=== PATIENT | female | born 1945 | race Hispanic/Latino ===

== ENCOUNTER 2016-06-09 15:16 | Inpatient (IN) | payer MEDICAID, MEDICARE ==
[2016-06-09] MEDS ORDERED: NACL 0.9% 1000 ML 1,000 ML IV ONE (16:01)
[2016-06-09 16:30] LABS: Basophils % (Auto) 0.7 % (0.0-1.8); Eosinophils % (Auto) 6.4 % (0.0-4.3); Hematocrit 22.7 % (30.3-42.9); Hemoglobin 7.3 gm/dl (10.1-14.3); Mean Corpuscular HGB Conc 32 % (30-34); Mean Corpuscular Hemoglobin 27 pg (28-32); Mean Corpuscular Volume 83 fl (79-97); Platelet Count 284 K/mm3 (140-440); Red Blood Count 2.73 M/mm3 (3.65-5.03); Red Cell Distribution Width 14.4 % (13.2-15.2); White Blood Count 6.3 K/mm3 (4.5-11.0)
[2016-06-09 16:42] LABS: INR 1.1 (0.87-1.13)
[2016-06-09 16:43] LABS: Partial Thromboplastin Time 34.6 Sec. (24.2-36.6)
[2016-06-09 16:47] LABS: Chloride 100.5 mmol/L (98-107)
[2016-06-09 17:35] LABS: Hematocrit 22.7 % (30.3-42.9); Hemoglobin 7.2 gm/dl (10.1-14.3); Mean Corpuscular HGB Conc 32 % (30-34); Mean Corpuscular Hemoglobin 26 pg (28-32); Mean Corpuscular Volume 83 fl (79-97); Platelet Count 279 K/mm3 (140-440); Red Blood Count 2.73 M/mm3 (3.65-5.03); Red Cell Distribution Width 14.7 % (13.2-15.2); White Blood Count 6.6 K/mm3 (4.5-11.0)
[2016-06-09 17:38] LABS: Potassium 5.3 mmol/L (3.6-5.0)
[2016-06-09] MEDS ORDERED: NACL 0.9% 500 ML 500 ML IV ONE (18:53)
[2016-06-09] MEDS ORDERED: KIONEX PO ONE (18:53)
--- NOTE | 2016-06-09 18:56 | Emergency Department Report ---
HPI - General Chief Complaint: Recheck/Abnormal Lab/Rx Time Seen by Provider: 06/09/16 16:03 - HPI HPI: The patient is a 70-year-old female with a history of anemia, who presents for evaluation of generalized weakness. The patient reports generalized weakness for the past 2-3 days, progressive, constant severe for the past one day, exacerbated with attempted physical activity. The patient denies fever, headache , neck pain, paresthesias, focal motor weakness, blurry vision, ear pain, tinnitus, chest pain, hemoptysis, dyspnea, abdominal pain, confusion or altered mental status, or recent URI or diarrhea. ED Past Medical Hx - Past Medical History Hx Hypertension: Yes Hx Heart Attack/AMI: No Hx Congestive Heart Failure: No Hx Diabetes: No Hx Deep Vein Thrombosis: Yes (hx LLExt.) Hx Pulmonary Embolism: No Hx GERD: Yes Hx Liver Disease: No Hx Renal Disease: No Hx Sickle Cell Disease: No Hx Arthritis: No Hx Seizures: No Hx Kidney Stones: No Hx Psychiatric Treatment: Yes (anxiety, depression, schizophrenia) Hx Asthma: No Hx COPD: Yes Hx Tuberculosis: No Hx Dementia: Yes Hx HIV: No Additional medical history: High cholesterol. Schizophrenia, left hip fracture, left arm fracture, displaced fracture of 1st cervical vertebra, GERD, DVT LLE, generalized muscle weakness - Surgical History Hx Coronary Stent: No Hx Pacemaker: No Hx Internal Defibrillator: No Additional Surgical History: ORIF left hip - Social History Smoking Status: Current Some Day Smoker Substance Use Type: None - Medications Home Medications: Home Medications Medication Instructions Recorded Confirmed Last Taken Type Tiotropium [Spiriva] 18 mcg IH QDAY 05/02/15 06/09/16 01/01/16 History ALBUTEROL Inhaler [ProAir HFA 2 puff IH QID PRN 08/18/15 02/03/16 01/01/16 History Inhaler] Mirtazapine [Remeron] 15 mg PO QHS 02/03/16 02/03/16 Unknown History Pantoprazole [Protonix TAB] 40 mg PO BID #60 tablet 02/09/16 Unknown Rx amLODIPine [Norvasc] 10 mg PO QDAY #30 tablet 02/09/16 Unknown Rx Sucralfate [Carafate] 1 gm PO Q6H 30 Days 02/11/16 06/09/16 Unknown Rx Acetaminophen 650 mg PO Q4H PRN 06/09/16 06/09/16 Unknown History Carvedilol [Coreg] 12.5 mg PO BID 06/09/16 06/09/16 Unknown History Cholecalciferol Vit D3 [Vitamin D3] 1,000 unit PO QDAY 06/09/16 06/09/16 Unknown History Mirtazapine 7.5 mg PO HS 06/09/16 06/09/16 Unknown History Novolin R Per Sc 06/09/16 Unknown History Ondansetron [Zofran TAB] 4 mg PO Q8HR PRN 06/09/16 06/09/16 Unknown History Pantoprazole [Protonix] 40 mg PO QDAY 06/09/16 06/09/16 Unknown History ED Review of Systems ROS: Stated complaint: CRITICAL LABS Other details as noted in HPI Constitutional: denies: fever; reports weakness ENT: denies: throat or neck pain Respiratory: denies: cough, shortness of breath Cardiovascular: denies: chest pain Endocrine: denies unexplained weight loss or gain Gastrointestinal: denies: abdominal pain, nausea Genitourinary: denies: dysuria Musculoskeletal: denies: leg swelling Skin: denies: rash Neurological: denies: headache Hematological/Lymphatic: denies: easy bleeding or easy bruising Psych: denies sadness or hopelessness Physical Exam - Physical Exam Vital Signs: Vital Signs 06/09/16 06/09/16 06/09/16 15:22 15:30 15:33 Temperature 98.2 F Pulse Rate 75 74 78 Respiratory 16 16 18 Rate Blood Pressure 102/66 115/62 O2 Sat by Pulse 96 97 Oximetry 06/09/16 06/09/16 06/09/16 15:41 15:51 16:01 Temperature Pulse Rate 76 77 75 Respiratory 16 21 22 Rate Blood Pressure 102/66 109/60 103/53 O2 Sat by Pulse 93 96 92 Oximetry 06/09/16 06/09/16 06/09/16 16:11 16:21 16:24 Temperature Pulse Rate 79 77 Respiratory 20 16 18 Rate Blood Pressure 109/60 106/57 O2 Sat by Pulse 97 95 100 Oximetry 06/09/16 06/09/16 06/09/16 16:31 16:41 16:49 Temperature Pulse Rate 75 81 74 Respiratory 18 25 H Rate Blood Pressure 104/49 104/49 O2 Sat by Pulse 94 87 Oximetry Physical Exam: General: well-nourished, well-developed, no acute distress Head: Normocephalic, atraumatic Eyes: normal sclera ENT: Mucous membranes are pale and dry Neck: No neck stiffness, no cervical adenopathy Respiratory: Breath sounds equal bilaterally, no wheezing, rales, or rhonchi Cardio: S1 and S2 present, no murmurs, rubs, gallops, capillary refill is delayed Abdomen: Normoactive bowel sounds, soft abdomen, no rigidity, no guarding or rebound tenderness Chest WALL/Back: No tenderness to palpation of the chest wall, no CVA tenderness with percussion Musc: No pitting edema Skin: No rash Neuro: no facial drooping, normal speech Psych: Normal affect ED Course Vital Signs 06/09/16 06/09/16 06/09/16 15:22 15:30 15:33 Temperature 98.2 F Pulse Rate 75 74 78 Respiratory 16 16 18 Rate Blood Pressure 102/66 115/62 O2 Sat by Pulse 96 97 Oximetry 06/09/16 06/09/16 06/09/16 15:41 15:51 16:01 Temperature Pulse Rate 76 77 75 Respiratory 16 21 22 Rate Blood Pressure 102/66 109/60 103/53 O2 Sat by Pulse 93 96 92 Oximetry 06/09/16 06/09/16 06/09/16 16:11 16:21 16:24 Temperature Pulse Rate 79 77 Respiratory 20 16 18 Rate Blood Pressure 109/60 106/57 O2 Sat by Pulse 97 95 100 Oximetry 06/09/16 06/09/16 06/09/16 16:31 16:41 16:49 Temperature Pulse Rate 75 81 74 Respiratory 18 25 H Rate Blood Pressure 104/49 104/49 O2 Sat by Pulse 94 87 Oximetry ED Medical Decision Making - Lab Data Result diagrams: 06/09/16 17:09 06/09/16 16:10 - Medical Decision Making The patient was seen and examined by myself. The patient is placed on a environmental monitoring technician and continuous pulse ox. On initial evaluation, the patient was found to be in no distress. Evaluation orders were placed. The patient is given 1 L normal saline fluid bolus for treatment of dehydration. Lab results reveal elevated creatinine of 3, elevated potassium level 5.3, and low hemoglobin of 7.2. kayexalate is ordered for treatment of hyperkalemia. One unit of PRBCs ordered. The on-call hospitalist service was contacted. They agreed to admit the patient for further treatment and close monitoring. The ED admit order was placed. The patient was admitted in guarded condition. Critical care attestation.: If time is entered above; I have spent that time in minutes in the direct care of this critically ill patient, excluding procedure time. ED Disposition Clinical Impression: Severe anemia, Acute hyperkalemia, Dehydration Acute kidney failure Qualifiers: Acute renal failure type: unspecified Qualified Code(s): N17.9 - Acute kidney failure, unspecified Disposition: OP ADMITTED IP TO THIS HOSP Is pt being admited?: Yes Does the pt Need Aspirin: Yes Condition: Serious Referrals: PRIMARY CARE, [Primary Care Provider] - 3-5 Days Time of Disposition: 17:54
--- NOTE | 2016-06-09 19:02 | Admit Criteria Form ---
Admission Criteria Documentation: HYPONATREMIA; HYPERNATREMIA; HYPOKALEMIA; HYPERKALEMIA; HYPOCALCEMIA; HYPERCALCEMIA Clinical Indications for Inpatient Care (Place 'X' for any and all applicable criteria): Ongoing inpatient care may be indicated for ANY ONE of the following [G](1)(2)(3 )(5): [ ]I. Hyponatremia with ANY ONE of the following: [ ]a) Sodium less than 130 mEq/L (mmol/L) (new) (6)(22) [ ]b) Sodium less than 135 mEq/L (mmol/L) with ANY ONE of the following: [ ]i) Severe medical etiology requiring inpatient management (eg, heart failure, hypovolemia) [ ]ii) Altered mental status [ ]iii) Seizures [ ]II. Hypernatremia with ANY ONE of the following: [ ]a) Sodium greater than 155 mEq/L (mmol/L) [ ]b) Sodium greater than 150 mEq/L (mmol/L) with ANY ONE of the following: [ ] i) Altered mental status [ ]ii) Seizures [ ]iii) Severe medical etiology (eg, hypovolemia, diabetes insipidus) [ ]iv) Severe weakness [ ]v) Severe medical etiology (eg, hemolysis, infection, drug overdose) [ ]III. Hypokalemia with ANY ONE of the following: [ ]a) Potassium less than 2.5 mEq/L (mmol/L) despite outpatient and emergency treatment [ ]b) Potassium less than 3.0 mEq/L (mmol/L) with ANY ONE of the following: [ ]i) Weakness [ ]ii) Cardiac abnormality (eg, arrhythmia, conduction disturbance) [ ]iii) Cardiac ischemia [ ]iv) Ileus [ ]v) Ongoing medical cause requiring inpatient management. ( e.g., acute renal wasting, SIADH) [ ]vi) Other severe symptoms [X ] IV. Hyperkalemia with ANY ONE of the following: [ ]a) Potassium greater than 6.5 mEq/L (mmol/L) [X ]b) Potassium greater than 5 mEq/L (mmol/L) with ANY ONE of the following: [ ]i) Severe ECG findings [H] [X ]ii) Acute worsening of renal failure (creatinine greater than 2.5 mg/dL (221 micromoles/L) or significant elevation for age and size) [ ] V. Hypocalcemia with ANY ONE of the following: [ ]a) Calcium less than 7 mg/dL (1.75 mmol/L) despite outpatient and emergency treatment(19) [ ]b) Calcium less than 8 mg/dL (2 mmol/L) with significant symptoms or findings; examples include: [ ]i) Cardiac abnormality (eg, arrhythmia or conduction disturbance) [ ]ii) Altered mental status [ ]iii) Seizures [ ]iv) Breathing difficulty [ ]v) Muscle spasms [ ]. Hypercalcemia with ANY ONE of the following: [ ]a) Calcium greater than 14 mg/dL (3.5 mmol/L) [ ]b) Calcium greater than 12 mg/dL (3 mmol/L) with ANY ONE of the following: [ ]i) Significant dehydration or hypovolemia as indicated by ANY ONE of the following(2): [ ]1. Clinically significant dehydration as indicated by ANY ONE of the following: [ ]A. Acute loss of weight from baseline (5% of body weight in adults, 9% in pediatric patients) [ ]B. Hemodynamic instability [ ]C. Acute renal failure [ ]D. Serum sodium greater than 150 mEq/L (mmol/L) [ ]2) Dehydration that is persistent indicated by ALL of the following: [ ]A. Oral rehydration therapy not tolerated or insufficient to adequately correct dehydration [ ]B. Appropriate intravenous treatment (eg, fluids ) does not readily correct dehydration ie, after 12 to 24 hours of treatment) [ ]ii) Significant symptoms or findings; examples include: [ ]1) Altered mental status [ ]2) Cardiac abnormality (eg, arrhythmia, conduction disturbance) [ ]3) Cardiac abnormality (eg, arrhythmia, conduction disturbance) The original [employer] content created by [employer] has been revised. The portions of the content which have been revised are identified through the use of italic text or in bold, and [facility] [employer] has neither reviewed nor approved the modified material. All other unmodified content is copyright [facility] [employer] Please see references footnoted in the original [facility] [employer] edition 2016 Admission Criteria Met: Yes
[2016-06-09] MEDS ORDERED: NACL 0.9% 500 ML 500 ML ONE (21:33)
[2016-06-10] MEDS ORDERED: ZOFRAN IV PRN ×2 (02:17→02:27)
[2016-06-10] MEDS ORDERED: NACL 0.45% 1000 ML 1,000 ML IV SCH (03:00)
[2016-06-10] MEDS: PROVENTIL IH SCH ×5 (05:54→21:22)
[2016-06-10] MEDS ORDERED: ZOFRAN PO PRN (08:42)
[2016-06-10] MEDS ORDERED: PROAIR IH PRN (08:42)
--- NOTE | 2016-06-10 08:45 | Event Note ---
Date: 06/09/16 See H/p in reports Hyperkalemia Anemia Acute renal failure COPD GERD HTN
[2016-06-10] MEDS ORDERED: PROVENTIL IH PRN (08:48)
[2016-06-10] MEDS ORDERED: NACL 0.9% 1000 ML 1,000 ML IV SCH (09:00)
[2016-06-10 09:37] LABS: Basophils % (Auto) 0.7 % (0.0-1.8); Eosinophils % (Auto) 3.9 % (0.0-4.3); Hematocrit 26.8 % (30.3-42.9); Hemoglobin 8.7 gm/dl (10.1-14.3); Mean Corpuscular HGB Conc 33 % (30-34); Mean Corpuscular Hemoglobin 27 pg (28-32); Mean Corpuscular Volume 83 fl (79-97); Platelet Count 273 K/mm3 (140-440); Red Blood Count 3.21 M/mm3 (3.65-5.03); White Blood Count 7.5 K/mm3 (4.5-11.0)
[2016-06-10 09:47] LABS: BUN/Creatinine Ratio 10.37; Calcium 8.3 mg/dL (8.4-10.2)
[2016-06-10 09:48] LABS: Chloride 108.2 mmol/L (98-107); Potassium 3.6 mmol/L (3.6-5.0)
--- NOTE | 2016-06-10 09:51 | Consultation ---
History of Present Illness - Reason for Consult Consult date: 06/10/16 acute renal failure, chronic renal failure, hyperkalemia - History of Present Illness The patient is a 70 year old WF with history significant for Hypertension, Dementia, COPD, [place] resident, GI bleed, Anemia and CKD stage 3 who presented for evaluation of generalized weakness. Patient is known to our service from previous admission, she was treated for DANYA and the creatinine was 3.5 at the time of discharge. Her creatinine was 3 yesterday and 2.7 today. Patient is very confused to give any history. Based on the ER notes she reported generalized weakness for the past 3 days, which is progressive, constant, severe on the day of presentation and exacerbated with attempted physical activity. Theere was no h/o fever, headache, neck pain, paresthesias, focal motor weakness, blurry vision, ear pain, tinnitus, chest pain, hemoptysis, dyspnea, abdominal pain, recent URI or diarrhea. Past History Past Medical History: anemia, COPD, hypertension, other (GI bleed, CKD stage 3, Dementia) Medications and Allergies Allergies Allergy/AdvReac Type Severity Reaction Status Date / Time No Known Allergies Allergy Verified 04/26/15 00:08 Home Medications Medication Instructions Recorded Confirmed Last Taken Type Tiotropium [Spiriva] 18 mcg IH QDAY 05/02/15 06/09/16 01/01/16 History ALBUTEROL Inhaler [ProAir HFA 2 puff IH QID PRN 08/18/15 02/03/16 01/01/16 History Inhaler] Mirtazapine [Remeron] 15 mg PO QHS 02/03/16 02/03/16 Unknown History Pantoprazole [Protonix TAB] 40 mg PO BID #60 tablet 02/09/16 Unknown Rx amLODIPine [Norvasc] 10 mg PO QDAY #30 tablet 02/09/16 Unknown Rx Sucralfate [Carafate] 1 gm PO Q6H 30 Days 02/11/16 06/09/16 Unknown Rx Acetaminophen 650 mg PO Q4H PRN 06/09/16 06/09/16 Unknown History Carvedilol [Coreg] 12.5 mg PO BID 06/09/16 06/09/16 Unknown History Cholecalciferol Vit D3 [Vitamin D3] 1,000 unit PO QDAY 06/09/16 06/09/16 Unknown History Mirtazapine 7.5 mg PO HS 06/09/16 06/09/16 Unknown History Novolin R Per Sc 06/09/16 Unknown History Ondansetron [Zofran TAB] 4 mg PO Q8HR PRN 06/09/16 06/09/16 Unknown History Pantoprazole [Protonix] 40 mg PO QDAY 06/09/16 06/09/16 Unknown History Active Meds: Active Medications Albuterol (Proventil) 2.5 mg IH QIDRT SAY Last Admin: 06/10/16 08:35 Dose: 2.5 mg Albuterol (Proventil) 2.5 mg IH QID PRN PRN Reason: Shortness Of Breath Amlodipine Besylate (Norvasc) 10 mg PO QDAY SAY Carvedilol (Coreg) 12.5 mg PO BID [facility] Sodium Chloride (Nacl 0.9% 1000 Ml) 1,000 mls @ 100 mls/hr IV DIRECT SAY Insulin Aspart (Novolog) 0 units SUB-Q ACHS SAY PRN Reason: Protocol Mirtazapine (Remeron) 7.5 mg PO QHS SAY Ondansetron HCl (Zofran) 4 mg IV Q6H PRN PRN Reason: Nausea And Vomiting Last Admin: 06/10/16 02:38 Dose: 4 mg Ondansetron HCl (Zofran) 4 mg PO Q8HR PRN PRN Reason: Nausea Pantoprazole Sodium (Protonix) 40 mg PO QDAY [facility] Pantoprazole Sodium (Protonix) 40 mg IV BID [facility] Sucralfate (Carafate) 1 gm PO Q6H SAY Tiotropium [place] (Spiriva) 1 puff IH QDAY [facility] Review of Systems ROS unobtainable: due to mental status Exam - Vital Signs Vital signs: Vital Signs Pulse Resp 75 16 06/09/16 15:22 06/09/16 15:22 - General Appearance General appearance: well-developed, appears stated age, frail, other (no distress) EENT: PERRL, mucous membranes dry, hearing intact, vision intact Neck: Present: neck supple, trachea midline Respiratory: Ronchi (faint) Heart: regular, S1S2, no murmurs Gastrointestinal: Present: normoactive bowel sounds. Absent: tenderness, distended, guarding Integumentary: no rash, warm and dry Neurologic: no focal deficit, no asterixis, confused, disoriented, CN 3-12 intact Musculoskeletal: Present: other (no edema) Psychiatric: cooperative Results - Lab Results 06/10/16 08:14 06/10/16 08:14 Most recent lab results Calcium 8.3 mg/dL (8.4-10.2) L 06/10/16 08:14 - Image Kidney/bladder ultrasound: other Assessment and Plan - Patient Problems (1) Acute kidney failure Current Visit: Yes Status: Acute Qualifiers: Acute renal failure type: unspecified Qualified Code(s): N17.9 - Acute kidney failure, unspecified Plan to address problem: Acute Kidney Injury superimposed on CKD stage 3 likely secondary to volume depletion. Continue IV fluids. Creatinine is improving. Urine studies ordered. (2) Acute hyperkalemia Current Visit: Yes Status: Acute Plan to address problem: Improved with kayexalate. (3) Volume depletion Current Visit: Yes Status: Acute Plan to address problem: Continue IV 0.45% saline. (4) Anemia Current Visit: No Status: Chronic Qualifiers: Anemia type: unspecified type Iron deficiency anemia type: I Vitamin B12 deficiency anemia type: V Folate deficiency anemia type: F Bone marrow failure anemia type: B Hemolytic anemia type: H Other causes of anemia: O Qualified Code(s): D64.9 - Anemia, unspecified Plan to address problem: Monitor H/H. (5) COPD (chronic obstructive pulmonary disease) Current Visit: Yes Status: Acute Qualifiers: COPD type: C Chronic bronchitis type: C Emphysema type: E Plan to address problem: Appears stable.
[2016-06-10] MEDS ORDERED: PROTONIX PO SCH (10:00)
[2016-06-10 10:17] LABS: Total Iron Binding Capacity 354.2 mcg/dL (250-450)
[2016-06-10] MEDS: PROTONIX IV SCH ×2 (10:21→23:00)
[2016-06-10] MEDS: COREG PO SCH ×2 (10:21→22:51)
[2016-06-10] MEDS: NORVASC PO SCH (10:22)
[2016-06-10] MEDS: CARAFATE PO SCH ×3 (10:22→23:01)
--- NOTE | 2016-06-10 10:38 | History and Physical Report ---
CHIEF COMPLAINT: Generalized weakness. HISTORY OF PRESENT ILLNESS: A 70-year-old female comes in for generalized weakness for 2 to 3 days, progressive. Exacerbated with physical activity. Shortness of breath on minimal exertion. No fever, no chills. Recent onset of symptoms. The patient has multiple medical problems. The patient denies blurry vision, tinnitus, chest pain, hemoptysis, melena etc. No confusion or altered mental status. PAST MEDICAL HISTORY: Significant for hypertension, insulin-dependent diabetes, deep vein thrombosis in the past, gastroesophageal reflux disease, anxiety, depression, schizophrenia, COPD and dementia. PAST SURGICAL HISTORY: Left hip fracture, left arm fracture, ORIF open reduction and internal fixation of the left hip. No defibrillator. Also displaced fracture for cervical vertebrae. SOCIAL HISTORY: Smokes about a half-a-pack a day. FAMILY HISTORY: Significant for hypertension. REVIEW OF SYSTEMS: Significant for feeling very weak, tired and dyspnea on exertion; otherwise, review of systems is essentially negative. No nausea or bleed. No hematemesis, no melena. A 14-point review of systems was done. PHYSICAL EXAMINATION: GENERAL: Elderly female, cooperative during examination. VITAL SIGNS: Temperature 98.2, pulse is 75, respiratory rate is 60, and blood pressure is 102/66. HEENT: Pale mucous membranes. NECK: Supple, no lymphadenopathy, no thyromegaly. LUNGS: Clear to auscultation and percussion. Good air entry. CARDIOVASCULAR: S1, S2 heard. No gallop, no murmur, no rub. Apical impulse in left fifth intercostal space and midclavicular line. ABDOMEN: Soft and benign. No hepatosplenomegaly. No guarding, no rigidity. Hernial orifices are normal. Occult blood negative. EXTREMITIES: Good pedal pulses. No pedal edema. CENTRAL NERVOUS SYSTEM: Alert and oriented x 4, nonfocal exam. LABORATORY DATA: Significant for hemoglobin of 7.2, hematocrit of 22.7. Sodium of 136, slightly low; potassium of 5.3, BUN and creatinine of 33 and 3.0. IMAGING STUDIES: Chest x-ray was not done. ASSESSMENT AND PLAN: 1. Acute renal failure, etiology , we will start IV fluids and Nephrology consult requested. 2. Acute anemia, etiology unclear. Gastroenterology consult requested. Iron studies and folic acid, B12 ordered. Transfuse 1 unit of blood. 3. Hyperkalemia, Kayexalate given. Recheck the potassium. 4. Insulin-dependent diabetes, high dose sliding scale coverage and check A1c. 5. Chronic obstructive pulmonary disease. Continue Spiriva and bronchodilators. 6. Hypertension. Continue Coreg 12.5 b.i.d. 7. Vitamin D deficiency. We will hold the vitamin D3 for the time being. 8. Deep venous thrombosis prophylaxis, Lovenox 40 mg subcutaneous daily. [facility]# [id number] VSM/NTS
[2016-06-10] MEDS: NOVOLOG SUB-Q SCH ×2 (11:30→17:00)
[2016-06-10] MEDS: SPIRIVA IH SCH (11:55)
--- NOTE | 2016-06-10 15:37 | Gastroenterology Consultation ---
History of Present Illness - Reason for Consult Consult date: 06/10/16 anemia Requesting physician: ALEXANDRIA BARR - History of Present Illness Ms Arvizu is a 70 yo wf who presents from OR with weakness and ARF. Pt known to GI service for prior evaluation of chronic anemia. Most of history obtained from chart review as pt unable to provide much details (unknown mental status baseline). Patient has had chronic anemia which is similar on this admission. She denies signs of overt GI bleeding. She has had multiple prior EGD's showing severe esophagitis. No reported bleeding episodes since admission. Pt denies abd pain, dysphagia, n/v, or change in bowel habits. Past History Past Medical History: anemia, COPD, hypertension, other (GI bleed, CKD stage 3, Dementia) Social history: other (group home) Family history: no significant family history Medications and Allergies Allergies Allergy/AdvReac Type Severity Reaction Status Date / Time No Known Allergies Allergy Verified 04/26/15 00:08 Home Medications Medication Instructions Recorded Confirmed Last Taken Type Tiotropium [Spiriva] 18 mcg IH QDAY 05/02/15 06/09/16 01/01/16 History ALBUTEROL Inhaler [ProAir HFA 2 puff IH QID PRN 08/18/15 02/03/16 01/01/16 History Inhaler] Mirtazapine [Remeron] 15 mg PO QHS 02/03/16 02/03/16 Unknown History Pantoprazole [Protonix TAB] 40 mg PO BID #60 tablet 02/09/16 Unknown Rx amLODIPine [Norvasc] 10 mg PO QDAY #30 tablet 02/09/16 Unknown Rx Sucralfate [Carafate] 1 gm PO Q6H 30 Days 02/11/16 06/09/16 Unknown Rx Acetaminophen 650 mg PO Q4H PRN 06/09/16 06/09/16 Unknown History Carvedilol [Coreg] 12.5 mg PO BID 06/09/16 06/09/16 Unknown History Cholecalciferol Vit D3 [Vitamin D3] 1,000 unit PO QDAY 06/09/16 06/09/16 Unknown History Mirtazapine 7.5 mg PO HS 06/09/16 06/09/16 Unknown History Novolin R Per Sc 06/09/16 Unknown History Ondansetron [Zofran TAB] 4 mg PO Q8HR PRN 06/09/16 06/09/16 Unknown History Pantoprazole [Protonix] 40 mg PO QDAY 06/09/16 06/09/16 Unknown History Active Meds: Active Medications Albuterol (Proventil) 2.5 mg IH QIDRT [facility] Last Admin: 06/10/16 11:50 Dose: 2.5 mg Albuterol (Proventil) 2.5 mg IH QID PRN PRN Reason: Shortness Of Breath Amlodipine Besylate (Norvasc) 10 mg PO QDAY [facility] Last Admin: 06/10/16 10:22 Dose: 10 mg Carvedilol (Coreg) 12.5 mg PO BID [facility] Last Admin: 06/10/16 10:21 Dose: 12.5 mg Sodium Chloride (Nacl 0.9% 1000 Ml) 1,000 mls @ 100 mls/hr IV DIRECT [facility] Insulin Aspart (Novolog) 0 units SUB-Q ACHS [facility] PRN Reason: Protocol Mirtazapine (Remeron) 7.5 mg PO QHS [facility] Ondansetron HCl (Zofran) 4 mg IV Q6H PRN PRN Reason: Nausea And Vomiting Last Admin: 06/10/16 02:38 Dose: 4 mg Ondansetron HCl (Zofran) 4 mg PO Q8HR PRN PRN Reason: Nausea Pantoprazole Sodium (Protonix) 40 mg IV BID [facility] Last Admin: 06/10/16 10:21 Dose: 40 mg Sucralfate (Carafate) 1 gm PO Q6H [facility] Last Admin: 06/10/16 10:22 Dose: 1 gm Tiotropium [place] (Spiriva) 1 puff IH QDAY [facility] Last Admin: 06/10/16 11:55 Dose: Not Given Review of Systems - Review of Systems All systems: negative Constitutional: fatigue, weakness Exam - Constitutional Vital Signs: Temp Pulse Resp BP Pulse Ox 98.1 F 69 18 118/74 96 06/10/16 08:00 06/10/16 11:57 06/10/16 11:57 06/10/16 08:00 06/10/16 08:35 General appearance: no acute distress - EENT Eyes: PERRL, EOM intact ENT: hearing intact, clear oral mucosa - Respiratory Respiratory effort: normal Respiratory: bilateral: CTA - Cardiovascular Rhythm: regular Heart Sounds: Present: S1 & S2 Extremities: No edema - Gastrointestinal General gastrointestinal: Present: soft, non-tender, non-distended, normal bowel sounds - Integumentary Integumentary: Present: clear, dry - Musculoskeletal Musculoskeletal: normal - Neurologic Neurological: oriented to person - Labs CBC & Chem 7: 06/10/16 08:14 06/10/16 08:14 Lab Results: Laboratory Results - last 24 hr 06/10/16 06/10/16 06/10/16 08:14 08:14 09:28 WBC 7.5 RBC 3.21 L Hgb 8.7 L Hct 26.8 L MCV 83 MCH 27 L MCHC 33 RDW 14.0 Plt Count 273 Lymph % (Auto) 18.9 [place] % (Auto) 7.3 Eos % (Auto) 3.9 Baso % (Auto) 0.7 Lymph # 1.4 [place] # 0.5 Eos # 0.3 Baso # 0.1 Seg Neutrophils % 69.2 Seg Neutrophils # 5.2 Sodium 146 H D Potassium 3.6 D Chloride 108.2 H Carbon Dioxide 22 Anion Gap 19 BUN 28 H Creatinine 2.7 H Estimated GFR 18 BUN/Creatinine Ratio 10.37 Glucose 83 POC Glucose Calcium 8.3 L Iron 160 TIBC 354.20 % Saturation 45.17 Transferrin 253 Vitamin B12 06/10/16 06/10/16 09:28 12:06 WBC RBC Hgb Hct MCV MCH MCHC RDW Plt Count Lymph % (Auto) [place] % (Auto) Eos % (Auto) Baso % (Auto) Lymph # [place] # Eos # Baso # Seg Neutrophils % Seg Neutrophils # Sodium Potassium Chloride Carbon Dioxide Anion Gap BUN Creatinine Estimated GFR BUN/Creatinine Ratio Glucose POC Glucose 82 Calcium Iron TIBC % Saturation Transferrin Vitamin B12 497.7 Assessment and Plan chronic anemia - stable hct from prior admission, denies overt GI bleeding. iron studies normal. prior EGD's reviewed showing severe esophagitis and marlo erosions. cont PPI, hold off on further endoscopic evaluation unless pt shows signs of overt GI bleeding. will sign off, please call with questions
--- NOTE | 2016-06-10 15:49 | Progress Note ---
Assessment and Plan Assessment and plan: Acute anemia, s/p transfusion CKD stage 3 Hyperkalemia, s/p kayexalate IDDM type 2 COPD without exacerbation Vit D without exacerbation Dementia, at baseline Plan: Monitor H and H no further work up per GI, could be due to CKD resume home meds ADA diet with insulin coverage Monitor BP If H and H stable then will d/c tomorrow History Interval history: Patient seen and examined. no acute event reported by the RN She denies any acute issue, but she is a poor historian Hospitalist Physical - Constitutional Vitals: Temp Pulse Resp BP Pulse Ox 98.1 F 69 18 118/74 96 06/10/16 08:00 06/10/16 11:57 06/10/16 11:57 06/10/16 08:00 06/10/16 08:35 General appearance: Present: no acute distress, other (elderly white female) - EENT Eyes: Present: PERRL ENT: clear oral mucosa - Neck Neck: Present: supple, normal ROM - Respiratory Respiratory effort: normal Respiratory: bilateral: CTA - Cardiovascular Rhythm: regular Heart Sounds: Present: S1 & S2 - Extremities Extremities: no ischemia, No edema Peripheral Pulses: within normal limits - Abdominal General gastrointestinal: soft, non-tender, non-distended - Integumentary Integumentary: Present: warm, dry - Neurologic Neurologic: moves all extremities Results - Labs CBC & Chem 7: 06/10/16 08:14 06/10/16 08:14 Labs: Laboratory Last Values WBC 7.5 K/mm3 (4.5-11.0) 06/10/16 08:14 RBC 3.21 M/mm3 (3.65-5.03) L 06/10/16 08:14 Hgb 8.7 gm/dl (10.1-14.3) L 06/10/16 08:14 Hct 26.8 % (30.3-42.9) L 06/10/16 08:14 MCV 83 fl (79-97) 06/10/16 08:14 MCH 27 pg (28-32) L 06/10/16 08:14 MCHC 33 % (30-34) 06/10/16 08:14 RDW 14.0 % (13.2-15.2) 06/10/16 08:14 Plt Count 273 K/mm3 (140-440) 06/10/16 08:14 Lymph % (Auto) 18.9 % (13.4-35.0) 06/10/16 08:14 [place] % (Auto) 7.3 % (0.0-7.3) 06/10/16 08:14 Eos % (Auto) 3.9 % (0.0-4.3) 06/10/16 08:14 Baso % (Auto) 0.7 % (0.0-1.8) 06/10/16 08:14 Lymph # 1.4 K/mm3 (1.2-5.4) 06/10/16 08:14 [place] # 0.5 K/mm3 (0.0-0.8) 06/10/16 08:14 Eos # 0.3 K/mm3 (0.0-0.4) 06/10/16 08:14 Baso # 0.1 K/mm3 (0.0-0.1) 06/10/16 08:14 Seg Neutrophils % 69.2 % (40.0-70.0) 06/10/16 08:14 Seg Neutrophils # 5.2 K/mm3 (1.8-7.7) 06/10/16 08:14 PT 14.1 Sec. (12.2-14.9) 06/09/16 16:10 INR 1.10 (0.87-1.13) 06/09/16 16:10 APTT 34.6 Sec. (24.2-36.6) 06/09/16 16:10 Sodium 146 mmol/L (137-145) H D 06/10/16 08:14 Potassium 3.6 mmol/L (3.6-5.0) D 06/10/16 08:14 Chloride 108.2 mmol/L (98-107) H 06/10/16 08:14 Carbon Dioxide 22 mmol/L (22-30) 06/10/16 08:14 Anion Gap 19 mmol/L 06/10/16 08:14 BUN 28 mg/dL (7-17) H 06/10/16 08:14 Creatinine 2.7 mg/dL (0.7-1.2) H 06/10/16 08:14 Estimated GFR 18 ml/min 06/10/16 08:14 BUN/Creatinine Ratio 10.37 % 06/10/16 08:14 Glucose 83 mg/dL (65-100) 06/10/16 08:14 POC Glucose 82 (70-105) 06/10/16 12:06 Calcium 8.3 mg/dL (8.4-10.2) L 06/10/16 08:14 Iron 160 ug/dL (37-170) 06/10/16 09:28 TIBC 354.20 mcg/dL (250-450) 06/10/16 09:28 % Saturation 45.17 % 06/10/16 09:28 Transferrin 253 mg/dl (192-382) 06/10/16 09:28 Vitamin B12 497.7 pg/mL (211-911) 06/10/16 09:28 Blood Type A POSITIVE 06/09/16 16:10 Antibody Screen Positive 06/09/16 16:10 Antibody Identification Anti-E 06/09/16 16:10 Crossmatch See Detail 06/09/16 16:10
[2016-06-10] MEDS ORDERED: REMERON PO SCH (22:00)
[2016-06-11] MEDS: CARAFATE PO SCH ×2 (05:32→12:16)
[2016-06-11] MEDS: HEPARIN SUB-Q SCH ×2 (05:32→14:07)
--- NOTE | 2016-06-11 07:21 | Progress Note ---
Assessment and Plan - Patient Problems (1) Acute kidney failure Status: Acute Qualifiers: Acute renal failure type: unspecified Qualified Code(s): N17.9 - Acute kidney failure, unspecified Plan to address problem: Acute Kidney Injury superimposed on CKD stage 3 likely secondary to volume depletion. Continue IV fluids. Creatinine continues to improve. Urine studies ordered. (2) Acute hyperkalemia Status: Acute Plan to address problem: Improved with kayexalate. (3) Volume depletion Status: Acute Plan to address problem: Continue IV 0.45% saline. (4) Anemia Status: Chronic Qualifiers: Anemia type: unspecified type Iron deficiency anemia type: I Vitamin B12 deficiency anemia type: V Folate deficiency anemia type: F Bone marrow failure anemia type: B Hemolytic anemia type: H Other causes of anemia: O Qualified Code(s): D64.9 - Anemia, unspecified Plan to address problem: Monitor H/H. (5) COPD (chronic obstructive pulmonary disease) Status: Chronic Qualifiers: COPD type: C Chronic bronchitis type: C Emphysema type: E Plan to address problem: Appears stable. Subjective Date of service: 06/11/16 Interval history: No acute events overnight. Objective - Vital Signs Vital signs: Vital Signs - 12hr 06/10/16 06/10/16 06/10/16 21:23 21:35 22:00 Temperature Pulse Rate [ 93 H 89 Anterior Bilateral Throughout] Pulse Rate [ 88 Left Radial] Respiratory Rate Respiratory 18 18 Rate [Anterior Bilateral Throughout] Blood Pressure 118/57 [Left Arm] O2 Sat by Pulse 96 Oximetry 06/11/16 00:00 Temperature 98.5 F Pulse Rate [ Anterior Bilateral Throughout] Pulse Rate [ 82 Left Radial] Respiratory 18 Rate Respiratory Rate [Anterior Bilateral Throughout] Blood Pressure 116/61 [Left Arm] O2 Sat by Pulse 94 Oximetry - General Appearance General appearance: well-developed, appears stated age, frail, other (no distress) EENT: PERRL, mucous membranes moist, hearing intact Neck: no JVD, supple Respiratory: Present: Clear to Ascultation Cardiology: regular, S1S2, no murmurs Gastrointestinal: normoactive bowel sounds, no tenderness Integumentary: no rash, warm and dry Neurologic: no focal deficit, confused, disoriented Musculoskeletal: other Psychiatric: cooperative - Lab 06/10/16 08:14 06/11/16 08:09 Most recent lab results Calcium 8.3 mg/dL (8.4-10.2) L 06/10/16 08:14
[2016-06-11] MEDS: PROVENTIL IH SCH ×2 (08:29→12:30)
[2016-06-11 08:52] LABS: Albumin 3.3 g/dL (3.9-5); Albumin/Globulin Ratio 1.1 %; BUN/Creatinine Ratio 9.56; Bilirubin,Total 0.3 mg/dL (0.1-1.2); Chloride 106.3 mmol/L (98-107); Phosphorous 3.5 mg/dL (2.5-4.5); Potassium 3.4 mmol/L (3.6-5.0); Total Protein 6.3 g/dL (6.3-8.2)
[2016-06-11] MEDS: COREG PO SCH (09:40)
[2016-06-11] MEDS: NORVASC PO SCH (09:40)
[2016-06-11] MEDS: PROTONIX IV SCH (09:40)
--- NOTE | 2016-06-11 11:15 | Discharge Summary ---
Providers - Providers Date of Admission: 06/09/16 19:13 Date of discharge: 06/11/16 Attending physician: ALEXANDRIA BARR 06/10/16 08:46 Consult to Physician [CONS] Routine Consulting Provider: AZUL VALDIVIA Reason For Exam: ARF Place consult to:: DR. VALDIVIA Notified:: DR. VALDIVIA Phone number called:: [phone] Was contact made?: Yes If yes, spoke with:: DR. VALDIVIA Time called:: 09:14 Comment:: JOSEF CORONEL 06/10/16 08:50 Consult to Physician [CONS] Routine Consulting Provider: DESTINEE ROSALES Reason For Exam: anemia-GI cause?? Place consult to:: DR. ROSALES Notified:: OFFICE Phone number called:: [phone] Was contact made?: Yes If yes, spoke with:: LEROY Time called:: 09:19 Comment:: JOSEF NOTIFCHANTE Primary care physician: [employer] Hospitalization Condition: Serious Hospital course: Discharge Diagnosis: Acute on chronic anemia, s/p transfusion, no further work up per GI Acute dehydration, likely poor oral intake, resolved CKD stage 3, Cr stable Hyperkalemia, s/p kayexalate, likely due to dehydration and CKD IDDM type 2 COPD without exacerbation Vit D on replacement Dementia, at baseline Disposition: DC/TX SNF [facility] Time spent for discharge: 32 minutes Core Measure Documentation - Palliative Care Palliative Care/ Comfort Measures: Not Applicable - Core Measures Any of the following diagnoses?: none Exam - Constitutional Vitals: Temp Pulse Resp BP Pulse Ox 98 F 86 20 116/70 98 06/11/16 07:30 06/11/16 07:30 06/11/16 07:30 06/11/16 07:30 06/11/16 07:30 Plan Activity: fall precautions Weight Bearing Status: Non-Weight Bearing Diet: diabetic, renal Follow up with: PRIMARY CARE, [Primary Care Provider] - 3-5 Days
[2016-06-11] MEDS: K-DUR PO SCH ×2 (12:15→14:07)
[2016-06-11] MEDS: SPIRIVA IH SCH (14:45)
[2016-06-11 16:00] VITALS: BP 120/58
[2016-06-11] MEDS ORDERED: PROTONIX PO SCH (22:00)
== END 2016-06-11 16:00 | DRG 684 ==
LOC: ED 15:16 → 3A 19:13
PROVIDERS: ADMIT Internal Medicine; ATTEND Internal Medicine
PROC: 30233N1 Transfusion of Nonautologous Red Blood Cells into Peripheral Vein, Percutaneous Approach (ICD-10-PCS; principal; 2016-06-09)
DX: N17.9 Acute kidney failure, unspecified (principal); I12.9 Hypertensive chronic kidney disease with stage 1 through stage 4 chronic kidney disease, or unspecified chronic kidney disease; D64.9 Anemia, unspecified; E87.5 Hyperkalemia; E11.22 Type 2 diabetes mellitus with diabetic chronic kidney disease; N18.3 Chronic kidney disease, stage 3 (moderate); K21.9 Gastro-esophageal reflux disease without esophagitis; E86.0 Dehydration; F41.9 Anxiety disorder, unspecified; F32.9 Major depressive disorder, single episode, unspecified; F20.9 Schizophrenia, unspecified; J44.9 Chronic obstructive pulmonary disease, unspecified; E78.00 Pure hypercholesterolemia, unspecified; F17.200 Nicotine dependence, unspecified, uncomplicated; E55.9 Vitamin D deficiency, unspecified; Z79.899 Other long term (current) drug therapy; Z82.49 Family history of ischemic heart disease and other diseases of the circulatory system; Z79.4 Long term (current) use of insulin; Z86.718 Personal history of other venous thrombosis and embolism
CPT/HCPCS: 36415; 36430; 80048; 80053; 82550; 82607; 82747; 82962; 83036; 83550; 84100; 85025; 85027; 85610; 85730; 86850; 86870; 86900; 86901; 86902; 86922; 94640; 94760; 96360; 96361; C9113; J1644; J2405; J7030; J7040; P9016

== ENCOUNTER 2016-07-07 18:06 | Emergency (ER) | payer MEDICARE ==
[2016-07-07 19:23] LABS: Basophils % (Auto) 1.2 % (0.0-1.8); Hematocrit 22.2 % (30.3-42.9); Hemoglobin 7.1 gm/dl (10.1-14.3); Mean Corpuscular HGB Conc 32 % (30-34); Mean Corpuscular Volume 79 fl (79-97); Platelet Count 305 K/mm3 (140-440); Red Blood Count 2.79 M/mm3 (3.65-5.03); Red Cell Distribution Width 15.1 % (13.2-15.2); White Blood Count 6.9 K/mm3 (4.5-11.0)
[2016-07-07 19:25] LABS: Mean Corpuscular Hemoglobin 25 pg (28-32)
--- NOTE | 2016-07-07 19:25 | Emergency Department Report ---
HPI - General Chief Complaint: Recheck/Abnormal Lab/Rx Time Seen by Provider: 07/07/16 18:56 - HPI HPI: This is a 71-year-old female who presents to the emergency department via EMS from [facility] with abnormal lab values and possibly altered mental status. The patient has multiple lab results attached to her chart that show a hemoglobin that has been decreasing from 7.2-6.4 today. She does have a history of chronic kidney disease but does not appear to be on dialysis. The transfer form mentions altered mental status, however one of the patient's many diagnoses includes dementia and cognitive communication deficit. Patient is pleasantly confused at AO [address] but not time. She has no physical complaints. She is a poor historian. ED Past Medical Hx - Past Medical History Previous Medical History?: Yes Hx Hypertension: Yes Hx Heart Attack/AMI: No Hx Congestive Heart Failure: No Hx Diabetes: No Hx Deep Vein Thrombosis: Yes (hx LLExt.) Hx Pulmonary Embolism: No Hx GERD: Yes Hx Liver Disease: No Hx Renal Disease: No Hx Sickle Cell Disease: No Hx Arthritis: No Hx Seizures: No Hx Kidney Stones: No Hx Psychiatric Treatment: Yes (anxiety, depression, schizophrenia) Hx Asthma: No Hx COPD: Yes Hx Tuberculosis: No Hx Dementia: No Hx HIV: No Additional medical history: High cholesterol. Schizophrenia, left hip fracture, left arm fracture, displaced fracture of 1st cervical vertebra, GERD, DVT LLE, generalized muscle weakness - Surgical History Past Surgical History?: Yes Hx Coronary Stent: No Hx Pacemaker: No Hx Internal Defibrillator: No Additional Surgical History: ORIF left hip - Social History Smoking Status: Never Smoker Substance Use Type: None - Medications Home Medications: Home Medications Medication Instructions Recorded Confirmed Last Taken Type Tiotropium [Spiriva] 18 mcg IH QDAY 05/02/15 06/09/16 01/01/16 History ALBUTEROL Inhaler [ProAir HFA 2 puff IH QID PRN 08/18/15 02/03/16 01/01/16 History Inhaler] amLODIPine [Norvasc] 10 mg PO QDAY #30 tablet 02/09/16 Unknown Rx Sucralfate [Carafate] 1 gm PO Q6H 30 Days 02/11/16 06/09/16 Unknown Rx Acetaminophen 650 mg PO Q4H PRN 06/09/16 06/09/16 Unknown History Carvedilol [Coreg] 12.5 mg PO BID 06/09/16 06/09/16 Unknown History Cholecalciferol Vit D3 [Vitamin D3] 1,000 unit PO QDAY 06/09/16 06/09/16 Unknown History Mirtazapine 7.5 mg PO HS 06/09/16 06/09/16 Unknown History Novolin R Per Sc 06/09/16 Unknown History Ondansetron [Zofran TAB] 4 mg PO Q8HR PRN 06/09/16 06/09/16 Unknown History Pantoprazole [Protonix TAB] 40 mg PO QDAY 06/09/16 06/09/16 Unknown History Nitrofurantoin [place]/M-Cryst 100 mg PO Q12HR #14 capsule 07/08/16 Unknown Rx [Macrobid CAP] ED Review of Systems ROS: Stated complaint: ABNORMAL LABS Other details as noted in HPI Comment: Unobtainable due to pts medical conditions Physical Exam - Physical Exam Vital Signs: Vital Signs 07/07/16 18:59 Temperature 98.2 F Pulse Rate 76 Respiratory 18 Rate Blood Pressure 120/70 [Left] O2 Sat by Pulse 99 Oximetry Physical Exam: GENERAL: The patient is well-developed well-nourished. Patient does not appear in any acute distress. HEENT: Normocephalic. Atraumatic. Extraocular motions are intact. Patient has moist mucous membranes. Pupils equal reactive to light bilaterally. NECK: Supple. Trachea is midline. CHEST/LUNGS: Clear to auscultation. There is no respiratory distress noted. HEART/CARDIOVASCULAR: Regular. There is no tachycardia. There is no gallop rub or murmur. ABDOMEN: Abdomen is soft, nontender. Patient has normal bowel sounds. There is no abdominal distention. SKIN: There is no rash. There is no edema. There is no diaphoresis. NEURO: The patient is awake, alert. AAO [address] but not time. The patient is cooperative. The patient has no focal neurologic deficits. The patient has normal speech. Cranial nerves II through XII grossly intact. MUSCULOSKELETAL: There is no tenderness or deformity. There is no limitation range of motion. There is no evidence of acute injury. ED Course Vital Signs 07/07/16 18:59 Temperature 98.2 F Pulse Rate 76 Respiratory 18 Rate Blood Pressure 120/70 [Left] O2 Sat by Pulse 99 Oximetry ED Medical Decision Making - Lab Data Result diagrams: 07/07/16 19:09 07/07/16 20:03 - EKG Data -: EKG Interpreted by Me EKG shows normal: sinus rhythm, axis, intervals, QRS complexes, ST-T waves Rate: normal - EKG Data When compared to previous EKG there are: no significant change Interpretation: normal EKG, unchanged when compared t (11/10/12) - Medical Decision Making This is a 71-year-old female presents to the emergency department from [facility] in order to evaluate her recent anemia with a lab value from yesterday that showed a hemoglobin of 6.4. Patient has a history of dementia but we called [facility] and spoke with the nursing staff who said that there is no altered mental status and that the patient is at her baseline and that she was sent solely for the abnormal lab value. Patient's labs today show a hemoglobin of 7.1. There is some renal insufficiency but it is chronic and consistent with previous visits. Patient may also have a very mild urinary tract infection with 17 white blood cells in the urine. There is no obvious bleeding and with the chronic kidney disease the patient's anemia may be anemia of chronic kidney disease. However since the patient did have the transient level of 6.4 proven on her lab work from yesterday, I decided to give the patient a 1 unit transfusion of packed red blood cells. The patient was monitored throughout the transfusion and there has been no complications. Her vital signs are stable throughout her ED course. Since the patient should have a more stable hemoglobin, is at her baseline mentation, and has been stable throughout her ED course, I feel she is safe for discharge back to [facility]. She is to follow-up with her primary care doctor and will return to the ER with any worsening of her symptoms or any acute distress. - Differential Diagnosis iron deficiency, anemia of chronic kidney disease, folate deficiency Critical Care Time: No Critical care attestation.: If time is entered above; I have spent that time in minutes in the direct care of this critically ill patient, excluding procedure time. ED Disposition Clinical Impression: Anemia due to chronic kidney disease CKD (chronic kidney disease) Qualifiers: Chronic kidney disease stage: unspecified stage Qualified Code(s): N18.9 - Chronic kidney disease, unspecified UTI (urinary tract infection) Qualifiers: Urinary tract infection type: acute cystitis Hematuria presence: without hematuria Qualified Code(s): N30.00 - Acute cystitis without hematuria Disposition: DISCHARGED TO HOME OR SELFCARE Is pt being admited?: No Condition: Stable Instructions: Anemia (ED), Chronic Kidney Disease (ED), Urinary Tract Infection in Women (ED) Additional Instructions: Please follow-up with your primary care doctor. Return to the emergency department with any worsening of your symptoms or any acute distress. Prescriptions: Nitrofurantoin [place]/M-Cryst [Macrobid CAP] 100 mg PO Q12HR #14 capsule Referrals: PRIMARY CARE, [Primary Care Provider] - 3-5 Days Time of Disposition: 00:26
[2016-07-07 20:01] LABS: Urine Drugs of Abuse Note Disclamer
[2016-07-07 20:18] LABS: Bacteria,Urine 1+ /HPF (Negative); Bilirubin,Urine NEG (Negative); Blood,Urine NEG (Negative); Ketones,Urine NEG (Negative); Leukocyte Esterase,Urine LG (Negative); Nitrite,Urine POS (Negative); Protein,Urine <15 mg/dL mg/dL (Negative); Urobilinogen,Urine < 2.0 mg/dL (<2.0)
[2016-07-07 20:55] LABS: Alanine Aminotransferase 9 units/L (7-56); Albumin 3.8 g/dL (3.9-5); Albumin/Globulin Ratio 1.2 %; Alkaline Phosphatase 153 units/L (35-129); Anion Gap 20 mmol/L; BUN/Creatinine Ratio 13.44; Bilirubin,Total < 0.2 mg/dL (0.1-1.2); Blood Urea Nitrogen 39 mg/dL (7-17); Calcium 9.2 mg/dL (8.4-10.2); Carbon Dioxide 19 mmol/L (22-30); Chloride 104.4 mmol/L (98-107); Creatine Kinase 57 units/L (30-135); Glucose 95 mg/dL (65-100); Sodium 139 mmol/L (137-145)
[2016-07-07] MEDS ORDERED: ROCEPHIN/NS 1 GM/50 ML 1 GM/50 ML BAG IV ONE (21:07)
[2016-07-07] MEDS ORDERED: NACL 0.9% 500 ML 500 ML IV ONE (21:07)
[2016-07-08 01:54] VITALS: BP 150/51
== END 2016-07-08 02:24 | disposition home or self-care (01) ==
LOC: ED 18:06
DX: D63.1 Anemia in chronic kidney disease (principal); I12.9 Hypertensive chronic kidney disease with stage 1 through stage 4 chronic kidney disease, or unspecified chronic kidney disease; N18.9 Chronic kidney disease, unspecified; N30.00 Acute cystitis without hematuria
CPT/HCPCS: 36415; 36430; 80053; 80307; 81001; 82550; 84443; 84484; 85025; 86850; 86900; 86901; 86922; 93005; 93010; 96365; 99284; J0696; J7040; P9016

== ENCOUNTER 2017-04-25 10:51 | Inpatient (IN) | payer MEDICARE ==
[2017-04-25 13:06] LABS: Basophils % (Auto) 0.6 % (0.0-1.8); Eosinophils # (Auto) 0.1 K/mm3 (0.0-0.4); Eosinophils % (Auto) 1.2 % (0.0-4.3); Hematocrit 31.9 % (30.3-42.9); Hemoglobin 10.6 gm/dl (10.1-14.3); Lymphocytes # (Auto) 1.1 K/mm3 (1.2-5.4); Lymphocytes % (Auto) 14.6 % (13.4-35.0); Mean Corpuscular HGB Conc 33 % (30-34); Mean Corpuscular Hemoglobin 31 pg (28-32); Mean Corpuscular Volume 92 fl (79-97); Monocytes # (Auto) 0.5 K/mm3 (0.0-0.8); Platelet Count 212 K/mm3 (140-440); Red Blood Count 3.47 M/mm3 (3.65-5.03); Red Cell Distribution Width 15.2 % (13.2-15.2)
[2017-04-25] MEDS ORDERED: PROVENTIL IH ONE (13:06)
[2017-04-25] MEDS ORDERED: ATROVENT IH ONE (13:06)
[2017-04-25 13:16] LABS: Calcium 10.1 mg/dL (8.4-10.2)
--- NOTE | 2017-04-25 13:17 | Emergency Department Report ---
HPI - General Chief Complaint: Dyspnea/Respdistress Time Seen by Provider: 04/25/17 12:51 - HPI HPI: Room 23 The patient is a 71-year-old female sent from a [facility] for shortness of breath. The patient is a poor historian states she is not certain why she was sent to the emergency department. The patient originally states she has no complaints. Per nursing patient was sent from a [facility] complaining of shortness of breath for one week at her [facility] and have an episode of vomiting that began this morning. The patient acknowledges that this is correct. Patient denies chest pain or pain of any type. When asked how she is feeling currently the patient replies she feels "all right. " The [facility] reports patient complained of general weakness and was unable to stand. Staff states the patient was unable to hold a cup in her hands. They state the patient didn't complain of shortness of breath and they were unable to obtain a pulse ox. Subsequently the patient was sent to the emergency department for evaluation Location: [See above] Duration: [See above] Quality: Shortness of breath Severity: Mild Modifying factors: [see above] Context: [see above] Mode of transportation: [not driving] ED Past Medical Hx - Past Medical History Previous Medical History?: Yes Hx Hypertension: Yes Hx Deep Vein Thrombosis: Yes (hx LLExt.) Hx GERD: Yes Hx Psychiatric Treatment: Yes (anxiety, depression, schizophrenia) Hx COPD: Yes Additional medical history: High cholesterol. Schizophrenia, left hip fracture, left arm fracture, displaced fracture of 1st cervical vertebra, GERD, DVT LLE, generalized muscle weakness - Surgical History Past Surgical History?: Yes Additional Surgical History: ORIF left hip - Family History Family history: no significant - Social History Smoking Status: Current Every Day Smoker (1/7 pack per day) Substance Use Type: None - Medications Home Medications: Home Medications Medication Instructions Recorded Confirmed Last Taken Type Tiotropium [Spiriva] 18 mcg IH QDAY 05/02/15 06/09/16 01/01/16 History ALBUTEROL Inhaler [ProAir HFA 2 puff IH QID PRN 08/18/15 02/03/16 01/01/16 History Inhaler] amLODIPine [Norvasc] 10 mg PO QDAY #30 tablet 02/09/16 Unknown Rx Sucralfate [Carafate] 1 gm PO Q6H 30 Days udc 02/11/16 06/09/16 Unknown Rx Acetaminophen 650 mg PO Q4H PRN 06/09/16 06/09/16 Unknown History Carvedilol [Coreg] 12.5 mg PO BID 06/09/16 06/09/16 Unknown History Cholecalciferol Vit D3 [Vitamin D3] 1,000 unit PO QDAY 06/09/16 06/09/16 Unknown History Mirtazapine 7.5 mg PO HS 06/09/16 06/09/16 Unknown History Novolin R Per Sc 06/09/16 Unknown History Ondansetron [Zofran TAB] 4 mg PO Q8HR PRN 06/09/16 06/09/16 Unknown History Pantoprazole [Protonix TAB] 40 mg PO QDAY 06/09/16 06/09/16 Unknown History Nitrofurantoin [place]/M-Cryst 100 mg PO Q12HR #14 capsule 07/08/16 Unknown Rx [Macrobid CAP] ED Review of Systems ROS: Stated complaint: SHORTNESS OF BREATH Other details as noted in HPI Constitutional: weakness Respiratory: shortness of breath Gastrointestinal: nausea, vomiting Physical Exam - Physical Exam Vital Signs: Vital Signs 04/25/17 04/25/17 04/25/17 11:33 11:55 12:00 Temperature 98.5 F Pulse Rate 96 H 78 Respiratory 18 13 Rate Blood Pressure 115/60 109/62 O2 Sat by Pulse 76 L 96 100 Oximetry 04/25/17 04/25/17 12:31 13:01 Temperature Pulse Rate 87 92 H Respiratory 17 19 Rate Blood Pressure 80/47 102/69 O2 Sat by Pulse 90 99 Oximetry Physical Exam: GENERAL: The patient is well-developed well-nourished elderly female lying on stretcher not appearing to be in acute distress. [] HEENT: Normocephalic. Atraumatic. Extraocular motions are intact. Patient has moist mucous membranes. NECK: Supple. Trachea midline CHEST/LUNGS: Faint externally wheezes bilaterally. There is no respiratory distress noted. HEART/CARDIOVASCULAR: Regular. There is no tachycardia. There is no gallop rub or murmur. ABDOMEN: Abdomen is soft, nontender. Patient has normal bowel sounds. There is no abdominal distention. SKIN: There is no rash. There is no diaphoresis. NEURO: The patient is awake and alert. The patient is cooperative. The patient has normal speech MUSCULOSKELETAL: There is no evidence of acute injury. ED Course Vital Signs 04/25/17 04/25/17 04/25/17 11:33 11:55 12:00 Temperature 98.5 F Pulse Rate 96 H 78 Respiratory 18 13 Rate Blood Pressure 115/60 109/62 O2 Sat by Pulse 76 L 96 100 Oximetry 04/25/17 04/25/17 12:31 13:01 Temperature Pulse Rate 87 92 H Respiratory 17 19 Rate Blood Pressure 80/47 102/69 O2 Sat by Pulse 90 99 Oximetry ED Medical Decision Making - Lab Data Result diagrams: 04/25/17 Unknown 04/25/17 12:03 - EKG Data -: EKG Interpreted by Me EKG shows normal: sinus rhythm Rate: normal - EKG Data When compared to previous EKG there are: previous EKG unavailable Interpretation: other (no ischemic changes seen) - Radiology Data Radiology results: report reviewed (chest x-ray, VQ scan), image reviewed ( chest x-ray, VQ scan) interpreted by me: Chest x-ray-no focal infiltrates, no pneumothorax VQ scan (read by radiologist)-low probability - Differential Diagnosis pneumonia, PE, pneumothorax, COPD exacerbation Critical care attestation.: If time is entered above; I have spent that time in minutes in the direct care of this critically ill patient, excluding procedure time. ED Disposition Clinical Impression: Shortness of breath, Hypoxia, COPD exacerbation Disposition: OP ADMIT IP TO THIS HOSP Is pt being admited?: Yes Does the pt Need Aspirin: No Condition: Fair Instructions: Chronic Obstructive Pulmonary Disease (ED) Referrals: PRIMARY CARE, [Primary Care Provider] - 3-5 Days Time of Disposition: 15:58 (hospitalist notified (Dr. Lewis))
[2017-04-25 14:00] LABS: Creatine Kinase MB 3.7 ng/mL (0.0-4.0)
--- NOTE | 2017-04-25 14:07 | XRay Report ---
AP CHEST: HISTORY: Shortness of breath Compared to 02/03/16. Heart size and pulmonary vascularity are within normal limits. There are mild chronic interstitial changes in both lungs but no evidence for pneumonia, large pleural effusion or pneumothorax. A large hiatal hernia is suspected posterior to the heart and There is a displaced left humeral shaft fracture with evidence of healing which is new since the previous exam. IMPRESSION: Hiatal hernia. No acute cardiopulmonary process is identified. Displaced left humerus fracture with signs of healing.
--- NOTE | 2017-04-25 15:09 | Nuclear Medicine Report ---
LUNG SCAN, VENTILATION AND PERFUSION: History: Shortness of breath. Technique: 5mci of Tc99m MAA was infused for the perfusion images. 15mci XE 133 gas was inhaled for the ventilatory images. Correlation is made with a chest x-ray dated 04/25/17. Findings: Inhalation of Xenon gas demonstrates a normal distribution of the activity throughout both lungs. The wash out phases show no focal retention of activity. After injection of Technetium 99m macroaggregated albumin gamma camera imaging of the lungs in multiple projections demonstrates normal pulmonary contours with a homogeneous distribution of activity. No focal areas of perfusion deficiency are identified. IMPRESSION: Low probability for pulmonary embolus.
--- NOTE | 2017-04-25 16:05 | History and Physical Report ---
History of Present Illness Chief complaint: Its hard to breathe History of present illness: 71 YO Female Half-Way Resident with HTN, DVT-LLE, GERD, Debility, Depression , Anxiety, Schizophrenia, Nicotine Dependence, HLD presents to ED for evaluation. Pt states that she has experienced shortness of breath and productive cough of clear sputum with increased sputum production for the past 1week with worsening symptoms over the past 2 days. As per long term staff, the patient has gotten progressively weaker over the past week, and is now unable to stand without assistance and conduct activities of daily living. Patient denies fever, chills, chest pain, palpitations, NVD, Trauma, BRBPR, Recent ill contacts. Pt seen and evaluated in ED and found to have COPD Exacerbation complicated by Respiratory Failure. Pt treated with supplemental oxygen, nebulizer therapy, IV steroids, and admitted to medical floor. Past History Past Medical History: DVT, GERD, hypertension Past Surgical History: total hip replacement, Other (Hip Fracture repair) Social history: single Family history: no significant family history (reviewed) Medications and Allergies Allergies Allergy/AdvReac Type Severity Reaction Status Date / Time No Known Allergies Allergy Verified 04/25/17 12:02 Home Medications Medication Instructions Recorded Confirmed Last Taken Type Tiotropium [Spiriva] 18 mcg IH QDAY 05/02/15 04/25/17 01/01/16 History Acetaminophen 650 mg PO Q4H PRN 06/09/16 04/25/17 Unknown History Ondansetron [Zofran TAB] 4 mg PO Q8HR PRN 06/09/16 04/25/17 Unknown History Pantoprazole [Protonix TAB] 40 mg PO QDAY 06/09/16 04/25/17 Unknown History Albuterol Sulfate [Ventolin Hfa] 2 puff IH BID PRN 04/25/17 04/25/17 Unknown History Cholecalciferol (Vitamin D3) 5,000 unit PO DAILY 04/25/17 04/25/17 Unknown History [Vitamin D3] Ferrous Gluconate 324 mg PO QDAY 04/25/17 04/25/17 Unknown History Ipratropium/Albuterol Sulfate 1 ampul IH Q6HR PRN 04/25/17 04/25/17 Unknown History [DUONEB *Not for PRN Use*] Mirtazapine [Remeron] 7.5 mg PO HS 04/25/17 04/25/17 Unknown History Sennosides [Senna] 8.6 mg PO HS PRN 04/25/17 04/25/17 Unknown History oxyCODONE /ACETAMINOPHEN [Percocet 1 tab PO Q4HR PRN 04/25/17 04/25/17 Unknown History 5/325] Review of Systems Constitutional: no weight loss, no weight gain, no fever, no chills Ears, nose, mouth and throat: no ear pain, no ear discharge, no tinnitis, no decreased hearing, no nose pain Breasts: no change in shape, no swelling, no mass Cardiovascular: no chest pain, no orthopnea, no palpitations, no rapid/ irregular heart beat Respiratory: cough, cough with sputum, excessive sputum, shortness of breath Gastrointestinal: no abdominal pain, no nausea, no vomiting, no diarrhea Genitourinary Female: no dysmenorrhea, no pelvic pain, no flank pain, no menorrhagia, no dysuria, no urinary frequency, no urgency Rectal: no pain, no incontinence, no bleeding Musculoskeletal: no neck stiffness, no neck pain, no shooting arm pain, no arm numbness/tingling, no low back pain, no shooting leg pain Integumentary: no rash, no pruritis, no redness, no sores, no wounds, no jaundice Neurological: no paralysis, no weakness, no parathesias, no numbness, no tingling, no seizures, no syncope Psychiatric: no anxiety, no memory loss, no change in sleep habits, no sleep disturbances, no insomnia, no hypersomnia Endocrine: no cold intolerance, no heat intolerance, no polyphagia, no excessive thirst, no polydipsia, no polyuria, no nocturia Hematologic/Lymphatic: no easy bruising, no easy bleeding, no lymphadenopathy, no lymphedema Allergic/Immunologic: no urticaria, no allergic rhinitis, no wheezing, no persistent infections Exam - Constitutional Vitals: Temp Pulse Resp BP Pulse Ox 98.5 F 88 14 127/53 91 04/25/17 11:55 04/25/17 15:30 04/25/17 15:30 04/25/17 15:30 04/25/17 15:30 General appearance: Present: mild distress, cachectic, disheveled - EENT Eyes: Present: PERRL ENT: hearing intact, clear oral mucosa - Neck Neck: Present: supple, normal ROM - Respiratory Respiratory effort: labored Respiratory: bilateral: diminished, rhonchi - Cardiovascular Heart Sounds: Present: S1 & S2. Absent: rub, click - Extremities Extremities: pulses symmetrical, No edema Peripheral Pulses: within normal limits - Abdominal General gastrointestinal: Present: soft, non-tender, non-distended, normal bowel sounds Female genitourinary: Present: normal - Integumentary Integumentary: Present: clear, warm, dry - Musculoskeletal Musculoskeletal: gait normal, strength equal bilaterally - Psychiatric Psychiatric: appropriate mood/affect, intact judgment & insight - Neurologic Neurologic: CNII-XII intact, moves all extremities Results - Labs CBC & Chem 7: 04/25/17 Unknown 04/25/17 12:03 Labs: Abnormal lab results 04/25/17 04/25/17 04/25/17 Range/Units 12:03 15:57 Unknown RBC 3.47 L (3.65-5.03) M/mm3 Lymph # 1.1 L (1.2-5.4) K/mm3 Seg Neutrophils % 76.6 H (40.0-70.0) % POC ABG pCO2 31.7 L (35-45) POC ABG pO2 55 L (80-105) Sodium 146 H (137-145) mmol/L BUN 36 H (7-17) mg/dL Creatinine 2.2 H (0.7-1.2) mg/dL Glucose 101 H (65-100) mg/dL Assessment and Plan - Patient Problems (1) Acute respiratory failure Current Visit: Yes Status: Acute Qualifiers: Respiratory failure complication: hypoxia Qualified Code(s): J96.01 - Acute respiratory failure with hypoxia Plan to address problem: Supplemental oxygen, nebs, supportive care, NIPPV as clinically indicated. (2) GERD (gastroesophageal reflux disease) Current Visit: Yes Status: Acute Plan to address problem: PPI therapy (3) COPD exacerbation Current Visit: Yes Status: Acute Plan to address problem: Supplemental oxygen, nebulizer therapy, IV abx, IV steroids, monitor pulse oximetry, (4) Hypertension Current Visit: No Status: Chronic Qualifiers: Hypertension type: essential hypertension Qualified Code(s): I10 - Essential (primary) hypertension Plan to address problem: Monitor BP q shift, (5) DVT prophylaxis Current Visit: Yes Status: Acute
[2017-04-25] MEDS ORDERED: PROVENTIL IH PRN (16:15)
[2017-04-25] MEDS ORDERED: TYLENOL PO PRN (16:15)
[2017-04-25] MEDS ORDERED: ZOFRAN IV PRN (16:15)
[2017-04-25] MEDS: ZITHROMAX 500 MG in NACL 0.9% 250ML 250 ML IV SCH (18:27)
[2017-04-25] MEDS ORDERED: NACL 0.9% 500 ML 500 ML IV ONE (18:56)
[2017-04-26 13:16] LABS: Hematocrit 31.1 % (30.3-42.9); Hemoglobin 10.2 gm/dl (10.1-14.3); Mean Corpuscular HGB Conc 33 % (30-34); Mean Corpuscular Hemoglobin 30 pg (28-32); Mean Corpuscular Volume 93 fl (79-97); Platelet Count 196 K/mm3 (140-440); Red Blood Count 3.36 M/mm3 (3.65-5.03); Red Cell Distribution Width 15.5 % (13.2-15.2)
[2017-04-26 13:31] LABS: Calcium 9.1 mg/dL (8.4-10.2)
--- NOTE | 2017-04-26 15:39 | Progress Note ---
Assessment and Plan /Acute hypercapnic respiratory failure Likely due to COPD exacerbation Supplemental oxygen, nebs, supportive care, NIPPV as clinically indicated. 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 Radiological test: EKG shows normal sinus rhythm Chest x-ray-no focal infiltrates, no pneumothorax VQ scan (read by radiologist)-low probability Hospitalist Physical exam: GENERAL: well-developed WF sitting on bed appeared to be in no discomfort. HEENT: Normocephalic. Atraumatic. No conjunctival congestion or icterus. Patient has moist mucous membranes. NECK: Supple. Trachea midline. CHEST/LUNGS: Diminished breath sound auscultated bilaterally, breathing nonlabored. No wheezes crackles or rhonchi. HEART/CARDIOVASCULAR: Regular in rate and rhythm. S1 and S2 positive. ABDOMEN: Abdomen is soft, nontender. Patient has normal bowel sounds. SKIN: There is no rash. Warm and dry. NEURO: No focal motor deficit. Follows command. MUSCULOSKELETAL: No joint effusion or tenderness. EXTRIMITY: No edema, no cyanosis or clubbing. PSYCH: Cooperative. Subjective Date of service: 04/26/17 Interval history: Pt seen and examined tolerating diet States her breathing much improved Objective - Constitutional Vitals: Vital Signs - 12hr 04/26/17 04/26/17 05:41 07:57 Temperature 97.7 F 97.7 F Pulse Rate 89 84 Respiratory 20 18 Rate Blood Pressure 135/78 140/84 O2 Sat by Pulse 97 97 Oximetry - Labs CBC & Chem 7: 04/26/17 13:03 04/26/17 13:03 Labs: Abnormal lab results 04/25/17 04/26/17 04/26/17 Range/Units 15:57 13:03 13:03 RBC 3.36 L (3.65-5.03) M/mm3 RDW 15.5 H (13.2-15.2) % POC ABG pCO2 31.7 L (35-45) POC ABG pO2 55 L (80-105) Sodium 146 H (137-145) mmol/L Potassium 5.1 H (3.6-5.0) mmol/L Chloride 107.9 H (98-107) mmol/L BUN 38 H (7-17) mg/dL Creatinine 2.3 H (0.7-1.2) mg/dL
[2017-04-26] MEDS: ZITHROMAX 500 MG in NACL 0.9% 250ML 250 ML IV SCH (18:05)
[2017-04-26] MEDS ORDERED: KIONEX PO PRN (21:42)
[2017-04-26] MEDS ORDERED: NACL 0.9% 1000 ML 1,000 ML IV SCH (22:00)
[2017-04-26] MEDS ORDERED: NACL 0.45% 1000 ML 1,000 ML IV SCH (22:00)
[2017-04-27] MEDS: DUONEB *Not for PRN Use IH SCH ×5 (00:26→21:46)
[2017-04-27 08:59] LABS: Calcium 9.4 mg/dL (8.4-10.2)
[2017-04-27] MEDS ORDERED: NON-FORMULARY (Cholecalciferol (Vitamin D3) [Vitamin D3] 5,000 UNIT) PO SCH (10:00)
[2017-04-27] MEDS ORDERED: ZITHROMAX PO SCH (10:00)
[2017-04-27] MEDS: VITAMIN D3 PO SCH (10:04)
[2017-04-27] MEDS: NORVASC PO SCH (10:04)
[2017-04-27] MEDS: SPIRIVA IH SCH (11:31)
[2017-04-27] MEDS ORDERED: D5/0.45NS 1,000 ML IV SCH (12:00)
[2017-04-27] MEDS: FERGON PO SCH (13:46)
--- NOTE | 2017-04-27 14:09 | Progress Note ---
Assessment and Plan / possible Gi bleed/coffee ground emesis - place on PPI BID, NPO - start on iv fluid - consult GI /Acute hypercapnic respiratory failure Likely due to COPD exacerbation Supplemental oxygen, nebs, supportive care, NIPPV as clinically indicated. /GERD (gastroesophageal reflux disease) PPI therapy /Acute COPD exacerbation Supplemental oxygen, nebulizer therapy, IV abx, IV steroids, monitor pulse oximetry, /Hypertension Monitor BP q shift, /hyperkalemia, resolved monitor BMP, likely from CKD s/p Kayexalate X1 / CKD renal function at baseline /hypernatremia cont iv fluid, resolved /DVT prophylaxis SCD Brief history: 71 YO Female Half-Way Resident with HTN, DVT-LLE, GERD, Debility, Depression, Anxiety, Schizophrenia, Nicotine Dependence, HLD presents to ED with c/o shortness of breath and productive cough. Radiological test: EKG shows normal sinus rhythm Chest x-ray-no focal infiltrates, no pneumothorax VQ scan (read by radiologist)-low probability Hospitalist Physical exam: GENERAL: well-developed WF sitting on bed appeared to be in no discomfort. HEENT: Normocephalic. Atraumatic. No conjunctival congestion or icterus. Patient has moist mucous membranes. NECK: Supple. Trachea midline. CHEST/LUNGS: Diminished breath sound auscultated bilaterally, breathing nonlabored. No wheezes crackles or rhonchi. HEART/CARDIOVASCULAR: Regular in rate and rhythm. S1 and S2 positive. ABDOMEN: Abdomen is soft, nontender. Patient has normal bowel sounds. SKIN: There is no rash. Warm and dry. NEURO: No focal motor deficit. Follows command. MUSCULOSKELETAL: No joint effusion or tenderness. EXTRIMITY: No edema, no cyanosis or clubbing. PSYCH: Cooperative. Subjective Date of service: 04/27/17 Interval history: Pt seen and examined States her breathing much improved but had couple episodes of coffee ground emesis Objective - Constitutional Vitals: Vital Signs - 12hr 04/27/17 04/27/17 04/27/17 04:59 07:28 07:45 Temperature 98.7 F 98.1 F Pulse Rate 95 H 116 H Pulse Rate [ 94 H Bilateral Throughout] Respiratory 18 20 Rate Respiratory 16 Rate [Bilateral Throughout] Blood Pressure 140/84 176/86 O2 Sat by Pulse 93 87 Oximetry 04/27/17 04/27/17 07:55 08:13 Temperature Pulse Rate Pulse Rate [ 95 H Bilateral Throughout] Respiratory Rate Respiratory 16 Rate [Bilateral Throughout] Blood Pressure O2 Sat by Pulse 96 Oximetry - Labs CBC & Chem 7: 04/28/17 05:42 04/28/17 05:42 Labs: Abnormal lab results 04/26/17 04/26/17 04/26/17 Range/Units 11:23 16:45 21:20 Carbon Dioxide (22-30) mmol/L BUN (7-17) mg/dL Creatinine (0.7-1.2) mg/dL Glucose (65-100) mg/dL POC Glucose 145 H 135 H 106 H (70-105) 04/27/17 04/27/17 04/27/17 Range/Units 05:09 07:35 11:16 Carbon Dioxide 19 L (22-30) mmol/L BUN 52 H (7-17) mg/dL Creatinine 2.2 H (0.7-1.2) mg/dL Glucose 118 H (65-100) mg/dL POC Glucose 151 H 111 H (70-105)
[2017-04-27] MEDS: PROTONIX IV SCH ×2 (15:12→22:05)
[2017-04-27 15:18] LABS: Hematocrit 32.4 % (30.3-42.9); Hemoglobin 10.1 gm/dl (10.1-14.3)
[2017-04-27] MEDS ORDERED: REMERON PO SCH (22:00)
[2017-04-27 23:42] LABS: Hematocrit 31.8 % (30.3-42.9); Hemoglobin 9.8 gm/dl (10.1-14.3)
[2017-04-28] MEDS: DUONEB *Not for PRN Use IH SCH ×3 (02:44→13:31)
[2017-04-28 06:23] LABS: Hematocrit 28.6 % (30.3-42.9); Hemoglobin 9.4 gm/dl (10.1-14.3)
[2017-04-28 06:40] LABS: Calcium 8.7 mg/dL (8.4-10.2)
[2017-04-28] MEDS: NORVASC PO SCH (09:37)
[2017-04-28] MEDS: FERGON PO SCH (09:38)
[2017-04-28] MEDS: PROTONIX IV SCH (09:39)
[2017-04-28] MEDS: SPIRIVA IH SCH (09:48)
[2017-04-28] MEDS: VITAMIN D3 PO SCH (10:09)
--- NOTE | 2017-04-28 10:33 | Gastroenterology Consultation ---
<ANTOINE QUIGLEY - Last Filed: 04/28/17 11:03> History of Present Illness - Reason for Consult Consult date: 04/28/17 coffee-ground emesis Requesting physician: ALEXANDRIA BARR - History of Present Illness Patient is a 71 y/o female [place] [facility] resident with PMH of HTN, DVT, GERD, debility, depression, anxiety, schizophrenia, nicotine dependence, and HLD who presented to ED with c/o SOB and productive cough and was admitted for respiratory failure due to COPD exacerbation. GI has been consulted for coffee- ground emesis. Pt is previously known to our service from prior evaluation of chronic anemia. She has underwent multiple EGD's in the past showing severe esophagitis. Last endoscopic evaluation was 07/2016 with EGD/colonoscopy showing a large hiatal hernia, gastritis, diverticulosis, and internal hemorrhoids.This morning she was resting in bed w/o acute distress. States her breathing is now improving. Reports 1 episode of coffee-ground emesis yesterday but no further signs of bleeding overnight or this am. No hematemesis, melena, or hematochezia. Admits to occasional heartburn but denies wt loss, abd pain, N/ V, dysphagia, odynophagia, diarrhea, or constipation. Past History Past Medical History: DVT, GERD, hypertension, hyperlipidemia, other (debility, depression, anxiety, schizophrenia, nicotine dependence, dementia) Past Surgical History: total hip replacement, Other (Hip Fracture repair) Social history: other ([place] [facility] resident) Family history: no significant family history (reviewed) Medications and Allergies Allergies Allergy/AdvReac Type Severity Reaction Status Date / Time No Known Allergies Allergy Verified 04/25/17 12:02 Home Medications Medication Instructions Recorded Confirmed Last Taken Type Tiotropium [Spiriva] 18 mcg IH QDAY 05/02/15 04/25/17 01/01/16 History Acetaminophen 650 mg PO Q4H PRN 06/09/16 04/25/17 Unknown History Ondansetron [Zofran TAB] 4 mg PO Q8HR PRN 06/09/16 04/25/17 Unknown History Albuterol Sulfate [Ventolin Hfa] 2 puff IH BID PRN 04/25/17 04/25/17 Unknown History Cholecalciferol (Vitamin D3) 5,000 unit PO DAILY 04/25/17 04/25/17 Unknown History [Vitamin D3] Ferrous Gluconate 324 mg PO QDAY 04/25/17 04/25/17 Unknown History Ipratropium/Albuterol Sulfate 1 ampul IH Q6HR PRN 04/25/17 04/25/17 Unknown History [DUONEB *Not for PRN Use*] Mirtazapine [Remeron] 7.5 mg PO HS 04/25/17 04/25/17 Unknown History Sennosides [Senna] 8.6 mg PO HS PRN 04/25/17 04/25/17 Unknown History Pantoprazole [Protonix TAB] 40 mg PO BID #60 tablet 04/28/17 Unknown Rx amLODIPine [Norvasc] 10 mg PO QDAY #30 tablet 04/28/17 Unknown Rx oxyCODONE /ACETAMINOPHEN [Percocet 1 tab PO Q4HR PRN #20 tablet 04/28/17 Unknown Rx 5/325 mg] Active Meds: Active Medications Acetaminophen (Tylenol) 650 mg PO Q4H PRN PRN Reason: Pain MILD(1-3)/Fever >100.5/DIXON Albuterol/Ipratropium (Duoneb *Not For Prn Use*) 1 ampul IH Q6HRT [facility] Last Admin: 04/28/17 08:58 Dose: 1 ampul Amlodipine Besylate (Norvasc) 10 mg PO QDAY [facility] Last Admin: 04/28/17 09:37 Dose: 10 mg Cholecalciferol (Vitamin D3) 5,000 unit PO DAILY [facility] Last Admin: 04/28/17 10:09 Dose: 5,000 unit Ferrous Gluconate (Fergon) 324 mg PO QDAY [facility] Last Admin: 04/28/17 09:38 Dose: 324 mg Dextrose/Sodium Chloride (D5/0.45ns) 1,000 mls @ 42 mls/hr IV DIRECT [facility] Last Admin: 04/27/17 13:47 Dose: 42 mls/hr Methylprednisolone Sodium Succinate (Solu-Medrol) 40 mg IV Q24HR [facility] Last Admin: 04/28/17 09:38 Dose: 40 mg Mirtazapine (Remeron) 7.5 mg PO HS [facility] Last Admin: 04/27/17 22:04 Dose: 7.5 mg Ondansetron HCl (Zofran) 4 mg IV Q8H PRN PRN Reason: N/V unrelieved by Humaira Pantoprazole Sodium (Protonix) 40 mg IV BID [facility] Last Admin: 04/28/17 09:39 Dose: 40 mg Tiotropium [place] (Spiriva) 1 puff IH Q24HRT [facility] Last Admin: 04/28/17 09:48 Dose: Not Given Review of Systems - Review of Systems All systems: negative Gastrointestinal: coffee ground emesis Exam - Constitutional Vital Signs: Temp Pulse Resp BP Pulse Ox 97.6 F 112 H 22 170/103 95 04/28/17 08:02 04/28/17 09:37 04/28/17 08:51 04/28/17 09:37 04/28/17 08:02 General appearance: no acute distress - Respiratory Respiratory: bilateral: diminished - Cardiovascular Rhythm: other (tachycardia) Heart Sounds: Present: S1 & S2 - Gastrointestinal General gastrointestinal: Present: soft, non-tender, non-distended, normal bowel sounds - Labs CBC & Chem 7: 04/28/17 05:42 04/28/17 05:42 Lab Results: Laboratory Results - last 24 hr 04/27/17 04/27/17 04/27/17 11:16 15:00 15:59 Hgb 10.1 Hct 32.4 Sodium Potassium Chloride Carbon Dioxide Anion Gap BUN Creatinine Estimated GFR BUN/Creatinine Ratio Glucose POC Glucose 111 H 155 H Calcium 04/27/17 04/28/17 04/28/17 23:06 05:42 05:42 Hgb 9.8 L 9.4 L Hct 31.8 28.6 L Sodium 140 Potassium 3.9 D Chloride 102.8 Carbon Dioxide 23 Anion Gap 18 BUN 65 H Creatinine 2.2 H Estimated GFR 22 BUN/Creatinine Ratio 30 Glucose 117 H POC Glucose Calcium 8.7 Assessment and Plan 1.coffee-ground emesis -HGB 9.4-stable -continue to monitor H/H and transfuse as needed -hold blood thinning medications -1 episode of coffee-ground emesis yesterday but no active signs of bleeding overnight or this am -pt with h/o chronic anemia with multiple EGDs showing severe esophagitis -last EGD 07/2016 showed large hiatal hernia and gastritis -last colonoscopy 07/19 showed diverticulosis and internal hemorrhoids -no recommendations for an EGD at this time -continue PPI and supportive care -will follow <BERT QUINTERO - Last Filed: 04/28/17 17:39> Medications and Allergies Active Meds: Active Medications Acetaminophen (Tylenol) 650 mg PO Q4H PRN PRN Reason: Pain MILD(1-3)/Fever >100.5/DIXON Albuterol/Ipratropium (Duoneb *Not For Prn Use*) 1 ampul IH Q6HRT [facility] Last Admin: 04/28/17 13:31 Dose: 1 ampul Amlodipine Besylate (Norvasc) 10 mg PO QDAY [facility] Last Admin: 04/28/17 09:37 Dose: 10 mg Cholecalciferol (Vitamin D3) 5,000 unit PO DAILY [facility] Last Admin: 04/28/17 10:09 Dose: 5,000 unit Ferrous Gluconate (Fergon) 324 mg PO QDAY [facility] Last Admin: 04/28/17 09:38 Dose: 324 mg Hydralazine HCl (Apresoline) 5 mg IV Q30MIN PRN PRN Reason: Hypertension Methylprednisolone Sodium Succinate (Solu-Medrol) 40 mg IV Q24HR [facility] Last Admin: 04/28/17 09:38 Dose: 40 mg Mirtazapine (Remeron) 7.5 mg PO HS [facility] Last Admin: 04/27/17 22:04 Dose: 7.5 mg Ondansetron HCl (Zofran) 4 mg IV Q8H PRN PRN Reason: N/V unrelieved by Reglan Pantoprazole Sodium (Protonix) 40 mg IV BID [facility] Last Admin: 04/28/17 09:39 Dose: 40 mg Tiotropium [place] (Spiriva) 1 puff IH Q24HRT [facility] Last Admin: 04/28/17 09:48 Dose: Not Given Exam - Constitutional Vital Signs: Temp Pulse Resp BP Pulse Ox 97.6 F 109 H 18 170/103 95 04/28/17 08:02 04/28/17 13:41 04/28/17 13:41 04/28/17 09:37 04/28/17 08:58 - Labs CBC & Chem 7: 04/28/17 13:35 04/28/17 05:42 Lab Results: Laboratory Results - last 24 hr 04/27/17 04/28/17 04/28/17 23:06 05:42 05:42 Hgb 9.8 L 9.4 L Hct 31.8 28.6 L Sodium 140 Potassium 3.9 D Chloride 102.8 Carbon Dioxide 23 Anion Gap 18 BUN 65 H Creatinine 2.2 H Estimated GFR 22 BUN/Creatinine Ratio 30 Glucose 117 H Calcium 8.7 Vitamin B12 Folate 04/28/17 04/28/17 04/28/17 10:21 10:21 13:35 Hgb 9.7 L Hct 29.7 L Sodium Potassium Chloride Carbon Dioxide Anion Gap BUN Creatinine Estimated GFR BUN/Creatinine Ratio Glucose Calcium Vitamin B12 426.8 Folate 6.26 L Assessment and Plan Patient seen and examined. Agree with note by Antoine Quigley. Episode of n/v yesterday morning (dark appearing but no obvious blood) with no further episodes since that time. Denies melena, or hematochezia. She has a h/o known erosive esophagitis. No other gi complaints. H/H stable. cont ppi. hold off on endoscopy unless further signs of bleeding.
[2017-04-28 14:07] LABS: Hematocrit 29.7 % (30.3-42.9); Hemoglobin 9.7 gm/dl (10.1-14.3)
--- NOTE | 2017-04-28 14:30 | Discharge Summary ---
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 She was admitted for COPD exacerbation. On 04/27 am she developed coffee ground emesis. Discharge diagnosis: / coffee ground emesis on 04/27/17 - likely from gastritis - placed on PPI BID, IV fluid - consulted GI, H/h stable, no indication for emergent HD - resumed diet and tolerated /Acute hypercapnic respiratory failure Likely due to COPD exacerbation treated with Supplemental oxygen, nebs, supportive care, NIPPV as clinically indicated. /GERD (gastroesophageal reflux disease) PPI therapy /Acute COPD exacerbation treated with Supplemental oxygen, nebulizer therapy, IV abx, IV steroids /Hypertension Monitored BP q shift, /hyperkalemia, resolved monitored BMP, likely from CKD s/p Kayexalate X1 / CKD renal function at baseline /hypernatremia Resolved with iv fluid, /DVT prophylaxis SCD Radiological test: EKG shows normal sinus rhythm Chest x-ray-no focal infiltrates, no pneumothorax VQ scan (read by radiologist)-low probability Hospitalist Physical exam: GENERAL: well-developed WF sitting on bed appeared to be in no discomfort. HEENT: Normocephalic. Atraumatic. No conjunctival congestion or icterus. Patient has moist mucous membranes. NECK: Supple. Trachea midline. CHEST/LUNGS: Diminished breath sound auscultated bilaterally, breathing nonlabored. No wheezes crackles or rhonchi. HEART/CARDIOVASCULAR: Regular in rate and rhythm. S1 and S2 positive. ABDOMEN: Abdomen is soft, nontender. Patient has normal bowel sounds. SKIN: There is no rash. Warm and dry. NEURO: No focal motor deficit. Follows command. MUSCULOSKELETAL: No joint effusion or tenderness. EXTRIMITY: No edema, no cyanosis or clubbing. PSYCH: Cooperative. Disposition: DC/TX-03 SNF [facility] CERT Time spent for discharge: 32 minutes Core Measure Documentation - Palliative Care Palliative Care/ Comfort Measures: Not Applicable - Core Measures Any of the following diagnoses?: none Exam - Constitutional Vitals: Temp Pulse Resp BP Pulse Ox 97.6 F 112 H 20 170/103 95 04/28/17 08:02 04/28/17 09:37 04/28/17 09:08 04/28/17 09:37 04/28/17 08:58 Plan Activity: advance as tolerated Weight Bearing Status: Non-Weight Bearing Diet: low fat, low salt Follow up with: PRIMARY CARE, [Referring] - 3-5 Days Prescriptions: amLODIPine [Norvasc] 10 mg PO QDAY #30 tablet oxyCODONE /ACETAMINOPHEN [Percocet 5/325 mg] 1 tab PO Q4HR PRN #20 tablet PRN Reason: Pain Pantoprazole [Protonix TAB] 40 mg PO BID #60 tablet
[2017-04-28] MEDS ORDERED: APRESOLINE IV PRN (14:32)
[2017-04-28 17:43] VITALS: BP 117/77
== END 2017-04-28 19:00 | DRG 189 ==
LOC: ED 10:51 → 3A 16:15
PROVIDERS: ADMIT Internal Medicine; ATTEND Internal Medicine
PROC: 4A033R1 Measurement of Arterial Saturation, Peripheral, Percutaneous Approach (ICD-10-PCS; principal; 2017-04-25)
DX: J96.01 Acute respiratory failure with hypoxia (principal); K29.71 Gastritis, unspecified, with bleeding; J44.1 Chronic obstructive pulmonary disease with (acute) exacerbation; E87.0 Hyperosmolality and hypernatremia; K21.9 Gastro-esophageal reflux disease without esophagitis; F32.9 Major depressive disorder, single episode, unspecified; F20.9 Schizophrenia, unspecified; F17.200 Nicotine dependence, unspecified, uncomplicated; E78.00 Pure hypercholesterolemia, unspecified; J96.02 Acute respiratory failure with hypercapnia; I12.9 Hypertensive chronic kidney disease with stage 1 through stage 4 chronic kidney disease, or unspecified chronic kidney disease; N18.9 Chronic kidney disease, unspecified; E87.5 Hyperkalemia; K44.9 Diaphragmatic hernia without obstruction or gangrene
CPT/HCPCS: 36415; 71045; 78582; 80048; 82306; 82550; 82553; 82607; 82747; 82803; 82962; 84484; 85014; 85018; 85025; 85027; 93005; 93010; 94640; 94644; 94760; 96365; A9540; A9558; C9113; J0456; J2920; J7040; J7050

== ENCOUNTER 2017-06-01 11:15 | Inpatient (IN) | payer MEDICAID, MEDICARE ==
[2017-06-01] MEDS ORDERED: NACL 0.9% 1000 ML 1,000 ML IV ONE (11:27)
[2017-06-01 12:18] LABS: Basophils % (Auto) 0.4 % (0.0-1.8); Eosinophils # (Auto) 0.1 K/mm3 (0.0-0.4); Eosinophils % (Auto) 0.5 % (0.0-4.3); Hemoglobin 10.7 gm/dl (10.1-14.3); Lymphocytes # (Auto) 1.2 K/mm3 (1.2-5.4); Lymphocytes % (Auto) 10.2 % (13.4-35.0); Mean Corpuscular HGB Conc 32 % (30-34); Mean Corpuscular Hemoglobin 30 pg (28-32); Mean Corpuscular Volume 93 fl (79-97); Monocytes # (Auto) 0.5 K/mm3 (0.0-0.8); Monocytes % (Auto) 4.3 % (0.0-7.3); Platelet Count 246 K/mm3 (140-440); Red Blood Count 3.55 M/mm3 (3.65-5.03); Red Cell Distribution Width 15.4 % (13.2-15.2)
[2017-06-01 12:28] LABS: INR 0.96 (0.87-1.13)
[2017-06-01 12:39] LABS: Albumin 4.5 g/dL (3.9-5); Calcium 10.2 mg/dL (8.4-10.2)
[2017-06-01] MEDS ORDERED: ZOFRAN IV ONE (13:10)
--- NOTE | 2017-06-01 15:46 | Emergency Department Report ---
HPI - General Chief Complaint: GI Bleed Time Seen by Provider: 06/01/17 12:34 - HPI HPI: The patient is a 71-year-old female who presents for evaluation of abdominal pain and nausea and vomiting. The patient reports nausea, vomiting, and mild cramping lower abdominal pain since this morning. The patient denies fever, chills, night sweats, chest pain, dyspnea, diarrhea, blood in the stool, dark tarry stool, dysuria, hematuria, flank pain, genital discharge, inability to pass flatus. ED Past Medical Hx - Past Medical History Previous Medical History?: Yes Hx Hypertension: Yes Hx Heart Attack/AMI: No Hx Diabetes: No Hx Deep Vein Thrombosis: Yes (hx LLExt.) Hx Pulmonary Embolism: No Hx GERD: Yes Hx Liver Disease: No Hx Renal Disease: No Hx Sickle Cell Disease: No Hx Arthritis: No Hx Seizures: No Hx Kidney Stones: No Hx Psychiatric Treatment: Yes (anxiety, depression, schizophrenia) Hx Asthma: No Hx COPD: Yes Hx Tuberculosis: No Hx Dementia: Yes Hx HIV: No Additional medical history: High cholesterol. Schizophrenia, left hip fracture, left arm fracture, displaced fracture of 1st cervical vertebra, GERD, DVT LLE, generalized muscle weakness. "GI Bleeds" - Surgical History Past Surgical History?: Yes Hx Coronary Stent: No Hx Open Heart Surgery: No Hx Pacemaker: No Hx Internal Defibrillator: No Hx Cholecystectomy: No Additional Surgical History: ORIF left hip - Social History Smoking Status: Current Every Day Smoker Substance Use Type: None - Medications Home Medications: Home Medications Medication Instructions Recorded Confirmed Last Taken Type Tiotropium [Spiriva] 18 mcg IH QDAY 05/02/15 06/01/17 01/01/16 History Ondansetron [Zofran TAB] 4 mg PO Q8HR PRN 06/09/16 06/01/17 Unknown History Albuterol Sulfate [Ventolin Hfa] 2 puff IH BID PRN 04/25/17 06/01/17 Unknown History Cholecalciferol (Vitamin D3) 5,000 unit PO DAILY 04/25/17 06/01/17 Unknown History [Vitamin D3] Ferrous Gluconate 324 mg PO QDAY 04/25/17 06/01/17 Unknown History Ipratropium/Albuterol Sulfate 1 ampul IH Q6HR PRN 04/25/17 06/01/17 Unknown History [DUONEB *Not for PRN Use*] Mirtazapine [Remeron] 7.5 mg PO HS 04/25/17 06/01/17 Unknown History Sennosides [Senna] 8.6 mg PO HS PRN 04/25/17 06/01/17 Unknown History Pantoprazole [Protonix TAB] 40 mg PO BID #60 tablet 04/28/17 06/01/17 Unknown Rx oxyCODONE /ACETAMINOPHEN [Percocet 1 tab PO Q4HR PRN #20 tablet 04/28/17 Unknown Rx 5/325 mg] Acetaminophen [Tylenol] 650 mg PO Q4HR PRN MDD 3,000 mg 06/01/17 06/01/17 Unknown History ED Review of Systems ROS: Stated complaint: N/V Other details as noted in HPI Constitutional: denies: fever ENT: denies: throat or neck pain Respiratory: denies: cough, shortness of breath Cardiovascular: denies: chest pain Endocrine: denies unexplained weight loss or gain Gastrointestinal: reports abdominal pain, nausea Genitourinary: denies: dysuria Musculoskeletal: denies: leg swelling Skin: denies: rash Neurological: denies: headache Hematological/Lymphatic: denies: easy bleeding or easy bruising Psych: denies sadness or hopelessness Physical Exam - Physical Exam Vital Signs: Vital Signs 06/01/17 06/01/17 06/01/17 11:21 11:29 11:30 Temperature 98.1 F Pulse Rate 98 H Respiratory 26 H 26 H 30 H Rate Blood Pressure 131/81 131/81 O2 Sat by Pulse 95 95 95 Oximetry 06/01/17 06/01/17 06/01/17 11:45 12:00 12:30 Temperature Pulse Rate 102 H 104 H 88 Respiratory 26 H 20 29 H Rate Blood Pressure 127/45 127/45 117/52 O2 Sat by Pulse 93 92 Oximetry Physical Exam: General: well-nourished, well-developed, no acute distress Head: Normocephalic, atraumatic Eyes: normal sclera ENT: Mucous membranes are pale and dry Neck: trachea midline, neck supple, No neck stiffness, no cervical adenopathy Respiratory: Breath sounds equal bilaterally, no wheezing, rales, or rhonchi Cardio: S1 and S2 present, no murmurs, rubs, gallops, capillary refill is delayed Abdomen: Normoactive bowel sounds, soft abdomen, periumbilical tenderness Musc: No pitting edema Skin: No rash Neuro: no facial drooping, normal speech Psych: Normal affect ED Course Vital Signs 06/01/17 06/01/17 06/01/17 11:21 11:29 11:30 Temperature 98.1 F Pulse Rate 98 H Respiratory 26 H 26 H 30 H Rate Blood Pressure 131/81 131/81 O2 Sat by Pulse 95 95 95 Oximetry 06/01/17 06/01/17 06/01/17 11:45 12:00 12:30 Temperature Pulse Rate 102 H 104 H 88 Respiratory 26 H 20 29 H Rate Blood Pressure 127/45 127/45 117/52 O2 Sat by Pulse 93 92 Oximetry ED Medical Decision Making - Lab Data Result diagrams: 06/01/17 12:01 06/01/17 12:01 - Medical Decision Making The patient was seen and examined by myself. The patient is placed on a front desk monitor and continuous pulse ox. On initial evaluation, the patient was found to be in no distress. Evaluation orders were placed. Lab results reveal elevated when a 57, elevated creatinine 2.6, Bun:Cr > 2:1, elevated WBC of 11, and elevated potassium level of 5.6. The patient is given 1 L normal saline fluid bolus for treatment of dehydration and hyperkalemia. The on-call hospitalist service was contacted. They agreed to admit the patient for further treatment and close monitoring. The ED admit order was placed. The patient was admitted in guarded condition. Critical care attestation.: If time is entered above; I have spent that time in minutes in the direct care of this critically ill patient, excluding procedure time. ED Disposition Clinical Impression: Dehydration, Acute hyperkalemia, Abdominal pain, acute, periumbilical Acute kidney failure Qualifiers: Acute renal failure type: unspecified Qualified Code(s): N17.9 - Acute kidney failure, unspecified Disposition: OP ADMIT IP TO THIS HOSP Is pt being admited?: Yes Does the pt Need Aspirin: Yes Condition: Fair Referrals: PRIMARY CARE, [Primary Care Provider] - 3-5 Days Time of Disposition: 14:49
[2017-06-01] MEDS ORDERED: BABY ASPIRIN PO ONE (15:49)
--- NOTE | 2017-06-01 16:38 | History and Physical Report ---
History of Present Illness Chief complaint: The sent me here History of present illness: 71 YO Female [employer] Resident with HTN, DVT-LLE, GERD, Debility, Depression , Dementia, Anxiety, Schizophrenia, Nicotine Dependence, HLD presents to ED for evaluation. Pt confused, and unable to provide detailed history. Pt history taken from ED staff, and SNF staff, and medical record. As per skilled nursing staff, The patient has experienced nausea, vomiting, and mild cramping lower abdominal pain since this morning as well as coffee ground emesis. No reports of fever, chills, night sweats, chest pain, dyspnea, diarrhea, blood in the stool, dark tarry stool, dysuria, hematuria, flank pain, genital discharge, inability to pass flatus. Pt seen and evaluated in ED and treated with supportive care, PPI therapy, supplemental oxygen, nebulizer therapy, and admitted to medical floor. Past History Past Medical History: DVT, hypertension, hyperlipidemia Past Surgical History: total hip replacement Social history: single, smoking Family history: hypertension Medications and Allergies Allergies Allergy/AdvReac Type Severity Reaction Status Date / Time No Known Allergies Allergy Verified 04/25/17 12:02 Home Medications Medication Instructions Recorded Confirmed Last Taken Type Tiotropium [Spiriva] 18 mcg IH QDAY 05/02/15 06/01/17 01/01/16 History Ondansetron [Zofran TAB] 4 mg PO Q8HR PRN 06/09/16 06/01/17 Unknown History Albuterol Sulfate [Ventolin Hfa] 2 puff IH BID PRN 04/25/17 06/01/17 Unknown History Cholecalciferol (Vitamin D3) 5,000 unit PO DAILY 04/25/17 06/01/17 Unknown History [Vitamin D3] Ferrous Gluconate 324 mg PO QDAY 04/25/17 06/01/17 Unknown History Ipratropium/Albuterol Sulfate 1 ampul IH Q6HR PRN 04/25/17 06/01/17 Unknown History [DUONEB *Not for PRN Use*] Mirtazapine [Remeron] 7.5 mg PO HS 04/25/17 06/01/17 Unknown History Sennosides [Senna] 8.6 mg PO HS PRN 04/25/17 06/01/17 Unknown History Pantoprazole [Protonix TAB] 40 mg PO BID #60 tablet 04/28/17 06/01/17 Unknown Rx oxyCODONE /ACETAMINOPHEN [Percocet 1 tab PO Q4HR PRN #20 tablet 04/28/17 Unknown Rx 5/325 mg] Acetaminophen [Tylenol] 650 mg PO Q4HR PRN MDD 3,000 mg 06/01/17 06/01/17 Unknown History Review of Systems ROS unobtainable: due to mental status Exam - Constitutional Vitals: Temp Pulse Resp BP Pulse Ox 98.1 F 88 29 H 117/52 92 06/01/17 11:21 06/01/17 12:30 06/01/17 12:30 06/01/17 12:30 06/01/17 12:30 General appearance: Present: mild distress, cachectic - EENT Eyes: Present: PERRL ENT: hearing intact, clear oral mucosa - Neck Neck: Present: supple, normal ROM - Respiratory Respiratory effort: normal Respiratory: bilateral: diminished, rhonchi - Cardiovascular Heart Sounds: Present: S1 & S2. Absent: rub, click - Extremities Extremities: pulses symmetrical, No edema Peripheral Pulses: within normal limits - Abdominal General gastrointestinal: Present: soft, non-tender, non-distended, normal bowel sounds Female genitourinary: Present: normal - Integumentary Integumentary: Present: clear, warm, dry - Musculoskeletal Musculoskeletal: generalized weakness - Psychiatric Psychiatric: no intact judgment & insight, no memory intact - Neurologic Neurologic: CNII-XII intact, moves all extremities, no gait normal Results - Labs CBC & Chem 7: 06/01/17 12:01 06/01/17 12:01 Labs: Abnormal lab results 06/01/17 06/01/17 Range/Units 12:01 12:01 WBC 11.4 H (4.5-11.0) K/mm3 RBC 3.55 L (3.65-5.03) M/mm3 RDW 15.4 H (13.2-15.2) % Lymph % (Auto) 10.2 L (13.4-35.0) % Seg Neutrophils % 84.6 H (40.0-70.0) % Seg Neutrophils # 9.6 H (1.8-7.7) K/mm3 Potassium 5.6 H (3.6-5.0) mmol/L BUN 57 H (7-17) mg/dL Creatinine 2.6 H (0.7-1.2) mg/dL Glucose 112 H (65-100) mg/dL Alkaline Phosphatase 130 H (35-129) units/L Assessment and Plan - Patient Problems (1) GI bleed Current Visit: Yes Status: Suspected Qualifiers: Gastritis type: acute gastritis Plan to address problem: Gi consulted, PPI therapy, serial cbc, supportive care. (2) COPD (chronic obstructive pulmonary disease) Current Visit: No Status: Chronic Qualifiers: COPD type: chronic bronchitis Plan to address problem: continue current therapy, supplemental oxygen, nebulizer therapy, NIPPV as clinically indicated (3) ARF (acute renal failure) Current Visit: Yes Status: Acute Qualifiers: Acute renal failure type: with acute tubular necrosis Qualified Code(s): N17.0 - Acute kidney failure with tubular necrosis Plan to address problem: IVF resuscitation, monitor serum creatnine, urine electrolytes,monitor uop q shift, (4) Encephalopathy Current Visit: Yes Status: Acute Plan to address problem: CT Head, neuro checks, ivf resuscitation, (5) DVT (deep venous thrombosis) Current Visit: Yes Status: Chronic Qualifiers: Laterality: unspecified laterality Plan to address problem: No currently on anticoagulation due to fall risk, continue current care, as well as suspected GI bleed (6) UTI (urinary tract infection) Current Visit: Yes Status: Suspected Qualifiers: Encounter type: initial encounter Plan to address problem: Empiric antibiotics for suspected UTI, urinalysis ordered, awaiting results. (7) DVT prophylaxis Current Visit: Yes Status: Acute Plan to address problem: SCD to ble
[2017-06-01] MEDS ORDERED: ZOFRAN IV PRN (16:52)
[2017-06-01] MEDS ORDERED: MILK OF MAGNESIA PO PRN (16:52)
[2017-06-01] MEDS ORDERED: PROVENTIL IH PRN (16:52)
[2017-06-01] MEDS ORDERED: TYLENOL PO PRN ×2 (16:52→16:54)
[2017-06-01] MEDS ORDERED: DULCOLAX PR PRN (16:52)
[2017-06-01] MEDS ORDERED: PROAIR IH PRN (16:54)
[2017-06-01] MEDS ORDERED: PERCOCET 5/325 PO PRN (16:54)
[2017-06-01] MEDS ORDERED: SENOKOT PO PRN (16:54)
[2017-06-01] MEDS: REMERON PO SCH (23:32)
[2017-06-01] MEDS: PROTONIX IV SCH (23:33)
--- NOTE | 2017-06-02 08:23 | Cat Scan Report ---
CT HEAD WITHOUT CONTRAST INDICATION: Confusion. COMPARISON: 05/02/2015. FINDINGS: Noncontrast head CT again demonstrates stable ventricles and age-appropriate, mild to moderately enlarged sulci with bifrontal extra-axial CSF spaces measuring up to 5-6 mm, axial image 42, series 2. No acute infarct, hemorrhage, mass effect or midline shift. No abnormal extra axial fluid collections. Stable posterior fossa with preserved basilar cisterns. Bilateral cataract surgery. Leftward nasal septal deviation. Mild bilateral maxillary sinus mucosal thickening inferiorly. Slight ethmoid and sphenoid sinus mucosal thickening may also be present. Clear frontal sinuses and bilateral temporal bone and left mastoid air cells. Few right mastoid tip air cells may be opacified and/or poorly pneumatized. Mild atherosclerotic ICA calcifications. Normal calvarium and scalp. Edentulous jaw. CONCLUSION: No acute intracranial CT abnormality with age appropriate atrophy and new mild sinusitis and right mastoiditis, as described. Please correlate. Thank you for the opportunity to participate in this patient's care.
[2017-06-02] MEDS: SPIRIVA IH SCH (09:45)
[2017-06-02] MEDS: cefTRIAXone 1 GM in NACL 0.9% 20 ML IV SCH (09:57)
[2017-06-02] MEDS: VITAMIN D3 PO SCH (09:58)
[2017-06-02] MEDS: PROTONIX IV SCH (09:59)
[2017-06-02] MEDS: FERGON PO SCH (10:00)
[2017-06-02] MEDS ORDERED: NON-FORMULARY (Cholecalciferol (Vitamin D3) [Vitamin D3] 5,000 UNIT) PO SCH (10:00)
[2017-06-02 10:33] LABS: Creatinine,Urine 101.5 mg/dL (0.1-20.0)
--- NOTE | 2017-06-02 10:39 | Gastroenterology Consultation ---
<ANTOINE RIZZO - Last Filed: 06/02/17 10:54> History of Present Illness - Reason for Consult Consult date: 06/02/17 UGIB Requesting physician: SYD AVILA - History of Present Illness Patient is a 71 y/o female residential resident with PMH of HTN, DVT, GERD, debility, depression, anxiety, schizophrenia, nicotine dependence, and HLD who presented to ED for evaluation of abd cramping, N/V, and coffee-ground emesis to which GI has been consulted. Patient is well known to our service. She has underwent multiple EGDs in the past showing severe esophagitis (last EGD/ colonoscopy 07/2016). H/H is stable and there have been no active signs of bleeding per nursing since admission such as hematemesis, coffee-ground emesis, melena, or hematochezia. This morning pt was resting in bed w/o acute distress or any GI complaints. Denies wt loss, abd pain, N/v, heartburn, dysphagia, odynophagia, diarrhea, or constipation. Currently tolerating diet. Past History Past Medical History: DVT, GERD, hypertension, hyperlipidemia, other (debility, depression, anxiety, schizophrenia, nicotine dependence, dementia) Past Surgical History: total hip replacement Social history: single, smoking, other (residential resident) Family history: hypertension Medications and Allergies Allergies Allergy/AdvReac Type Severity Reaction Status Date / Time No Known Allergies Allergy Verified 04/25/17 12:02 Home Medications Medication Instructions Recorded Confirmed Last Taken Type Tiotropium [Spiriva] 18 mcg IH QDAY 05/02/15 06/01/17 01/01/16 History Ondansetron [Zofran TAB] 4 mg PO Q8HR PRN 06/09/16 06/01/17 Unknown History Albuterol Sulfate [Ventolin Hfa] 2 puff IH BID PRN 04/25/17 06/01/17 Unknown History Cholecalciferol (Vitamin D3) 5,000 unit PO DAILY 04/25/17 06/01/17 Unknown History [Vitamin D3] Ferrous Gluconate 324 mg PO QDAY 04/25/17 06/01/17 Unknown History Ipratropium/Albuterol Sulfate 1 ampul IH Q6HR PRN 04/25/17 06/01/17 Unknown History [DUONEB *Not for PRN Use*] Mirtazapine [Remeron] 7.5 mg PO HS 04/25/17 06/01/17 Unknown History Sennosides [Senna] 8.6 mg PO HS PRN 04/25/17 06/01/17 Unknown History Pantoprazole [Protonix TAB] 40 mg PO BID #60 tablet 04/28/17 06/01/17 Unknown Rx oxyCODONE /ACETAMINOPHEN [Percocet 1 tab PO Q4HR PRN #20 tablet 04/28/17 Unknown Rx 5/325 mg] Acetaminophen [Tylenol] 650 mg PO Q4HR PRN MDD 3,000 mg 06/01/17 06/01/17 Unknown History Active Meds: Active Medications Acetaminophen (Tylenol) 650 mg PO Q4H PRN PRN Reason: Pain MILD(1-3)/Fever >100.5/DIXON Albuterol (Proventil) 2.5 mg IH Q4HRT PRN PRN Reason: Shortness Of Breath Bisacodyl (Dulcolax) 10 mg MO QDAY PRN PRN Reason: Constipation unrelieved by MOM Cholecalciferol (Vitamin D3) 5,000 unit PO QDAY [facility] Last Admin: 06/02/17 09:58 Dose: 5,000 unit Ferrous Gluconate (Fergon) 324 mg PO QDAY [facility] Last Admin: 06/02/17 10:00 Dose: 324 mg Ceftriaxone Sodium 1 gm/ (Sodium Chloride) 20 mls @ 20 mls/10 min IV Q24HR [facility] ; Protocol Last Admin: 06/02/17 09:57 Dose: 20 mls/10 min Influenza Virus Vaccine Quadrival (Fluarix Quad [id number](36 Mos+) 0.5 ml IM .ONCE ONE Stop: 06/03/17 12:01 Magnesium Hydroxide (Milk Of Magnesia) 30 ml PO Q4H PRN PRN Reason: Constipation Mirtazapine (Remeron) 7.5 mg PO HS [facility] Last Admin: 06/01/17 23:32 Dose: 7.5 mg Ondansetron HCl (Zofran) 4 mg IV Q8H PRN PRN Reason: N/V unrelieved by Reglan Oxycodone/Acetaminophen (Percocet 5/325) 1 tab PO Q4HR PRN PRN Reason: Pain Pantoprazole Sodium (Protonix) 40 mg IV BID [facility] Last Admin: 06/02/17 09:59 Dose: 40 mg Pneumococcal Polyvalent Vaccine (Pneumovax 23) 0.5 ml IM .ONCE ONE Stop: 06/03/17 12:01 Senna (Senokot) 8.6 mg PO HS PRN PRN Reason: Constipation Tiotropium Teller (Spiriva) 1 puff IH QDAY [facility] Last Admin: 06/02/17 09:45 Dose: 1 puff Review of Systems - Review of Systems All systems: negative Gastrointestinal: no abdominal pain, no nausea, no vomiting, no hematemesis, no coffee ground emesis, no melena, no hematochezia Exam - Constitutional Vital Signs: Temp Pulse Resp BP Pulse Ox 97.3 F L 96 H 16 119/82 94 06/02/17 08:31 06/02/17 09:50 06/02/17 09:50 06/02/17 08:31 06/02/17 09:45 General appearance: no acute distress - EENT Eyes: PERRL, EOM intact ENT: hearing intact - Respiratory Respiratory: bilateral: wheezing - Cardiovascular Rhythm: regular Heart Sounds: Present: S1 & S2 - Gastrointestinal General gastrointestinal: Present: soft, non-tender, non-distended, normal bowel sounds - Integumentary Integumentary: Present: warm, dry - Labs CBC & Chem 7: 06/01/17 12:01 06/01/17 12:01 Lab Results: Laboratory Results - last 24 hr 06/01/17 06/01/17 06/01/17 12:01 12:01 12:01 WBC 11.4 H RBC 3.55 L Hgb 10.7 Hct 33.0 MCV 93 MCH 30 MCHC 32 RDW 15.4 H Plt Count 246 Lymph % (Auto) 10.2 L [place] % (Auto) 4.3 Eos % (Auto) 0.5 Baso % (Auto) 0.4 Lymph # 1.2 [place] # 0.5 Eos # 0.1 Baso # 0.0 Seg Neutrophils % 84.6 H Seg Neutrophils # 9.6 H PT 13.3 INR 0.96 APTT 28.0 Sodium 145 Potassium 5.6 H Chloride 101.8 Carbon Dioxide 29 Anion Gap 20 BUN 57 H Creatinine 2.6 H Estimated GFR 18 BUN/Creatinine Ratio 22 Glucose 112 H Calcium 10.2 Total Bilirubin 0.20 AST 17 ALT 13 Alkaline Phosphatase 130 H Total Protein 6.7 Albumin 4.5 Albumin/Globulin Ratio 2.0 Lipase 42 Urine Creatinine Urine Sodium Blood Type Antibody Screen Crossmatch 06/01/17 06/02/17 12:01 Unknown WBC RBC Hgb Hct MCV MCH MCHC RDW Plt Count Lymph % (Auto) [place] % (Auto) Eos % (Auto) Baso % (Auto) Lymph # [place] # Eos # Baso # Seg Neutrophils % Seg Neutrophils # PT INR APTT Sodium Potassium Chloride Carbon Dioxide Anion Gap BUN Creatinine Estimated GFR BUN/Creatinine Ratio Glucose Calcium Total Bilirubin AST ALT Alkaline Phosphatase Total Protein Albumin Albumin/Globulin Ratio Lipase Urine Creatinine 101.5 H Urine Sodium 67 Blood Type A POSITIVE Antibody Screen Negative Crossmatch See Detail Assessment and Plan 1.UGIB 2.coffee-ground emesis -H/H 10.7/33.0-stable -continue to monitor H/H and transfuse if needed -no active signs of bleeding or GI complaints -h/o known esophagitis -last EGD 07/2016 showed large hiatal hernia and gastritis -last colonoscopy 07/19 showed diverticulosis and internal hemorrhoids -no recommendations for an EGD unless further signs of bleeding -continue chronic PPI and supportive care -will sign off, please call if needed <BERT QUINTERO - Last Filed: 06/02/17 12:16> Medications and Allergies Active Meds: Active Medications Acetaminophen (Tylenol) 650 mg PO Q4H PRN PRN Reason: Pain MILD(1-3)/Fever >100.5/DIXON Albuterol (Proventil) 2.5 mg IH Q4HRT PRN PRN Reason: Shortness Of Breath Bisacodyl (Dulcolax) 10 mg MO QDAY PRN PRN Reason: Constipation unrelieved by MOM Cholecalciferol (Vitamin D3) 5,000 unit PO QDAY [facility] Last Admin: 06/02/17 09:58 Dose: 5,000 unit Ferrous Gluconate (Fergon) 324 mg PO QDAY [facility] Last Admin: 06/02/17 10:00 Dose: 324 mg Ceftriaxone Sodium 1 gm/ (Sodium Chloride) 20 mls @ 20 mls/10 min IV Q24HR [facility] ; Protocol Last Admin: 06/02/17 09:57 Dose: 20 mls/10 min Sodium Chloride (Nacl 0.9% 1000 Ml) 1,000 mls @ 100 mls/hr IV DIRECT [facility] Influenza Virus Vaccine Quadrival (Fluarix Quad [id number](36 Mos+) 0.5 ml IM .ONCE ONE Stop: 06/03/17 12:01 Magnesium Hydroxide (Milk Of Magnesia) 30 ml PO Q4H PRN PRN Reason: Constipation Metoclopramide HCl (Reglan) 10 mg IV Q8H PRN PRN Reason: Nausea And Vomiting Mirtazapine (Remeron) 7.5 mg PO HS [facility] Last Admin: 06/01/17 23:32 Dose: 7.5 mg Ondansetron HCl (Zofran) 4 mg IV Q8H PRN PRN Reason: N/V unrelieved by Reglan Oxycodone/Acetaminophen (Percocet 5/325) 1 tab PO Q4HR PRN PRN Reason: Pain Pantoprazole Sodium (Protonix) 40 mg PO BID [facility] Pneumococcal Polyvalent Vaccine (Pneumovax 23) 0.5 ml IM .ONCE ONE Stop: 06/03/17 12:01 Senna (Senokot) 8.6 mg PO HS PRN PRN Reason: Constipation Tiotropium Teller (Spiriva) 1 puff IH QDAY [facility] Last Admin: 06/02/17 09:45 Dose: 1 puff Exam - Constitutional Vital Signs: Temp Pulse Resp BP Pulse Ox 97.3 F L 86 16 119/82 94 06/02/17 08:31 06/02/17 10:00 06/02/17 09:50 06/02/17 08:31 06/02/17 11:08 - Labs CBC & Chem 7: 06/01/17 12:01 06/01/17 12:01 Lab Results: Laboratory Results - last 24 hr 06/01/17 06/01/17 06/01/17 12:01 12:01 12:01 WBC 11.4 H RBC 3.55 L Hgb 10.7 Hct 33.0 MCV 93 MCH 30 MCHC 32 RDW 15.4 H Plt Count 246 Lymph % (Auto) 10.2 L [place] % (Auto) 4.3 Eos % (Auto) 0.5 Baso % (Auto) 0.4 Lymph # 1.2 [place] # 0.5 Eos # 0.1 Baso # 0.0 Seg Neutrophils % 84.6 H Seg Neutrophils # 9.6 H PT 13.3 INR 0.96 APTT 28.0 Sodium 145 Potassium 5.6 H Chloride 101.8 Carbon Dioxide 29 Anion Gap 20 BUN 57 H Creatinine 2.6 H Estimated GFR 18 BUN/Creatinine Ratio 22 Glucose 112 H Calcium 10.2 Total Bilirubin 0.20 AST 17 ALT 13 Alkaline Phosphatase 130 H Total Protein 6.7 Albumin 4.5 Albumin/Globulin Ratio 2.0 Lipase 42 Urine Color Urine Turbidity Urine pH Ur Specific [place] Urine Protein Urine Glucose (UA) Urine Ketones Urine Nitrite Urine Bilirubin Urine Urobilinogen Ur Leukocyte Esterase Urine WBC (Auto) Urine RBC (Auto) U Epithel Cells (Auto) Urine Bacteria (Auto) Urine WBC Clumps Urine Mucus Urine Yeast (Budding) Urine Creatinine Urine Sodium Blood Type Antibody Screen Crossmatch 06/01/17 06/02/17 06/02/17 12:01 Unknown Unknown WBC RBC Hgb Hct MCV MCH MCHC RDW Plt Count Lymph % (Auto) [place] % (Auto) Eos % (Auto) Baso % (Auto) Lymph # [place] # Eos # Baso # Seg Neutrophils % Seg Neutrophils # PT INR APTT Sodium Potassium Chloride Carbon Dioxide Anion Gap BUN Creatinine Estimated GFR BUN/Creatinine Ratio Glucose Calcium Total Bilirubin AST ALT Alkaline Phosphatase Total Protein Albumin Albumin/Globulin Ratio Lipase Urine Color Yellow Urine Turbidity Cloudy Urine pH 6.0 Ur Specific [place] 1.010 Urine Protein 100 mg/dl Urine Glucose (UA) Negative Urine Ketones Negative Urine Nitrite Negative Urine Bilirubin Negative Urine Urobilinogen < 2.0 Ur Leukocyte Esterase Negative Urine WBC (Auto) > 182.0 H Urine RBC (Auto) 2.0 U Epithel Cells (Auto) 1.0 Urine Bacteria (Auto) 1+ Urine WBC Clumps 3+ Urine Mucus Few Urine Yeast (Budding) 3+ Urine Creatinine 101.5 H Urine Sodium 67 Blood Type A POSITIVE Antibody Screen Negative Crossmatch See Detail Assessment and Plan Patient seen and examined. Agree with note above. Patient with known h/o erosive esophagitis. at the time of exam, pt is eating w/o gi complaints and denies recent signs of overt bleeding. H/H within baseline. PPI BID dosing, will sign off. please call as needed or with questions.
[2017-06-02 10:45] LABS: Bilirubin,Urine Negative (Negative); Color,Urine Yellow (Yellow)
[2017-06-02 10:46] LABS: Urobilinogen,Urine < 2.0 mg/dL (<2.0)
[2017-06-02 11:02] LABS: Bacteria,Urine 1+ /HPF (Negative); Mucus,Urine FEW /HPF
[2017-06-02 11:11] LABS: WBC,Urine > 182.0 /HPF (0.0-6.0)
--- NOTE | 2017-06-02 11:25 | Progress Note ---
Assessment and Plan Assessment and plan: Patient is a 71 [place] [facility] [place] with h/o HTN, DVT-LLE, GERD, Debility, Depression, Dementia, Anxiety, Schizophrenia, Nicotine Dependence, HLD presents to ED for evaluation of AMS, n/v/abd pains/coffee ground emesis. -Acute metabolic encephalopathy, poa, related to dehydration from n/v: treat with ivf -UGIB w/o anemia: GI evaluated, treat with PPI, suspected gastritis -Tobacco dependance: counselled on stopping, offered nicotine patch, she will consider -Intractable n/v from gastritis probably lead to reddish looking emesis: treat with antiemetics and ppi History Interval history: Patient was seen and examined. Follow-up on current diagnosis of AMS. Overnight uneventful. Patient denies any chest pain, shortness breath, nausea/ vomiting or severe headaches. Imaging, nursing note, chart, labs and old chart reviewed. Discussed with patient. Patient knows her location (but not name of this [facility]), name, . She missed the year. Hospitalist Physical - Physical exam Narrative exam: GEN: thin frial, NAD, AWAKE, ALERT, ORIENTATED x 1.5 (missed year and name of this [facility]) HEENT: NCAT, EOMI, PERRL, OP Clear NECK: supple, no adenopathy, no thyromegaly, no JVD CVS/HEART: RRR, NORMAL S1S2, pulses present bilaterally CHEST/LUNGS: CTA B, Symmetrical chest expansion, good air entry bilaterally GI/Abdomen: soft, NTND, good bowel sounds, no guarding or rebound /Bladder: no suprapubic tenderness, no CVA or paraspinal tenderness EXT/Skin: no c/c/e, no obvious rash MSK: FROM x 4 Neuro: CN 2-12 grossly intact, no new focal deficits Psych: calm - Constitutional Vitals: Temp Pulse Resp BP Pulse Ox 97.3 F L 86 16 119/82 94 06/02/17 08:31 06/02/17 10:00 06/02/17 09:50 06/02/17 08:31 06/02/17 11:08 General appearance: Present: cachectic Results - Labs CBC & Chem 7: 06/01/17 12:01 06/01/17 12:01 Labs: Laboratory Last Values WBC 11.4 K/mm3 (4.5-11.0) H 06/01/17 12:01 RBC 3.55 M/mm3 (3.65-5.03) L 06/01/17 12:01 Hgb 10.7 gm/dl (10.1-14.3) 06/01/17 12:01 Hct 33.0 % (30.3-42.9) 06/01/17 12:01 MCV 93 fl (79-97) 06/01/17 12:01 MCH 30 pg (28-32) 06/01/17 12:01 MCHC 32 % (30-34) 06/01/17 12:01 RDW 15.4 % (13.2-15.2) H 06/01/17 12:01 Plt Count 246 K/mm3 (140-440) 06/01/17 12:01 Lymph % (Auto) 10.2 % (13.4-35.0) L 06/01/17 12:01 [place] % (Auto) 4.3 % (0.0-7.3) 06/01/17 12:01 Eos % (Auto) 0.5 % (0.0-4.3) 06/01/17 12:01 Baso % (Auto) 0.4 % (0.0-1.8) 06/01/17 12:01 Lymph # 1.2 K/mm3 (1.2-5.4) 06/01/17 12:01 [place] # 0.5 K/mm3 (0.0-0.8) 06/01/17 12:01 Eos # 0.1 K/mm3 (0.0-0.4) 06/01/17 12:01 Baso # 0.0 K/mm3 (0.0-0.1) 06/01/17 12:01 Seg Neutrophils % 84.6 % (40.0-70.0) H 06/01/17 12:01 Seg Neutrophils # 9.6 K/mm3 (1.8-7.7) H 06/01/17 12:01 PT 13.3 Sec. (12.2-14.9) 06/01/17 12:01 INR 0.96 (0.87-1.13) 06/01/17 12:01 APTT 28.0 Sec. (24.2-36.6) 06/01/17 12:01 Sodium 145 mmol/L (137-145) 06/01/17 12:01 Potassium 5.6 mmol/L (3.6-5.0) H 06/01/17 12:01 Chloride 101.8 mmol/L (98-107) 06/01/17 12:01 Carbon Dioxide 29 mmol/L (22-30) 06/01/17 12:01 Anion Gap 20 mmol/L 06/01/17 12:01 BUN 57 mg/dL (7-17) H 06/01/17 12:01 Creatinine 2.6 mg/dL (0.7-1.2) H 06/01/17 12:01 Estimated GFR 18 ml/min 06/01/17 12:01 BUN/Creatinine Ratio 22 % 06/01/17 12:01 Glucose 112 mg/dL (65-100) H 06/01/17 12:01 Calcium 10.2 mg/dL (8.4-10.2) 06/01/17 12:01 Total Bilirubin 0.20 mg/dL (0.1-1.2) 06/01/17 12:01 AST 17 units/L (5-40) 06/01/17 12:01 ALT 13 units/L (7-56) 06/01/17 12:01 Alkaline Phosphatase 130 units/L (35-129) H 06/01/17 12:01 Total Protein 6.7 g/dL (6.3-8.2) 06/01/17 12:01 Albumin 4.5 g/dL (3.9-5) 06/01/17 12:01 Albumin/Globulin Ratio 2.0 % 06/01/17 12:01 Lipase 42 units/L (13-60) 06/01/17 12:01 Urine Color Yellow (Yellow) 06/02/17 Unknown Urine Turbidity Cloudy (Clear) 06/02/17 Unknown Urine pH 6.0 (5.0-7.0) 06/02/17 Unknown Ur Specific [place] 1.010 (1.003-1.030) 06/02/17 Unknown Urine Protein 100 mg/dl mg/dL (Negative) 06/02/17 Unknown Urine Glucose (UA) Negative mg/dL (Negative) 06/02/17 Unknown Urine Ketones Negative mg/dL (Negative) 06/02/17 Unknown Urine Nitrite Negative (Negative) 06/02/17 Unknown Urine Bilirubin Negative (Negative) 06/02/17 Unknown Urine Urobilinogen < 2.0 mg/dL (<2.0) 06/02/17 Unknown Ur Leukocyte Esterase Negative (Negative) 06/02/17 Unknown Urine WBC (Auto) > 182.0 /HPF (0.0-6.0) H 06/02/17 Unknown Urine RBC (Auto) 2.0 /HPF (0.0-6.0) 06/02/17 Unknown U Epithel Cells (Auto) 1.0 /HPF (0-13.0) 06/02/17 Unknown Urine Bacteria (Auto) 1+ /HPF (Negative) 06/02/17 Unknown Urine WBC Clumps 3+ /HPF 06/02/17 Unknown Urine Mucus Few /HPF 06/02/17 Unknown Urine Yeast (Budding) 3+ /HPF 06/02/17 Unknown Urine Creatinine 101.5 mg/dL (0.1-20.0) H 06/02/17 Unknown Urine Sodium 67 mmol/L 06/02/17 Unknown Blood Type A POSITIVE 06/01/17 12:01 Antibody Screen Negative 06/01/17 12:01 Crossmatch See Detail 06/01/17 12:01
[2017-06-02] MEDS ORDERED: REGLAN IV PRN (11:49)
[2017-06-02] MEDS: NACL 0.9% 1000 ML 1,000 ML IV SCH ×2 (14:09→23:39)
[2017-06-02] MEDS: PROTONIX PO SCH (23:36)
[2017-06-02] MEDS: REMERON PO SCH (23:36)
[2017-06-03 09:08] VITALS: BP 97/41
[2017-06-03] MEDS: cefTRIAXone 1 GM in NACL 0.9% 20 ML IV SCH (09:10)
[2017-06-03] MEDS: VITAMIN D3 PO SCH (09:11)
[2017-06-03] MEDS: PROTONIX PO SCH (09:11)
[2017-06-03] MEDS: FERGON PO SCH (09:12)
[2017-06-03] MEDS: SPIRIVA IH SCH (10:18)
--- NOTE | 2017-06-03 10:25 | Progress Note ---
Assessment and Plan Assessment and plan: Patient is a 71 yo woman from [facility] with h/o HTN, LLE DVT, GERD , Debility, Depression, Dementia, Anxiety, Schizophrenia, Nicotine Dependence, HLD presents to ED for evaluation of AMS, n/v/abd pains/coffee ground emesis. -Sepsis UTI, present on admission: Urine culture not sent, already on abx -Acute metabolic encephalopathy, poa, related to dehydration from n/v: treat with ivf and now resolved. -UGIB w/o anemia: GI evaluated, treat with PPI, suspected gastritis -Tobacco dependance: counselled on stopping, offered nicotine patch, she will consider -Intractable n/v from gastritis probably lead to reddish looking emesis: treat with antiemetics and ppi =resolved Disposition: Back to [place] History Interval history: Patient was seen and examined. Follow-up on current diagnosis of AMS. Overnight uneventful. Patient denies any chest pain, shortness breath, nausea/ vomiting or severe headaches. Imaging, nursing note, chart, labs and old chart reviewed. Discussed with patient. Hospitalist Physical - Physical exam Narrative exam: GEN: thin frial, NAD, AWAKE, ALERT, ORIENTATED x 1.5 (missed year and name of this [facility]) HEENT: NCAT, EOMI, PERRL, OP Clear NECK: supple, no adenopathy, no thyromegaly, no JVD CVS/HEART: RRR, NORMAL S1S2, pulses present bilaterally CHEST/LUNGS: CTA B, Symmetrical chest expansion, good air entry bilaterally GI/Abdomen: soft, NTND, good bowel sounds, no guarding or rebound /Bladder: no suprapubic tenderness, no CVA or paraspinal tenderness EXT/Skin: no c/c/e, no obvious rash MSK: FROM x 4 Neuro: CN 2-12 grossly intact, no new focal deficits Psych: calm - Constitutional Vitals: Temp Pulse Resp BP Pulse Ox 98.2 F 81 18 97/41 96 06/03/17 07:28 06/03/17 07:28 06/03/17 07:28 06/03/17 07:28 06/03/17 08:25 General appearance: Present: cachectic Results - Labs CBC & Chem 7: 06/01/17 12:01 06/01/17 12:01 Labs: Laboratory Last Values WBC 11.4 K/mm3 (4.5-11.0) H 06/01/17 12:01 RBC 3.55 M/mm3 (3.65-5.03) L 06/01/17 12:01 Hgb 10.7 gm/dl (10.1-14.3) 06/01/17 12:01 Hct 33.0 % (30.3-42.9) 06/01/17 12:01 MCV 93 fl (79-97) 06/01/17 12:01 MCH 30 pg (28-32) 06/01/17 12:01 MCHC 32 % (30-34) 06/01/17 12:01 RDW 15.4 % (13.2-15.2) H 06/01/17 12:01 Plt Count 246 K/mm3 (140-440) 06/01/17 12:01 Lymph % (Auto) 10.2 % (13.4-35.0) L 06/01/17 12:01 [place] % (Auto) 4.3 % (0.0-7.3) 06/01/17 12:01 Eos % (Auto) 0.5 % (0.0-4.3) 06/01/17 12:01 Baso % (Auto) 0.4 % (0.0-1.8) 06/01/17 12:01 Lymph # 1.2 K/mm3 (1.2-5.4) 06/01/17 12:01 [place] # 0.5 K/mm3 (0.0-0.8) 06/01/17 12:01 Eos # 0.1 K/mm3 (0.0-0.4) 06/01/17 12:01 Baso # 0.0 K/mm3 (0.0-0.1) 06/01/17 12:01 Seg Neutrophils % 84.6 % (40.0-70.0) H 06/01/17 12:01 Seg Neutrophils # 9.6 K/mm3 (1.8-7.7) H 06/01/17 12:01 PT 13.3 Sec. (12.2-14.9) 06/01/17 12:01 INR 0.96 (0.87-1.13) 06/01/17 12:01 APTT 28.0 Sec. (24.2-36.6) 06/01/17 12:01 Sodium 145 mmol/L (137-145) 06/01/17 12:01 Potassium 5.6 mmol/L (3.6-5.0) H 06/01/17 12:01 Chloride 101.8 mmol/L (98-107) 06/01/17 12:01 Carbon Dioxide 29 mmol/L (22-30) 06/01/17 12:01 Anion Gap 20 mmol/L 06/01/17 12:01 BUN 57 mg/dL (7-17) H 06/01/17 12:01 Creatinine 2.6 mg/dL (0.7-1.2) H 06/01/17 12:01 Estimated GFR 18 ml/min 06/01/17 12:01 BUN/Creatinine Ratio 22 % 06/01/17 12:01 Glucose 112 mg/dL (65-100) H 06/01/17 12:01 Calcium 10.2 mg/dL (8.4-10.2) 06/01/17 12:01 Total Bilirubin 0.20 mg/dL (0.1-1.2) 06/01/17 12:01 AST 17 units/L (5-40) 06/01/17 12:01 ALT 13 units/L (7-56) 06/01/17 12:01 Alkaline Phosphatase 130 units/L (35-129) H 06/01/17 12:01 Total Protein 6.7 g/dL (6.3-8.2) 06/01/17 12:01 Albumin 4.5 g/dL (3.9-5) 06/01/17 12:01 Albumin/Globulin Ratio 2.0 % 06/01/17 12:01 Lipase 42 units/L (13-60) 06/01/17 12:01 Urine Color Yellow (Yellow) 06/02/17 Unknown Urine Turbidity Cloudy (Clear) 06/02/17 Unknown Urine pH 6.0 (5.0-7.0) 06/02/17 Unknown Ur Specific [place] 1.010 (1.003-1.030) 06/02/17 Unknown Urine Protein 100 mg/dl mg/dL (Negative) 06/02/17 Unknown Urine Glucose (UA) Negative mg/dL (Negative) 06/02/17 Unknown Urine Ketones Negative mg/dL (Negative) 06/02/17 Unknown Urine Nitrite Negative (Negative) 06/02/17 Unknown Urine Bilirubin Negative (Negative) 06/02/17 Unknown Urine Urobilinogen < 2.0 mg/dL (<2.0) 06/02/17 Unknown Ur Leukocyte Esterase Negative (Negative) 06/02/17 Unknown Urine WBC (Auto) > 182.0 /HPF (0.0-6.0) H 06/02/17 Unknown Urine RBC (Auto) 2.0 /HPF (0.0-6.0) 06/02/17 Unknown U Epithel Cells (Auto) 1.0 /HPF (0-13.0) 06/02/17 Unknown Urine Bacteria (Auto) 1+ /HPF (Negative) 06/02/17 Unknown Urine WBC Clumps 3+ /HPF 06/02/17 Unknown Urine Mucus Few /HPF 06/02/17 Unknown Urine Yeast (Budding) 3+ /HPF 06/02/17 Unknown Urine Creatinine 101.5 mg/dL (0.1-20.0) H 06/02/17 Unknown Urine Sodium 67 mmol/L 06/02/17 Unknown Blood Type A POSITIVE 06/01/17 12:01 Antibody Screen Negative 06/01/17 12:01 Crossmatch See Detail 06/01/17 12:01
--- NOTE | 2017-06-03 10:31 | Discharge Summary ---
Providers - Providers Date of Admission: 06/01/17 16:52 Date of discharge: 06/03/17 Attending physician: VISHNU PALACIO 06/02/17 06:24 Consult to Physician [CONS] Routine Consulting Provider: ALEA NOBLE Reason For Exam: upper gi bleed Place consult to:: Notified:: Phone number called:: [phone] Was contact made?: Yes If yes, spoke with:: KAYLA Time called:: 08:39 Comment:: PHU Primary care physician: CHECKER/STOCKER Hospitalization Condition: Stable Hospital course: Patient is a 71 yo woman from [facility] with h/o HTN, LLE DVT, GERD , CKD 3, Debility, Depression, Dementia, Anxiety, Schizophrenia, Nicotine Dependence, HLD presents to ED for evaluation of AMS, n/v/abd pains/coffee ground emesis. -Sepsis UTI, present on admission: Urine culture not sent, already on abx -Acute metabolic encephalopathy, poa, related to dehydration from n/v: treat with ivf and now resolved. -UGIB w/o anemia: GI evaluated, treat with PPI, suspected gastritis -CKD 3, cr near her baseline -Hyperkalemia, repeat bmp -Tobacco dependance: counselled on stopping, offered nicotine patch, she will consider -Intractable n/v from gastritis probably lead to reddish looking emesis: treat with antiemetics and ppi =resolved Disposition: Back to [place] Disposition: [place]-03 [facility] Time spent for discharge: 35 minutes Core Measure Documentation - Palliative Care Palliative Care/ Comfort Measures: Not Applicable - Core Measures Any of the following diagnoses?: none - VTE Discharge Requirements Deep Vein Thrombosis/Pulmonary Embolism Present on Admission: No Has pt received <5 days of overlap therapy or INR<2.0: No Anticoagulant overlap therapy prescribed at discharge: No Contraindication No Overlap Therapy order at DC: Not Indicated Exam - Physical Exam Narrative exam: GEN: thin frial, NAD, AWAKE, ALERT, ORIENTATED x 2 (missed year) HEENT: NCAT, EOMI, PERRL, OP Clear NECK: supple, no adenopathy, no thyromegaly, no JVD CVS/HEART: RRR, NORMAL S1S2, pulses present bilaterally CHEST/LUNGS: CTA B, Symmetrical chest expansion, good air entry bilaterally GI/Abdomen: soft, NTND, good bowel sounds, no guarding or rebound /Bladder: no suprapubic tenderness, no CVA or paraspinal tenderness EXT/Skin: no c/c/e, no obvious rash MSK: FROM x 4 Neuro: CN 2-12 grossly intact, no new focal deficits Psych: calm - Constitutional Vitals: Temp Pulse Resp BP Pulse Ox 98.2 F 81 18 97/41 96 06/03/17 07:28 06/03/17 07:28 06/03/17 07:28 06/03/17 07:28 06/03/17 08:25 Plan Activity: fall precautions, other (no strenous activity until cleared by pcp) Diet: low salt Follow up with: PRIMARY CARE, [Primary Care Provider] - 3-5 Days Forms: Accompanied Note Prescriptions: Levofloxacin [Levaquin TAB] 500 mg PO Q48H #7 tablet
[2017-06-03 11:31] LABS: Calcium 8.9 mg/dL (8.4-10.2)
[2017-06-03] MEDS ORDERED: Fluarix Quad 2017-2018(36 MOS+ IM ONE (12:00)
[2017-06-03] MEDS ORDERED: PNEUMOVAX 23 IM ONE (12:00)
== END 2017-06-03 17:20 | DRG 871 ==
LOC: ED 11:15 → 2B-ACE 16:52
PROVIDERS: ADMIT Internal Medicine; ATTEND Internal Medicine
PROC: 3E0234Z Introduction of Serum, Toxoid and Vaccine into Muscle, Percutaneous Approach (ICD-10-PCS; principal; 2017-06-03)
DX: A41.9 Sepsis, unspecified organism (principal); N17.0 Acute kidney failure with tubular necrosis; G93.41 Metabolic encephalopathy; K29.71 Gastritis, unspecified, with bleeding; N39.0 Urinary tract infection, site not specified; K21.9 Gastro-esophageal reflux disease without esophagitis; F41.9 Anxiety disorder, unspecified; F32.9 Major depressive disorder, single episode, unspecified; F20.9 Schizophrenia, unspecified; J44.9 Chronic obstructive pulmonary disease, unspecified; N18.3 Chronic kidney disease, stage 3 (moderate); E87.5 Hyperkalemia; I12.9 Hypertensive chronic kidney disease with stage 1 through stage 4 chronic kidney disease, or unspecified chronic kidney disease; F03.90 Unspecified dementia, unspecified severity, without behavioral disturbance, psychotic disturbance, mood disturbance, and anxiety; F17.200 Nicotine dependence, unspecified, uncomplicated; Z23 Encounter for immunization; Z86.718 Personal history of other venous thrombosis and embolism; Z79.899 Other long term (current) drug therapy; Z79.51 Long term (current) use of inhaled steroids; Z82.49 Family history of ischemic heart disease and other diseases of the circulatory system; Z71.6 Tobacco abuse counseling
CPT/HCPCS: 36415; 70450; 80048; 80053; 81001; 82570; 83690; 84300; 85025; 85610; 85730; 86850; 86900; 86901; 86922; 90686; 90732; 93005; 93010; 94760; 96374; C9113; J0696; J2405; J7030

== ENCOUNTER 2017-06-26 11:01 | Inpatient (IN) | payer MEDICAID, MEDICARE ==
[2017-06-26] MEDS ORDERED: HALDOL IM ONE (11:41)
[2017-06-26 11:52] LABS: Basophils % (Auto) 0.7 % (0.0-1.8); Eosinophils # (Auto) 0.3 K/mm3 (0.0-0.4); Eosinophils % (Auto) 4.6 % (0.0-4.3); Hematocrit 32.1 % (30.3-42.9); Hemoglobin 10.3 gm/dl (10.1-14.3); Lymphocytes # (Auto) 1.2 K/mm3 (1.2-5.4); Mean Corpuscular HGB Conc 32 % (30-34); Mean Corpuscular Hemoglobin 30 pg (28-32); Mean Corpuscular Volume 92 fl (79-97); Monocytes # (Auto) 0.3 K/mm3 (0.0-0.8); Monocytes % (Auto) 5.7 % (0.0-7.3); Platelet Count 221 K/mm3 (140-440); Red Cell Distribution Width 15.4 % (13.2-15.2)
[2017-06-26 11:54] LABS: Bacteria,Urine 1+ /HPF (Negative); Bilirubin,Urine NEG (Negative); Blood,Urine NEG (Negative); Color,Urine Yellow (Yellow); Mucus,Urine FEW /HPF; Protein,Urine <15 mg/dL mg/dL (Negative); Urobilinogen,Urine < 2.0 mg/dL (<2.0)
[2017-06-26 12:00] LABS: Amphetamine Screen,Urine PRESUMPTIVE NEGATIVE; Benzodiazepines Screen,Urine PRESUMPTIVE NEGATIVE; Cannabinoid Screen,Urine PRESUMPTIVE NEGATIVE; Cocaine Screen,Urine PRESUMPTIVE NEGATIVE; Methadone Screen,Urine PRESUMPTIVE NEGATIVE; Opiate Screen,Urine PRESUMPTIVE NEGATIVE
--- NOTE | 2017-06-26 12:02 | Emergency Department Report ---
ED Altered Mental Status HPI - General Chief Complaint: Altered Mental Status Stated Complaint: ABD PAIN Time Seen by Provider: 06/26/17 11:31 Source: patient Mode of arrival: Stretcher Limitations: No Limitations - History of Present Illness Initial Comments: Ms. Arvizu is a 71-year-old female with history of schizophrenia anxiety depression and dementia according to the electronic medical record. She was recently admitted this month for acute encephalopathy altered mental status. She presents with altered mental status from [facility] she is moaning holding her abdomen. Reported low oxygen saturation. She has a history of COPD. Patient is unable to give history. MD Complaint: altered mental status -: Gradual Severity: severe Consistency of Symptoms: getting worse Context: history of similar presen - Related Data Home Medications Medication Instructions Recorded Confirmed Last Taken Tiotropium [Spiriva] 18 mcg IH QDAY 05/02/15 06/01/17 01/01/16 Ondansetron [Zofran TAB] 4 mg PO Q8HR PRN 06/09/16 06/01/17 Unknown Albuterol Sulfate [Ventolin Hfa] 2 puff IH BID PRN 04/25/17 06/01/17 Unknown Cholecalciferol (Vitamin D3) 5,000 unit PO DAILY 04/25/17 06/01/17 Unknown [Vitamin D3] Ferrous Gluconate 324 mg PO QDAY 04/25/17 06/01/17 Unknown Ipratropium/Albuterol Sulfate 1 ampul IH Q6HR PRN 04/25/17 06/01/17 Unknown [DUONEB *Not for PRN Use*] Mirtazapine [Remeron] 7.5 mg PO HS 04/25/17 06/01/17 Unknown Sennosides [Senna] 8.6 mg PO HS PRN 04/25/17 06/01/17 Unknown Acetaminophen [Acetaminophen TAB] 650 mg PO Q4HR PRN MDD 3,000 mg 06/01/1706/01 Unknown Previous Rx's Medication Instructions Recorded Last Taken Type Pantoprazole [Protonix TAB] 40 mg PO BID #60 tablet 04/28/17 Unknown Rx oxyCODONE /ACETAMINOPHEN [Percocet 1 tab PO Q4HR PRN #20 tablet 04/28/17 Unknown Rx 5/325 mg] Levofloxacin [Levaquin TAB] 500 mg PO Q48H #7 tablet 06/03/17 Unknown Rx Allergies Allergy/AdvReac Type Severity Reaction Status Date / Time No Known Allergies Allergy Verified 04/25/17 12:02 ED Review of Systems ROS: Stated complaint: ABD PAIN Other details as noted in HPI Comment: Unobtainable due to pts medical conditions (altered mental status altered mental status) ED Past Medical Hx - Past Medical History Hx Hypertension: Yes Hx Heart Attack/AMI: No Hx Diabetes: No Hx Deep Vein Thrombosis: Yes (hx LLExt.) Hx Pulmonary Embolism: No Hx GERD: Yes Hx Liver Disease: No Hx Renal Disease: No Hx Sickle Cell Disease: No Hx Arthritis: No Hx Seizures: No Hx Kidney Stones: No Hx Psychiatric Treatment: Yes (anxiety, depression, schizophrenia) Hx Asthma: No Hx COPD: Yes Hx Tuberculosis: No Hx Dementia: Yes Hx HIV: No Additional medical history: High cholesterol. Schizophrenia, left hip fracture, left arm fracture, displaced fracture of 1st cervical vertebra, GERD, DVT LLE, generalized muscle weakness. "GI Bleeds" - Surgical History Hx Coronary Stent: No Hx Open Heart Surgery: No Hx Pacemaker: No Hx Internal Defibrillator: No Hx Cholecystectomy: No Additional Surgical History: ORIF left hip - Social History Smoking Status: Smoker, Current Status Unknown Substance Use Type: None - Medications Home Medications: Home Medications Medication Instructions Recorded Confirmed Last Taken Type Tiotropium [Spiriva] 18 mcg IH QDAY 05/02/15 06/01/17 01/01/16 History Ondansetron [Zofran TAB] 4 mg PO Q8HR PRN 06/09/16 06/01/17 Unknown History Albuterol Sulfate [Ventolin Hfa] 2 puff IH BID PRN 04/25/17 06/01/17 Unknown History Cholecalciferol (Vitamin D3) 5,000 unit PO DAILY 04/25/17 06/01/17 Unknown History [Vitamin D3] Ferrous Gluconate 324 mg PO QDAY 04/25/17 06/01/17 Unknown History Ipratropium/Albuterol Sulfate 1 ampul IH Q6HR PRN 04/25/17 06/01/17 Unknown History [DUONEB *Not for PRN Use*] Mirtazapine [Remeron] 7.5 mg PO HS 04/25/17 06/01/17 Unknown History Sennosides [Senna] 8.6 mg PO HS PRN 04/25/17 06/01/17 Unknown History Pantoprazole [Protonix TAB] 40 mg PO BID #60 tablet 04/28/17 06/01/17 Unknown Rx oxyCODONE /ACETAMINOPHEN [Percocet 1 tab PO Q4HR PRN #20 tablet 04/28/17 Unknown Rx 5/325 mg] Acetaminophen [Acetaminophen TAB] 650 mg PO Q4HR PRN MDD 3,000 mg 06/01/1706/01 Unknown History Levofloxacin [Levaquin TAB] 500 mg PO Q48H #7 tablet 06/03/17 Unknown Rx ED Physical Exam - General Limitations: No Limitations, Altered Mental Status (rocking moaning will make eye contact will not follow commands) General appearance: alert, other (agitated) - Head Head exam: Present: atraumatic, normocephalic - Eye Eye exam: Present: normal appearance, PERRL, EOMI Pupils: Present: normal accommodation - ENT ENT exam: Present: mucous membranes dry - Neck Neck exam: Present: normal inspection. Absent: meningismus - Respiratory Respiratory exam: Present: normal lung sounds bilaterally. Absent: respiratory distress, wheezes, rales, rhonchi - Cardiovascular Cardiovascular Exam: Present: regular rate, normal rhythm, normal heart sounds. Absent: bradycardia, tachycardia - GI/Abdominal GI/Abdominal exam: Present: soft. Absent: distended, tenderness, guarding, rebound - Extremities Exam Extremities exam: Absent: pedal edema - Neurological Exam Neurological exam: Present: alert, other (nonverbal only moaning) - Psychiatric Psychiatric exam: Present: agitated - Skin Skin exam: Present: warm, dry, intact, normal color ED Course Vital Signs 06/26/17 06/26/17 06/26/17 11:14 11:31 12:00 Temperature 97.8 F Pulse Rate 69 68 56 L Respiratory 20 13 12 Rate Blood Pressure 131/68 132/105 126/64 O2 Sat by Pulse 97 95 95 Oximetry 06/26/17 06/26/17 06/26/17 12:06 12:31 13:01 Temperature Pulse Rate 55 L Respiratory 16 14 12 Rate Blood Pressure 88/45 110/49 O2 Sat by Pulse 100 93 95 Oximetry 06/26/17 13:30 Temperature Pulse Rate 61 Respiratory 12 Rate Blood Pressure 94/48 O2 Sat by Pulse 92 Oximetry - Lab Data Result diagrams: 06/26/17 11:32 06/26/17 11:32 Lab Results 06/26/17 06/26/17 06/26/17 Range/Units 11:32 11:32 11:32 WBC 5.9 (4.5-11.0) K/mm3 RBC 3.50 L (3.65-5.03) M/mm3 Hgb 10.3 (10.1-14.3) gm/dl Hct 32.1 (30.3-42.9) % MCV 92 (79-97) fl MCH 30 (28-32) pg MCHC 32 (30-34) % RDW 15.4 H (13.2-15.2) % Plt Count 221 (140-440) K/mm3 Lymph % (Auto) 20.0 (13.4-35.0) % [place] % (Auto) 5.7 (0.0-7.3) % Eos % (Auto) 4.6 H (0.0-4.3) % Baso % (Auto) 0.7 (0.0-1.8) % Lymph # 1.2 (1.2-5.4) K/mm3 [place] # 0.3 (0.0-0.8) K/mm3 Eos # 0.3 (0.0-0.4) K/mm3 Baso # 0.0 (0.0-0.1) K/mm3 Seg Neutrophils % 69.0 (40.0-70.0) % Seg Neutrophils # 4.1 (1.8-7.7) K/mm3 Sodium (137-145) mmol/L Potassium (3.6-5.0) mmol/L Chloride (98-107) mmol/L Carbon Dioxide (22-30) mmol/L Anion Gap mmol/L BUN (7-17) mg/dL Creatinine (0.7-1.2) mg/dL Estimated GFR ml/min BUN/Creatinine Ratio % Glucose (65-100) mg/dL Calcium (8.4-10.2) mg/dL Total Bilirubin (0.1-1.2) mg/dL AST (5-40) units/L ALT (7-56) units/L Alkaline Phosphatase (35-129) units/L Ammonia (25-60) umol/L Total Protein (6.3-8.2) g/dL Albumin (3.9-5) g/dL Albumin/Globulin Ratio % TSH (0.270-4.200) mlU/mL Urine Color Yellow (Yellow) Urine Turbidity Clear (Clear) Urine pH 6.0 (5.0-7.0) Ur Specific [place] 1.013 (1.003-1.030) Urine Protein <15 mg/dl (Negative) mg/dL Urine Glucose (UA) Neg (Negative) mg/dL Urine Ketones Neg (Negative) mg/dL Urine Blood Neg (Negative) Urine Nitrite Pos (Negative) Urine Bilirubin Neg (Negative) Urine Urobilinogen < 2.0 (<2.0) mg/dL Ur Leukocyte Esterase Sm (Negative) Urine WBC (Auto) 10.0 H (0.0-6.0) /HPF Urine RBC (Auto) 3.0 (0.0-6.0) /HPF Urine Bacteria (Auto) 1+ (Negative) /HPF Urine Mucus Few /HPF Urine Yeast (Budding) 1+ /HPF Urine Opiates Screen Presumptive negative Urine Methadone Screen Presumptive negative Ur Barbiturates Screen Presumptive negative Ur Phencyclidine Scrn Presumptive negative Ur Amphetamines Screen Presumptive negative U Benzodiazepines Scrn Presumptive negative Urine Cocaine Screen Presumptive negative U Marijuana (THC) Screen Presumptive negative Drugs of Abuse Note Disclamer Plasma/Serum Alcohol (0-0.07) % 06/26/17 06/26/17 06/26/17 Range/Units 11:32 11:32 11:32 WBC (4.5-11.0) K/mm3 RBC (3.65-5.03) M/mm3 Hgb (10.1-14.3) gm/dl Hct (30.3-42.9) % MCV (79-97) fl MCH (28-32) pg MCHC (30-34) % RDW (13.2-15.2) % Plt Count (140-440) K/mm3 Lymph % (Auto) (13.4-35.0) % [place] % (Auto) (0.0-7.3) % Eos % (Auto) (0.0-4.3) % Baso % (Auto) (0.0-1.8) % Lymph # (1.2-5.4) K/mm3 [place]pton # (0.0-0.8) K/mm3 Eos # (0.0-0.4) K/mm3 Baso # (0.0-0.1) K/mm3 Seg Neutrophils % (40.0-70.0) % Seg Neutrophils # (1.8-7.7) K/mm3 Sodium 145 (137-145) mmol/L Potassium 4.8 (3.6-5.0) mmol/L Chloride 105.1 (98-107) mmol/L Carbon Dioxide 25 (22-30) mmol/L Anion Gap 20 mmol/L BUN 43 H (7-17) mg/dL Creatinine 2.3 H (0.7-1.2) mg/dL Estimated GFR 21 ml/min BUN/Creatinine Ratio 19 % Glucose 98 (65-100) mg/dL Calcium 9.8 (8.4-10.2) mg/dL Total Bilirubin < 0.20 (0.1-1.2) mg/dL AST 16 (5-40) units/L ALT 11 (7-56) units/L Alkaline Phosphatase 96 (35-129) units/L Ammonia (25-60) umol/L Total Protein 6.9 (6.3-8.2) g/dL Albumin 4.2 (3.9-5) g/dL Albumin/Globulin Ratio 1.6 % TSH 3.780 (0.270-4.200) mlU/mL Urine Color (Yellow) Urine Turbidity (Clear) Urine pH (5.0-7.0) Ur Specific [place] (1.003-1.030) Urine Protein (Negative) mg/dL Urine Glucose (UA) (Negative) mg/dL Urine Ketones (Negative) mg/dL Urine Blood (Negative) Urine Nitrite (Negative) Urine Bilirubin (Negative) Urine Urobilinogen (<2.0) mg/dL Ur Leukocyte Esterase (Negative) Urine WBC (Auto) (0.0-6.0) /HPF Urine RBC (Auto) (0.0-6.0) /HPF Urine Bacteria (Auto) (Negative) /HPF Urine Mucus /HPF Urine Yeast (Budding) /HPF Urine Opiates Screen Urine Methadone Screen Ur Barbiturates Screen Ur Phencyclidine Scrn Ur Amphetamines Screen U Benzodiazepines Scrn Urine Cocaine Screen U Marijuana (THC) Screen Drugs of Abuse Note Plasma/Serum Alcohol < 0.01 (0-0.07) % 06/26/17 Range/Units 12:14 WBC (4.5-11.0) K/mm3 RBC (3.65-5.03) M/mm3 Hgb (10.1-14.3) gm/dl Hct (30.3-42.9) % MCV (79-97) fl MCH (28-32) pg MCHC (30-34) % RDW (13.2-15.2) % Plt Count (140-440) K/mm3 Lymph % (Auto) (13.4-35.0) % [place] % (Auto) (0.0-7.3) % Eos % (Auto) (0.0-4.3) % Baso % (Auto) (0.0-1.8) % Lymph # (1.2-5.4) K/mm3 [place] # (0.0-0.8) K/mm3 Eos # (0.0-0.4) K/mm3 Baso # (0.0-0.1) K/mm3 Seg Neutrophils % (40.0-70.0) % Seg Neutrophils # (1.8-7.7) K/mm3 Sodium (137-145) mmol/L Potassium (3.6-5.0) mmol/L Chloride (98-107) mmol/L Carbon Dioxide (22-30) mmol/L Anion Gap mmol/L BUN (7-17) mg/dL Creatinine (0.7-1.2) mg/dL Estimated GFR ml/min BUN/Creatinine Ratio % Glucose (65-100) mg/dL Calcium (8.4-10.2) mg/dL Total Bilirubin (0.1-1.2) mg/dL AST (5-40) units/L ALT (7-56) units/L Alkaline Phosphatase (35-129) units/L Ammonia 19.0 L (25-60) umol/L Total Protein (6.3-8.2) g/dL Albumin (3.9-5) g/dL Albumin/Globulin Ratio % TSH (0.270-4.200) mlU/mL Urine Color (Yellow) Urine Turbidity (Clear) Urine pH (5.0-7.0) Ur Specific [place] (1.003-1.030) Urine Protein (Negative) mg/dL Urine Glucose (UA) (Negative) mg/dL Urine Ketones (Negative) mg/dL Urine Blood (Negative) Urine Nitrite (Negative) Urine Bilirubin (Negative) Urine Urobilinogen (<2.0) mg/dL Ur Leukocyte Esterase (Negative) Urine WBC (Auto) (0.0-6.0) /HPF Urine RBC (Auto) (0.0-6.0) /HPF Urine Bacteria (Auto) (Negative) /HPF Urine Mucus /HPF Urine Yeast (Budding) /HPF Urine Opiates Screen Urine Methadone Screen Ur Barbiturates Screen Ur Phencyclidine Scrn Ur Amphetamines Screen U Benzodiazepines Scrn Urine Cocaine Screen U Marijuana (THC) Screen Drugs of Abuse Note Plasma/Serum Alcohol (0-0.07) % - EKG Data -: EKG Interpreted by Me EKG shows normal: sinus rhythm, axis, intervals, QRS complexes, ST-T waves Rate: normal 06/26/17 12:01 NSR nl rate nl axis nl intervals no ST-T signs of ischemia no ST elevation rate 60 beats a minute - Medical Decision Making Mrs. Arvizu presents with altered mental status. She was nonverbal moaning. Appearing uncomfortable rubbing her abdomen. She required chemical restraint due to agitation. Has UTI. Given IV ceftriaxone. Has had recent similar presentation requiring hospitalization. Multiple factors contributing to patient's encephalopathy including: UTI, polypharmacy, mental illness, dementia, Hypovolemia Hx of DANYA, today GFR/Cr at baseline. CKD present since 2016. Critical care attestation.: If time is entered above; I have spent that time in minutes in the direct care of this critically ill patient, excluding procedure time. ED Disposition Clinical Impression: Altered mental status, UTI (urinary tract infection) Disposition: OP ADMIT IP TO THIS HOSP Is pt being admited?: Yes Does the pt Need Aspirin: No Condition: Stable Referrals: JERMAN APPLE MD [Primary Care Provider] - 3-5 Days Time of Disposition: 14:17
[2017-06-26 12:16] LABS: Alanine Aminotransferase 11 units/L (7-56); Albumin 4.2 g/dL (3.9-5); BUN/Creatinine Ratio 19; Blood Urea Nitrogen 43 mg/dL (7-17); Calcium 9.8 mg/dL (8.4-10.2); Hemolysis Index 13
[2017-06-26] MEDS ORDERED: NACL 0.9% 1000 ML 1,000 ML IV ONE (13:24)
[2017-06-26] MEDS ORDERED: ROCEPHIN/NS 2 GM/100 ML 2 GM/100 ML BAG IV ONE (13:34)
[2017-06-26] MEDS ORDERED: cefTRIAXone 2 GM in NACL 0.9% 20 ML IV ONE (14:00)
[2017-06-26] MEDS ORDERED: PROVENTIL IH PRN (14:28)
[2017-06-26] MEDS ORDERED: TYLENOL PO PRN (14:28)
[2017-06-26] MEDS ORDERED: ZOFRAN IV PRN (14:28)
--- NOTE | 2017-06-26 14:28 | History and Physical Report ---
History of Present Illness Chief complaint: confused, moaning History of present illness: 71 YO Female [facility] Resident with HTN, DVT-LLE, GERD, Debility, Depression , Dementia, Anxiety, Schizophrenia, Nicotine Dependence, HLD presents to ED for evaluation. Pt confused, and unable to provide detailed history. Pt history taken from ED staff, and SNF staff, and medical record. As per senior care staff, The patient was found moaining and holding her abdomen this morning. EMS notified,and upon arrival the patient was found to be confused and hypoxemic. Pt transported to [facility] for further care and evaluation. No reports of fever, falls, chills, night sweats, trauma, chest pain, dyspnea, diarrhea, blood in the stool, dark tarry stool, dysuria, hematuria, flank pain, genital discharge, inability to pass flatus. Pt seen and evaluated in ED and found to have UTI complicated by Encephalopathy. Pt became hypotensive with systolic blood pressure in the 80's. Pt treated with IVF resuscitation. Pt admitted to medical floor. Past History Past Medical History: COPD, hypertension, other (Schizophrenia, Dementia) Past Surgical History: total hip replacement Social history: single. denies: smoking, alcohol abuse, prescription drug abuse Family history: hypertension Medications and Allergies Allergies Allergy/AdvReac Type Severity Reaction Status Date / Time No Known Allergies Allergy Verified 04/25/17 12:02 Home Medications Medication Instructions Recorded Confirmed Last Taken Type Tiotropium [Spiriva] 18 mcg IH QDAY 05/02/15 06/01/17 01/01/16 History Ondansetron [Zofran TAB] 4 mg PO Q8HR PRN 06/09/16 06/01/17 Unknown History Albuterol Sulfate [Ventolin Hfa] 2 puff IH BID PRN 04/25/17 06/01/17 Unknown History Cholecalciferol (Vitamin D3) 5,000 unit PO DAILY 04/25/17 06/01/17 Unknown History [Vitamin D3] Ferrous Gluconate 324 mg PO QDAY 04/25/17 06/01/17 Unknown History Ipratropium/Albuterol Sulfate 1 ampul IH Q6HR PRN 04/25/17 06/01/17 Unknown History [DUONEB *Not for PRN Use*] Mirtazapine [Remeron] 7.5 mg PO HS 04/25/17 06/01/17 Unknown History Sennosides [Senna] 8.6 mg PO HS PRN 04/25/17 06/01/17 Unknown History Pantoprazole [Protonix TAB] 40 mg PO BID #60 tablet 04/28/17 06/01/17 Unknown Rx oxyCODONE /ACETAMINOPHEN [Percocet 1 tab PO Q4HR PRN #20 tablet 04/28/17 Unknown Rx 5/325 mg] Acetaminophen [Acetaminophen TAB] 650 mg PO Q4HR PRN MDD 3,000 mg 06/01/1706/01 Unknown History Levofloxacin [Levaquin TAB] 500 mg PO Q48H #7 tablet 06/03/17 Unknown Rx Review of Systems ROS unobtainable: due to mental status Exam - Constitutional Vitals: Temp Pulse Resp BP Pulse Ox 97.8 F 61 12 94/48 92 06/26/17 11:14 06/26/17 13:30 06/26/17 13:30 06/26/17 13:30 06/26/17 13:30 General appearance: Present: cachectic - EENT Eyes: Present: miosis ENT: hearing intact - Neck Neck: Present: supple - Respiratory Respiratory effort: normal Respiratory: bilateral: diminished - Cardiovascular Heart Sounds: Present: S1 & S2. Absent: rub, click - Extremities Extremities: pulses symmetrical, No edema Peripheral Pulses: within normal limits - Abdominal General gastrointestinal: Present: soft, non-tender, non-distended, normal bowel sounds Female genitourinary: Present: normal - Integumentary Integumentary: Present: clear, dry, decreased turgor - Musculoskeletal Musculoskeletal: generalized weakness - Psychiatric Psychiatric: no intact judgment & insight, no memory intact - Neurologic Neurologic: no gait normal Results - Labs CBC & Chem 7: 06/26/17 11:32 06/26/17 11:32 Labs: Abnormal lab results 06/26/17 06/26/17 06/26/17 Range/Units 11:32 11:32 11:32 RBC 3.50 L (3.65-5.03) M/mm3 RDW 15.4 H (13.2-15.2) % Eos % (Auto) 4.6 H (0.0-4.3) % BUN 43 H (7-17) mg/dL Creatinine 2.3 H (0.7-1.2) mg/dL Ammonia (25-60) umol/L Urine WBC (Auto) 10.0 H (0.0-6.0) /HPF 06/26/17 Range/Units 12:14 RBC (3.65-5.03) M/mm3 RDW (13.2-15.2) % Eos % (Auto) (0.0-4.3) % BUN (7-17) mg/dL Creatinine (0.7-1.2) mg/dL Ammonia 19.0 L (25-60) umol/L Urine WBC (Auto) (0.0-6.0) /HPF Assessment and Plan - Patient Problems (1) UTI (urinary tract infection) Current Visit: Yes Status: Acute Qualifiers: Encounter type: initial encounter Plan to address problem: IV antibiotics, IVF resuscitation, monitor uop q shift, urinalysis, CT abdomen/ pelvis, serial abdominal exam (2) Encephalopathy Current Visit: Yes Status: Acute Plan to address problem: CT Head, Neuro checks, urinalysis, bmp, IVF resuscitation, (3) COPD (chronic obstructive pulmonary disease) Current Visit: No Status: Chronic Qualifiers: COPD type: chronic bronchitis Plan to address problem: Supplemental oxygen, nebulizer therapy, pulmonary toilet, (4) DVT prophylaxis Current Visit: No Status: Acute
--- NOTE | 2017-06-26 14:33 | Cat Scan Report ---
FINAL REPORT PROCEDURE: CT HEAD/BRAIN WO CON TECHNIQUE: Computerized tomography of the head was performed without contrast material. HISTORY: Altered mental status COMPARISON: Prior CT scan of the brain 04/26/2015 FINDINGS: Brain: There is no evidence of intracranial hemorrhage. No parenchymal hemorrhage is seen. No mass lesions or mass effect is identified. No abnormal extra-axial fluid collections or masses are seen. There is some decreased density seen in the periventricular white matter without mass effect. This is fairly symmetric and does not exhibit any mass effect consistent with gliosis probably on the basis of microvascular disease or white matter changes of aging. Ventricles: The ventricles, sulcal pattern and fissures are prominent consistent with atrophy. Bones: No evidence of acute fracture. Paranasal sinuses: Mild mucosal thickening scattered in the ethmoid air cells maxillary sinuses. No air-fluid levels are seen. Mastoid air cells: clear IMPRESSION: Stable exam. There is evidence of moderate atrophy and mild gliosis. No acute intracranial abnormalities are identified.
--- NOTE | 2017-06-26 15:00 | Cat Scan Report ---
FINAL REPORT PROCEDURE: CT ABDOMEN PELVIS WO CON TECHNIQUE: Computerized axial tomography of the abdomen and pelvis was performed without intravenous contrast. This study is performed without intravascular contrast material and its sensitivity for abdominal and pelvic pathology, including neoplasms, inflammation, abscess, free fluid, thrombosis, arterial dissection and infarction, is reduced compared with a contrast enhanced study. HISTORY: abd pain COMPARISON: No prior studies are available for comparison. FINDINGS: Lower Lung stacy: Interstitial markings mildly coarsened suggesting fibrosis. Small patchy interstitial alveolar density visualized in the right middle lobe anteriorly lateral. No effusions are seen. Calcifications are visualized in the coronary arteries indicating atherosclerotic disease. Upper Abdomen: Large portion of the stomach is herniated into the lower mediastinum. The stomach is otherwise unremarkable. There is a calcified granuloma in the liver. The unenhanced images the liver otherwise are unremarkable. The gallbladder is partially contracted otherwise unremarkable. The adrenal glands, the pancreas and the spleen are unremarkable. Kidneys, Ureters and Urinary bladder: There thinning of the renal cortex of the right kidney which appears mildly atrophied. No renal calculi or masses are seen on the right. There an extra renal pelvis of the right kidney, normal variant. The right ureter is unremarkable. No ureteral calculi are visualized. Wall the urinary bladder are mildly thickened. I cannot exclude cystitis. Left kidney is suboptimally seen due to motion artifact. There an extrarenal pelvis. The left kidney is otherwise unremarkable. The left ureter showed no abnormality. Calcifications are seen in the lower pelvis which appear to represent phleboliths. Retroperitoneum: Atherosclerotic changes are seen in the abdominal aorta. No aneurysm is visualized. Nonspecific subcentimeter lymph nodes are seen in the retroperitoneum. No pathologically enlarged lymph nodes are identified. Bowel: Mild diverticulosis is seen in the left side of the colon without evidence of diverticulitis. Moderate to large amount of stool seen throughout most of the colon. The patient appears constipated. Normal-appearing appendix is seen in the right lower quadrant. Reproductive organs: Uterus is deviated to the left of midline otherwise is unremarkable. The left adnexa is unremarkable. There is a cystic lesion seen in the right adnexa measuring 3.9 x 3.7 centimeters which appears ovarian. Right adnexa otherwise is unremarkable. Other: Intramedullary saad and fixation screw devices present in the left hip. No acute fracture or dislocation is visualized. There is severe compression deformity L1 vertebral body. Acute fracture lines are not clearly identified. This may be old. Correlation with physical exam recommended. The posterior endplate is retro pulsed early narrowing the spinal canal approximately 40 percent. There is mild compression deformity of the T12 vertebral body and depression of the superior endplates of L3 and L4 again without discrete fracture lines. I suspect these are old as well. Correlation with physical exam is recommended. Schmorl's node is seen involving the superior endplate of T10 vertebral body. IMPRESSION: Stool pattern as described. The patient appears constipated. Large portion the stomach is herniated into the lower mediastinum. The stomach is otherwise unremarkable. Atherosclerosis coronary arteries. There appears to be mild renal atrophy on the right as described. Kidneys are otherwise unremarkable. Mild colonic diverticulosis without evidence of diverticulitis. Cystic lesion right adnexa. This appears to be ovarian. This measures 3.9 centimeters greatest diameter. Both benign and malignant cystic lesions could present this manner. Recommend further evaluation with pelvic ultrasound. Postsurgical changes left hip as described. Compression fractures greatest at L1. Deformities are also visualized at T12, L3 and L4. Recommend correlation with physical exam. These may be old fractures. Acute fractures need clinical exclusion. There is approximately 40 percent narrowing of the spinal canal at the T12 level secondary to retropulsion of the posterior endplate .
[2017-06-26] MEDS: SODIUM CHLORIDE FLUSH SYRINGE 10 ML IV SCH (22:01)
[2017-06-27] MEDS: SODIUM CHLORIDE FLUSH SYRINGE 10 ML IV PRN (00:32)
[2017-06-27] MEDS: HALDOL IM PRN ×2 (09:21→17:58)
[2017-06-27] MEDS: cefTRIAXone 1 GM in NACL 0.9% 20 ML IV SCH (09:40)
[2017-06-27] MEDS: SODIUM CHLORIDE FLUSH SYRINGE 10 ML IV SCH ×2 (09:40→22:56)
--- NOTE | 2017-06-27 09:56 | Consultation ---
History of Present Illness - Reason for Consult Consult date: 06/27/17 acute renal failure, chronic renal failure - History of Present Illness The patient is a 71 YO WF with history significant for Senior Living Resident, HTN, DVT-LLE, GERD, Depression, Dementia, Anxiety, Schizophrenia, Nicotine Dependence, HLD and CKD stage 3 / 4 presented to ED for evaluation of confusion. Patient was not able to provide any history. Upon EMS arrival the patient was found to be confused and hypoxic. Pt transported to [facility] for further management. There was no report of fever, chills, falls, N, V, D, chest pain, dyspnea, dysuria, hematuria, abd. pain or syncope. The lowest BP was 88/45. She was found to have UTI complicated by Encephalopathy. Her creatinine was 2.3 on admission. Past History Past Medical History: COPD, hypertension, other (Schizophrenia, Dementia) Past Surgical History: total hip replacement Social history: single. denies: smoking, alcohol abuse, prescription drug abuse Family history: hypertension Medications and Allergies Allergies Allergy/AdvReac Type Severity Reaction Status Date / Time No Known Allergies Allergy Verified 04/25/17 12:02 Home Medications Medication Instructions Recorded Confirmed Last Taken Type Tiotropium [Spiriva] 18 mcg IH QDAY 05/02/15 06/27/17 01/01/16 History Ondansetron [Zofran TAB] 4 mg PO Q8HR PRN 06/09/16 06/27/17 Unknown History Albuterol Sulfate [Ventolin Hfa] 2 puff IH BID PRN 04/25/17 06/27/17 Unknown History Cholecalciferol (Vitamin D3) 5,000 unit PO DAILY 04/25/17 06/27/17 Unknown History [Vitamin D3] Ferrous Gluconate 324 mg PO QDAY 04/25/17 06/27/17 Unknown History Ipratropium/Albuterol Sulfate 1 ampul IH Q6HR PRN 04/25/17 06/27/17 Unknown History [DUONEB *Not for PRN Use*] Mirtazapine [Remeron] 7.5 mg PO HS 04/25/17 06/27/17 Unknown History Sennosides [Senna] 8.6 mg PO HS PRN 04/25/17 06/27/17 Unknown History Pantoprazole [Protonix TAB] 40 mg PO BID #60 tablet 04/28/17 06/27/17 Unknown Rx oxyCODONE /ACETAMINOPHEN [Percocet 1 tab PO Q4HR PRN #20 tablet 04/28/17 Unknown Rx 5/325 mg] Acetaminophen [Acetaminophen TAB] 650 mg PO Q4HR PRN MDD 3,000 mg 06/01/1706/27 Unknown History Levofloxacin [Levaquin TAB] 500 mg PO Q48H #7 tablet 06/03/17 06/27/17 Unknown Rx Active Meds: Active Medications Acetaminophen (Tylenol) 650 mg PO Q4H PRN PRN Reason: Pain MILD(1-3)/Fever >100.5/DIXON Albuterol (Proventil) 2.5 mg IH Q4HRT PRN PRN Reason: Shortness Of Breath Haloperidol Lactate (Haldol) 5 mg IM Q6H PRN PRN Reason: Agitation Last Admin: 06/27/17 09:21 Dose: 5 mg Ceftriaxone Sodium 1 gm/ (Sodium Chloride) 20 mls @ 2 mls/min IV Q24HR [facility] Last Admin: 06/27/17 09:40 Dose: 2 mls/min Ondansetron HCl (Zofran) 4 mg IV Q8H PRN PRN Reason: Nausea And Vomiting Last Admin: 06/27/17 00:31 Dose: 4 mg Sodium Chloride (Sodium Chloride Flush Syringe 10 Ml) 10 ml IV BID SAY Last Admin: 06/27/17 09:40 Dose: 10 ml Sodium Chloride (Sodium Chloride Flush Syringe 10 Ml) 10 ml IV PRN PRN PRN Reason: LINE FLUSH Last Admin: 06/27/17 00:32 Dose: 10 ml Review of Systems ROS unobtainable: due to mental status Exam - Vital Signs Vital signs: Vital Signs Temp Pulse Resp BP Pulse Ox 97.8 F 69 20 131/68 97 06/26/17 11:14 06/26/17 11:14 06/26/17 11:14 06/26/17 11:14 06/26/17 11:14 - General Appearance General appearance: well-developed, appears stated age, frail, other (no distress) EENT: ATNC, PERRL, mucous membranes dry, hearing intact Neck: Present: neck supple, trachea midline Respiratory: Clear to Ascultation Heart: regular, S1S2 Gastrointestinal: Present: normoactive bowel sounds. Absent: tenderness, distended Integumentary: no rash, warm and dry Neurologic: no focal deficit, no asterixis, confused, disoriented Musculoskeletal: Present: other (no edema) Results - Lab Results 06/26/17 11:32 06/28/17 05:38 Most recent lab results Calcium 9.8 mg/dL (8.4-10.2) 06/26/17 11:32 Assessment and Plan 1. Acute kidney injury: Mild vasomotor DANYA superimposed on CKD in the setting of volume depletion. Start on IV fluids. Monitor renal function. 2. Volume depletion. 3. UTI. 4. Encephalopathy. 5. Anemia.
--- NOTE | 2017-06-27 10:19 | Progress Note ---
Assessment and Plan Assessment and plan: Acute encephalopathy. Neurochecks. UTI. Contine Rocephin. Follow Urine culture COPD. This is stable. No acute exacerbation Hypertension. BP stable. Monitor. Dementia. Add haldol prn for agitation. Schizophrenia. DVT prophylaxis with Heparin. History Interval history: agitated cannot get a history from her Hospitalist Physical - Physical exam Narrative exam: Gen appearance: Not in acute distress, lying in bed, HEENT:Normocephalic, atraumatic Neck:supple, no JVD Lungs: Clear to auscultation bilaterally, no crackles , no wheeze Heart: S1 and S2 regular, no murmurs, rubs or gallop Abdomen: soft, non tender, non distended, normal bowel sounds Ext: No edema, no clubbing, no cyanosis Neuro: Awake, agitated, moves all ext - Constitutional Vitals: Temp Pulse Resp BP Pulse Ox 98.6 F 102 H 22 120/73 94 06/27/17 08:19 06/27/17 08:19 06/27/17 08:19 06/27/17 08:18 06/27/17 08:19 Results - Labs CBC & Chem 7: 06/26/17 11:32 06/27/17 15:02 Labs: Laboratory Last Values WBC 5.9 K/mm3 (4.5-11.0) 06/26/17 11:32 RBC 3.50 M/mm3 (3.65-5.03) L 06/26/17 11:32 Hgb 10.3 gm/dl (10.1-14.3) 06/26/17 11:32 Hct 32.1 % (30.3-42.9) 06/26/17 11:32 MCV 92 fl (79-97) 06/26/17 11:32 MCH 30 pg (28-32) 06/26/17 11:32 MCHC 32 % (30-34) 06/26/17 11:32 RDW 15.4 % (13.2-15.2) H 06/26/17 11:32 Plt Count 221 K/mm3 (140-440) 06/26/17 11:32 Lymph % (Auto) 20.0 % (13.4-35.0) 06/26/17 11:32 [place] % (Auto) 5.7 % (0.0-7.3) 06/26/17 11:32 Eos % (Auto) 4.6 % (0.0-4.3) H 06/26/17 11:32 Baso % (Auto) 0.7 % (0.0-1.8) 06/26/17 11: Lymph # 1.2 K/mm3 (1.2-5.4) 06/26/17 11: [place] # 0.3 K/mm3 (0.0-0.8) 06/26/17 11:32 Eos # 0.3 K/mm3 (0.0-0.4) 06/26/17 11:32 Baso # 0.0 K/mm3 (0.0-0.1) 06/26/17 11:32 Seg Neutrophils % 69.0 % (40.0-70.0) 06/26/17 11: Seg Neutrophils # 4.1 K/mm3 (1.8-7.7) 06/26/17 11:32 POC ABG pH 7.395 (7.35-7.45) 06/26/17 20:01 POC ABG pCO2 38.4 (35-45) 06/26/17 20:01 POC ABG pO2 95 (80-105) 06/26/17 20:01 POC ABG HCO3 23.5 06/26/17 20:01 POC ABG Total CO2 25 06/26/17 20:01 POC ABG O2 Sat 97 06/26/17 20:01 POC ABG Base Excess -1 06/26/17 20:01 FiO2 21 % 06/26/17 20:01 Sodium 145 mmol/L (137-145) 06/26/17 11:32 Potassium 4.8 mmol/L (3.6-5.0) 06/26/17 11:32 Chloride 105.1 mmol/L (98-107) 06/26/17 11:32 Carbon Dioxide 25 mmol/L (22-30) 06/26/17 11:32 Anion Gap 20 mmol/L 06/26/17 11:32 BUN 43 mg/dL (7-17) H 06/26/17 11:32 Creatinine 2.3 mg/dL (0.7-1.2) H 06/26/17 11:32 Estimated GFR 21 ml/min 06/26/17 11:32 BUN/Creatinine Ratio 19 % 06/26/17 11:32 Glucose 98 mg/dL (65-100) 06/26/17 11:32 POC Glucose 96 (70-105) 06/27/17 10:10 Calcium 9.8 mg/dL (8.4-10.2) 06/26/17 11:32 Total Bilirubin < 0.20 mg/dL (0.1-1.2) 06/26/17 11:32 AST 16 units/L (5-40) 06/26/17 11:32 ALT 11 units/L (7-56) 06/26/17 11:32 Alkaline Phosphatase 96 units/L (35-129) 06/26/17 11:32 Ammonia 19.0 umol/L (25-60) L 06/26/17 12:14 Total Protein 6.9 g/dL (6.3-8.2) 06/26/17 11:32 Albumin 4.2 g/dL (3.9-5) 06/26/17 11:32 Albumin/Globulin Ratio 1.6 % 06/26/17 11:32 TSH 3.780 mlU/mL (0.270-4.200) 06/26/17 11:32 Urine Color Yellow (Yellow) 06/26/17 11:32 Urine Turbidity Clear (Clear) 06/26/17 11:32 Urine pH 6.0 (5.0-7.0) 06/26/17 11:32 Ur Specific [place] 1.013 (1.003-1.030) 06/26/17 11:32 Urine Protein <15 mg/dl mg/dL (Negative) 06/26/17 11:32 Urine Glucose (UA) Neg mg/dL (Negative) 06/26/17 11:32 Urine Ketones Neg mg/dL (Negative) 06/26/17 11:32 Urine Blood Neg (Negative) 06/26/17 11:32 Urine Nitrite Pos (Negative) 06/26/17 11:32 Urine Bilirubin Neg (Negative) 06/26/17 11:32 Urine Urobilinogen < 2.0 mg/dL (<2.0) 06/26/17 11:32 Ur Leukocyte Esterase Sm (Negative) 06/26/17 11:32 Urine WBC (Auto) 10.0 /HPF (0.0-6.0) H 06/26/17 11:32 Urine RBC (Auto) 3.0 /HPF (0.0-6.0) 06/26/17 11:32 Urine Bacteria (Auto) 1+ /HPF (Negative) 06/26/17 11:32 Urine Mucus Few /HPF 06/26/17 11:32 Urine Yeast (Budding) 1+ /HPF 06/26/17 11:32 Urine Opiates Screen Presumptive negative 06/26/17 11:32 Urine Methadone Screen Presumptive negative 06/26/17 11:32 Ur Barbiturates Screen Presumptive negative 06/26/17 11:32 Ur Phencyclidine Scrn Presumptive negative 06/26/17 11:32 Ur Amphetamines Screen Presumptive negative 06/26/17 11:32 U Benzodiazepines Scrn Presumptive negative 06/26/17 11:32 Urine Cocaine Screen Presumptive negative 06/26/17 11:32 U Marijuana (THC) Screen Presumptive negative 06/26/17 11:32 Drugs of Abuse Note Disclamer 06/26/17 11:32 Plasma/Serum Alcohol < 0.01 % (0-0.07) 06/26/17 11:32
[2017-06-27] MEDS: D5/0.45NS 1,000 ML IV SCH ×2 (11:19→23:35)
[2017-06-27 15:33] LABS: Calcium 9.7 mg/dL (8.4-10.2)
[2017-06-27] MEDS: PROTONIX IV SCH ×2 (16:52→22:56)
[2017-06-27] MEDS: DUONEB *Not for PRN Use IH SCH (20:09)
[2017-06-27] MEDS: HEPARIN SUB-Q SCH (22:01)
[2017-06-28] MEDS: DUONEB *Not for PRN Use IH SCH ×3 (01:45→15:18)
[2017-06-28] MEDS: HEPARIN SUB-Q SCH ×2 (06:02→14:11)
[2017-06-28 06:20] LABS: Calcium 8.9 mg/dL (8.4-10.2)
--- NOTE | 2017-06-28 08:19 | Progress Note ---
Assessment and Plan 1. Acute kidney injury: Mild vasomotor DANYA superimposed on CKD in the setting of volume depletion. Renal function is better today. 2. Volume depletion. 3. UTI. 4. Encephalopathy. 5. Anemia. Subjective Date of service: 06/28/17 Interval history: Patient is feeling ok. Objective - Vital Signs Vital signs: Vital Signs - 12hr 06/27/17 06/27/17 06/27/17 20:27 23:22 23:30 Temperature 97.7 F Pulse Rate 83 57 L Pulse Rate [ 72 Anterior Bilateral] Respiratory 20 18 Rate Respiratory 14 Rate [Anterior Bilateral] Blood Pressure 115/52 Blood Pressure 94/44 [Left] O2 Sat by Pulse 99 100 Oximetry 06/28/17 06/28/17 05:51 07:31 Temperature 97.4 F L 98.6 F Pulse Rate 84 84 Pulse Rate [ Anterior Bilateral] Respiratory 18 18 Rate Respiratory Rate [Anterior Bilateral] Blood Pressure 135/72 116/37 Blood Pressure [Left] O2 Sat by Pulse 96 98 Oximetry - General Appearance General appearance: well-developed, appears stated age, frail, other (no distress) EENT: ATNC, PERRL, hearing intact Neck: supple Respiratory: Present: Clear to Ascultation Cardiology: regular, S1S2 Gastrointestinal: normoactive bowel sounds, no tenderness, no distended Integumentary: no rash, warm and dry Neurologic: no asterixis, confused, disoriented, other (follows some command) Musculoskeletal: other (no edema) Psychiatric: mood/affect appropriate, cooperative - Lab 06/26/17 11:32 06/28/17 05:38 Most recent lab results Calcium 8.9 mg/dL (8.4-10.2) 06/28/17 05:38 Phosphorus 2.80 mg/dL (2.5-4.5) 06/28/17 05:38 Magnesium 1.70 mg/dL (1.7-2.3) 06/28/17 05:38
--- NOTE | 2017-06-28 09:47 | Discharge Summary ---
Providers - Providers Date of Admission: 06/26/17 14:28 Date of discharge: 06/28/17 Attending physician: EMILY OLIVIER 06/27/17 08:12 Consult to Physician [CONS] Routine Comment: Consulting Provider: AZUL VALDIVIA Physician Instructions: Reason For Exam: kidney disease Primary care physician: JERMAN APPLE Hospitalization Condition: Fair Disposition: DC/[place]-03 SNF W [facility] CERT Exam - Constitutional Vitals: Temp Pulse Resp BP Pulse Ox 98.6 F 84 16 116/37 98 06/28/17 07:31 06/28/17 08:32 06/28/17 08:32 06/28/17 07:31 06/28/17 08:34 Plan Activity: advance as tolerated Diet: regular Additional Instructions: 1.Follow up with Physician at SNF in 1 week. 2.Follow up with Dr. Valdivia in 1 week. 3.Repeat BMP in 1 week Follow up with: JERMAN APPLE MD [Primary Care Provider] - 3-5 Days Prescriptions: Levofloxacin [Levaquin TAB] 500 mg PO Q48H #2 tablet
[2017-06-28] MEDS: SODIUM CHLORIDE FLUSH SYRINGE 10 ML IV PRN (10:40)
[2017-06-28] MEDS: PROTONIX IV SCH (10:41)
[2017-06-28] MEDS: cefTRIAXone 1 GM in NACL 0.9% 20 ML IV SCH (10:41)
[2017-06-28] MEDS: SODIUM CHLORIDE FLUSH SYRINGE 10 ML IV SCH (10:41)
[2017-06-28] MEDS ORDERED: K-DUR PO ONE (11:00)
[2017-06-28 16:47] VITALS: BP 126/55
[2017-06-28] MEDS ORDERED: PROTONIX PO SCH (22:00)
== END 2017-06-28 19:00 | DRG 70 ==
LOC: ED 11:01 → 3A 14:28
PROVIDERS: ADMIT Internal Medicine; ATTEND Internal Medicine
PROC: 4A033R1 Measurement of Arterial Saturation, Peripheral, Percutaneous Approach (ICD-10-PCS; principal; 2017-06-26)
DX: G93.40 Encephalopathy, unspecified (principal); N17.0 Acute kidney failure with tubular necrosis; N39.0 Urinary tract infection, site not specified; F20.9 Schizophrenia, unspecified; F41.9 Anxiety disorder, unspecified; F03.90 Unspecified dementia, unspecified severity, without behavioral disturbance, psychotic disturbance, mood disturbance, and anxiety; K21.9 Gastro-esophageal reflux disease without esophagitis; F32.9 Major depressive disorder, single episode, unspecified; J44.9 Chronic obstructive pulmonary disease, unspecified; F17.200 Nicotine dependence, unspecified, uncomplicated; E78.5 Hyperlipidemia, unspecified; Z96.649 Presence of unspecified artificial hip joint; D64.9 Anemia, unspecified; I12.9 Hypertensive chronic kidney disease with stage 1 through stage 4 chronic kidney disease, or unspecified chronic kidney disease; N18.4 Chronic kidney disease, stage 4 (severe); E86.9 Volume depletion, unspecified; Z82.49 Family history of ischemic heart disease and other diseases of the circulatory system; Z79.899 Other long term (current) drug therapy; Z86.718 Personal history of other venous thrombosis and embolism
CPT/HCPCS: 36415; 36600; 70450; 74176; 80048; 80053; 80307; 80320; 81001; 82140; 82550; 82803; 82962; 83735; 84100; 84443; 85025; 93005; 93010; 94640; 94760; 96372; 96374; C9113; G0480; J0696; J1630; J1644; J2405; J7030

== ENCOUNTER 2020-07-22 16:38 | Inpatient (IN) | payer MEDICARE, MEDICAID ==
[2020-07-22] MEDS ORDERED: MORPHINE 4 MG/1 ML INJ IV ONE ×2 (17:31→19:19)
[2020-07-22] MEDS ORDERED: ONDANSETRON 4 MG/2 ML INJ IV ONE (17:31)
[2020-07-22 18:18] LABS: Basophils % (Auto) 0.5 % (0.0-1.8); Eosinophils # (Auto) 0.4 K/mm3 (0.0-0.4); Eosinophils % (Auto) 4.2 % (0.0-4.3); Hematocrit 41.1 % (30.3-42.9); Hemoglobin 13.4 gm/dl (10.1-14.3); Lymphocytes # (Auto) 0.9 K/mm3 (1.2-5.4); Lymphocytes % (Auto) 10.9 % (13.4-35.0); Mean Corpuscular HGB Conc 33 % (30-34); Mean Corpuscular Volume 93 fl (79-97); Monocytes # (Auto) 0.5 K/mm3 (0.0-0.8); Monocytes % (Auto) 5.5 % (0.0-7.3); Platelet Count 199 K/mm3 (140-440); Red Blood Count 4.41 M/mm3 (3.65-5.03)
--- NOTE | 2020-07-22 18:20 | XRay Report ---
CHEST 1 VIEW 07/22/2020 5:11 PM INDICATION / CLINICAL INFORMATION: Fall. COMPARISON: 04/25/2017. FINDINGS: SUPPORT DEVICES: None. HEART / MEDIASTINUM: No significant abnormality. LUNGS / PLEURA: No significant pulmonary or pleural abnormality. Hiatal hernia seen retrocardiac jessika on. ADDITIONAL FINDINGS: No significant additional findings. IMPRESSION: No acute abnormality. Signer Name: Stiven Johnson MD Signed: 07/22/2020 6:15 PM Workstation Name: [id number]
--- NOTE | 2020-07-22 18:21 | XRay Report ---
RIGHT HIP 3 VIEWS INDICATION / CLINICAL INFORMATION: Hip pain status post fall COMPARISON: None available. FINDINGS: BONES / JOINT(S): Acute intertrochanteric fracture right hip. The articular surface of the femoral he ad and the acetabulum are intact. Compression screw with intramedullary component are present on the left. SOFT TISSUES: No significant abnormality. ADDITIONAL FINDINGS: None. Signer Name: Stiven Johnson MD Signed: 07/22/2020 6:16 PM Workstation Name: [id number]
[2020-07-22 18:34] LABS: Albumin 4.4 g/dL (3.9-5); Calcium 9.8 mg/dL (8.4-10.2)
[2020-07-22 18:36] LABS: INR 1.06 (0.87-1.13)
[2020-07-22 18:37] LABS: Partial Thromboplastin Time 33.7 Sec. (24.2-36.6)
--- NOTE | 2020-07-22 18:46 | Emergency Department Report ---
ED Lower Extremity HPI - General Chief Complaint: Fall Stated Complaint: LT LEG INJURY/FALL Time Seen by Provider: 07/22/20 17:18 Source: patient, EMS Mode of arrival: Stretcher Limitations: Physical Limitation - History of Present Illness Initial Comments: Chief complaint right hip pain HPI: This is a 75-year-old female with history of hypertension, chronic kidney disease, COPD, GI bleed, encephalopathy, DVT, schizophrenia who [facility] from [facility]. Patient fell from standing while getting up out of chair. She has severe right hip pain. She denies associated injury. EMS observed shortening externally rotated right lower extremity. MD Complaint: hip injury -: Sudden, This evening Injury: Hip: Right Type of Injury: blunt Place: SNF Severity: severe Severity scale (0 -10): 10 Context: fall Other Symptoms: other (none) Associated Symptoms: unable to bear weight - Related Data Home Medications Medication Instructions Recorded Confirmed Last Taken Tiotropium [Spiriva] 18 mcg IH QDAY 05/02/15 06/27/17 01/01/16 Ondansetron [Zofran TAB] 4 mg PO Q8HR PRN 06/09/16 06/27/17 Unknown Albuterol Sulfate [Ventolin Hfa] 2 puff IH BID PRN 04/25/17 06/27/17 Unknown Cholecalciferol (Vitamin D3) 5,000 unit PO DAILY 04/25/17 06/27/17 Unknown [Vitamin D3 5,000 UNIT] Ferrous Gluconate [Ferrous 324 mg PO QDAY 04/25/17 06/27/17 Unknown Gluconate 324 MG] Ipratropium/Albuterol Sulfate 1 ampul IH Q6HR PRN 04/25/17 06/27/17 Unknown [DUONEB *Not for PRN Use*] Mirtazapine [Remeron] 7.5 mg PO HS 04/25/17 06/27/17 Unknown Sennosides [Senna] 8.6 mg PO HS PRN 04/25/17 06/27/17 Unknown Acetaminophen [Acetaminophen TAB] 650 mg PO Q4HR PRN MDD 3,000 mg 06/01/17 06/27/17 Unknown Previous Rx's Medication Instructions Recorded Last Taken Type Pantoprazole [Protonix TAB] 40 mg PO BID #60 tablet 04/28/17 Unknown Rx oxyCODONE /ACETAMINOPHEN [Percocet 1 tab PO Q4HR PRN #20 tablet 04/28/17 Unknown Rx 5/325 mg] levoFLOXacin [Levaquin TAB] 500 mg PO Q48H #2 tablet 06/28/17 Unknown Rx Allergies Allergy/AdvReac Type Severity Reaction Status Date / Time No Known Allergies Allergy Verified 04/25/17 12:02 ED Review of Systems ROS: Stated complaint: LT LEG INJURY/FALL Other details as noted in HPI Comment: All other systems reviewed and negative Constitutional: denies: fever, malaise Respiratory: denies: cough, shortness of breath Gastrointestinal: denies: abdominal pain, nausea, vomiting ED Past Medical Hx - Past Medical History Previous Medical History?: Yes Hx Hypertension: Yes Hx Heart Attack/AMI: No Hx Diabetes: No Hx Deep Vein Thrombosis: Yes (hx LLExt.) Hx Pulmonary Embolism: No Hx GERD: Yes Hx Liver Disease: No Hx Renal Disease: No Hx Sickle Cell Disease: No Hx Arthritis: No Hx Seizures: No Hx Kidney Stones: No Hx Psychiatric Treatment: Yes (anxiety, depression, schizophrenia) Hx Asthma: No Hx COPD: Yes Hx Tuberculosis: No Hx Dementia: Yes Hx HIV: No Additional medical history: High cholesterol. Schizophrenia, left hip fracture, left arm fracture, displaced fracture of 1st cervical vertebra, GERD, DVT LLE, generalized muscle weakness. "GI Bleeds" - Surgical History Past Surgical History?: Yes Hx Coronary Stent: No Hx Open Heart Surgery: No Hx Pacemaker: No Hx Internal Defibrillator: No Hx Cholecystectomy: No Additional Surgical History: ORIF left hip - Social History Smoking Status: Current Every Day Smoker - Medications Home Medications: Home Medications Medication Instructions Recorded Confirmed Last Taken Type Tiotropium [Spiriva] 18 mcg IH QDAY 05/02/15 06/27/17 01/01/16 History Ondansetron [Zofran TAB] 4 mg PO Q8HR PRN 06/09/16 06/27/17 Unknown History Albuterol Sulfate [Ventolin Hfa] 2 puff IH BID PRN 04/25/17 06/27/17 Unknown History Cholecalciferol (Vitamin D3) 5,000 unit PO DAILY 04/25/17 06/27/17 Unknown History [Vitamin D3 5,000 UNIT] Ferrous Gluconate [Ferrous 324 mg PO QDAY 04/25/17 06/27/17 Unknown History Gluconate 324 MG] Ipratropium/Albuterol Sulfate 1 ampul IH Q6HR PRN 04/25/17 06/27/17 Unknown History [DUONEB *Not for PRN Use*] Mirtazapine [Remeron] 7.5 mg PO HS 04/25/17 06/27/17 Unknown History Sennosides [Senna] 8.6 mg PO HS PRN 04/25/17 06/27/17 Unknown History Pantoprazole [Protonix TAB] 40 mg PO BID #60 tablet 04/28/17 06/27/17 Unknown Rx oxyCODONE /ACETAMINOPHEN [Percocet 1 tab PO Q4HR PRN #20 tablet 04/28/17 06/27/17 Unknown Rx 5/325 mg] Acetaminophen [Acetaminophen TAB] 650 mg PO Q4HR PRN MDD 3,000 mg 06/01/17 06/27/17 Unknown History levoFLOXacin [Levaquin TAB] 500 mg PO Q48H #2 tablet 06/28/17 Unknown Rx ED Physical Exam - General Limitations: Physical Limitation General appearance: alert, in no apparent distress, other (GCS 15, answers questions appropriately however she may stated her age is "55") - Head Head exam: Present: atraumatic, normocephalic - Eye Eye exam: Present: normal appearance - ENT ENT exam: Present: mucous membranes moist - Neck Neck exam: Present: normal inspection, full ROM - Respiratory Respiratory exam: Present: normal lung sounds bilaterally. Absent: respiratory distress, wheezes, rales, rhonchi - Cardiovascular Cardiovascular Exam: Present: regular rate, normal rhythm, normal heart sounds. Absent: systolic murmur, diastolic murmur, rubs, gallop - GI/Abdominal GI/Abdominal exam: Present: soft, normal bowel sounds. Absent: distended, te nderness, guarding, rebound - Extremities Exam Extremities exam: Present: other (Right hip deformity with tenderness intact skin, right lower extremity shortened and externally rotated adducted) - Back Exam Back exam: Present: normal inspection - Neurological Exam Neurological exam: Present: alert, oriented X3 - Psychiatric Psychiatric exam: Present: normal affect, normal mood - Skin Skin exam: Present: warm, dry, intact, normal color. Absent: rash ED Course Vital Signs 07/22/20 17:04 Temperature 97.9 F Pulse Rate 98 H Respiratory 20 Rate Blood Pressure 130/106 [Left] O2 Sat by Pulse 94 Oximetry ED Lower Extremity MDM - Lab Data Result diagrams: 07/22/20 17:40 07/22/20 17:40 Laboratory Results - last 24 hr 07/22/20 07/22/20 07/22/20 17:40 17:40 17:40 WBC 8.5 RBC 4.41 Hgb 13.4 Hct 41.1 MCV 93 MCH 31 MCHC 33 RDW 14.0 Plt Count 199 Lymph % (Auto) 10.9 L [place] % (Auto) 5.5 Eos % (Auto) 4.2 Baso % (Auto) 0.5 Lymph # (Auto) 0.9 L [place] # (Auto) 0.5 Eos # (Auto) 0.4 Baso # (Auto) 0.0 Seg Neutrophils % 78.9 H Seg Neutrophils # 6.7 PT 13.7 INR 1.06 APTT 33.7 Sodium 141 Potassium 3.9 Chloride 103.0 Carbon Dioxide 25 Anion Gap 17 BUN 33 H Creatinine 2.0 H Estimated GFR 24 BUN/Creatinine Ratio 17 Glucose 108 H Calcium 9.8 Total Bilirubin 0.20 AST 19 ALT 15 Alkaline Phosphatase 90 Total Protein 8.0 Albumin 4.4 Albumin/Globulin Ratio 1.2 - Radiology Data Radiology results: report reviewed Right hip radiographs: Acute right intertrochanteric fracture of the femur Chest radiograph: No acute findings - Medical Decision Making Closed right intertrochanteric femur fracture neurovascular intact: Dr. Nieto consulted. Admitted to hospital service Critical care attestation.: If time is entered above; I have spent that time in minutes in the direct care of this critically ill patient, excluding procedure time. ED Disposition Clinical Impression: Closed intertrochanteric fracture of right femur Disposition: DC-09 OP ADMIT IP TO THIS HOSP Is pt being admited?: Yes Does the pt Need Aspirin: No Condition: Stable
[2020-07-22] MEDS ORDERED: ALBUTEROL 8.5 GM MDI INHALATION IH PRN (21:55)
[2020-07-22] MEDS ORDERED: oxyCODONE /ACETAMINOPHEN 5-325MG TAB PO PRN (21:55)
[2020-07-22] MEDS ORDERED: IPRATROPIUM/ALBUTEROL SULFATE 3 ML AMPUL.NEB IH PRN (21:55)
[2020-07-22] MEDS ORDERED: SENNOSIDES 8.6 MG TAB PO PRN (21:55)
[2020-07-22] MEDS ORDERED: ONDANSETRON 4 MG/2 ML INJ IV PRN (22:01)
[2020-07-22] MEDS ORDERED: ACETAMINOPHEN 325 MG TAB PO PRN (22:01)
[2020-07-22] MEDS ORDERED: MORPHINE 2 MG/1 ML INJ IV PRN (22:01)
[2020-07-22] MEDS ORDERED: METOCLOPRAMIDE 10 MG/2 ML INJ IV PRN (22:01)
[2020-07-22] MEDS ORDERED: HYDROmorphone 1 MG/1 ML INJ IV PRN (22:01)
--- NOTE | 2020-07-22 22:07 | History and Physical Report ---
History of Present Illness Date of examination: 07/22/20 Date of admission: 07/22/20 19:19 Chief complaint: Severe right-sided pain for the last few hours after a fall History of present illness: 75-year-old female with severe osteoporosis and past left hip replacement and history of COPD/vitamin D deficiency comes in for severe right hip pain. Patient apparently fell from a standing posture while getting out of a chair. Unable to have any range of motion of the right hip. Pain is about 10 on a scale of 1-10. Any movement is a precipitating factor. No movement is a relieving factor. Patient is thin and emaciated - Past Medical History Previous Medical History?: Yes --Hypertension: Yes --Deep Vein Thrombosis: Yes (hx LLExt.) --GERD: Yes --Psychiatric Treatment: Yes (anxiety, depression, schizophrenia) --COPD: Yes --Dementia: Yes --Additional medical history: High cholesterol. Schizophrenia, left hip fracture, left arm fracture, displaced fracture of 1st cervical vertebra, GERD, DVT LLE, generalized muscle weakness. "GI Bleeds" - Surgical History Past Surgical History?: Yes Additional Surgical History: ORIF left hip - Social History Smoking Status: Current Every Day Smoker -family history Htn Review of Systems ROS: Stated complaint: LT LEG INJURY/FALL Other details as noted in HPI Comment: All other systems reviewed and negative Constitutional: denies: fever, malaise Respiratory: denies: cough, shortness of breath Gastrointestinal: denies: abdominal pain, nausea, vomiting Medications and Allergies Allergies Allergy/AdvReac Type Severity Reaction Status Date / Time No Known Allergies Allergy Verified 04/25/17 12:02 Home Medications Medication Instructions Recorded Confirmed Last Taken Type Tiotropium [Spiriva] 18 mcg IH QDAY 05/02/15 06/27/17 01/01/16 History Ondansetron [Zofran TAB] 4 mg PO Q8HR PRN 06/09/16 06/27/17 Unknown History Albuterol Sulfate [Ventolin Hfa] 2 puff IH BID PRN 04/25/17 06/27/17 Unknown History Cholecalciferol (Vitamin D3) 5,000 unit PO DAILY 04/25/17 06/27/17 Unknown History [Vitamin D3 5,000 UNIT] Ferrous Gluconate [Ferrous 324 mg PO QDAY 04/25/17 06/27/17 Unknown History Gluconate 324 MG] Ipratropium/Albuterol Sulfate 1 ampul IH Q6HR PRN 04/25/17 06/27/17 Unknown History [DUONEB *Not for PRN Use*] Mirtazapine [Remeron] 7.5 mg PO HS 04/25/17 06/27/17 Unknown History Sennosides [Senna] 8.6 mg PO HS PRN 04/25/17 06/27/17 Unknown History Pantoprazole [Protonix TAB] 40 mg PO BID #60 tablet 04/28/17 06/27/17 Unknown Rx oxyCODONE /ACETAMINOPHEN [Percocet 1 tab PO Q4HR PRN #20 tablet 04/28/17 06/27/17 Unknown Rx 5/325 mg] Acetaminophen [Acetaminophen TAB] 650 mg PO Q4HR PRN MDD 3,000 mg 06/01/17 06/27/17 Unknown History levoFLOXacin [Levaquin TAB] 500 mg PO Q48H #2 tablet 06/28/17 Unknown Rx Exam - Constitutional Vitals: Temp Pulse Resp BP Pulse Ox 97.9 F 98 H 20 130/106 94 07/22/20 17:04 07/22/20 17:04 07/22/20 17:04 07/22/20 17:04 07/22/20 17:04 General appearance: Present: mild distress (Secondary to pain), well-nourished - EENT Eyes: Present: PERRL ENT: hearing intact, clear oral mucosa - Neck Neck: Present: supple, normal ROM - Respiratory Respiratory effort: normal Respiratory: bilateral: CTA - Cardiovascular Heart rate: 78 Rhythm: regular Heart Sounds: Present: S1 & S2. Absent: rub, click - Extremities Extremities: no ischemia, pulses symmetrical, No edema, abnormal (Decreased range of motion on the right hip joint, right lower extremity abducted and externally rotated) Peripheral Pulses: within normal limits - Abdominal General gastrointestinal: Present: soft, non-tender, non-distended, normal bowel sounds Female genitourinary: Present: normal - Integumentary Integumentary: Present: clear, warm, dry - Musculoskeletal Musculoskeletal: gait normal, strength equal bilaterally - Psychiatric Psychiatric: appropriate mood/affect, intact judgment & insight - Neurologic Neurologic: CNII-XII intact, moves all extremities HEART Score - HEART Score History: Slightly suspicious Age: > 65 Risk factors: 1-2 risk factors Troponin: < normal limit - Critical Actions Critical Actions: 0-3 pts:0.9-1.7%risk of adverse cardiac event.Candidate for discharge Results - Labs CBC & Chem 7: 07/22/20 17:40 07/22/20 17:40 Labs: Laboratory Last Values WBC 8.5 K/mm3 (4.5-11.0) 07/22/20 17:40 RBC 4.41 M/mm3 (3.65-5.03) 07/22/20 17:40 Hgb 13.4 gm/dl (10.1-14.3) 07/22/20 17:40 Hct 41.1 % (30.3-42.9) 07/22/20 17:40 MCV 93 fl (79-97) 07/22/20 17:40 MCH 31 pg (28-32) 07/22/20 17:40 MCHC 33 % (30-34) 07/22/20 17:40 RDW 14.0 % (13.2-15.2) 07/22/20 17:40 Plt Count 199 K/mm3 (140-440) 07/22/20 17:40 Lymph % (Auto) 10.9 % (13.4-35.0) L 07/22/20 17:40 [place] % (Auto) 5.5 % (0.0-7.3) 07/22/20 17:40 Eos % (Auto) 4.2 % (0.0-4.3) 07/22/20 17:40 Baso % (Auto) 0.5 % (0.0-1.8) 07/22/20 17:40 Lymph # (Auto) 0.9 K/mm3 (1.2-5.4) L 07/22/20 17:40 [place] # (Auto) 0.5 K/mm3 (0.0-0.8) 07/22/20 17:40 Eos # (Auto) 0.4 K/mm3 (0.0-0.4) 07/22/20 17:40 Baso # (Auto) 0.0 K/mm3 (0.0-0.1) 07/22/20 17:40 Seg Neutrophils % 78.9 % (40.0-70.0) H 07/22/20 17:40 Seg Neutrophils # 6.7 K/mm3 (1.8-7.7) 07/22/20 17:40 PT 13.7 Sec. (12.2-14.9) 07/22/20 17:40 INR 1.06 (0.87-1.13) 07/22/20 17:40 APTT 33.7 Sec. (24.2-36.6) 07/22/20 17:40 Sodium 141 mmol/L (137-145) 07/22/20 17:40 Potassium 3.9 mmol/L (3.6-5.0) 07/22/20 17:40 Chloride 103.0 mmol/L (98-107) 07/22/20 17:40 Carbon Dioxide 25 mmol/L (22-30) 07/22/20 17:40 Anion Gap 17 mmol/L 07/22/20 17:40 BUN 33 mg/dL (7-17) H 07/22/20 17:40 Creatinine 2.0 mg/dL (0.6-1.2) H 07/22/20 17:40 Estimated GFR 24 ml/min 07/22/20 17:40 BUN/Creatinine Ratio 17 % 07/22/20 17:40 Glucose 108 mg/dL (65-100) H 07/22/20 17:40 Calcium 9.8 mg/dL (8.4-10.2) 07/22/20 17:40 Total Bilirubin 0.20 mg/dL (0.1-1.2) 07/22/20 17:40 AST 19 units/L (5-40) 07/22/20 17:40 ALT 15 units/L (7-56) 07/22/20 17:40 Alkaline Phosphatase 90 units/L (35-129) 07/22/20 17:40 Total Protein 8.0 g/dL (6.3-8.2) 07/22/20 17:40 Albumin 4.4 g/dL (3.9-5) 07/22/20 17:40 Albumin/Globulin Ratio 1.2 % 07/22/20 17:40 Short CBC 07/22/20 Range/Units 17:40 WBC 8.5 (4.5-11.0) K/mm3 Hgb 13.4 (10.1-14.3) gm/dl Hct 41.1 (30.3-42.9) % Plt Count 199 (140-440) K/mm3 BMP 07/22/20 17:40 Sodium 141 Potassium 3.9 Chloride 103.0 Carbon Dioxide 25 BUN 33 H Creatinine 2.0 H Glucose 108 H Calcium 9.8 Liver Function 07/22/20 Range/Units 17:40 Total Bilirubin 0.20 (0.1-1.2) mg/dL AST 19 (5-40) units/L ALT 15 (7-56) units/L Alkaline Phosphatase 90 (35-129) units/L Albumin 4.4 (3.9-5) g/dL - Imaging and Cardiology Chest x-ray: report reviewed (No acute findings) Imaging and Cardiology: Right hip x-ray Acute intertrochanteric fracture of the right hip The articular surface of the femoral head and acetabulum are intact Compression screw with intramedullary compound present on the left Assessment and Plan Advance Directives: Yes (Full code) VTE prophylaxis?: Chemical Plan of care discussed with patient/family: Yes - Patient Problems (1) Fracture of right hip Current Visit: Yes Status: Acute Qualifiers: Encounter type: initial encounter Fracture type: closed Qualified Code(s): S72.001A - Fracture of unspecified part of neck of right femur, initial encounter for closed fracture Plan to address problem: Orthopedic consult requested Patient may go for ORIF tomorrow N.p.o. from midnight Pain management (2) COPD (chronic obstructive pulmonary disease) Current Visit: Yes Status: Chronic Qualifiers: COPD type: chronic bronchitis Plan to address problem: Continue duo nebs (3) DANYA (acute kidney injury) Current Visit: Yes Status: Acute (4) Hypertension Current Visit: Yes Status: Chronic Qualifiers: Hypertension type: essential hypertension Qualified Code(s): I10 - Essential (primary) hypertension Plan to address problem: Catapres patch if necessary Hold oral antihypertensives (5) DVT prophylaxis Current Visit: No Status: Acute Plan to address problem: DANYA superimposed on CKD IV fluids for now
[2020-07-22] MEDS ORDERED: FAMOTIDINE 20 MG/2 ML INJ IV SCH (23:00)
[2020-07-23] MEDS: PANTOPRAZOLE 40 MG TAB PO SCH ×4 (00:12→22:50)
[2020-07-23] MEDS: HEPARIN 5,000 UNIT/1 ML VIAL SUB-Q SCH ×4 (00:12→22:51)
[2020-07-23] MEDS: MIRTAZAPINE 15 MG TAB PO SCH ×2 (00:12→22:50)
[2020-07-23] MEDS: D5W/0.9% NACL 1,000 ML IV SCH ×2 (00:22→18:24)
[2020-07-23 08:26] LABS: Basophils % (Auto) 0.7 % (0.0-1.8); Eosinophils # (Auto) 0.3 K/mm3 (0.0-0.4); Eosinophils % (Auto) 4.3 % (0.0-4.3); Hematocrit 36.4 % (30.3-42.9); Hemoglobin 12.1 gm/dl (10.1-14.3); Lymphocytes # (Auto) 0.7 K/mm3 (1.2-5.4); Mean Corpuscular HGB Conc 33 % (30-34); Mean Corpuscular Volume 92 fl (79-97); Monocytes # (Auto) 0.5 K/mm3 (0.0-0.8); Monocytes % (Auto) 8.1 % (0.0-7.3); Platelet Count 162 K/mm3 (140-440); Red Blood Count 3.94 M/mm3 (3.65-5.03); Red Cell Distribution Width 13.7 % (13.2-15.2)
[2020-07-23 08:48] LABS: Albumin 3.7 g/dL (3.9-5); Calcium 8.9 mg/dL (8.4-10.2)
[2020-07-23] MEDS: CHOLECALCIFEROL (VIT D3) 5,000 UNIT TAB PO SCH ×2 (10:30→12:59)
[2020-07-23] MEDS: FERROUS GLUCONATE 324 MG TAB PO SCH (10:30)
[2020-07-23] MEDS: TIOTROPIUM 18 MCG CAP INHALATION IH SCH (14:12)
--- NOTE | 2020-07-23 18:43 | Progress Note ---
Assessment and Plan Assessment and plan: -- Fracture of right hip Current Visit: Yes Status: Acute Plan to address problem: Orthopedic consult pending Diet as tolerated, IV fluids, pain medications Supportive care --COPD (chronic obstructive pulmonary disease) Current Visit: Yes Status: Chronic Plan to address problem: Continue duo nebs, oxygen titrate O2 sats to more than 90% Supportive care --DANYA (acute kidney injury)/ATN Current Visit: Yes Status: Acute Plan to address problem: gentle hydration, monitor renal function Avoid nephrotoxin, nephrology consult if no improvement -- Hypertension Current Visit: Yes Status: Chronic Plan to address problem: Catapres patch if necessary Hold oral antihypertensives As needed hydralazine --Full CODE STATUS; --DVT prophylaxis Current Visit: No Status: Acute Plan to address problem: SCDs, subcu heparin renal dose Closely monitor the patient and adjust the management as needed Plan of care reviewed with the patient and her nurse Follow Ortho evaluation and recommendations DC planning per case management History Interval history: I have seen and examined the patient at the bedside Patient's chart and medications reviewed Patient with history of fall, right hip fracture Complains of some pain Awaiting Ortho evaluation for possible surgical procedure Vital signs noted Hospitalist Physical - Constitutional Vitals: Temp Pulse Resp BP Pulse Ox 98.2 F 97 H 18 125/104 91 07/23/20 17:04 07/23/20 17:04 07/23/20 17:04 07/23/20 17:04 07/23/20 17:04 General appearance: Present: mild distress (Secondary to pain), well-nourished, other (Elderly and frail) - EENT Eyes: Present: PERRL, EOM intact - Neck Neck: Present: supple, normal ROM - Respiratory Respiratory effort: normal Respiratory: bilateral: diminished, negative: rales, rhonchi, wheezing - Cardiovascular Rhythm: regular Heart Sounds: Present: S1 & S2 - Extremities Extremities: no ischemia, No edema, abnormal (Right hip fracture) - Abdominal General gastrointestinal: soft, non-tender, non-distended, normal bowel sounds - Integumentary Integumentary: Present: clear, warm - Psychiatric Psychiatric: cooperative, other (Confused at times) - Neurologic Neurologic: moves all extremities HEART Score - HEART Score Age: > 65 Risk factors: 1-2 risk factors Troponin: < normal limit - Critical Actions Critical Actions: 0-3 pts:0.9-1.7%risk of adverse cardiac event.Candidate for discharge Results - Labs CBC & Chem 7: 07/23/20 07:58 07/23/20 07:58 Labs: Laboratory Last Values WBC 6.1 K/mm3 (4.5-11.0) 07/23/20 07:58 RBC 3.94 M/mm3 (3.65-5.03) 07/23/20 07:58 Hgb 12.1 gm/dl (10.1-14.3) 07/23/20 07:58 Hct 36.4 % (30.3-42.9) 07/23/20 07:58 MCV 92 fl (79-97) 07/23/20 07:58 MCH 31 pg (28-32) 07/23/20 07:58 MCHC 33 % (30-34) 07/23/20 07:58 RDW 13.7 % (13.2-15.2) 07/23/20 07:58 Plt Count 162 K/mm3 (140-440) 07/23/20 07:58 Lymph % (Auto) 12.0 % (13.4-35.0) L 07/23/20 07:58 [place] % (Auto) 8.1 % (0.0-7.3) H 07/23/20 07:58 Eos % (Auto) 4.3 % (0.0-4.3) 07/23/20 07:58 Baso % (Auto) 0.7 % (0.0-1.8) 07/23/20 07:58 Lymph # (Auto) 0.7 K/mm3 (1.2-5.4) L 07/23/20 07:58 [place] # (Auto) 0.5 K/mm3 (0.0-0.8) 07/23/20 07:58 Eos # (Auto) 0.3 K/mm3 (0.0-0.4) 07/23/20 07:58 Baso # (Auto) 0.0 K/mm3 (0.0-0.1) 07/23/20 07:58 Seg Neutrophils % 74.9 % (40.0-70.0) H 07/23/20 07:58 Seg Neutrophils # 4.6 K/mm3 (1.8-7.7) 07/23/20 07:58 PT 13.7 Sec. (12.2-14.9) 07/22/20 17:40 INR 1.06 (0.87-1.13) 07/22/20 17:40 APTT 33.7 Sec. (24.2-36.6) 07/22/20 17:40 Sodium 141 mmol/L (137-145) 07/23/20 07:58 Potassium 4.6 mmol/L (3.6-5.0) 07/23/20 07:58 Chloride 107.2 mmol/L (98-107) H 07/23/20 07:58 Carbon Dioxide 24 mmol/L (22-30) 07/23/20 07:58 Anion Gap 14 mmol/L 07/23/20 07:58 BUN 31 mg/dL (7-17) H 07/23/20 07:58 Creatinine 2.0 mg/dL (0.6-1.2) H 07/23/20 07:58 Estimated GFR 24 ml/min 07/23/20 07:58 BUN/Creatinine Ratio 16 % 07/23/20 07:58 Glucose 102 mg/dL (65-100) H 07/23/20 07:58 POC Glucose 107 mg/dL (70-105) H 07/22/20 23:46 Hemoglobin A1c 5.6 % (4-6) 07/23/20 07:58 Calcium 8.9 mg/dL (8.4-10.2) 07/23/20 07:58 Total Bilirubin 0.40 mg/dL (0.1-1.2) 07/23/20 07:58 AST 22 units/L (5-40) 07/23/20 07:58 ALT 14 units/L (7-56) 07/23/20 07:58 Alkaline Phosphatase 78 units/L (35-129) 07/23/20 07:58 Total Protein 6.4 g/dL (6.3-8.2) 07/23/20 07:58 Albumin 3.7 g/dL (3.9-5) L 07/23/20 07:58 Albumin/Globulin Ratio 1.4 % 07/23/20 07:58 Leon/IV: Voiding Method External Female Catheter Active Medications - Current Medications Current Medications: Generic Name Dose Route Start Last Admin Trade Name Freq PRN Reason Stop Dose Admin Acetaminophen 650 mg 07/22/20 21:55 Acetaminophen 325 Mg Tab PO Q4H PRN PAIN (1-3) Albuterol 2.5 mg 07/22/20 22:51 Albuterol 2.5 Mg/3 Ml Nebu IH BIDRT PRN Shortness Of Breath Cholecalciferol 5,000 unit 07/23/20 10:00 07/23/20 12:59 Cholecalciferol (Vit D3) 5,000 Unit Tab PO 5,000 unit DAILY SAY Administration Ferrous Gluconate 324 mg 07/23/20 10:00 07/23/20 10:30 Ferrous Gluconate 324 Mg Tab PO Not Given QDAY SAY Heparin Sodium (Porcine) 5,000 unit 07/22/20 22:15 07/23/20 12:58 Heparin 5,000 Unit/1 Ml Vial SUB-Q 5,000 unit Q12HR SAY Administration Hydromorphone HCl 0.5 mg 07/22/20 22:01 Hydromorphone 1 Mg/1 Ml Inj IV Q3H PRN Pain , Severe (7-10) Dextrose/Sodium Chloride 1,000 mls @ 75 mls/hr 07/22/20 23:00 07/23/20 18:24 D5ns IV 75 mls/hr DIRECT SAY Administration Metoclopramide HCl 5 mg 07/22/20 22:01 Metoclopramide 10 Mg/2 Ml Inj IV Q6H PRN Nausea And Vomiting Mirtazapine 7.5 mg 07/22/20 22:00 07/23/20 00:12 Mirtazapine 15 Mg Tab PO 7.5 mg HS SAY Administration Morphine Sulfate 2 mg 07/22/20 22:01 Morphine 2 Mg/1 Ml Inj IV Q4H PRN Pain, Moderate (4-6) Ondansetron HCl 4 mg 07/22/20 22:01 Ondansetron 4 Mg/2 Ml Inj IV Q3H PRN Nausea And Vomiting Oxycodone/Acetaminophen 1 tab 07/22/20 21:55 Oxycodone /Acetaminophen 5-325mg Tab PO Q4H PRN PAIN (4-6) Pantoprazole Sodium 40 mg 07/22/20 22:00 07/23/20 12:58 Pantoprazole 40 Mg Tab PO 40 mg BID SAY Administration Senna 8.6 mg 07/22/20 21:55 Sennosides 8.6 Mg Tab PO HS PRN Constipation Sodium Chloride 10 ml 07/23/20 10:00 07/23/20 12:58 Sodium Chloride 0.9% 10 Ml Flush Syringe IV 10 ml BID SAY Administration Sodium Chloride 10 ml 07/22/20 22:01 Sodium Chloride 0.9% 10 Ml Flush Syringe IV PRN PRN LINE FLUSH Tiotropium Pet[place] 1 puff 07/23/20 10:00 07/23/20 14:12 Tiotropium 18 Mcg Cap Inhalation IH Not Given QDAY SAY
[2020-07-24] MEDS: TIOTROPIUM 18 MCG CAP INHALATION IH SCH ×2 (07:38→10:00)
[2020-07-24] MEDS: HEPARIN 5,000 UNIT/1 ML VIAL SUB-Q SCH ×2 (10:00→21:15)
[2020-07-24] MEDS: PANTOPRAZOLE 40 MG TAB PO SCH ×2 (10:00→21:16)
[2020-07-24] MEDS: FERROUS GLUCONATE 324 MG TAB PO SCH (10:00)
[2020-07-24] MEDS: CHOLECALCIFEROL (VIT D3) 5,000 UNIT TAB PO SCH (10:00)
--- NOTE | 2020-07-24 10:53 | Progress Note ---
Assessment and Plan Assessment and plan: -- Fracture of right hip Current Visit: Yes Status: Acute Plan to address problem: Orthopedic consult pending Diet as tolerated, IV fluids, pain medications Supportive care --COPD (chronic obstructive pulmonary disease) Current Visit: Yes Status: Chronic Plan to address problem: Continue duo nebs, oxygen titrate O2 sats to more than 90% Supportive care --DANYA (acute kidney injury)/ATN Current Visit: Yes Status: Acute Plan to address problem: gentle hydration, monitor renal function Avoid nephrotoxin, nephrology consult if no improvement -- Hypertension Current Visit: Yes Status: Chronic Plan to address problem: Catapres patch if necessary Hold oral antihypertensives As needed hydralazine --Full CODE STATUS; --DVT prophylaxis Current Visit: No Status: Acute Plan to address problem: SCDs, subcu heparin renal dose Closely monitor the patient and adjust the management as needed Plan of care reviewed with the patient and her nurse Follow Ortho evaluation and recommendations DC planning per case management 07/24; fracture right hip, pending Ortho evaluation Acute kidney injury, continue gentle hydration Closely monitor the patient and adjust the management History Interval history: I have seen and examined the patient at the bedside Patient's chart and medications reviewed Pending Ortho evaluation Vital signs noted Hospitalist Physical - Constitutional Vitals: Temp Pulse Resp BP Pulse Ox 98.0 F 77 18 118/64 95 07/23/20 22:15 07/24/20 07:38 07/24/20 07:38 07/23/20 22:15 07/24/20 08:29 General appearance: Present: mild distress (Secondary to pain), well-nourished, other (Elderly and frail) - EENT Eyes: Present: PERRL, EOM intact - Neck Neck: Present: supple, normal ROM - Respiratory Respiratory effort: normal Respiratory: bilateral: diminished, negative: rales, rhonchi, wheezing - Cardiovascular Rhythm: regular Heart Sounds: Present: S1 & S2 - Extremities Extremities: no ischemia, No edema, abnormal (Right hip fracture) - Abdominal General gastrointestinal: soft, non-tender, non-distended, normal bowel sounds - Integumentary Integumentary: Present: clear, warm - Psychiatric Psychiatric: cooperative - Neurologic Neurologic: moves all extremities HEART Score - HEART Score Age: > 65 Risk factors: 1-2 risk factors Troponin: < normal limit - Critical Actions Critical Actions: 0-3 pts:0.9-1.7%risk of adverse cardiac event.Candidate for discharge Results - Labs CBC & Chem 7: 07/23/20 07:58 07/23/20 07:58 Labs: Laboratory Last Values WBC 6.1 K/mm3 (4.5-11.0) 07/23/20 07:58 RBC 3.94 M/mm3 (3.65-5.03) 07/23/20 07:58 Hgb 12.1 gm/dl (10.1-14.3) 07/23/20 07:58 Hct 36.4 % (30.3-42.9) 07/23/20 07:58 MCV 92 fl (79-97) 07/23/20 07:58 MCH 31 pg (28-32) 07/23/20 07:58 MCHC 33 % (30-34) 07/23/20 07:58 RDW 13.7 % (13.2-15.2) 07/23/20 07:58 Plt Count 162 K/mm3 (140-440) 07/23/20 07:58 Lymph % (Auto) 12.0 % (13.4-35.0) L 07/23/20 07:58 [place] % (Auto) 8.1 % (0.0-7.3) H 07/23/20 07:58 Eos % (Auto) 4.3 % (0.0-4.3) 07/23/20 07:58 Baso % (Auto) 0.7 % (0.0-1.8) 07/23/20 07:58 Lymph # (Auto) 0.7 K/mm3 (1.2-5.4) L 07/23/20 07:58 [place] # (Auto) 0.5 K/mm3 (0.0-0.8) 07/23/20 07:58 Eos # (Auto) 0.3 K/mm3 (0.0-0.4) 07/23/20 07:58 Baso # (Auto) 0.0 K/mm3 (0.0-0.1) 07/23/20 07:58 Seg Neutrophils % 74.9 % (40.0-70.0) H 07/23/20 07:58 Seg Neutrophils # 4.6 K/mm3 (1.8-7.7) 07/23/20 07:58 PT 13.7 Sec. (12.2-14.9) 07/22/20 17:40 INR 1.06 (0.87-1.13) 07/22/20 17:40 APTT 33.7 Sec. (24.2-36.6) 07/22/20 17:40 Sodium 141 mmol/L (137-145) 07/23/20 07:58 Potassium 4.6 mmol/L (3.6-5.0) 07/23/20 07:58 Chloride 107.2 mmol/L (98-107) H 07/23/20 07:58 Carbon Dioxide 24 mmol/L (22-30) 07/23/20 07:58 Anion Gap 14 mmol/L 07/23/20 07:58 BUN 31 mg/dL (7-17) H 07/23/20 07:58 Creatinine 2.0 mg/dL (0.6-1.2) H 07/23/20 07:58 Estimated GFR 24 ml/min 07/23/20 07:58 BUN/Creatinine Ratio 16 % 07/23/20 07:58 Glucose 102 mg/dL (65-100) H 07/23/20 07:58 POC Glucose 107 mg/dL (70-105) H 07/22/20 23:46 Hemoglobin A1c 5.6 % (4-6) 07/23/20 07:58 Calcium 8.9 mg/dL (8.4-10.2) 07/23/20 07:58 Total Bilirubin 0.40 mg/dL (0.1-1.2) 07/23/20 07:58 AST 22 units/L (5-40) 07/23/20 07:58 ALT 14 units/L (7-56) 07/23/20 07:58 Alkaline Phosphatase 78 units/L (35-129) 07/23/20 07:58 Total Protein 6.4 g/dL (6.3-8.2) 07/23/20 07:58 Albumin 3.7 g/dL (3.9-5) L 07/23/20 07:58 Albumin/Globulin Ratio 1.4 % 07/23/20 07:58 Leon/IV: Voiding Method External Female Catheter Active Medications - Current Medications Current Medications: Generic Name Dose Route Start Last Admin Trade Name Freq PRN Reason Stop Dose Admin Acetaminophen 650 mg 07/22/20 21:55 Acetaminophen 325 Mg Tab PO Q4H PRN PAIN (1-3) Albuterol 2.5 mg 07/22/20 22:51 Albuterol 2.5 Mg/3 Ml Nebu IH BIDRT PRN Shortness Of Breath Cholecalciferol 5,000 unit 07/23/20 10:00 07/24/20 10:00 Cholecalciferol (Vit D3) 5,000 Unit Tab PO 5,000 unit DAILY SAY Administration Ferrous Gluconate 324 mg 07/23/20 10:00 07/24/20 10:00 Ferrous Gluconate 324 Mg Tab PO 324 mg QDAY SAY Administration Heparin Sodium (Porcine) 5,000 unit 07/22/20 22:15 07/24/20 10:00 Heparin 5,000 Unit/1 Ml Vial SUB-Q 5,000 unit Q12HR SAY Administration Hydromorphone HCl 0.5 mg 07/22/20 22:01 Hydromorphone 1 Mg/1 Ml Inj IV Q3H PRN Pain , Severe (7-10) Dextrose/Sodium Chloride 1,000 mls @ 75 mls/hr 07/22/20 23:00 07/23/20 18:24 D5ns IV 75 mls/hr DIRECT SAY Administration Metoclopramide HCl 5 mg 07/22/20 22:01 Metoclopramide 10 Mg/2 Ml Inj IV Q6H PRN Nausea And Vomiting Mirtazapine 7.5 mg 07/22/20 22:00 07/23/20 22:50 Mirtazapine 15 Mg Tab PO 7.5 mg HS SAY Administration Morphine Sulfate 2 mg 07/22/20 22:01 Morphine 2 Mg/1 Ml Inj IV Q4H PRN Pain, Moderate (4-6) Ondansetron HCl 4 mg 07/22/20 22:01 Ondansetron 4 Mg/2 Ml Inj IV Q3H PRN Nausea And Vomiting Oxycodone/Acetaminophen 1 tab 07/22/20 21:55 Oxycodone /Acetaminophen 5-325mg Tab PO Q4H PRN PAIN (4-6) Pantoprazole Sodium 40 mg 07/22/20 22:00 07/24/20 10:00 Pantoprazole 40 Mg Tab PO 40 mg BID SAY Administration Senna 8.6 mg 07/22/20 21:55 Sennosides 8.6 Mg Tab PO HS PRN Constipation Sodium Chloride 10 ml 07/23/20 10:00 07/24/20 10:02 Sodium Chloride 0.9% 10 Ml Flush Syringe IV 10 ml BID SAY Administration Sodium Chloride 10 ml 07/22/20 22:01 Sodium Chloride 0.9% 10 Ml Flush Syringe IV PRN PRN LINE FLUSH Tiotropium [place] 1 puff 07/23/20 10:00 07/24/20 07:38 Tiotropium 18 Mcg Cap Inhalation IH 1 puff QDAY SAY Administration
[2020-07-24] MEDS: MIRTAZAPINE 15 MG TAB PO SCH (21:15)
[2020-07-25] MEDS: D5W/0.9% NACL 1,000 ML IV SCH (00:43)
[2020-07-25 06:34] LABS: Basophils % (Auto) 0.4 % (0.0-1.8); Eosinophils # (Auto) 0.4 K/mm3 (0.0-0.4); Eosinophils % (Auto) 6.6 % (0.0-4.3); Hematocrit 32.5 % (30.3-42.9); Hemoglobin 10.6 gm/dl (10.1-14.3); Mean Corpuscular HGB Conc 33 % (30-34); Mean Corpuscular Volume 93 fl (79-97); Monocytes # (Auto) 0.5 K/mm3 (0.0-0.8); Monocytes % (Auto) 8.3 % (0.0-7.3); Platelet Count 152 K/mm3 (140-440); Red Cell Distribution Width 13.4 % (13.2-15.2)
[2020-07-25 06:47] LABS: Calcium 8.9 mg/dL (8.4-10.2)
--- NOTE | 2020-07-25 09:33 | Consultation ---
History of Present Illness - HPI Consult date: 07/23/20 Consult reason: fracture History of present illness: 75 y/o female with c/o right hip pain after a fall at local SNF, hx of previous left hip fracture and dementia/schizophrenia/osteoporosis...patient ambulatory p rior to fall... Medications and Allergies Allergies Allergy/AdvReac Type Severity Reaction Status Date / Time No Known Allergies Allergy Verified 04/25/17 12:02 Home Medications Medication Instructions Recorded Confirmed Last Taken Type Tiotropium [Spiriva] 18 mcg IH QDAY 05/02/15 06/27/17 01/01/16 History Ondansetron [Zofran TAB] 4 mg PO Q8HR PRN 06/09/16 06/27/17 Unknown History Albuterol Sulfate [Ventolin Hfa] 2 puff IH BID PRN 04/25/17 06/27/17 Unknown History Cholecalciferol (Vitamin D3) 5,000 unit PO DAILY 04/25/17 06/27/17 Unknown History [Vitamin D3 5,000 UNIT] Ferrous Gluconate [Ferrous 324 mg PO QDAY 04/25/17 06/27/17 Unknown History Gluconate 324 MG] Ipratropium/Albuterol Sulfate 1 ampul IH Q6HR PRN 04/25/17 06/27/17 Unknown History [DUONEB *Not for PRN Use*] Mirtazapine [Remeron] 7.5 mg PO HS 04/25/17 06/27/17 Unknown History Sennosides [Senna] 8.6 mg PO HS PRN 04/25/17 06/27/17 Unknown History Pantoprazole [Protonix TAB] 40 mg PO BID #60 tablet 04/28/17 06/27/17 Unknown Rx oxyCODONE /ACETAMINOPHEN [Percocet 1 tab PO Q4HR PRN #20 tablet 04/28/17 Unknown Rx 5/325 mg] Acetaminophen [Acetaminophen TAB] 650 mg PO Q4HR PRN MDD 3,000 mg 06/01/17 06/27/17 Unknown History levoFLOXacin [Levaquin TAB] 500 mg PO Q48H #2 tablet 06/28/17 Unknown Rx Active Meds: Active Medications Acetaminophen (Acetaminophen 325 Mg Tab) 650 mg PO Q4H PRN PRN Reason: PAIN (1-3) Albuterol (Albuterol 2.5 Mg/3 Ml Nebu) 2.5 mg IH BIDRT PRN PRN Reason: Shortness Of Breath Cholecalciferol (Cholecalciferol (Vit D3) 5,000 Unit Tab) 5,000 unit PO DAILY [facility] Last Admin: 07/24/20 10:00 Dose: 5,000 unit Documented by: Ferrous Gluconate (Ferrous Gluconate 324 Mg Tab) 324 mg PO QDAY [facility] Last Admin: 07/24/20 10:00 Dose: 324 mg Documented by: Heparin Sodium (Porcine) (Heparin 5,000 Unit/1 Ml Vial) 5,000 unit SUB-Q Q12HR [facility] Last Admin: 07/24/20 21:15 Dose: 5,000 unit Documented by: Hydromorphone HCl (Hydromorphone 1 Mg/1 Ml Inj) 0.5 mg IV Q3H PRN PRN Reason: Pain , Severe (7-10) Dextrose/Sodium Chloride (D5ns) 1,000 mls @ 75 mls/hr IV DIRECT [facility] Last Admin: 07/25/20 00:43 Dose: 75 mls/hr Documented by: Metoclopramide HCl (Metoclopramide 10 Mg/2 Ml Inj) 5 mg IV Q6H PRN PRN Reason: Nausea And Vomiting Mirtazapine (Mirtazapine 15 Mg Tab) 7.5 mg PO HS [facility] Last Admin: 07/24/20 21:15 Dose: 7.5 mg Documented by: Morphine Sulfate (Morphine 2 Mg/1 Ml Inj) 2 mg IV Q4H PRN PRN Reason: Pain, Moderate (4-6) Ondansetron HCl (Ondansetron 4 Mg/2 Ml Inj) 4 mg IV Q3H PRN PRN Reason: Nausea And Vomiting Oxycodone/Acetaminophen (Oxycodone /Acetaminophen 5-325mg Tab) 1 tab PO Q4H PRN PRN Reason: PAIN (4-6) Pantoprazole Sodium (Pantoprazole 40 Mg Tab) 40 mg PO BID [facility] Last Admin: 07/24/20 21:16 Dose: 40 mg Documented by: Senna (Sennosides 8.6 Mg Tab) 8.6 mg PO HS PRN PRN Reason: Constipation Sodium Chloride (Sodium Chloride 0.9% 10 Ml Flush Syringe) 10 ml IV BID [facility] Last Admin: 07/25/20 00:42 Dose: 10 ml Documented by: Sodium Chloride (Sodium Chloride 0.9% 10 Ml Flush Syringe) 10 ml IV PRN PRN PRN Reason: LINE FLUSH Tiotropium [place] (Tiotropium 18 Mcg Cap Inhalation) 1 puff IH QDAY [facility] Last Admin: 07/24/20 10:00 Dose: Not Given Documented by: Physical Examination - Physical exam Narrative exam: RLE - shortened and external rotated, moderate swelling, tender with passive ROM, distal n/v intact... Eyes: PERRL ENT: Positive: clear oral mucosa Respiratory effort: normal Respiratory: bilateral: CTA Rhythm: regular Heart Sounds: Positive: S1 & S2 General gastrointestinal: Positive: soft, non-tender, non-distended, normal bowel sounds Integumentary: clear, warm, dry Neurologic: Positive: CNII-XII intact, moves all extremities, gait normal. Negative: focal deficits Assessment and Plan Right intertrochanteric hip fracture in an ambulatory patient recommend IM nail fixation and PT...
[2020-07-25] MEDS: CHOLECALCIFEROL (VIT D3) 5,000 UNIT TAB PO SCH (10:14)
[2020-07-25] MEDS: PANTOPRAZOLE 40 MG TAB PO SCH ×2 (10:14→21:17)
[2020-07-25] MEDS: HEPARIN 5,000 UNIT/1 ML VIAL SUB-Q SCH ×2 (10:15→21:17)
[2020-07-25] MEDS: FERROUS GLUCONATE 324 MG TAB PO SCH (10:17)
[2020-07-25] MEDS: ALBUTEROL 2.5 MG/3 ML NEBU IH PRN (11:03)
[2020-07-25] MEDS: TIOTROPIUM 18 MCG CAP INHALATION IH SCH ×2 (11:10→11:39)
--- NOTE | 2020-07-25 11:58 | Anesthesia Consultation ---
Anesthesia Consult and Med Hx Date of service: 07/25/20 - Airway Anesthetic Teeth Evaluation: Poor ROM Head & Neck: Adequate Mental/Hyoid Distance: Adequate Mallampati Class: Class II Intubation Access Assessment: Probably Good - Pulmonary Exam CTA: No (Decreased breathsounds, wheezing) - Cardiac Exam Cardiac Exam: RRR Anesthetic Concerns: Pt is no 11 l/nc, with labored breathing, pt states this is her normal breathing, and that she does not have COPD and does not us O2 at home. - Pre-Operative Health Status ASA Pre-Surgery Classification: ASA4 Proposed Anesthetic Plan: General (#2), Spinal (#1) - Pulmonary Hx Smoking: Yes (current smoker, pt states only 3 cigs a day) Hx Asthma: No SOB: Yes (very labored breathing, pt on 11 l/nc) COPD: Yes Hx Pneumonia: No Hx Sleep Apnea: No - Cardiovascular System Hx Hypertension: Yes Hx Coronary Artery Disease: No Hx Heart Attack/AMI: No Hx Angina: No Hx Percutaneous Transluminal Coronary Angioplasty (PTCA): No Hx Pacemaker: No Hx Internal Defibrillator: No Hx Valvular Heart Disease: No Hx Heart Murmur: No Hx Peripheral Vascular Disease: No - Central Nervous System Hx Neuromuscular Disorder: Yes (dementia; alzheimers; vertigo) Hx Seizures: No CVA: No Hx Psychiatric Problems: Yes - Gastrointestinal Hx Ulcer: No Hx Gastroesophageal Reflux Disease: Yes - Endocrine Hx Renal Disease: No Hx End Stage Renal Disease: No (CKD) Hx Cirrhosis: No Hx Liver Disease: No Hx Insulin Dependent Diabetes: No Hx Non-Insulin Dependent Diabetes: No Hx Thyroid Disease: No Hx Hypothyroidism: No Hx Hyperthyroidism: No - Hematic Hx Anemia: No Hx Sickle Cell Disease: No - Other Systems Hx Alcohol Use: No Hx Cancer: No
--- NOTE | 2020-07-25 11:59 | Anesthesia Day of Surgery ---
Anesthesia Day of Surgery - Day of Surgery Patient Examined: Yes Patient H&P Reviewed: Yes Patient is NPO: Yes Beta Blockers: Yes
--- NOTE | 2020-07-25 12:02 | XRay Report ---
XR chest 1V ap INDICATION / CLINICAL INFORMATION: Hx COPD; Dyspnea and tachypnea. COMPARISON: 07/22/2020 FINDINGS: Patient is rotated to the right. SUPPORT DEVICES: None. HEART /PULMONARY VASCULATURE: There is cardiac enlargement with mild pulmonary vasculature congestion . LUNGS / PLEURA: Limited evaluation of the right lung base due to patient rotation. No new or increasi ng airspace consolidation. No sizable pleural effusion. No pneumothorax. ADDITIONAL FINDINGS: Large hiatal hernia. IMPRESSION: Findings suggestive of mild CHF. Signer Name: Compa Graf MD Signed: 07/25/2020 11:57 AM Workstation Name: [id number]
[2020-07-25] MEDS ORDERED: LACTATED RINGERS 1,000 ML IV SCH (12:20)
[2020-07-25] MEDS ORDERED: MIDAZOLAM 2 MG/2 ML INJ ONE (12:35)
[2020-07-25] MEDS ORDERED: KETAMINE/STERILE WATER 50 MG/ML SYRINGE ONE (12:35)
[2020-07-25] MEDS ORDERED: ceFAZolin/Water 2 GM/20 ML 2 GM/20 ML SYRINGE IV ONE (12:43)
[2020-07-25] MEDS ORDERED: LACTATED RINGERS 1,000 ML ONE (12:43)
[2020-07-25] MEDS ORDERED: ceFAZolin/STERILE WATER 2 GM/20 ML SYRINGE IV NR (12:45)
[2020-07-25] MEDS ORDERED: PHENYLEPHRINE/NS 1,000 MCG/10 ML SYRINGE (OR USE) IV ONE (13:29)
[2020-07-25] MEDS ORDERED: oxyCODONE /ACETAMINOPHEN 5-325MG TAB PO PRN (14:33)
[2020-07-25] MEDS ORDERED: MORPHINE 2 MG/1 ML INJ IV PRN (14:33)
[2020-07-25] MEDS ORDERED: KETOROLAC 30 MG/1 ML INJ IV PRN (14:33)
--- NOTE | 2020-07-25 14:39 | Procedure Note ---
Date of procedure: 07/25/20 Pre-op diagnosis: right intertrochanteric hip fracture Post-op diagnosis: same Procedure: Closed reduction insertion of intramedullary nail right femur Procedure The patient was brought to the OR on the hospital bed He was requested to lie in the lateral decubitus position at which point spinal anesthesia was induced following this the patient was then transferred onto the [place] table supine the legs were placed in longitudinal traction. C-arm fluoroscope was brought in and the hip was reduced in both the AP and lateral planes. Next the right hip was prepped and draped in the usual sterile manner a stab wound was made posterior and superior to the greater trochanter this is carried down sharply through skin and fascia using a Armstrong elevator the soft tissues were split down to the tip of the greater trochanter A large awl was used to enter the proximal medullary canal this was followed by placement of the guidewire again under C-arm visualization the tip of the guidewire was seen in the distal femur next the measurements were obtained a 11 x 380 intramedullary nail was selected this was followed by reaming up to a 12-1/2 mm diameter following this the intramedullary nail was inserted and a antegrade fashion down the proximal canal into the distal femur next the targeting device for the helical blade was placed and the stab wound was made along the lateral border of the thigh again under C-arm visualization a guidewire was inserted into the femoral neck again measuring this delay a 80 mm helical blade was chosen the forearm or near cortex was drilled followed by insertion of the proximal helical blade next the locking screw proximally was engaged again under C-arm direction AP and lateral views were obtained showing good reduction at the fracture and placement of the hardware following this a wound was copiously irrigated and was closed in a standard routine fashion and the patient tolerated the procedure there were no complications and he was sent to postanesthesia recovery in stable condition Anesthesia: spinal Surgeon: RAHUL OLMOS (Mike Arrington- 1st assist) Estimated blood loss: 50-100ml Pathology: none Condition: stable Disposition: PACU
--- NOTE | 2020-07-25 15:06 | XRay Report ---
XR hip 2-3V RT INDICATION / CLINICAL INFORMATION: RT HIP FX. COMPARISON: None available. FINDINGS: ORIF of proximal right femur fracture with an intramedullary nail in place Fluoroscopy time: 24 seconds. Fluoroscopic images: 3. IMPRESSION: ORIF of proximal right femur fracture with an intramedullary nail in place Signer Name: Aj Jay MD FACR Signed: 07/25/2020 3:02 PM Workstation Name: [id number]
--- NOTE | 2020-07-25 16:54 | Post Anesthesia Evaluation ---
- Post Anesthesia Evaluation Patient Participated: Yes Airway Patent: Yes Stable Respiratory Function: Yes Nausea/Vomiting: No Temp > 96.8F: Yes Pain Manageable: Yes Adequeate Hydration: Yes Anesthesia Complications: No Block Receding Appropriately: Yes Patient on Ventilator: No
--- NOTE | 2020-07-25 19:06 | Progress Note ---
Assessment and Plan Assessment and plan: --Right intertrochanteric hip fracture Current Visit: Yes Status: Acute Plan to address problem: Orthopedic evaluated s/p Closed reduction insertion of intramedullary nail right femur 07/25/2020 Postop care per surgery , pain medications PT OT rehab, --COPD (chronic obstructive pulmonary disease) Current Visit: Yes Status: Chronic Plan to address problem: Continue duo nebs, oxygen titrate O2 sats to more than 90% Supportive care --DANYA (acute kidney injury)/ATN Current Visit: Yes Status: Acute Plan to address problem: gentle hydration, monitor renal function Avoid nephrotoxin, nephrology consult if no improvement -- Hypertension Current Visit: Yes Status: Chronic Plan to address problem: Catapres patch if necessary Hold oral antihypertensives As needed hydralazine --Full CODE STATUS; --DVT prophylaxis Current Visit: No Status: Acute Plan to address problem: SCDs, subcu heparin renal dose Closely monitor the patient and adjust the management as needed Plan of care reviewed with the patient and her nurse Follow Ortho evaluation and recommendations DC planning per case management 07/24; fracture right hip, pending Ortho evaluation Acute kidney injury, continue gentle hydration Closely monitor the patient and adjust the management 07/25; right intertrochanteric hip fracture s/p Closed reduction insertion of intramedullary nail right femur 07/25/2020 Continue postop care, PT OT, rehab versus home with home health in stable History Interval history: Patient had orthopedic surgical procedure Status post fall right intertrochanteric hip fracture s/p Closed reduction insertion of intramedullary nail right femur Patient tolerated the procedure well, complains of some pain Vital signs reviewed Hospitalist Physical - Constitutional Vitals: Temp Pulse Resp BP Pulse Ox 97.9 F 87 20 135/73 95 07/25/20 15:55 07/25/20 15:55 07/25/20 15:55 07/25/20 15:55 07/25/20 15:55 General appearance: Present: mild distress (Secondary to pain), well-nourished, other (Elderly and frail) - EENT Eyes: Present: PERRL, EOM intact - Neck Neck: Present: supple, normal ROM - Respiratory Respiratory effort: normal Respiratory: bilateral: diminished, negative: rales, rhonchi, wheezing - Cardiovascular Rhythm: regular Heart Sounds: Present: S1 & S2 - Extremities Extremities: no ischemia, No edema, abnormal (Status post surgery) - Abdominal General gastrointestinal: soft, non-tender, non-distended, normal bowel sounds - Integumentary Integumentary: Present: clear, warm - Psychiatric Psychiatric: appropriate mood/affect, cooperative - Neurologic Neurologic: CNII-XII intact, moves all extremities HEART Score - HEART Score Age: > 65 Risk factors: 1-2 risk factors Troponin: < normal limit - Critical Actions Critical Actions: 0-3 pts:0.9-1.7%risk of adverse cardiac event.Candidate for discharge Results - Labs CBC & Chem 7: 07/25/20 05:50 07/25/20 05:50 Labs: Laboratory Last Values WBC 5.6 K/mm3 (4.5-11.0) 07/25/20 05:50 RBC 3.50 M/mm3 (3.65-5.03) L 07/25/20 05:50 Hgb 10.6 gm/dl (10.1-14.3) 07/25/20 05:50 Hct 32.5 % (30.3-42.9) 07/25/20 05:50 MCV 93 fl (79-97) 07/25/20 05:50 MCH 30 pg (28-32) 07/25/20 05:50 MCHC 33 % (30-34) 07/25/20 05:50 RDW 13.4 % (13.2-15.2) 07/25/20 05:50 Plt Count 152 K/mm3 (140-440) 07/25/20 05:50 Lymph % (Auto) 17.0 % (13.4-35.0) 07/25/20 05:50 Rich % (Auto) 8.3 % (0.0-7.3) H 07/25/20 05:50 Eos % (Auto) 6.6 % (0.0-4.3) H 07/25/20 05:50 Baso % (Auto) 0.4 % (0.0-1.8) 07/25/20 05:50 Lymph # (Auto) 1.0 K/mm3 (1.2-5.4) L 07/25/20 05:50 Rich # (Auto) 0.5 K/mm3 (0.0-0.8) 07/25/20 05:50 Eos # (Auto) 0.4 K/mm3 (0.0-0.4) 07/25/20 05:50 Baso # (Auto) 0.0 K/mm3 (0.0-0.1) 07/25/20 05:50 Seg Neutrophils % 67.7 % (40.0-70.0) 07/25/20 05:50 Seg Neutrophils # 3.8 K/mm3 (1.8-7.7) 07/25/20 05:50 PT 13.7 Sec. (12.2-14.9) 07/22/20 17:40 INR 1.06 (0.87-1.13) 07/22/20 17:40 APTT 33.7 Sec. (24.2-36.6) 07/22/20 17:40 Sodium 145 mmol/L (137-145) 07/25/20 05:50 Potassium 3.6 mmol/L (3.6-5.0) D 07/25/20 05:50 Chloride 109.5 mmol/L (98-107) H 07/25/20 05:50 Carbon Dioxide 24 mmol/L (22-30) 07/25/20 05:50 Anion Gap 15 mmol/L 07/25/20 05:50 BUN 16 mg/dL (7-17) 07/25/20 05:50 Creatinine 1.6 mg/dL (0.6-1.2) H 07/25/20 05:50 Estimated GFR 32 ml/min 07/25/20 05:50 BUN/Creatinine Ratio 10 % 07/25/20 05:50 Glucose 111 mg/dL (65-100) H 07/25/20 05:50 POC Glucose 107 mg/dL (70-105) H 07/22/20 23:46 Hemoglobin A1c 5.6 % (4-6) 07/23/20 07:58 Calcium 8.9 mg/dL (8.4-10.2) 07/25/20 05:50 Magnesium 1.60 mg/dL (1.7-2.3) L 07/25/20 05:50 Total Bilirubin 0.40 mg/dL (0.1-1.2) 07/23/20 07:58 AST 22 units/L (5-40) 07/23/20 07:58 ALT 14 units/L (7-56) 07/23/20 07:58 Alkaline Phosphatase 78 units/L (35-129) 07/23/20 07:58 Total Protein 6.4 g/dL (6.3-8.2) 07/23/20 07:58 Albumin 3.7 g/dL (3.9-5) L 07/23/20 07:58 Albumin/Globulin Ratio 1.4 % 07/23/20 07:58 Leon/IV: Voiding Method Incontinent Active Medications - Current Medications Current Medications: Generic Name Dose Route Start Last Admin Trade Name Freq PRN Reason Stop Dose Admin Acetaminophen 650 mg 07/22/20 21:55 Acetaminophen 325 Mg Tab PO Q4H PRN PAIN (1-3) Albuterol 2.5 mg 07/22/20 22:51 07/25/20 11:03 Albuterol 2.5 Mg/3 Ml Nebu IH 2.5 mg BIDRT PRN Administration Shortness Of Breath Cholecalciferol 5,000 unit 07/23/20 10:00 07/25/20 10:14 Cholecalciferol (Vit D3) 5,000 Unit Tab PO 5,000 unit DAILY SAY Administration Ferrous Gluconate 324 mg 07/23/20 10:00 07/25/20 10:17 Ferrous Gluconate 324 Mg Tab PO 324 mg QDAY SAY Administration Heparin Sodium (Porcine) 5,000 unit 07/22/20 22:15 07/25/20 10:15 Heparin 5,000 Unit/1 Ml Vial SUB-Q 5,000 unit Q12HR SAY Administration Hydromorphone HCl 0.5 mg 07/22/20 22:01 07/25/20 15:36 Hydromorphone 1 Mg/1 Ml Inj IV 0.5 mg Q3H PRN Administration Pain , Severe (7-10) Dextrose/Sodium Chloride 1,000 mls @ 75 mls/hr 07/22/20 23:00 07/25/20 14:37 D5ns IV Infused DIRECT SAY Infusion Lactated Ringer's 1,000 mls @ 42 mls/hr 07/25/20 12:20 07/25/20 13:00 Lactated Ringers IV 42 mls/hr DIRECT SAY Administration Ketorolac Tromethamine 15 mg 07/25/20 14:33 Ketorolac 30 Mg/1 Ml Inj IV 07/30/20 14:32 Q6H PRN Pain, Mild (1-3) Metoclopramide HCl 5 mg 07/22/20 22:01 Metoclopramide 10 Mg/2 Ml Inj IV Q6H PRN Nausea And Vomiting Mirtazapine 7.5 mg 07/22/20 22:00 07/24/20 21:15 Mirtazapine 15 Mg Tab PO 7.5 mg HS SAY Administration Morphine Sulfate 2 mg 07/25/20 14:33 Morphine 2 Mg/1 Ml Inj IV Q4H PRN Pain, Moderate (4-6) Ondansetron HCl 4 mg 07/22/20 22:01 Ondansetron 4 Mg/2 Ml Inj IV Q3H PRN Nausea And Vomiting Oxycodone/Acetaminophen 1 tab 07/25/20 14:33 Oxycodone /Acetaminophen 5-325mg Tab PO Q6H PRN Pain, Moderate (4-6) Pantoprazole Sodium 40 mg 07/22/20 22:00 07/25/20 10:14 Pantoprazole 40 Mg Tab PO 40 mg BID SAY Administration Senna 8.6 mg 07/22/20 21:55 Sennosides 8.6 Mg Tab PO HS PRN Constipation Sodium Chloride 10 ml 07/23/20 10:00 07/25/20 10:26 Sodium Chloride 0.9% 10 Ml Flush Syringe IV 10 ml BID SAY Administration Sodium Chloride 10 ml 07/22/20 22:01 Sodium Chloride 0.9% 10 Ml Flush Syringe IV PRN PRN LINE FLUSH Sodium Chloride 10 ml 07/25/20 15:00 Sodium Chloride 0.9% 10 Ml Flush Syringe IV 07/27/20 14:59 PRN NR Tiotropium [place] 1 puff 07/23/20 10:00 07/25/20 11:39 Tiotropium 18 Mcg Cap Inhalation IH 1 puff QDAY SAY Administration
[2020-07-25] MEDS: MIRTAZAPINE 15 MG TAB PO SCH (21:17)
[2020-07-26 05:54] LABS: Hematocrit 29.8 % (30.3-42.9); Hemoglobin 9.8 gm/dl (10.1-14.3)
[2020-07-26] MEDS ORDERED: ENOXAPARIN 40 MG/0.4 ML INJ SUB-Q SCH (10:00)
[2020-07-26] MEDS: PANTOPRAZOLE 40 MG TAB PO SCH ×2 (10:59→22:03)
[2020-07-26] MEDS: CHOLECALCIFEROL (VIT D3) 5,000 UNIT TAB PO SCH (10:59)
[2020-07-26] MEDS: HEPARIN 5,000 UNIT/1 ML VIAL SUB-Q SCH ×2 (11:00→22:10)
[2020-07-26] MEDS: FERROUS GLUCONATE 324 MG TAB PO SCH (11:00)
[2020-07-26] MEDS: TIOTROPIUM 18 MCG CAP INHALATION IH SCH (13:22)
[2020-07-26] MEDS: ALBUTEROL 2.5 MG/3 ML NEBU IH PRN (13:22)
[2020-07-26] MEDS: ACETAMINOPHEN 325 MG TAB PO PRN ×2 (14:57→22:04)
--- NOTE | 2020-07-26 19:29 | Progress Note ---
Assessment and Plan Assessment and plan: -Right intertrochanteric hip fracture Current Visit: Yes Status: Acute Plan to address problem: Orthopedic evaluated s/p Closed reduction insertion of intramedullary nail right femur 07/25/2020 Postop care per surgery , pain medications PT OT rehab, --COPD (chronic obstructive pulmonary disease) Current Visit: Yes Status: Chronic Plan to address problem: Continue duo nebs, oxygen titrate O2 sats to more than 90% Supportive care --DANYA (acute kidney injury)/ATN Current Visit: Yes Status: Acute Plan to address problem: gentle hydration, monitor renal function Avoid nephrotoxin, nephrology consult if no improvement -- Hypertension Current Visit: Yes Status: Chronic Plan to address problem: Catapres patch if necessary Hold oral antihypertensives As needed hydralazine --Full CODE STATUS; --DVT prophylaxis Current Visit: No Status: Acute Plan to address problem: SCDs, subcu heparin renal dose Closely monitor the patient and adjust the management as needed Plan of care reviewed with the patient and her nurse Follow Ortho evaluation and recommendations DC planning per case management 07/24; fracture right hip, pending Ortho evaluation Acute kidney injury, continue gentle hydration Closely monitor the patient and adjust the management 07/25; right intertrochanteric hip fracture s/p Closed reduction insertion of intramedullary nail right femur 07/25/2020 Continue postop care, PT OT, rehab versus home with home health in stable 07/26; patient feels slightly better, physical therapy Complains of pain, DC planning per case management History Interval history: I have seen and examined the patient at the bedside Patient's chart and medications reviewed Patient underwent surgery yesterday Complains of some pain Vital signs noted Hospitalist Physical - Constitutional Vitals: Temp Pulse Resp BP Pulse Ox 99.2 F 110 H 20 108/66 88 07/26/20 17:17 07/26/20 17:17 07/26/20 17:17 07/26/20 17:17 07/26/20 17:17 General appearance: Present: mild distress (Secondary to pain), well-nourished, other (Elderly and frail) - EENT Eyes: Present: PERRL, EOM intact - Neck Neck: Present: supple, normal ROM - Respiratory Respiratory effort: normal Respiratory: bilateral: diminished, negative: rales, rhonchi, wheezing - Cardiovascular Rhythm: regular Heart Sounds: Present: S1 & S2 - Extremities Extremities: no ischemia, No edema - Abdominal General gastrointestinal: soft, non-tender, non-distended, normal bowel sounds - Integumentary Integumentary: Present: clear, warm - Psychiatric Psychiatric: appropriate mood/affect, cooperative - Neurologic Neurologic: moves all extremities HEART Score - HEART Score Age: > 65 Risk factors: 1-2 risk factors Troponin: < normal limit - Critical Actions Critical Actions: 0-3 pts:0.9-1.7%risk of adverse cardiac event.Candidate for discharge Results - Labs CBC & Chem 7: 07/26/20 05:06 07/25/20 05:50 Labs: Laboratory Last Values WBC 5.6 K/mm3 (4.5-11.0) 07/25/20 05:50 RBC 3.50 M/mm3 (3.65-5.03) L 07/25/20 05:50 Hgb 9.8 gm/dl (10.1-14.3) L 07/26/20 05:06 Hct 29.8 % (30.3-42.9) L 07/26/20 05:06 MCV 93 fl (79-97) 07/25/20 05:50 MCH 30 pg (28-32) 07/25/20 05:50 MCHC 33 % (30-34) 07/25/20 05:50 RDW 13.4 % (13.2-15.2) 07/25/20 05:50 Plt Count 152 K/mm3 (140-440) 07/25/20 05:50 Lymph % (Auto) 17.0 % (13.4-35.0) 07/25/20 05:50 [place] % (Auto) 8.3 % (0.0-7.3) H 07/25/20 05:50 Eos % (Auto) 6.6 % (0.0-4.3) H 07/25/20 05:50 Baso % (Auto) 0.4 % (0.0-1.8) 07/25/20 05:50 Lymph # (Auto) 1.0 K/mm3 (1.2-5.4) L 07/25/20 05:50 [place] # (Auto) 0.5 K/mm3 (0.0-0.8) 07/25/20 05:50 Eos # (Auto) 0.4 K/mm3 (0.0-0.4) 07/25/20 05:50 Baso # (Auto) 0.0 K/mm3 (0.0-0.1) 07/25/20 05:50 Seg Neutrophils % 67.7 % (40.0-70.0) 07/25/20 05:50 Seg Neutrophils # 3.8 K/mm3 (1.8-7.7) 07/25/20 05:50 PT 13.7 Sec. (12.2-14.9) 07/22/20 17:40 INR 1.06 (0.87-1.13) 07/22/20 17:40 APTT 33.7 Sec. (24.2-36.6) 07/22/20 17:40 Sodium 145 mmol/L (137-145) 07/25/20 05:50 Potassium 3.6 mmol/L (3.6-5.0) D 07/25/20 05:50 Chloride 109.5 mmol/L (98-107) H 07/25/20 05:50 Carbon Dioxide 24 mmol/L (22-30) 07/25/20 05:50 Anion Gap 15 mmol/L 07/25/20 05:50 BUN 16 mg/dL (7-17) 07/25/20 05:50 Creatinine 1.6 mg/dL (0.6-1.2) H 07/25/20 05:50 Estimated GFR 32 ml/min 07/25/20 05:50 BUN/Creatinine Ratio 10 % 07/25/20 05:50 Glucose 111 mg/dL (65-100) H 07/25/20 05:50 POC Glucose 107 mg/dL (70-105) H 07/22/20 23:46 Hemoglobin A1c 5.6 % (4-6) 07/23/20 07:58 Calcium 8.9 mg/dL (8.4-10.2) 07/25/20 05:50 Magnesium 1.60 mg/dL (1.7-2.3) L 07/25/20 05:50 Total Bilirubin 0.40 mg/dL (0.1-1.2) 07/23/20 07:58 AST 22 units/L (5-40) 07/23/20 07:58 ALT 14 units/L (7-56) 07/23/20 07:58 Alkaline Phosphatase 78 units/L (35-129) 07/23/20 07:58 Total Protein 6.4 g/dL (6.3-8.2) 07/23/20 07:58 Albumin 3.7 g/dL (3.9-5) L 07/23/20 07:58 Albumin/Globulin Ratio 1.4 % 07/23/20 07:58 Coronavirus (PCR) Positive (Negative) A 07/25/20 Unknown Leon/IV: Voiding Method Indwelling Catheter Active Medications - Current Medications Current Medications: Generic Name Dose Route Start Last Admin Trade Name Freq PRN Reason Stop Dose Admin Acetaminophen 650 mg 07/22/20 21:55 07/26/20 14:57 Acetaminophen 325 Mg Tab PO 650 mg Q4H PRN Administration PAIN (1-3) Albuterol 2.5 mg 07/22/20 22:51 07/26/20 13:22 Albuterol 2.5 Mg/3 Ml Nebu IH 2.5 mg BIDRT PRN Administration Shortness Of Breath Cholecalciferol 5,000 unit 07/23/20 10:00 07/26/20 10:59 Cholecalciferol (Vit D3) 5,000 Unit Tab PO 5,000 unit DAILY SAY Administration Ferrous Gluconate 324 mg 07/23/20 10:00 07/26/20 11:00 Ferrous Gluconate 324 Mg Tab PO 324 mg QDAY SAY Administration Heparin Sodium (Porcine) 5,000 unit 07/22/20 22:15 07/26/20 11:00 Heparin 5,000 Unit/1 Ml Vial SUB-Q 5,000 unit Q12HR SAY Administration Hydromorphone HCl 0.5 mg 07/22/20 22:01 07/25/20 15:36 Hydromorphone 1 Mg/1 Ml Inj IV 0.5 mg Q3H PRN Administration Pain , Severe (7-10) Dextrose/Sodium Chloride 1,000 mls @ 75 mls/hr 07/22/20 23:00 07/25/20 14:37 D5ns IV Infused DIRECT SAY Infusion Lactated Ringer's 1,000 mls @ 42 mls/hr 07/25/20 12:20 07/25/20 13:00 Lactated Ringers IV 42 mls/hr DIRECT SAY Administration Ketorolac Tromethamine 15 mg 07/25/20 14:33 Ketorolac 30 Mg/1 Ml Inj IV 07/30/20 14:32 Q6H PRN Pain, Mild (1-3) Metoclopramide HCl 5 mg 07/22/20 22:01 Metoclopramide 10 Mg/2 Ml Inj IV Q6H PRN Nausea And Vomiting Mirtazapine 7.5 mg 07/22/20 22:00 07/25/20 21:17 Mirtazapine 15 Mg Tab PO 7.5 mg HS SAY Administration Morphine Sulfate 2 mg 07/25/20 14:33 Morphine 2 Mg/1 Ml Inj IV Q4H PRN Pain, Moderate (4-6) Ondansetron HCl 4 mg 07/22/20 22:01 Ondansetron 4 Mg/2 Ml Inj IV Q3H PRN Nausea And Vomiting Oxycodone/Acetaminophen 1 tab 07/25/20 14:33 07/25/20 20:21 Oxycodone /Acetaminophen 5-325mg Tab PO 1 tab Q6H PRN Administration Pain, Moderate (4-6) Pantoprazole Sodium 40 mg 07/22/20 22:00 07/26/20 10:59 Pantoprazole 40 Mg Tab PO 40 mg BID SAY Administration Senna 8.6 mg 07/22/20 21:55 Sennosides 8.6 Mg Tab PO HS PRN Constipation Sodium Chloride 10 ml 07/23/20 10:00 07/26/20 11:01 Sodium Chloride 0.9% 10 Ml Flush Syringe IV 10 ml BID SAY Administration Sodium Chloride 10 ml 07/22/20 22:01 Sodium Chloride 0.9% 10 Ml Flush Syringe IV PRN PRN LINE FLUSH Sodium Chloride 10 ml 07/25/20 15:00 Sodium Chloride 0.9% 10 Ml Flush Syringe IV 07/27/20 14:59 PRN NR Tiotropium [place] 1 puff 07/23/20 10:00 07/26/20 13:22 Tiotropium 18 Mcg Cap Inhalation IH 1 puff QDAY SAY Administration
[2020-07-26] MEDS: MIRTAZAPINE 15 MG TAB PO SCH (22:03)
[2020-07-27] MEDS: FERROUS GLUCONATE 324 MG TAB PO SCH (10:29)
[2020-07-27] MEDS: PANTOPRAZOLE 40 MG TAB PO SCH ×2 (10:29→21:46)
[2020-07-27] MEDS: HEPARIN 5,000 UNIT/1 ML VIAL SUB-Q SCH ×2 (10:29→21:45)
[2020-07-27] MEDS: CHOLECALCIFEROL (VIT D3) 5,000 UNIT TAB PO SCH (10:29)
[2020-07-27] MEDS: TIOTROPIUM 18 MCG CAP INHALATION IH SCH (11:10)
--- NOTE | 2020-07-27 12:48 | Progress Note ---
Assessment and Plan Assessment and plan: --Covid positive reported 07/26/2020 Current Visit: Yes Status: Acute Isolation, ID, inflammatory markers, steroids, No remdesivir due to acute kidney injury Patient is on 3 L nasal cannula oxygen Patient already has home oxygen 3 L Prone positioning, ID consult --Right intertrochanteric hip fracture Current Visit: Yes Status: Acute Plan to address problem: Orthopedic evaluated s/p Closed reduction insertion of intramedullary nail right femur 07/25/2020. Postop care per surgery , pain medications PT OT rehab, --COPD (chronic obstructive pulmonary disease) Current Visit: Yes Status: Chronic Plan to address problem: Continue duo nebs, oxygen titrate O2 sats to more than 90% Supportive care --DANYA (acute kidney injury)/ATN Current Visit: Yes Status: Acute Plan to address problem: gentle hydration, monitor renal function Avoid nephrotoxin, nephrology consult if no improvement -- Hypertension Current Visit: Yes Status: Chronic Plan to address problem: Catapres patch if necessary Hold oral antihypertensives As needed hydralazine --Full CODE STATUS; --DVT prophylaxis Current Visit: No Status: Acute Plan to address problem: SCDs, subcu heparin renal dose Closely monitor the patient and adjust the management as needed Plan of care reviewed with the patient and her nurse Follow Ortho evaluation and recommendations DC planning per case management 07/24; fracture right hip, pending Ortho evaluation Acute kidney injury, continue gentle hydration Closely monitor the patient and adjust the management 07/25; right intertrochanteric hip fracture s/p Closed reduction insertion of intramedullary nail right femur 07/25/2020 Continue postop care, PT OT, rehab versus home with home health in stable 07/26; patient feels slightly better, physical therapy Complains of pain, DC planning per case management 07/27; COVID-19 positive, ID consult, management per protocols Dexamethasone, no remdesivir due to acute kidney injury, isolation Already has home oxygen, proning History Interval history: I have seen and examined the patient this afternoon Patient's chart and medications reviewed Patient is COVID-19 positive Already has home oxygen 3 L In mild distress Vital signs reviewed Hospitalist Physical - Constitutional Vitals: Temp Pulse Resp BP Pulse Ox 98.8 F 112 H 20 127/70 89 07/27/20 05:11 07/27/20 11:10 07/27/20 11:10 07/27/20 05:11 07/27/20 08:00 General appearance: Present: mild distress (Secondary to pain), well-nourished, other (Elderly and frail) - EENT Eyes: Present: PERRL, EOM intact - Neck Neck: Present: supple, normal ROM - Respiratory Respiratory effort: normal Respiratory: bilateral: diminished, rhonchi, negative: rales, wheezing - Cardiovascular Rhythm: regular Heart Sounds: Present: S1 & S2 - Extremities Extremities: no ischemia, No edema - Abdominal General gastrointestinal: soft, non-tender, non-distended, normal bowel sounds - Integumentary Integumentary: Present: clear, warm - Psychiatric Psychiatric: appropriate mood/affect, cooperative - Neurologic Neurologic: moves all extremities HEART Score - HEART Score Age: > 65 Risk factors: 1-2 risk factors Troponin: < normal limit - Critical Actions Critical Actions: 0-3 pts:0.9-1.7%risk of adverse cardiac event.Candidate for discharge Results - Labs CBC & Chem 7: 07/26/20 05:06 07/25/20 05:50 Labs: Laboratory Last Values WBC 5.6 K/mm3 (4.5-11.0) 07/25/20 05:50 RBC 3.50 M/mm3 (3.65-5.03) L 07/25/20 05:50 Hgb 9.8 gm/dl (10.1-14.3) L 07/26/20 05:06 Hct 29.8 % (30.3-42.9) L 07/26/20 05:06 MCV 93 fl (79-97) 07/25/20 05:50 MCH 30 pg (28-32) 07/25/20 05:50 MCHC 33 % (30-34) 07/25/20 05:50 RDW 13.4 % (13.2-15.2) 07/25/20 05:50 Plt Count 152 K/mm3 (140-440) 07/25/20 05:50 Lymph % (Auto) 17.0 % (13.4-35.0) 07/25/20 05:50 [place] % (Auto) 8.3 % (0.0-7.3) H 07/25/20 05:50 Eos % (Auto) 6.6 % (0.0-4.3) H 07/25/20 05:50 Baso % (Auto) 0.4 % (0.0-1.8) 07/25/20 05:50 Lymph # (Auto) 1.0 K/mm3 (1.2-5.4) L 07/25/20 05:50 [place] # (Auto) 0.5 K/mm3 (0.0-0.8) 07/25/20 05:50 Eos # (Auto) 0.4 K/mm3 (0.0-0.4) 07/25/20 05:50 Baso # (Auto) 0.0 K/mm3 (0.0-0.1) 07/25/20 05:50 Seg Neutrophils % 67.7 % (40.0-70.0) 07/25/20 05:50 Seg Neutrophils # 3.8 K/mm3 (1.8-7.7) 07/25/20 05:50 PT 13.7 Sec. (12.2-14.9) 07/22/20 17:40 INR 1.06 (0.87-1.13) 07/22/20 17:40 APTT 33.7 Sec. (24.2-36.6) 07/22/20 17:40 Sodium 145 mmol/L (137-145) 07/25/20 05:50 Potassium 3.6 mmol/L (3.6-5.0) D 07/25/20 05:50 Chloride 109.5 mmol/L (98-107) H 07/25/20 05:50 Carbon Dioxide 24 mmol/L (22-30) 07/25/20 05:50 Anion Gap 15 mmol/L 07/25/20 05:50 BUN 16 mg/dL (7-17) 07/25/20 05:50 Creatinine 1.6 mg/dL (0.6-1.2) H 07/25/20 05:50 Estimated GFR 32 ml/min 07/25/20 05:50 BUN/Creatinine Ratio 10 % 07/25/20 05:50 Glucose 111 mg/dL (65-100) H 07/25/20 05:50 POC Glucose 107 mg/dL (70-105) H 07/22/20 23:46 Hemoglobin A1c 5.6 % (4-6) 07/23/20 07:58 Calcium 8.9 mg/dL (8.4-10.2) 07/25/20 05:50 Magnesium 1.60 mg/dL (1.7-2.3) L 07/25/20 05:50 Total Bilirubin 0.40 mg/dL (0.1-1.2) 07/23/20 07:58 AST 22 units/L (5-40) 07/23/20 07:58 ALT 14 units/L (7-56) 07/23/20 07:58 Alkaline Phosphatase 78 units/L (35-129) 07/23/20 07:58 Total Protein 6.4 g/dL (6.3-8.2) 07/23/20 07:58 Albumin 3.7 g/dL (3.9-5) L 07/23/20 07:58 Albumin/Globulin Ratio 1.4 % 07/23/20 07:58 Coronavirus (PCR) Positive (Negative) A 07/25/20 Unknown Leon/IV: Voiding Method Incontinent Active Medications - Current Medications Current Medications: Generic Name Dose Route Start Last Admin Trade Name Freq PRN Reason Stop Dose Admin Acetaminophen 650 mg 07/22/20 21:55 07/26/20 22:04 Acetaminophen 325 Mg Tab PO 650 mg Q4H PRN Administration PAIN (1-3) Albuterol 2.5 mg 07/22/20 22:51 07/26/20 13:22 Albuterol 2.5 Mg/3 Ml Nebu IH 2.5 mg BIDRT PRN Administration Shortness Of Breath Cholecalciferol 5,000 unit 07/23/20 10:00 07/27/20 10:29 Cholecalciferol (Vit D3) 5,000 Unit Tab PO 5,000 unit DAILY SAY Administration Ferrous Gluconate 324 mg 07/23/20 10:00 07/27/20 10:29 Ferrous Gluconate 324 Mg Tab PO 324 mg QDAY SAY Administration Heparin Sodium (Porcine) 5,000 unit 07/22/20 22:15 07/27/20 10:29 Heparin 5,000 Unit/1 Ml Vial SUB-Q 5,000 unit Q12HR SAY Administration Hydromorphone HCl 0.5 mg 07/22/20 22:01 07/25/20 15:36 Hydromorphone 1 Mg/1 Ml Inj IV 0.5 mg Q3H PRN Administration Pain , Severe (7-10) Dextrose/Sodium Chloride 1,000 mls @ 75 mls/hr 07/22/20 23:00 07/25/20 14:37 D5ns IV Infused DIRECT SAY Infusion Lactated Ringer's 1,000 mls @ 42 mls/hr 07/25/20 12:20 07/25/20 13:00 Lactated Ringers IV 42 mls/hr DIRECT SAY Administration Ketorolac Tromethamine 15 mg 07/25/20 14:33 Ketorolac 30 Mg/1 Ml Inj IV 07/30/20 14:32 Q6H PRN Pain, Mild (1-3) Metoclopramide HCl 5 mg 07/22/20 22:01 Metoclopramide 10 Mg/2 Ml Inj IV Q6H PRN Nausea And Vomiting Mirtazapine 7.5 mg 07/22/20 22:00 07/26/20 22:03 Mirtazapine 15 Mg Tab PO 7.5 mg HS SAY Administration Morphine Sulfate 2 mg 07/25/20 14:33 Morphine 2 Mg/1 Ml Inj IV Q4H PRN Pain, Moderate (4-6) Ondansetron HCl 4 mg 07/22/20 22:01 Ondansetron 4 Mg/2 Ml Inj IV Q3H PRN Nausea And Vomiting Oxycodone/Acetaminophen 1 tab 07/25/20 14:33 07/25/20 20:21 Oxycodone /Acetaminophen 5-325mg Tab PO 1 tab Q6H PRN Administration Pain, Moderate (4-6) Pantoprazole Sodium 40 mg 07/22/20 22:00 07/27/20 10:29 Pantoprazole 40 Mg Tab PO 40 mg BID SAY Administration Senna 8.6 mg 07/22/20 21:55 Sennosides 8.6 Mg Tab PO HS PRN Constipation Sodium Chloride 10 ml 07/23/20 10:00 07/27/20 10:29 Sodium Chloride 0.9% 10 Ml Flush Syringe IV 10 ml BID SAY Administration Sodium Chloride 10 ml 07/22/20 22:01 Sodium Chloride 0.9% 10 Ml Flush Syringe IV PRN PRN LINE FLUSH Sodium Chloride 10 ml 07/25/20 15:00 Sodium Chloride 0.9% 10 Ml Flush Syringe IV 07/27/20 14:59 PRN NR Tiotropium [place] 1 puff 07/23/20 10:00 07/27/20 11:10 Tiotropium 18 Mcg Cap Inhalation IH 1 puff QDAY SAY Administration
[2020-07-27 20:16] LABS: Calcium 8.4 mg/dL (8.4-10.2)
[2020-07-27 20:20] LABS: C-Reactive Protein 19.3 mg/dL (0.00-1.30)
[2020-07-27] MEDS: dexAMETHasone 4 MG/ML VIAL IV SCH (21:42)
[2020-07-27] MEDS: ACETAMINOPHEN 325 MG TAB PO PRN (21:45)
[2020-07-27] MEDS: MIRTAZAPINE 15 MG TAB PO SCH (21:46)
[2020-07-27] MEDS: ALBUTEROL 2.5 MG/3 ML NEBU IH PRN (22:56)
--- NOTE | 2020-07-28 07:55 | XRay Report ---
CHEST 1 VIEW INDICATION: elevated d-dimer/covid/evaluate for DVT. COMPARISON: 07/25/2020 FINDINGS: Support devices: None. Heart: Stable borderline to mild cardiomegaly. Lungs/Pleura: Minor segmental atelectasis has developed in the right perihilar region. Otherwise, the lungs are generally clear. No pneumothorax. Additional findings: None. IMPRESSION: No significant interval change. Signer Name: Marin Andres Jr, MD Signed: 07/28/2020 7:50 AM Workstation Name: [id number]
--- NOTE | 2020-07-28 09:03 | Progress Note ---
Assessment and Plan Assessment and plan: --Covid positive reported 07/26/2020 Current Visit: Yes Status: Acute Isolation, ID, inflammatory markers, dexamethasone 10 days ID recommended remdesivir , follow renal function Patient is requiring high flow nasal cannula oxygen pox pox blocks 40 L/80 FiO2/93% O2 sats Patient already has home oxygen 3 L Prone positioning, ID and pulmonary consulted --Elevated D-dimers; Current Visit: Yes Status: Acute Patient not stable for VQ scan to evaluate for PE Patient is on high flow oxygen Lower extremity venous Doppler negative for DVT Continue prophylactic heparin subcu twice a day --Right intertrochanteric hip fracture Current Visit: Yes Status: Acute Plan to address problem: Orthopedic evaluated s/p Closed reduction insertion of intramedullary nail right femur 07/25/2020. Postop care per surgery , pain medications PT OT rehab, --COPD (chronic obstructive pulmonary disease) Current Visit: Yes Status: Chronic Plan to address problem: Continue duo nebs, oxygen titrate O2 sats to more than 90% Supportive care --Acute on chronic (acute kidney injury)/ATN Current Visit: Yes Status: Acute Plan to address problem: gentle hydration, monitor renal function Avoid nephrotoxin, nephrology consult -- Hypertension Current Visit: Yes Status: Chronic Plan to address problem: Catapres patch if necessary Hold oral antihypertensives As needed hydralazine --Full CODE STATUS; --DVT prophylaxis Current Visit: No Status: Acute Plan to address problem: SCDs, subcu heparin renal dose Closely monitor the patient and adjust the management as needed Plan of care reviewed with the patient and her nurse Follow Ortho, ID and pulmonary evaluation and recommendations DC planning per case management Brief history: 75-year-old female patient with history of fall admitted with right trochanteric hip fracture evaluated by orthopedic surgeon underwent closed reduction with IM nail in the right femur patient was receiving physical therapy occupational therapy Covid test was done prior to placement which was positive. Patient has history of COPD home oxygen dependent, however with Covid, required high flow oxygen. ID orthopedic and pulmonary following brief history. DC planning per case management Daily Hospital course: 07/24; fracture right hip, pending Ortho evaluation Acute kidney injury, continue gentle hydration Closely monitor the patient and adjust the management 07/25; right intertrochanteric hip fracture s/p Closed reduction insertion of intramedullary nail right femur 07/25/2020 Continue postop care, PT OT, rehab versus home with home health in stable 07/26; patient feels slightly better, physical therapy Complains of pain, DC planning per case management 07/27; COVID-19 positive, ID consult, management per protocols Dexamethasone, no remdesivir due to acute kidney injury, isolation Already has home oxygen, proning 07/28; patient is on high flow oxygen, in mild distress In the setting of COVID-19 pneumonia and high flow oxygen, pulmonary consulted Follow ID and Ortho evaluation recommendations History Interval history: I have seen and examined the patient at the bedside Patient's chart and medications reviewed Patient is COVID-19, isolation precautions and PPE protocols strictly followed Patient is requiring high flow oxygen Mild distress Vital signs noted Hospitalist Physical - Constitutional Vitals: Temp Pulse Resp BP Pulse Ox 97.7 F 86 24 102/68 88 07/28/20 07:05 07/28/20 07:05 07/28/20 07:05 07/28/20 07:05 07/28/20 07:05 General appearance: Present: mild distress (Secondary to pain), well-nourished, other (Elderly and frail) - EENT Eyes: Present: PERRL, EOM intact - Neck Neck: Present: supple, normal ROM - Respiratory Respiratory effort: normal Respiratory: bilateral: diminished, negative: rales, rhonchi, wheezing - Cardiovascular Rhythm: regular Heart Sounds: Present: S1 & S2 - Extremities Extremities: no ischemia, No edema - Abdominal General gastrointestinal: soft, non-tender, non-distended, normal bowel sounds - Integumentary Integumentary: Present: clear, warm - Psychiatric Psychiatric: appropriate mood/affect, cooperative - Neurologic Neurologic: CNII-XII intact, moves all extremities HEART Score - HEART Score Age: > 65 Risk factors: 1-2 risk factors Troponin: < normal limit - Critical Actions Critical Actions: 0-3 pts:0.9-1.7%risk of adverse cardiac event.Candidate for discharge Results - Labs CBC & Chem 7: 07/26/20 05:06 07/27/20 19:23 Labs: Laboratory Last Values WBC 5.6 K/mm3 (4.5-11.0) 07/25/20 05:50 RBC 3.50 M/mm3 (3.65-5.03) L 07/25/20 05:50 Hgb 9.8 gm/dl (10.1-14.3) L 07/26/20 05:06 Hct 29.8 % (30.3-42.9) L 07/26/20 05:06 MCV 93 fl (79-97) 07/25/20 05:50 MCH 30 pg (28-32) 07/25/20 05:50 MCHC 33 % (30-34) 07/25/20 05:50 RDW 13.4 % (13.2-15.2) 07/25/20 05:50 Plt Count 152 K/mm3 (140-440) 07/25/20 05:50 Lymph % (Auto) 17.0 % (13.4-35.0) 07/25/20 05:50 [place] % (Auto) 8.3 % (0.0-7.3) H 07/25/20 05:50 Eos % (Auto) 6.6 % (0.0-4.3) H 07/25/20 05:50 Baso % (Auto) 0.4 % (0.0-1.8) 07/25/20 05:50 Lymph # (Auto) 1.0 K/mm3 (1.2-5.4) L 07/25/20 05:50 [place] # (Auto) 0.5 K/mm3 (0.0-0.8) 07/25/20 05:50 Eos # (Auto) 0.4 K/mm3 (0.0-0.4) 07/25/20 05:50 Baso # (Auto) 0.0 K/mm3 (0.0-0.1) 07/25/20 05:50 Seg Neutrophils % 67.7 % (40.0-70.0) 07/25/20 05:50 Seg Neutrophils # 3.8 K/mm3 (1.8-7.7) 07/25/20 05:50 PT 13.7 Sec. (12.2-14.9) 07/22/20 17:40 INR 1.06 (0.87-1.13) 07/22/20 17:40 APTT 33.7 Sec. (24.2-36.6) 07/22/20 17:40 D-Dimer 2800.46 ng/mlDDU (0-234) H 07/27/20 19:23 Sodium 139 mmol/L (137-145) 07/27/20 19:23 Potassium 4.0 mmol/L (3.6-5.0) 07/27/20 19:23 Chloride 104.9 mmol/L (98-107) 07/27/20 19:23 Carbon Dioxide 23 mmol/L (22-30) 07/27/20 19:23 Anion Gap 15 mmol/L 07/27/20 19:23 BUN 23 mg/dL (7-17) H 07/27/20 19:23 Creatinine 2.1 mg/dL (0.6-1.2) H 07/27/20 19:23 Estimated GFR 23 ml/min 07/27/20 19:23 BUN/Creatinine Ratio 11 % 07/27/20 19:23 Glucose 112 mg/dL (65-100) H 07/27/20 19:23 POC Glucose 107 mg/dL (70-105) H 07/22/20 23:46 Hemoglobin A1c 5.6 % (4-6) 07/23/20 07:58 Calcium 8.4 mg/dL (8.4-10.2) 07/27/20 19:23 Magnesium 1.60 mg/dL (1.7-2.3) L 07/25/20 05:50 Ferritin 200.0 ng/mL (10.0-200.0) 07/27/20 19:23 Total Bilirubin 0.40 mg/dL (0.1-1.2) 07/23/20 07:58 AST 22 units/L (5-40) 07/23/20 07:58 ALT 14 units/L (7-56) 07/23/20 07:58 Alkaline Phosphatase 78 units/L (35-129) 07/23/20 07:58 Lactate Dehydrogenase 238 units/L (91-180) H 07/27/20 19:23 C-Reactive Protein 19.30 mg/dL (0.00-1.30) H 07/27/20 19:23 Total Protein 6.4 g/dL (6.3-8.2) 07/23/20 07:58 Albumin 3.7 g/dL (3.9-5) L 07/23/20 07:58 Albumin/Globulin Ratio 1.4 % 07/23/20 07:58 Coronavirus (PCR) Positive (Negative) A 07/25/20 Unknown Leon/IV: Voiding Method Incontinent Active Medications - Current Medications Current Medications: Generic Name Dose Route Start Last Admin Trade Name Freq PRN Reason Stop Dose Admin Acetaminophen 650 mg 07/22/20 21:55 07/27/20 21:45 Acetaminophen 325 Mg Tab PO 650 mg Q4H PRN Administration PAIN (1-3) Albuterol 2.5 mg 07/22/20 22:51 07/27/20 22:56 Albuterol 2.5 Mg/3 Ml Nebu IH 2.5 mg BIDRT PRN Administration Shortness Of Breath Cholecalciferol 5,000 unit 07/23/20 10:00 07/27/20 10:29 Cholecalciferol (Vit D3) 5,000 Unit Tab PO 5,000 unit DAILY SAY Administration Dexamethasone 6 mg 07/27/20 19:00 07/27/20 21:42 Dexamethasone 4 Mg/Ml Vial IV 08/05/20 10:01 6 mg DAILY SAY Administration Ferrous Gluconate 324 mg 07/23/20 10:00 07/27/20 10:29 Ferrous Gluconate 324 Mg Tab PO 324 mg QDAY SAY Administration Heparin Sodium (Porcine) 5,000 unit 07/22/20 22:15 07/27/20 21:45 Heparin 5,000 Unit/1 Ml Vial SUB-Q 5,000 unit Q12HR SAY Administration Hydromorphone HCl 0.5 mg 07/22/20 22:01 07/25/20 15:36 Hydromorphone 1 Mg/1 Ml Inj IV 0.5 mg Q3H PRN Administration Pain , Severe (7-10) Dextrose/Sodium Chloride 1,000 mls @ 75 mls/hr 07/22/20 23:00 07/25/20 14:37 D5ns IV Infused DIRECT SAY Infusion Lactated Ringer's 1,000 mls @ 42 mls/hr 07/25/20 12:20 07/25/20 13:00 Lactated Ringers IV 42 mls/hr DIRECT SAY Administration Ketorolac Tromethamine 15 mg 07/25/20 14:33 Ketorolac 30 Mg/1 Ml Inj IV 07/30/20 14:32 Q6H PRN Pain, Mild (1-3) Metoclopramide HCl 5 mg 07/22/20 22:01 Metoclopramide 10 Mg/2 Ml Inj IV Q6H PRN Nausea And Vomiting Mirtazapine 7.5 mg 07/22/20 22:00 07/27/20 21:46 Mirtazapine 15 Mg Tab PO 7.5 mg HS SAY Administration Morphine Sulfate 2 mg 07/25/20 14:33 Morphine 2 Mg/1 Ml Inj IV Q4H PRN Pain, Moderate (4-6) Ondansetron HCl 4 mg 07/22/20 22:01 Ondansetron 4 Mg/2 Ml Inj IV Q3H PRN Nausea And Vomiting Oxycodone/Acetaminophen 1 tab 07/25/20 14:33 07/25/20 20:21 Oxycodone /Acetaminophen 5-325mg Tab PO 1 tab Q6H PRN Administration Pain, Moderate (4-6) Pantoprazole Sodium 40 mg 07/22/20 22:00 07/27/20 21:46 Pantoprazole 40 Mg Tab PO 40 mg BID SAY Administration Senna 8.6 mg 07/22/20 21:55 Sennosides 8.6 Mg Tab PO HS PRN Constipation Sodium Chloride 10 ml 07/23/20 10:00 07/27/20 21:47 Sodium Chloride 0.9% 10 Ml Flush Syringe IV 10 ml BID SAY Administration Sodium Chloride 10 ml 07/22/20 22:01 Sodium Chloride 0.9% 10 Ml Flush Syringe IV PRN PRN LINE FLUSH Tiotropium [place] 1 puff 07/23/20 10:00 07/27/20 11:10 Tiotropium 18 Mcg Cap Inhalation IH 1 puff QDAY SAY Administration
--- NOTE | 2020-07-28 09:37 | Consultation ---
History of Present Illness - Reason for Consult Consult date: 07/28/20 acute renal failure, chronic renal failure - History of Present Illness The patient is a 75 YO WF with history significant for Senior Care Resident, HTN, HLD, DVT-LLE, GERD, Depression, Dementia, Anxiety, Schizophrenia, ?Nicotine Dependence, COPD, Osteoporosis, past left hip replacement and CKD stage 3 / 4 who presented to [facility] ED 07/22 with c/o severe right hip pain. Patient is a very poor historian and there was no family member at the bedside. Information was obtained from prior notes. Patient apparently fell from a standing posture while getting out of a chair. Unable to have any range of motion of the right hip. Pain was about 10 on a scale of 1-10. Pt was found to have Right intertrochanteric hip fracture, s/p closed reduction and insertion of intramedullary nail right femur 07/25/2020. Her creatinine is 2.1 today. Nephrology was consulted for further evaluation. Past History Past Medical History: other (See HPI.) Medications and Allergies Allergies Allergy/AdvReac Type Severity Reaction Status Date / Time No Known Allergies Allergy Verified 04/25/17 12:02 Home Medications Medication Instructions Recorded Confirmed Last Taken Type Tiotropium [Spiriva] 18 mcg IH QDAY 05/02/15 06/27/17 01/01/16 History Ondansetron [Zofran TAB] 4 mg PO Q8HR PRN 06/09/16 06/27/17 Unknown History Albuterol Sulfate [Ventolin Hfa] 2 puff IH BID PRN 04/25/17 06/27/17 Unknown History Cholecalciferol (Vitamin D3) 5,000 unit PO DAILY 04/25/17 06/27/17 Unknown History [Vitamin D3 5,000 UNIT] Ferrous Gluconate [Ferrous 324 mg PO QDAY 04/25/17 06/27/17 Unknown History Gluconate 324 MG] Ipratropium/Albuterol Sulfate 1 ampul IH Q6HR PRN 04/25/17 06/27/17 Unknown Hi story [DUONEB *Not for PRN Use*] Mirtazapine [Remeron] 7.5 mg PO HS 04/25/17 06/27/17 Unknown History Sennosides [Senna] 8.6 mg PO HS PRN 04/25/17 06/27/17 Unknown History Pantoprazole [Protonix TAB] 40 mg PO BID #60 tablet 04/28/17 06/27/17 Unknown Rx oxyCODONE /ACETAMINOPHEN [Percocet 1 tab PO Q4HR PRN #20 tablet 04/28/17 06/27/17 Unknown Rx 5/325 mg] Acetaminophen [Acetaminophen TAB] 650 mg PO Q4HR PRN MDD 3,000 mg 06/01/17 06/27/17 Unknown History levoFLOXacin [Levaquin TAB] 500 mg PO Q48H #2 tablet 06/28/17 Unknown Rx Active Meds: Active Medications Acetaminophen (Acetaminophen 325 Mg Tab) 650 mg PO Q4H PRN PRN Reason: PAIN (1-3) Last Admin: 07/27/20 21:45 Dose: 650 mg Documented by: Albuterol (Albuterol 2.5 Mg/3 Ml Nebu) 2.5 mg IH BIDRT PRN PRN Reason: Shortness Of Breath Last Admin: 07/27/20 22:56 Dose: 2.5 mg Documented by: Cholecalciferol (Cholecalciferol (Vit D3) 5,000 Unit Tab) 5,000 unit PO DAILY [facility] Last Admin: 07/27/20 10:29 Dose: 5,000 unit Documented by: Dexamethasone (Dexamethasone 4 Mg/Ml Vial) 6 mg IV DAILY [facility] Stop: 08/05/20 10:01 Last Admin: 07/27/20 21:42 Dose: 6 mg Documented by: Ferrous Gluconate (Ferrous Gluconate 324 Mg Tab) 324 mg PO QDAY [facility] Last Admin: 07/27/20 10:29 Dose: 324 mg Documented by: Heparin Sodium (Porcine) (Heparin 5,000 Unit/1 Ml Vial) 5,000 unit SUB-Q Q12HR [facility] Last Admin: 07/27/20 21:45 Dose: 5,000 unit Documented by: Hydromorphone HCl (Hydromorphone 1 Mg/1 Ml Inj) 0.5 mg IV Q3H PRN PRN Reason: Pain , Severe (7-10) Last Admin: 07/25/20 15:36 Dose: 0.5 mg Documented by: Dextrose/Sodium Chloride (D5ns) 1,000 mls @ 75 mls/hr IV DIRECT [facility] Last Infusion: 07/25/20 14:37 Dose: Infused Documented by: Lactated Ringer's (Lactated Ringers) 1,000 mls @ 42 mls/hr IV DIRECT [facility] Last Admin: 07/25/20 13:00 Dose: 42 mls/hr Documented by: Ketorolac Tromethamine (Ketorolac 30 Mg/1 Ml Inj) 15 mg IV Q6H PRN PRN Reason: Pain, Mild (1-3) Stop: 07/30/20 14:32 Metoclopramide HCl (Metoclopramide 10 Mg/2 Ml Inj) 5 mg IV Q6H PRN PRN Reason: Nausea And Vomiting Mirtazapine (Mirtazapine 15 Mg Tab) 7.5 mg PO HS [facility] Last Admin: 07/27/20 21:46 Dose: 7.5 mg Documented by: Morphine Sulfate (Morphine 2 Mg/1 Ml Inj) 2 mg IV Q4H PRN PRN Reason: Pain, Moderate (4-6) Ondansetron HCl (Ondansetron 4 Mg/2 Ml Inj) 4 mg IV Q3H PRN PRN Reason: Nausea And Vomiting Oxycodone/Acetaminophen (Oxycodone /Acetaminophen 5-325mg Tab) 1 tab PO Q6H PRN PRN Reason: Pain, Moderate (4-6) Last Admin: 07/25/20 20:21 Dose: 1 tab Documented by: Pantoprazole Sodium (Pantoprazole 40 Mg Tab) 40 mg PO BID [facility] Last Admin: 07/27/20 21:46 Dose: 40 mg Documented by: Senna (Sennosides 8.6 Mg Tab) 8.6 mg PO HS PRN PRN Reason: Constipation Sodium Chloride (Sodium Chloride 0.9% 10 Ml Flush Syringe) 10 ml IV BID [facility] Last Admin: 07/27/20 21:47 Dose: 10 ml Documented by: Sodium Chloride (Sodium Chloride 0.9% 10 Ml Flush Syringe) 10 ml IV PRN PRN PRN Reason: LINE FLUSH Tiotropium [place] (Tiotropium 18 Mcg Cap Inhalation) 1 puff IH QDAY [facility] Last Admin: 07/27/20 11:10 Dose: 1 puff Documented by: Review of Systems ROS unobtainable: due to mental status Exam - Vital Signs Vital signs: Vital Signs Temp Pulse Resp BP Pulse Ox 97.9 F 98 H 20 130/106 94 07/22/20 17:04 07/22/20 17:04 07/22/20 17:04 07/22/20 17:04 07/22/20 17:04 Results - Lab Results 07/26/20 05:06 07/27/20 19:23 Most recent lab results Calcium 8.4 mg/dL (8.4-10.2) 07/27/20 19:23 Magnesium 1.60 mg/dL (1.7-2.3) L 07/25/20 05:50 Assessment and Plan 1. Acute kidney injury vs CKD stage 4: Renal function is about the same as prior visit. Monitor renal function. Avoid nephrotoxic agents. Meds dosage based on GFR. 2. FEN: Monitor volume status and lytes. 3. Covid infection: Isolation, follow inflammatory markers. Dexamethasone. No remdesivir due to low GFR. ID consult. 4. Acute on chronic hypoxemic respiratory failure, POA: 2/ COVID infection. CXR showed atelectasis. Covid test positive. Patient is requiring high flow nasal cannula oxygen. Patient on home oxygen 3 L. 5. Right intertrochanteric hip fracture: S/p Closed reduction insertion of intramedullary nail right femur 07/25/2020. Postop care per surgery , pain medications PT OT rehab. 6. COPD: Continue duo nebs, oxygen titrate O2 sats to more than 90% Supportive care. 7. H/o Dementia: Supportive care. 8. HTN: Monitor BP. Adjust meds as needed. 9. Anemia: Monitor. Subjective: Patient was seen and examined at the bedside. Objective: General appearance: well-developed, appears stated age, appears emaciated, not in distress HEENT: [place], JANET Neck: trachea midline Respiratory: diminished breath sounds Heart: regular, S1S2, no murmur Gastrointestinal: soft, normoactive bowel sounds, not tender Integumentary: no obvious rash Ext: no edema Neurologic: alert, conversing, able to move extremities, confused
[2020-07-28] MEDS: TIOTROPIUM 18 MCG CAP INHALATION IH SCH (10:38)
[2020-07-28] MEDS: dexAMETHasone 4 MG/ML VIAL IV SCH (11:23)
[2020-07-28] MEDS: HEPARIN 5,000 UNIT/1 ML VIAL SUB-Q SCH ×2 (11:24→22:58)
[2020-07-28] MEDS: PANTOPRAZOLE 40 MG TAB PO SCH ×2 (11:25→22:58)
[2020-07-28] MEDS: FERROUS GLUCONATE 324 MG TAB PO SCH (11:25)
[2020-07-28] MEDS: CHOLECALCIFEROL (VIT D3) 5,000 UNIT TAB PO SCH (11:25)
--- NOTE | 2020-07-28 11:53 | Vascular Lab Report ---
VL venous duplex LE BILAT INDICATION / CLINICAL INFORMATION: Elevated D-dimers/Covid/evaluate for DVT. TECHNIQUE: Duplex doppler imaging was performed using venous compression and other maneuvers. COMPARISON: None available. FINDINGS: No venous thrombosis is identified within the visualized extremity vasculature. ADDITIONAL FINDINGS: None. IMPRESSION: 1. No sonographic evidence for DVT in the visualized bilateral lower extremity vasculature. Signer Name: Viral Rosas MD Signed: 07/28/2020 11:48 AM Workstation Name: [id number]
--- NOTE | 2020-07-28 12:53 | Consultation ---
History of Present Illness Consult date: 07/28/20 Requesting physician: SHWETA BRIZUELA Reason for consult: hypoxemia History of present illness: 75 y/o female, admitted days ago with hip fracture s/p repair. Per IMS checked COVID for placement purposes and was found to be positive. On note patient is hypoxic as well however she has been hypoxic since admission. She also has some form of renal insufficiency as well. Pulmonary asked to see secondary to hypoxemia and COVID status. Per report, patient has COPD as well. Past History Past Medical History: other (See HPI.) Medications and Allergies Allergies Allergy/AdvReac Type Severity Reaction Status Date / Time No Known Allergies Allergy Verified 04/25/17 12:02 Home Medications Medication Instructions Recorded Confirmed Last Taken Type Tiotropium [Spiriva] 18 mcg IH QDAY 05/02/15 08/02/20 01/01/16 History Ondansetron [Zofran TAB] 4 mg PO Q8HR PRN 06/09/16 08/02/20 Unknown History Albuterol Sulfate [Ventolin Hfa] 2 puff IH BID PRN 04/25/17 08/02/20 Unknown History Cholecalciferol (Vitamin D3) 5,000 unit PO DAILY 04/25/17 08/02/20 Unknown History [Vitamin D3 5,000 UNIT] Ferrous Gluconate [Ferrous 324 mg PO QDAY 04/25/17 08/02/20 Unknown History Gluconate 324 MG] Ipratropium/Albuterol Sulfate 1 ampul IH Q6HR PRN 04/25/17 08/02/20 Unknown History [DUONEB *Not for PRN Use*] Mirtazapine [Remeron] 7.5 mg PO HS 04/25/17 08/02/20 Unknown History Sennosides [Senna] 8.6 mg PO HS PRN 04/25/17 08/02/20 Unknown History Pantoprazole [Protonix TAB] 40 mg PO BID #60 tablet 04/28/17 08/02/20 Unknown Rx oxyCODONE /ACETAMINOPHEN [Percocet 1 tab PO Q4HR PRN #20 tablet 04/28/17 08/02/20 Unknown Rx 5/325 mg] Acetaminophen [Acetaminophen TAB] 650 mg PO Q4HR PRN MDD 3,000 mg 06/01/17 08/02/20 Unknown History levoFLOXacin [Levaquin TAB] 500 mg PO Q48H #2 tablet 06/28/17 08/02/20 Unknown Rx Active Meds: Active Medications Acetaminophen (Acetaminophen 325 Mg Tab) 650 mg PO Q4H PRN PRN Reason: PAIN (1-3) Last Admin: 07/27/20 21:45 Dose: 650 mg Documented by: Albuterol (Albuterol 2.5 Mg/3 Ml Nebu) 2.5 mg IH BIDRT PRN PRN Reason: Shortness Of Breath Last Admin: 07/27/20 22:56 Dose: 2.5 mg Documented by: Cholecalciferol (Cholecalciferol (Vit D3) 5,000 Unit Tab) 5,000 unit PO DAILY [facility] Last Admin: 07/28/20 11:25 Dose: 5,000 unit Documented by: Dexamethasone (Dexamethasone 4 Mg/Ml Vial) 6 mg IV DAILY [facility] Stop: 08/05/20 10:01 Last Admin: 07/28/20 11:23 Dose: 6 mg Documented by: Ferrous Gluconate (Ferrous Gluconate 324 Mg Tab) 324 mg PO QDAY [facility] Last Admin: 07/28/20 11:25 Dose: 324 mg Documented by: Heparin Sodium (Porcine) (Heparin 5,000 Unit/1 Ml Vial) 5,000 unit SUB-Q Q12HR [facility] Last Admin: 07/28/20 11:24 Dose: 5,000 unit Documented by: Hydromorphone HCl (Hydromorphone 1 Mg/1 Ml Inj) 0.5 mg IV Q3H PRN PRN Reason: Pain , Severe (7-10) Last Admin: 07/25/20 15:36 Dose: 0.5 mg Documented by: Dextrose/Sodium Chloride (D5ns) 1,000 mls @ 75 mls/hr IV DIRECT [facility] Last Infusion: 07/25/20 14:37 Dose: Infused Documented by: Lactated Ringer's (Lactated Ringers) 1,000 mls @ 42 mls/hr IV DIRECT [facility] Last Admin: 07/25/20 13:00 Dose: 42 mls/hr Documented by: Metoclopramide HCl (Metoclopramide 10 Mg/2 Ml Inj) 5 mg IV Q6H PRN PRN Reason: Nausea And Vomiting Mirtazapine (Mirtazapine 15 Mg Tab) 7.5 mg PO HS [facility] Last Admin: 07/27/20 21:46 Dose: 7.5 mg Documented by: Morphine Sulfate (Morphine 2 Mg/1 Ml Inj) 2 mg IV Q4H PRN PRN Reason: Pain, Moderate (4-6) Ondansetron HCl (Ondansetron 4 Mg/2 Ml Inj) 4 mg IV Q3H PRN PRN Reason: Nausea And Vomiting Oxycodone/Acetaminophen (Oxycodone /Acetaminophen 5-325mg Tab) 1 tab PO Q6H PRN PRN Reason: Pain, Moderate (4-6) Last Admin: 07/25/20 20:21 Dose: 1 tab Documented by: Pantoprazole Sodium (Pantoprazole 40 Mg Tab) 40 mg PO BID [facility] Last Admin: 07/28/20 11:25 Dose: 40 mg Documented by: Senna (Sennosides 8.6 Mg Tab) 8.6 mg PO HS PRN PRN Reason: Constipation Sodium Chloride (Sodium Chloride 0.9% 10 Ml Flush Syringe) 10 ml IV BID [facility] Last Admin: 07/28/20 11:26 Dose: 10 ml Documented by: Sodium Chloride (Sodium Chloride 0.9% 10 Ml Flush Syringe) 10 ml IV PRN PRN PRN Reason: LINE FLUSH Tiotropium [place] (Tiotropium 18 Mcg Cap Inhalation) 1 puff IH QDAY [facility] Last Admin: 07/28/20 10:38 Dose: 1 puff Documented by: Physical Examination Vital signs: Vital Signs Temp Pulse Resp BP Pulse Ox 97.9 F 98 H 20 130/106 94 07/22/20 17:04 07/22/20 17:04 07/22/20 17:04 07/22/20 17:04 07/22/20 17:04 Results - Laboratory Findings CBC and BMP: 08/05/20 05:18 08/05/20 05:18 PT/INR, D-dimer PT 13.7 Sec. (12.2-14.9) 07/22/20 17:40 INR 1.06 (0.87-1.13) 07/22/20 17:40 D-Dimer 2800.46 ng/mlDDU (0-234) H 07/27/20 19:23 Abnormal lab findings: Abnormal Labs 07/22/20 07/22/20 07/22/20 17:40 17:40 23:46 RBC Hgb Hct Lymph % (Auto) 10.9 L [place] % (Auto) Eos % (Auto) Lymph # (Auto) 0.9 L Seg Neutrophils % 78.9 H D-Dimer Chloride BUN 33 H Creatinine 2.0 H Glucose 108 H POC Glucose 107 H Magnesium Lactate Dehydrogenase C-Reactive Protein Albumin Coronavirus (PCR) 07/23/20 07/23/20 07/25/20 07:58 07:58 05:50 RBC 3.50 L Hgb Hct Lymph % (Auto) 12.0 L [place] % (Auto) 8.1 H 8.3 H Eos % (Auto) 6.6 H Lymph # (Auto) 0.7 L 1.0 L Seg Neutrophils % 74.9 H D-Dimer Chloride 107.2 H BUN 31 H Creatinine 2.0 H Glucose 102 H POC Glucose Magnesium Lactate Dehydrogenase C-Reactive Protein Albumin 3.7 L Coronavirus (PCR) 07/25/20 07/25/20 07/26/20 05:50 Unknown 05:06 RBC Hgb 9.8 L Hct 29.8 L Lymph % (Auto) [place] % (Auto) Eos % (Auto) Lymph # (Auto) Seg Neutrophils % D-Dimer Chloride 109.5 H BUN Creatinine 1.6 H Glucose 111 H POC Glucose Magnesium 1.60 L Lactate Dehydrogenase C-Reactive Protein Albumin Coronavirus (PCR) Positive A 07/27/20 07/27/20 07/27/20 19:23 19:23 19:23 RBC Hgb Hct Lymph % (Auto) [place] % (Auto) Eos % (Auto) Lymph # (Auto) Seg Neutrophils % D-Dimer 2800.46 H Chloride BUN 23 H Creatinine 2.1 H Glucose 112 H POC Glucose Magnesium Lactate Dehydrogenase 238 H C-Reactive Protein 19.30 H Albumin Coronavirus (PCR) Assessment and Plan 75 y/o female with acute respiratory failure secondary to COVID 19 1. Suggest decadron for 10 days 2. Suggest ID consult for possible remdesivir therapy, although patient has been here for several days. Also to see if she is a candidate for Actemra 3. Prone if possible 4. Wean FiO2 for sats >88% 5. Keep patient net negative fluid balance.
--- NOTE | 2020-07-28 13:11 | Consultation ---
History of Present Illness - Reason for Consult Consult date: 07/28/20 COVID-19, hypoxia Requesting physician: SHWETA BRIZUELA - History of Present Illness The patient is a 75-year-old female with hypertension, dementia, hyperlipidemia, schizophrenia, COPD, CKD, senior care resident was admitted to the hospital on 07/23/2019 with right hip pain, upon additional evaluation was found to have a right intertrochanteric fracture, seen by orthopedics and underwent a closed reduction and insertion of intramedullary nail in the right femur on 07/25/2020. Patient has been afebrile, she has been significantly hypoxic since admission, COVID-19 test came back positive, infectious diseases was consulted for additional evaluation. She was initiated on Decadron. Labs show D-dimer 2800, CRP 19.3, LDH 238, ferritin 200. Chest x-ray from today does not reveal any obvious pneumonia. DVT scan negative. Review of Systems: reviewed in the chart, unable to obtain, minimize risk of transmission Past History Past Medical History: other (See HPI.) Medications and Allergies Allergies Allergy/AdvReac Type Severity Reaction Status Date / Time No Known Allergies Allergy Verified 04/25/17 12:02 Home Medications Medication Instructions Recorded Confirmed Last Taken Type Tiotropium [Spiriva] 18 mcg IH QDAY 05/02/15 06/27/17 01/01/16 History Ondansetron [Zofran TAB] 4 mg PO Q8HR PRN 06/09/16 06/27/17 Unknown History Albuterol Sulfate [Ventolin Hfa] 2 puff IH BID PRN 04/25/17 06/27/17 Unknown History Cholecalciferol (Vitamin D3) 5,000 unit PO DAILY 04/25/17 06/27/17 Unknown History [Vitamin D3 5,000 UNIT] Ferrous Gluconate [Ferrous 324 mg PO QDAY 04/25/17 06/27/17 Unknown History Gluconate 324 MG] Ipratropium/Albuterol Sulfate 1 ampul IH Q6HR PRN 04/25/17 06/27/17 Unknown His tory [DUONEB *Not for PRN Use*] Mirtazapine [Remeron] 7.5 mg PO HS 04/25/17 06/27/17 Unknown History Sennosides [Senna] 8.6 mg PO HS PRN 04/25/17 06/27/17 Unknown History Pantoprazole [Protonix TAB] 40 mg PO BID #60 tablet 04/28/17 06/27/17 Unknown Rx oxyCODONE /ACETAMINOPHEN [Percocet 1 tab PO Q4HR PRN #20 tablet 04/28/17 06/27/17 Unknown Rx 5/325 mg] Acetaminophen [Acetaminophen TAB] 650 mg PO Q4HR PRN MDD 3,000 mg 06/01/17 06/27/17 Unknown History levoFLOXacin [Levaquin TAB] 500 mg PO Q48H #2 tablet 06/28/17 Unknown Rx Active Meds: Active Medications Acetaminophen (Acetaminophen 325 Mg Tab) 650 mg PO Q4H PRN PRN Reason: PAIN (1-3) Last Admin: 07/27/20 21:45 Dose: 650 mg Documented by: Albuterol (Albuterol 2.5 Mg/3 Ml Nebu) 2.5 mg IH BIDRT PRN PRN Reason: Shortness Of Breath Last Admin: 07/27/20 22:56 Dose: 2.5 mg Documented by: Cholecalciferol (Cholecalciferol (Vit D3) 5,000 Unit Tab) 5,000 unit PO DAILY [facility] Last Admin: 07/28/20 11:25 Dose: 5,000 unit Documented by: Dexamethasone (Dexamethasone 4 Mg/Ml Vial) 6 mg IV DAILY [facility] Stop: 08/05/20 10:01 Last Admin: 07/28/20 11:23 Dose: 6 mg Documented by: Ferrous Gluconate (Ferrous Gluconate 324 Mg Tab) 324 mg PO QDAY [facility] Last Admin: 07/28/20 11:25 Dose: 324 mg Documented by: Heparin Sodium (Porcine) (Heparin 5,000 Unit/1 Ml Vial) 5,000 unit SUB-Q Q12HR [facility] Last Admin: 07/28/20 11:24 Dose: 5,000 unit Documented by: Hydromorphone HCl (Hydromorphone 1 Mg/1 Ml Inj) 0.5 mg IV Q3H PRN PRN Reason: Pain , Severe (7-10) Last Admin: 07/25/20 15:36 Dose: 0.5 mg Documented by: Dextrose/Sodium Chloride (D5ns) 1,000 mls @ 75 mls/hr IV DIRECT [facility] Last Infusion: 07/25/20 14:37 Dose: Infused Documented by: Lactated Ringer's (Lactated Ringers) 1,000 mls @ 42 mls/hr IV DIRECT [facility] Last Admin: 07/25/20 13:00 Dose: 42 mls/hr Documented by: Metoclopramide HCl (Metoclopramide 10 Mg/2 Ml Inj) 5 mg IV Q6H PRN PRN Reason: Nausea And Vomiting Mirtazapine (Mirtazapine 15 Mg Tab) 7.5 mg PO HS [facility] Last Admin: 07/27/20 21:46 Dose: 7.5 mg Documented by: Morphine Sulfate (Morphine 2 Mg/1 Ml Inj) 2 mg IV Q4H PRN PRN Reason: Pain, Moderate (4-6) Ondansetron HCl (Ondansetron 4 Mg/2 Ml Inj) 4 mg IV Q3H PRN PRN Reason: Nausea And Vomiting Oxycodone/Acetaminophen (Oxycodone /Acetaminophen 5-325mg Tab) 1 tab PO Q6H PRN PRN Reason: Pain, Moderate (4-6) Last Admin: 07/25/20 20:21 Dose: 1 tab Documented by: Pantoprazole Sodium (Pantoprazole 40 Mg Tab) 40 mg PO BID [facility] Last Admin: 07/28/20 11:25 Dose: 40 mg Documented by: Senna (Sennosides 8.6 Mg Tab) 8.6 mg PO HS PRN PRN Reason: Constipation Sodium Chloride (Sodium Chloride 0.9% 10 Ml Flush Syringe) 10 ml IV BID [facility] Last Admin: 07/28/20 11:26 Dose: 10 ml Documented by: Sodium Chloride (Sodium Chloride 0.9% 10 Ml Flush Syringe) 10 ml IV PRN PRN PRN Reason: LINE FLUSH Tiotropium [place] (Tiotropium 18 Mcg Cap Inhalation) 1 puff IH QDAY [facility] Last Admin: 07/28/20 10:38 Dose: 1 puff Documented by: Physical Examination - Physical Exam Narrative exam: Physical Exam (reviewed in chart to minimize risk of transmission) Constitutional: deferred Head, Ears, Nose: deferred Eyes: deferred Neck: deferred Oral: deferred Cardiovascular: deferred Respiratory: deferred GI: deferred Musculoskeletal: deferred Skin: deferred Hem/Lymphatic: deferred Psych: deferred Neurological: deferred - Constitutional Vitals: Vital Signs Temp Pulse Resp BP Pulse Ox 97.7 F 89 23 102/68 95 07/28/20 07:05 07/28/20 10:40 07/28/20 10:40 07/28/20 07:05 07/28/20 10:00 Temperature -Last 24 Hours Temperature 97.7 F Temperature 99.2 F Temperature 98.6 F Results - Labs CBC & Chem 7: 07/26/20 05:06 07/27/20 19:23 Labs: Abnormal lab results 07/27/20 07/27/20 07/27/20 Range/Units 19:23 19:23 19:23 D-Dimer 2800.46 H (0-234) ng/mlDDU BUN 23 H (7-17) mg/dL Creatinine 2.1 H (0.6-1.2) mg/dL Glucose 112 H (65-100) mg/dL Lactate Dehydrogenase 238 H (91-180) units/L C-Reactive Protein 19.30 H (0.00-1.30) mg/dL - Imaging and Cardiology Chest x-ray: report reviewed, image reviewed (COPD type changes +) Assessment and Plan Cultures: SARS CoV2 PCR: Positive A/P: 75-year-old female with hypertension, dementia, hyperlipidemia, schizophrenia, COPD, CKD, senior care resident was admitted to the hospital on 07/23/2019 with right hip pain and fracture: #COVID-19: With associated respiratory failure, high CRP. #Acute hypoxic respiratory failure: Currently on HFNC. #DANYA on CKD #COPD Right hip fracture: Status post closed reduction and insertion of intramedullary nail in the right femur on 07/25/2020 Recs: -IV/PO Dexamethasone 6 mg daily x 10 days, D2 -Patient has been on high flow nasal cannula for the past several days, unclear if any benefit with Actemra at this point, if there is any further decline in respiratory status, will consider -IV remdesivir ordered, monitor renal function along with LFTs -prophylactic anticoagulation based on d-dimer per hospital protocol -trend ferritin, LDH, d-dimer, CRP every 2-3 days for risk stratification and to assess disease progression Miguelito Esqueda MD, FACP [facility] ([facility] O: [phone] F: [phone]
--- NOTE | 2020-07-28 13:33 | Progress Note ---
Assessment and Plan Continue physical therapy and observation Subjective Date of service: 07/28/20 Interval history: No major complaints noted Objective Vital signs: Vital Signs - 12hr 07/28/20 07/28/20 07/28/20 07:05 10:00 10:40 Temperature 97.7 F Pulse Rate 86 Pulse Rate [ 89 Anterior Bilateral] Respiratory 24 Rate Respiratory 23 Rate [Anterior Bilateral] Blood Pressure 102/68 O2 Sat by Pulse 88 95 Oximetry Incision: healing, clean and dry Weight bearing status: as tolerated - Labs CBC & BMP: 07/26/20 05:06 07/27/20 19:23 Labs: Abnormal lab results 07/27/20 07/27/20 07/27/20 Range/Units 19:23 19:23 19:23 D-Dimer 2800.46 H (0-234) ng/mlDDU BUN 23 H (7-17) mg/dL Creatinine 2.1 H (0.6-1.2) mg/dL Glucose 112 H (65-100) mg/dL Lactate Dehydrogenase 238 H (91-180) units/L C-Reactive Protein 19.30 H (0.00-1.30) mg/dL
[2020-07-28] MEDS ORDERED: REMDESIVIR 200 MG in SODIUM CHLORIDE 0.9% 250ML 250 ML IV ONE (15:00)
[2020-07-28] MEDS ORDERED: REMDESIVIR 100 MG VIAL IV ONE (15:00)
[2020-07-28] MEDS: D5W/0.9% NACL 1,000 ML IV SCH (17:10)
[2020-07-28] MEDS: SODIUM CHLORIDE 0.9% 50 ML IVPB IV SCH (18:48)
[2020-07-28] MEDS: MIRTAZAPINE 15 MG TAB PO SCH (22:57)
--- NOTE | 2020-07-29 09:13 | Progress Note ---
Assessment and Plan --Covid positive reported 07/26/2020 Isolation, ID, follow inflammatory markers, dexamethasone 10 days ID recommended remdesivir , follow renal function Patient is requiring high flow nasal cannula oxygen Patient already has home oxygen 3 L Prone positioning, ID and pulmonary consulted --Elevated D-dimers; Patient not stable for VQ scan to evaluate for PE Patient is on high flow oxygen Lower extremity venous Doppler negative for DVT Continue prophylactic heparin subcu twice a day --Right intertrochanteric hip fracture Orthopedic evaluated s/p Closed reduction insertion of intramedullary nail right femur 07/25/2020. Postop care per surgery , pain medications PT OT rehab, --COPD (chronic obstructive pulmonary disease) Continue duo nebs, oxygen titrate O2 sats to more than 90% Supportive care --Acute on chronic (acute kidney injury)/ATN gentle hydration, monitor renal function Avoid nephrotoxin, nephrology consult -- Hypertension Catapres patch if necessary Hold oral antihypertensives As needed hydralazine --Full CODE STATUS; --DVT prophylaxis SCDs, subcu heparin renal dose Closely monitor the patient and adjust the management as needed Plan of care reviewed with the patient and her nurse Follow Ortho, ID and pulmonary evaluation and recommendations DC planning per case management Brief history: 75-year-old female patient with history of fall admitted with right trochanteric hip fracture evaluated by orthopedic surgeon underwent closed reduction with IM nail in the right femur patient was receiving physical therapy occupational therapy Covid test was done prior to placement which was positive. Patient has history of COPD home oxygen dependent, however with Covid, required high flow oxygen. ID orthopedic and pulmonary following brief history. DC planning per case management Daily Hospital course: 07/24; fracture right hip, pending Ortho evaluation Acute kidney injury, continue gentle hydration Closely monitor the patient and adjust the management 07/25; right intertrochanteric hip fracture s/p Closed reduction insertion of intramedullary nail right femur 07/25/2020 Continue postop care, PT OT, rehab versus home with home health in stable 07/26; patient feels slightly better, physical therapy Complains of pain, DC planning per case management 07/27; COVID-19 positive, ID consult, management per protocols Dexamethasone, no remdesivir due to acute kidney injury, isolation Already has home oxygen, proning 07/28; patient is on high flow oxygen, in mild distress In the setting of COVID-19 pneumonia and high flow oxygen, pulmonary consulted Follow ID and Ortho evaluation recommendations 07/29: Patient remains on high flow O2 - 10L N/c today, continue dexamethasone remdesivir for COVID-19, follow inflammatory markers, ID following will follow recommendation. PT eval and continue supportive care Hospitalist Physical General appearance: Present: mild distress (Secondary to pain), well-nourished, other (Elderly and frail) - EENT Eyes: Present: PERRL, EOM intact - Neck Neck: Present: supple, normal ROM - Respiratory Respiratory effort: normal Respiratory: bilateral: diminished, negative: rales, rhonchi, wheezing - Cardiovascular Rhythm: regular Heart Sounds: Present: S1 & S2 - Extremities Extremities: no ischemia, No edema - Abdominal General gastrointestinal: soft, non-tender, non-distended, normal bowel sounds - Integumentary Integumentary: Present: clear, warm - Psychiatric Psychiatric: appropriate mood/affect, cooperative - Neurologic Neurologic: CNII-XII intact, moves all extremities Subjective Date of service: 07/29/20 Interval history: Patient seen and examined. Medical records and medication list reviewed. No acute event overnight noted by the RN. Patient remains on 10 L high flow O2 today Discussed plan of care at bedside with patient. Objective - Constitutional Vitals: Vital Signs - 12hr 07/28/20 07/28/20 07/29/20 22:44 23:36 05:15 Temperature 97.7 F 97.6 F Pulse Rate 76 Respiratory 22 20 Rate Blood Pressure 120/70 Blood Pressure 126/66 [Left] O2 Sat by Pulse 99 96 Oximetry - Labs CBC & Chem 7: 07/26/20 05:06 07/29/20 10:49 HEART Score - HEART Score Age: > 65 Risk factors: 1-2 risk factors Troponin: < normal limit - Critical Actions Critical Actions: 0-3 pts:0.9-1.7%risk of adverse cardiac event.Candidate for discharge
[2020-07-29] MEDS: TIOTROPIUM 18 MCG CAP INHALATION IH SCH (10:55)
[2020-07-29] MEDS: PANTOPRAZOLE 40 MG TAB PO SCH ×2 (11:23→23:31)
[2020-07-29] MEDS: CHOLECALCIFEROL (VIT D3) 5,000 UNIT TAB PO SCH (11:23)
[2020-07-29] MEDS: FERROUS GLUCONATE 324 MG TAB PO SCH (11:23)
[2020-07-29] MEDS: dexAMETHasone 4 MG/ML VIAL IV SCH (11:23)
[2020-07-29] MEDS: HEPARIN 5,000 UNIT/1 ML VIAL SUB-Q SCH ×2 (11:24→23:32)
[2020-07-29 11:47] LABS: Albumin 3.4 g/dL (3.9-5)
--- NOTE | 2020-07-29 12:37 | Progress Note ---
Assessment and Plan 1. Acute kidney injury vs CKD stage 4: Renal function is about the same as prior visit. Monitor renal function. Creatinine level is about the same. Avoid nephrotoxic agents. Meds dosage based on GFR. 2. FEN: Monitor volume status and lytes. 3. Covid infection: Isolation, follow inflammatory markers. Dexamethasone. Followed by ID. 4. Acute on chronic hypoxemic respiratory failure, POA: 2/2 COVID infection. CXR showed atelectasis. Covid test positive. Patient is requiring high flow nasal cannula oxygen. Patient on home oxygen 3 L. 5. Right intertrochanteric hip fracture: S/p Closed reduction insertion of intramedullary nail right femur 07/25/2020. Postop care per surgery , pain medications, PT OT rehab. 6. COPD: Continue duo nebs, oxygen titrate O2 sats to more than 90% Supportive care. 7. H/o Dementia: Supportive care. 8. HTN: Monitor BP. Adjust meds as needed. 9. Anemia: Monitor. Subjective: Patient was seen and examined at the bedside. Objective: General appearance: well-developed, appears stated age, appears emaciated, not in distress HEENT: ATNC, JANET Neck: trachea midline Respiratory: diminished breath sounds Heart: regular, S1S2, no murmur Gastrointestinal: soft, normoactive bowel sounds, not tender Integumentary: no obvious rash Ext: no edema Neurologic: alert, conversing, able to move extremities, confused Subjective Date of service: 07/29/20 Objective - Vital Signs Vital signs: Vital Signs - 12hr 07/29/20 07/29/20 07/29/20 05:15 11:04 11:07 Temperature 97.6 F Pulse Rate [ 104 H Anterior Bilateral] Respiratory 20 Rate Respiratory 20 Rate [Anterior Bilateral] Blood Pressure 120/70 O2 Sat by Pulse 93 Oximetry - Lab 07/26/20 05:06 07/30/20 05:21 Most recent lab results Calcium 9.0 mg/dL (8.4-10.2) 07/29/20 10:49 Magnesium 1.60 mg/dL (1.7-2.3) L 07/25/20 05:50 Medications & Allergies - Medications Allergies/Adverse Reactions: Allergies No Known Allergies Allergy (Verified 04/25/17 12:02) Home Medications: Home Medications Medication Instructions Recorded Confirmed Last Taken Type Tiotropium [Spiriva] 18 mcg IH QDAY 05/02/15 06/27/17 01/01/16 History Ondansetron [Zofran TAB] 4 mg PO Q8HR PRN 06/09/16 06/27/17 Unknown History Albuterol Sulfate [Ventolin Hfa] 2 puff IH BID PRN 04/25/17 06/27/17 Unknown History Cholecalciferol (Vitamin D3) 5,000 unit PO DAILY 04/25/17 06/27/17 Unknown History [Vitamin D3 5,000 UNIT] Ferrous Gluconate [Ferrous 324 mg PO QDAY 04/25/17 06/27/17 Unknown History Gluconate 324 MG] Ipratropium/Albuterol Sulfate 1 ampul IH Q6HR PRN 04/25/17 06/27/17 Unknown History [DUONEB *Not for PRN Use*] Mirtazapine [Remeron] 7.5 mg PO HS 04/25/17 06/27/17 Unknown History Sennosides [Senna] 8.6 mg PO HS PRN 04/25/17 06/27/17 Unknown History Pantoprazole [Protonix TAB] 40 mg PO BID #60 tablet 04/28/17 06/27/17 Unknown Rx oxyCODONE /ACETAMINOPHEN [Percocet 1 tab PO Q4HR PRN #20 tablet 04/28/17 06/27/17 Unknown Rx 5/325 mg] Acetaminophen [Acetaminophen TAB] 650 mg PO Q4HR PRN MDD 3,000 mg 06/01/17 06/27/17 Unknown History levoFLOXacin [Levaquin TAB] 500 mg PO Q48H #2 tablet 06/28/17 Unknown Rx Active Medications: Generic Name Dose Route Start Last Admin Trade Name Freq PRN Reason Stop Dose Admin Acetaminophen 650 mg 07/22/20 21:55 07/27/20 21:45 Acetaminophen 325 Mg Tab PO 650 mg Q4H PRN Administration PAIN (1-3) Albuterol 2.5 mg 07/22/20 22:51 07/27/20 22:56 Albuterol 2.5 Mg/3 Ml Nebu IH 2.5 mg BIDRT PRN Administration Shortness Of Breath Cholecalciferol 5,000 unit 07/23/20 10:00 07/29/20 11:23 Cholecalciferol (Vit D3) 5,000 Unit Tab PO 5,000 unit DAILY SAY Administration Dexamethasone 6 mg 07/27/20 19:00 07/29/20 11:23 Dexamethasone 4 Mg/Ml Vial IV 08/05/20 10:01 6 mg DAILY SAY Administration Ferrous Gluconate 324 mg 07/23/20 10:00 07/29/20 11:23 Ferrous Gluconate 324 Mg Tab PO 324 mg QDAY SAY Administration Heparin Sodium (Porcine) 5,000 unit 07/22/20 22:15 07/29/20 11:24 Heparin 5,000 Unit/1 Ml Vial SUB-Q 5,000 unit Q12HR SYA Administration Hydromorphone HCl 0.5 mg 07/22/20 22:01 07/25/20 15:36 Hydromorphone 1 Mg/1 Ml Inj IV 0.5 mg Q3H PRN Administration Pain , Severe (7-10) Dextrose/Sodium Chloride 1,000 mls @ 75 mls/hr 07/22/20 23:00 07/28/20 17:10 D5ns IV 75 mls/hr DIRECT SAY Administration REMDESIVIR 100 mg/ Sodium 250 mls @ 500 mls/hr 07/29/20 21:00 Chloride IV 08/01/20 21:29 Q24HR@2100 SAY Metoclopramide HCl 5 mg 07/22/20 22:01 Metoclopramide 10 Mg/2 Ml Inj IV Q6H PRN Nausea And Vomiting Mirtazapine 7.5 mg 07/22/20 22:00 07/28/20 22:57 Mirtazapine 15 Mg Tab PO 7.5 mg HS SAY Administration Morphine Sulfate 2 mg 07/25/20 14:33 Morphine 2 Mg/1 Ml Inj IV Q4H PRN Pain, Moderate (4-6) Ondansetron HCl 4 mg 07/22/20 22:01 Ondansetron 4 Mg/2 Ml Inj IV Q3H PRN Nausea And Vomiting Oxycodone/Acetaminophen 1 tab 07/25/20 14:33 07/25/20 20:21 Oxycodone /Acetaminophen 5-325mg Tab PO 1 tab Q6H PRN Administration Pain, Moderate (4-6) Pantoprazole Sodium 40 mg 07/22/20 22:00 07/29/20 11:23 Pantoprazole 40 Mg Tab PO 40 mg BID SAY Administration Senna 8.6 mg 07/22/20 21:55 Sennosides 8.6 Mg Tab PO HS PRN Constipation Sodium Chloride 10 ml 07/23/20 10:00 07/29/20 11:23 Sodium Chloride 0.9% 10 Ml Flush Syringe IV 10 ml BID SAY Administration Sodium Chloride 10 ml 07/22/20 22:01 Sodium Chloride 0.9% 10 Ml Flush Syringe IV PRN PRN LINE FLUSH Sodium Chloride 50 ml 07/28/20 15:00 07/28/20 18:48 Sodium Chloride 0.9% 50 Ml Ivpb IV 08/01/20 21:01 50 ml Q24HR@2100 SAY Administration Tiotropium [place] 1 puff 07/23/20 10:00 07/29/20 10:55 Tiotropium 18 Mcg Cap Inhalation IH 1 puff QDAY SAY Administration
--- NOTE | 2020-07-29 14:07 | Progress Note ---
Assessment and Plan - Patient Problems (1) COPD (chronic obstructive pulmonary disease) Current Visit: Yes Status: Chronic Qualifiers: COPD type: chronic bronchitis (2) Hypertension Current Visit: Yes Status: Chronic Qualifiers: Hypertension type: essential hypertension Qualified Code(s): I10 - Essential (primary) hypertension (3) ARF (acute renal failure) Current Visit: No Status: Acute Qualifiers: Acute renal failure type: with acute tubular necrosis Qualified Code(s): N17.0 - Acute kidney failure with tubular necrosis (4) Abdominal pain, acute, periumbilical Current Visit: No Status: Acute (5) Acute hyperkalemia Current Visit: No Status: Acute Subjective Interval history: no complaints Objective Vital Signs - 12hr 07/29/20 07/29/20 07/29/20 05:15 11:04 11:07 Temperature 97.6 F Pulse Rate Pulse Rate [ 104 H Anterior Bilateral] Respiratory 20 Rate Respiratory 20 Rate [Anterior Bilateral] Blood Pressure 120/70 O2 Sat by Pulse 93 Oximetry 07/29/20 12:01 Temperature 98.2 F Pulse Rate 87 Pulse Rate [ Anterior Bilateral] Respiratory 18 Rate Respiratory Rate [Anterior Bilateral] Blood Pressure 116/62 O2 Sat by Pulse 87 Oximetry Constitutional: no acute distress Eyes: non-icteric ENT: oropharynx moist Neck: supple Effort: normal Ascultation: Bilateral: wheezes (mild) Cardiovascular: regular rate and rhythm Gastrointestinal: normoactive bowel sounds, soft, non-tender Integumentary: normal Extremities: no cyanosis Neurologic: normal mental status CBC and BMP: 07/26/20 05:06 07/30/20 05:21 ABG, PT/INR, D-dimer: PT/INR, D-dimer PT 13.7 Sec. (12.2-14.9) 07/22/20 17:40 INR 1.06 (0.87-1.13) 07/22/20 17:40 D-Dimer 2800.46 ng/mlDDU (0-234) H 07/27/20 19:23 Abnormal lab findings: Abnormal Labs 07/22/20 07/22/20 07/22/20 17:40 17:40 23:46 RBC Hgb Hct Lymph % (Auto) 10.9 L [place] % (Auto) Eos % (Auto) Lymph # (Auto) 0.9 L Seg Neutrophils % 78.9 H D-Dimer Sodium Chloride BUN 33 H Creatinine 2.0 H Glucose 108 H POC Glucose 107 H Magnesium Alkaline Phosphatase Lactate Dehydrogenase C-Reactive Protein Total Protein Albumin Coronavirus (PCR) 07/23/20 07/23/20 07/25/20 07:58 07:58 05:50 RBC 3.50 L Hgb Hct Lymph % (Auto) 12.0 L [place] % (Auto) 8.1 H 8.3 H Eos % (Auto) 6.6 H Lymph # (Auto) 0.7 L 1.0 L Seg Neutrophils % 74.9 H D-Dimer Sodium Chloride 107.2 H BUN 31 H Creatinine 2.0 H Glucose 102 H POC Glucose Magnesium Alkaline Phosphatase Lactate Dehydrogenase C-Reactive Protein Total Protein Albumin 3.7 L Coronavirus (PCR) 07/25/20 07/25/20 07/26/20 05:50 Unknown 05:06 RBC Hgb 9.8 L Hct 29.8 L Lymph % (Auto) [place] % (Auto) Eos % (Auto) Lymph # (Auto) Seg Neutrophils % D-Dimer Sodium Chloride 109.5 H BUN Creatinine 1.6 H Glucose 111 H POC Glucose Magnesium 1.60 L Alkaline Phosphatase Lactate Dehydrogenase C-Reactive Protein Total Protein Albumin Coronavirus (PCR) Positive A 07/27/20 07/27/20 07/27/20 19:23 19:23 19:23 RBC Hgb Hct Lymph % (Auto) [place] % (Auto) Eos % (Auto) Lymph # (Auto) Seg Neutrophils % D-Dimer 2800.46 H Sodium Chloride BUN 23 H Creatinine 2.1 H Glucose 112 H POC Glucose Magnesium Alkaline Phosphatase Lactate Dehydrogenase 238 H C-Reactive Protein 19.30 H Total Protein Albumin Coronavirus (PCR) 07/29/20 10:49 RBC Hgb Hct Lymph % (Auto) [place] % (Auto) Eos % (Auto) Lymph # (Auto) Seg Neutrophils % D-Dimer Sodium 146 H D Chloride 108.1 H BUN 40 H Creatinine 2.0 H Glucose POC Glucose Magnesium Alkaline Phosphatase 134 H Lactate Dehydrogenase C-Reactive Protein Total Protein 5.8 L Albumin 3.4 L Coronavirus (PCR)
--- NOTE | 2020-07-29 14:07 | Progress Note ---
Assessment and Plan Cultures: SARS CoV2 PCR: Positive A/P: 75-year-old female with hypertension, dementia, hyperlipidemia, schizophrenia, COPD, CKD, assisted resident was admitted to the hospital on 07/23/2019 with right hip pain and fracture: #COVID-19: With associated respiratory failure, high CRP. #Acute hypoxic respiratory failure: weaned to [place] #DANYA on CKD #COPD #Right hip fracture: Status post closed reduction and insertion of intramedullary nail in the right femur on 07/25/2020 Recs: -IV/PO Dexamethasone 6 mg daily x 10 days, D3 -continue IV remdesivir, x 5 days, monitor LFTs -prophylactic anticoagulation based on d-dimer per hospital protocol -trend ferritin, LDH, d-dimer, CRP every 2-3 days for risk stratification and to assess disease progression Miguelito Esqueda MD, FACP [facility] O: [phone] F: [phone] Subjective Date of service: 07/29/20 Interval history: No fever. Weaned to 8 lit [place]. Objective - Exam Narrative Exam: Physical Exam (reviewed in chart to minimize risk of transmission) Constitutional: deferred Head, Ears, Nose: deferred Eyes: deferred Neck: deferred Oral: deferred Cardiovascular: deferred Respiratory: deferred GI: deferred Musculoskeletal: deferred Skin: deferred Hem/Lymphatic: deferred Psych: deferred Neurological: deferred - Constitutional Vitals: Vital Signs Temp Pulse Resp BP Pulse Ox 98.2 F 87 18 116/62 87 07/29/20 12:01 07/29/20 12:01 07/29/20 12:01 07/29/20 12:01 07/29/20 12:01 Temperature -Last 24 Hours Temperature 98.2 F Temperature 97.6 F Temperature 97.7 F - Labs CBC & Chem 7: 07/26/20 05:06 07/29/20 10:49 Labs: Abnormal lab results 07/29/20 Range/Units 10:49 Sodium 146 H D (137-145) mmol/L Chloride 108.1 H (98-107) mmol/L BUN 40 H (7-17) mg/dL Creatinine 2.0 H (0.6-1.2) mg/dL Alkaline Phosphatase 134 H (35-129) units/L Total Protein 5.8 L (6.3-8.2) g/dL Albumin 3.4 L (3.9-5) g/dL
[2020-07-29] MEDS ORDERED: D5W/0.45% NACL 1,000 ML IV SCH (17:00)
[2020-07-29] MEDS: REMDESIVIR 100 MG in SODIUM CHLORIDE 0.9% 250ML 250 ML IV SCH (23:29)
[2020-07-29] MEDS: SODIUM CHLORIDE 0.9% 50 ML IVPB IV SCH (23:30)
[2020-07-29] MEDS: MIRTAZAPINE 15 MG TAB PO SCH (23:31)
[2020-07-29] MEDS: ASCORBIC ACID 500 MG TAB PO SCH (23:31)
[2020-07-29] MEDS: ZINC SULFATE 220 MG CAP PO SCH (23:31)
[2020-07-30 06:38] LABS: Albumin 2.9 g/dL (3.9-5); Calcium 8.6 mg/dL (8.4-10.2)
--- NOTE | 2020-07-30 08:19 | Progress Note ---
Assessment and Plan - Patient Problems (1) COVID-19 Current Visit: Yes Status: Acute (2) Hypoxia Current Visit: No Status: Acute (3) COPD (chronic obstructive pulmonary disease) Current Visit: No Status: Chronic Qualifiers: COPD type: chronic bronchitis (4) Hypertension Current Visit: No Status: Chronic Qualifiers: Hypertension type: essential hypertension Qualified Code(s): I10 - E ssential (primary) hypertension Subjective Interval history: pt feel well. no sob Objective Vital Signs - 12hr 07/29/20 07/29/20 07/29/20 22:23 22:35 23:20 Temperature 97.6 F Pulse Rate 74 Pulse Rate [ 104 H Anterior Bilateral] Respiratory 16 Rate Respiratory 20 Rate [Anterior Bilateral] Blood Pressure 120/68 O2 Sat by Pulse 93 90 Oximetry 07/30/20 07/30/20 02:00 06:21 Temperature 97.5 F L Pulse Rate 61 Pulse Rate [ Anterior Bilateral] Respiratory 18 Rate Respiratory Rate [Anterior Bilateral] Blood Pressure 124/53 O2 Sat by Pulse 91 95 Oximetry Constitutional: no acute distress Eyes: non-icteric ENT: oropharynx moist Neck: supple Effort: normal Ascultation: Bilateral: clear Cardiovascular: regular rate and rhythm Gastrointestinal: normoactive bowel sounds, soft, non-tender, non-distended Integumentary: normal Extremities: no cyanosis Neurologic: normal mental status, non-focal exam CBC and BMP: 07/26/20 05:06 07/30/20 05:21 ABG, PT/INR, D-dimer: PT/INR, D-dimer PT 13.7 Sec. (12.2-14.9) 07/22/20 17:40 INR 1.06 (0.87-1.13) 07/22/20 17:40 D-Dimer 2800.46 ng/mlDDU (0-234) H 07/27/20 19:23 Abnormal lab findings: Abnormal Labs 07/22/20 07/22/20 07/22/20 17:40 17:40 23:46 RBC Hgb Hct Lymph % (Auto) 10.9 L Story % (Auto) Eos % (Auto) Lymph # (Auto) 0.9 L Seg Neutrophils % 78.9 H D-Dimer Sodium Chloride BUN 33 H Creatinine 2.0 H Glucose 108 H POC Glucose 107 H Magnesium Alkaline Phosphatase Lactate Dehydrogenase C-Reactive Protein Total Protein Albumin Coronavirus (PCR) 07/23/20 07/23/20 07/25/20 07:58 07:58 05:50 RBC 3.50 L Hgb Hct Lymph % (Auto) 12.0 L Story % (Auto) 8.1 H 8.3 H Eos % (Auto) 6.6 H Lymph # (Auto) 0.7 L 1.0 L Seg Neutrophils % 74.9 H D-Dimer Sodium Chloride 107.2 H BUN 31 H Creatinine 2.0 H Glucose 102 H POC Glucose Magnesium Alkaline Phosphatase Lactate Dehydrogenase C-Reactive Protein Total Protein Albumin 3.7 L Coronavirus (PCR) 07/25/20 07/25/20 07/26/20 05:50 Unknown 05:06 RBC Hgb 9.8 L Hct 29.8 L Lymph % (Auto) Story % (Auto) Eos % (Auto) Lymph # (Auto) Seg Neutrophils % D-Dimer Sodium Chloride 109.5 H BUN Creatinine 1.6 H Glucose 111 H POC Glucose Magnesium 1.60 L Alkaline Phosphatase Lactate Dehydrogenase C-Reactive Protein Total Protein Albumin Coronavirus (PCR) Positive A 07/27/20 07/27/20 07/27/20 19:23 19:23 19:23 RBC Hgb Hct Lymph % (Auto) Story % (Auto) Eos % (Auto) Lymph # (Auto) Seg Neutrophils % D-Dimer 2800.46 H Sodium Chloride BUN 23 H Creatinine 2.1 H Glucose 112 H POC Glucose Magnesium Alkaline Phosphatase Lactate Dehydrogenase 238 H C-Reactive Protein 19.30 H Total Protein Albumin Coronavirus (PCR) 07/29/20 07/30/20 10:49 05:21 RBC Hgb Hct Lymph % (Auto) Story % (Auto) Eos % (Auto) Lymph # (Auto) Seg Neutrophils % D-Dimer Sodium 146 H D Chloride 108.1 H 110.5 H BUN 40 H 44 H Creatinine 2.0 H 1.8 H Glucose POC Glucose Magnesium Alkaline Phosphatase 134 H Lactate Dehydrogenase C-Reactive Protein Total Protein 5.8 L 5.7 L Albumin 3.4 L 2.9 L Coronavirus (PCR)
[2020-07-30] MEDS: dexAMETHasone 4 MG/ML VIAL IV SCH (10:14)
[2020-07-30] MEDS: HEPARIN 5,000 UNIT/1 ML VIAL SUB-Q SCH (10:15)
[2020-07-30] MEDS: FERROUS GLUCONATE 324 MG TAB PO SCH (10:15)
[2020-07-30] MEDS: PANTOPRAZOLE 40 MG TAB PO SCH ×2 (10:15→22:53)
[2020-07-30] MEDS: ASCORBIC ACID 500 MG TAB PO SCH ×2 (10:16→22:53)
[2020-07-30] MEDS: TIOTROPIUM 18 MCG CAP INHALATION IH SCH (10:16)
[2020-07-30] MEDS: CHOLECALCIFEROL (VIT D3) 5,000 UNIT TAB PO SCH (10:16)
[2020-07-30] MEDS: ZINC SULFATE 220 MG CAP PO SCH ×2 (10:16→22:53)
--- NOTE | 2020-07-30 13:11 | Progress Note ---
Assessment and Plan 1. Acute kidney injury vs CKD stage 4: Renal function is about the same as prior visit. Monitor renal function. Creatinine level is slightly better. Avoid nephrotoxic agents. Meds dosage based on GFR. 2. FEN: Monitor volume status and lytes. 3. Covid infection: Isolation, follow inflammatory markers. Dexamethasone. Followed by ID. 4. Acute on chronic hypoxemic respiratory failure, POA: 2/2 COVID infection. CXR showed atelectasis. Covid test positive. Patient on home oxygen 3 L. 5. Right intertrochanteric hip fracture: S/p Closed reduction insertion of intramedullary nail right femur 07/25/2020. Postop care per surgery, pain control, PT/OT and rehab. 6. COPD: Continue duonebs, titrate O2 sats to more than 90% Supportive care. 7. H/o Dementia: Supportive care. 8. HTN: Monitor BP. Adjust meds as needed. 9. Anemia: Monitor. Subjective: Patient was seen and examined at the bedside. Objective: General appearance: well-developed, appears stated age, appears emaciated, not in distress HEENT: ATNC, JANET Neck: trachea midline Respiratory: diminished breath sounds Heart: regular, S1S2, no murmur Gastrointestinal: soft, normoactive bowel sounds, not tender Integumentary: no obvious rash Ext: no edema Neurologic: alert, conversing, able to move extremities, confused Subjective Date of service: 07/30/20 Objective - Vital Signs Vital signs: Vital Signs - 12hr 07/30/20 07/30/20 07/30/20 02:00 06:21 08:22 Temperature 97.5 F L Pulse Rate 61 Respiratory 18 Rate Blood Pressure 124/53 Blood Pressure [Left] O2 Sat by Pulse 91 95 98 Oximetry 07/30/20 07/30/20 09:00 10:57 Temperature Pulse Rate 123 H Respiratory 20 Rate Blood Pressure Blood Pressure 173/92 [Left] O2 Sat by Pulse Oximetry - Lab 07/26/20 05:06 07/30/20 05:21 Most recent lab results Calcium 8.6 mg/dL (8.4-10.2) 07/30/20 05:21 Magnesium 1.60 mg/dL (1.7-2.3) L 07/25/20 05:50 Medications & Allergies - Medications Allergies/Adverse Reactions: Allergies No Known Allergies Allergy (Verified 04/25/17 12:02) Home Medications: Home Medications Medication Instructions Recorded Confirmed Last Taken Type Tiotropium [Spiriva] 18 mcg IH QDAY 05/02/15 06/27/17 01/01/16 History Ondansetron [Zofran TAB] 4 mg PO Q8HR PRN 06/09/16 06/27/17 Unknown History Albuterol Sulfate [Ventolin Hfa] 2 puff IH BID PRN 04/25/17 06/27/17 Unknown History Cholecalciferol (Vitamin D3) 5,000 unit PO DAILY 04/25/17 06/27/17 Unknown Hist ory [Vitamin D3 5,000 UNIT] Ferrous Gluconate [Ferrous 324 mg PO QDAY 04/25/17 06/27/17 Unknown History Gluconate 324 MG] Ipratropium/Albuterol Sulfate 1 ampul IH Q6HR PRN 04/25/17 06/27/17 Unknown History [DUONEB *Not for PRN Use*] Mirtazapine [Remeron] 7.5 mg PO HS 04/25/17 06/27/17 Unknown History Sennosides [Senna] 8.6 mg PO HS PRN 04/25/17 06/27/17 Unknown History Pantoprazole [Protonix TAB] 40 mg PO BID #60 tablet 04/28/17 06/27/17 Unknown Rx oxyCODONE /ACETAMINOPHEN [Percocet 1 tab PO Q4HR PRN #20 tablet 04/28/17 06/27/17 Unknown Rx 5/325 mg] Acetaminophen [Acetaminophen TAB] 650 mg PO Q4HR PRN MDD 3,000 mg 06/01/17 06/27/17 Unknown History levoFLOXacin [Levaquin TAB] 500 mg PO Q48H #2 tablet 06/28/17 Unknown Rx Active Medications: Generic Name Dose Route Start Last Admin Trade Name Freq PRN Reason Stop Dose Admin Acetaminophen 650 mg 07/22/20 21:55 07/27/20 21:45 Acetaminophen 325 Mg Tab PO 650 mg Q4H PRN Administration PAIN (1-3) Albuterol 2.5 mg 07/22/20 22:51 07/27/20 22:56 Albuterol 2.5 Mg/3 Ml Nebu IH 2.5 mg BIDRT PRN Administration Shortness Of Breath Ascorbic Acid 500 mg 07/29/20 22:00 07/30/20 10:16 Ascorbic Acid 500 Mg Tab PO 500 mg BID SAY Administration Cholecalciferol 5,000 unit 07/23/20 10:00 07/30/20 10:16 Cholecalciferol (Vit D3) 5,000 Unit Tab PO 5,000 unit DAILY SAY Administration Dexamethasone 6 mg 07/27/20 19:00 07/30/20 10:14 Dexamethasone 4 Mg/Ml Vial IV 08/05/20 10:01 6 mg DAILY SAY Administration Ferrous Gluconate 324 mg 07/23/20 10:00 07/30/20 10:15 Ferrous Gluconate 324 Mg Tab PO 324 mg QDAY SAY Administration Heparin Sodium (Porcine) 5,000 unit 07/22/20 22:15 07/30/20 10:15 Heparin 5,000 Unit/1 Ml Vial SUB-Q 5,000 unit Q12HR SAY Administration Hydromorphone HCl 0.5 mg 07/22/20 22:01 07/25/20 15:36 Hydromorphone 1 Mg/1 Ml Inj IV 0.5 mg Q3H PRN Administration Pain , Severe (7-10) REMDESIVIR 100 mg/ Sodium 250 mls @ 500 mls/hr 07/29/20 21:00 07/29/20 23:29 Chloride IV 08/01/20 21:29 500 mls/hr Q24HR@2100 SAY Administration Dextrose/Sodium Chloride 1,000 mls @ 50 mls/hr 07/29/20 17:00 D5/0.45ns IV DIRECT SAY Metoclopramide HCl 5 mg 07/22/20 22:01 Metoclopramide 10 Mg/2 Ml Inj IV Q6H PRN Nausea And Vomiting Mirtazapine 7.5 mg 07/22/20 22:00 07/29/20 23:31 Mirtazapine 15 Mg Tab PO 7.5 mg HS SAY Administration Morphine Sulfate 2 mg 07/25/20 14:33 Morphine 2 Mg/1 Ml Inj IV Q4H PRN Pain, Moderate (4-6) Ondansetron HCl 4 mg 07/22/20 22:01 Ondansetron 4 Mg/2 Ml Inj IV Q3H PRN Nausea And Vomiting Oxycodone/Acetaminophen 1 tab 07/25/20 14:33 07/25/20 20:21 Oxycodone /Acetaminophen 5-325mg Tab PO 1 tab Q6H PRN Administration Pain, Moderate (4-6) Pantoprazole Sodium 40 mg 07/22/20 22:00 07/30/20 10:15 Pantoprazole 40 Mg Tab PO 40 mg BID SAY Administration Senna 8.6 mg 07/22/20 21:55 Sennosides 8.6 Mg Tab PO HS PRN Constipation Sodium Chloride 10 ml 07/23/20 10:00 07/30/20 10:16 Sodium Chloride 0.9% 10 Ml Flush Syringe IV 10 ml BID SAY Administration Sodium Chloride 10 ml 07/22/20 22:01 Sodium Chloride 0.9% 10 Ml Flush Syringe IV PRN PRN LINE FLUSH Sodium Chloride 50 ml 07/28/20 15:00 07/29/20 23:30 Sodium Chloride 0.9% 50 Ml Ivpb IV 08/01/20 21:01 50 ml Q24HR@2100 SAY Administration Tiotropium Start 1 puff 07/23/20 10:00 07/30/20 10:16 Tiotropium 18 Mcg Cap Inhalation IH 1 puff QDAY SAY Administration Zinc Sulfate 220 mg 07/29/20 22:00 07/30/20 10:16 Zinc Sulfate 220 Mg Cap PO 220 mg BID SAY Administration
--- NOTE | 2020-07-30 13:42 | Progress Note ---
Assessment and Plan --Covid positive reported 07/26/2020 Isolation, ID, follow inflammatory markers, dexamethasone 10 days ID recommended remdesivir , follow renal function --Acute on chronic hypoxic respiratory failure Patient was requiring high flow nasal cannula oxygen, now on 5 L nasal cannula Patient already has home oxygen 3 L Prone positioning, ID and pulmonary consulted --Elevated D-dimers; Patient not stable for VQ scan to evaluate for PE Patient is on high flow oxygen Lower extremity venous Doppler negative for DVT Continue prophylactic heparin subcu twice a day --Right intertrochanteric hip fracture Orthopedic evaluated s/p Closed reduction insertion of intramedullary nail right femur 07/25/2020. Postop care per surgery , pain medications PT OT rehab, --COPD (chronic obstructive pulmonary disease) Continue duo nebs, oxygen titrate O2 sats to more than 90% Supportive care --Acute on chronic (acute kidney injury)/ATN patient might also hace CKD stage 4 gentle hydration, monitor renal function Avoid nephrotoxin, nephrology following -- Hypertension Catapres patch if necessary Hold oral antihypertensives As needed hydralazine --Full CODE STATUS; --DVT prophylaxis SCDs, subcu heparin renal dose Closely monitor the patient and adjust the management as needed Plan of care reviewed with the patient and her nurse Follow Ortho, ID and pulmonary evaluation and recommendations DC planning per case management Brief history: 75-year-old female patient with history of fall admitted with right trochanteric hip fracture evaluated by orthopedic surgeon underwent closed reduction with IM nail in the right femur patient was receiving physical therapy occupational therapy Covid test was done prior to placement which was positive. Patient has history of COPD home oxygen dependent, however with Covid, required high flow oxygen. ID orthopedic and pulmonary following brief history. DC planning per case management Daily Hospital course: 07/24; fracture right hip, pending Ortho evaluation Acute kidney injury, continue gentle hydration Closely monitor the patient and adjust the management 07/25; right intertrochanteric hip fracture s/p Closed reduction insertion of intramedullary nail right femur 07/25/2020 Continue postop care, PT OT, rehab versus home with home health in stable 07/26; patient feels slightly better, physical therapy Complains of pain, DC planning per case management 07/27; COVID-19 positive, ID consult, management per protocols Dexamethasone, no remdesivir due to acute kidney injury, isolation Already has home oxygen, proning 07/28; patient is on high flow oxygen, in mild distress In the setting of COVID-19 pneumonia and high flow oxygen, pulmonary consulted Follow ID and Ortho evaluation recommendations 07/29: Patient remains on high flow O2 - 10L N/c today, continue dexamethasone remdesivir for COVID-19, follow inflammatory markers, ID following will follow recommendation. PT eval and continue supportive care 07/30: Patient on 5 L nasal cannula today, continue dexamethasone and remdesivir, closely follow renal function. Wean off O2 as tolerated. DC back to nursing facility when clinically stable. Hospitalist Physical General appearance: Present: no distress, other (Elderly and frail) - EENT Eyes: Present: PERRL, EOM intact - Neck Neck: Present: supple, normal ROM - Respiratory Respiratory effort: normal Respiratory: bilateral: diminished, negative: rales, rhonchi, wheezing - Cardiovascular Rhythm: regular Heart Sounds: Present: S1 & S2 - Extremities Extremities: no ischemia, No edema - Abdominal General gastrointestinal: soft, non-tender, non-distended, normal bowel sounds - Integumentary Integumentary: Present: clear, warm - Psychiatric Psychiatric: appropriate mood/affect, cooperative - Neurologic Neurologic: CNII-XII intact, moves all extremities Subjective Date of service: 07/30/20 Interval history: Patient seen and examined. Medical records and medication list reviewed. No acute event overnight noted by the RN. Patient remains on 5 L O2 today Discussed plan of care at bedside with patient. Objective - Constitutional Vitals: Vital Signs - 12hr 07/30/20 07/30/20 07/30/20 02:00 06:21 08:22 Temperature 97.5 F L Pulse Rate 61 Respiratory 18 Rate Blood Pressure 124/53 Blood Pressure [Left] O2 Sat by Pulse 91 95 98 Oximetry 07/30/20 07/30/20 09:00 10:57 Temperature Pulse Rate 123 H Respiratory 20 Rate Blood Pressure Blood Pressure 173/92 [Left] O2 Sat by Pulse Oximetry - Labs CBC & Chem 7: 07/26/20 05:06 07/30/20 05:21 Labs: Abnormal lab results 07/30/20 Range/Units 05:21 Chloride 110.5 H (98-107) mmol/L BUN 44 H (7-17) mg/dL Creatinine 1.8 H (0.6-1.2) mg/dL Total Protein 5.7 L (6.3-8.2) g/dL Albumin 2.9 L (3.9-5) g/dL HEART Score - HEART Score Age: > 65 Risk factors: 1-2 risk factors Troponin: < normal limit - Critical Actions Critical Actions: 0-3 pts:0.9-1.7%risk of adverse cardiac event.Candidate for discharge
--- NOTE | 2020-07-30 14:10 | Progress Note ---
Assessment and Plan Cultures: SARS CoV2 PCR: Positive A/P: 75-year-old female with hypertension, dementia, hyperlipidemia, schizophrenia, COPD, CKD, senior living resident was admitted to the hospital on 07/23/2019 with right hip pain and fracture: #COVID-19: With associated respiratory failure, high CRP. #Acute hypoxic respiratory failure: weaned to [place] #DANYA on CKD: stable creatinine. #COPD #Right hip fracture: Status post closed reduction and insertion of intramedullary nail in the right femur on 07/25/2020 Recs: -IV/PO Dexamethasone 6 mg daily x 10 days, D4 -continue IV remdesivir, x 5 days, monitor LFTs -prophylactic anticoagulation based on d-dimer per hospital protocol -trend ferritin, LDH, d-dimer, CRP every 2-3 days for risk stratification and to assess disease progression Miguelito Esqueda MD, FACP [facility] ([facility]) O: [phone] F: [phone] Subjective Date of service: 07/30/20 Interval history: No fever. Remains on 8 lit [place]. Objective - Exam Narrative Exam: Physical Exam (reviewed in chart to minimize risk of transmission) Constitutional: deferred Head, Ears, Nose: deferred Eyes: deferred Neck: deferred Oral: deferred Cardiovascular: deferred Respiratory: deferred GI: deferred Musculoskeletal: deferred Skin: deferred Hem/Lymphatic: deferred Psych: deferred Neurological: deferred - Constitutional Vitals: Vital Signs Temp Pulse Resp BP Pulse Ox 98.3 F 64 20 118/52 93 07/30/20 12:37 07/30/20 12:37 07/30/20 12:37 07/30/20 12:37 07/30/20 12:37 Temperature -Last 24 Hours Temperature 98.3 F Temperature 97.5 F Temperature 97.6 F Temperature 98.0 F - Labs CBC & Chem 7: 07/26/20 05:06 07/30/20 05:21 Labs: Abnormal lab results 07/30/20 Range/Units 05:21 Chloride 110.5 H (98-107) mmol/L BUN 44 H (7-17) mg/dL Creatinine 1.8 H (0.6-1.2) mg/dL Total Protein 5.7 L (6.3-8.2) g/dL Albumin 2.9 L (3.9-5) g/dL
[2020-07-30 18:42] LABS: Hematocrit 31.6 % (30.3-42.9); Hemoglobin 10.1 gm/dl (10.1-14.3); Mean Corpuscular HGB Conc 32 % (30-34); Mean Corpuscular Volume 95 fl (79-97); Platelet Count 263 K/mm3 (140-440); Red Blood Count 3.31 M/mm3 (3.65-5.03); Red Cell Distribution Width 14.3 % (13.2-15.2)
[2020-07-30 18:53] LABS: INR 1.06 (0.87-1.13)
[2020-07-30 18:54] LABS: Partial Thromboplastin Time 34.6 Sec. (24.2-36.6)
[2020-07-30] MEDS: REMDESIVIR 100 MG in SODIUM CHLORIDE 0.9% 250ML 250 ML IV SCH (22:51)
[2020-07-30] MEDS: SODIUM CHLORIDE 0.9% 50 ML IVPB IV SCH (22:52)
[2020-07-30] MEDS: MIRTAZAPINE 15 MG TAB PO SCH (22:52)
[2020-07-30] MEDS: APIXABAN 2.5 MG TAB PO SCH (22:53)
[2020-07-31] MEDS: CHOLECALCIFEROL (VIT D3) 5,000 UNIT TAB PO SCH (10:27)
[2020-07-31] MEDS: PANTOPRAZOLE 40 MG TAB PO SCH ×2 (10:27→22:22)
[2020-07-31] MEDS: APIXABAN 2.5 MG TAB PO SCH ×2 (10:28→22:22)
[2020-07-31] MEDS: dexAMETHasone 4 MG/ML VIAL IV SCH (10:28)
[2020-07-31] MEDS: FERROUS GLUCONATE 324 MG TAB PO SCH (10:28)
[2020-07-31] MEDS: ASCORBIC ACID 500 MG TAB PO SCH ×2 (10:28→22:23)
[2020-07-31 10:30] LABS: Albumin 3.1 g/dL (3.9-5); Calcium 8.7 mg/dL (8.4-10.2)
[2020-07-31] MEDS: ZINC SULFATE 220 MG CAP PO SCH ×2 (10:32→22:23)
[2020-07-31] MEDS: ALBUTEROL 2.5 MG/3 ML NEBU IH PRN (10:48)
--- NOTE | 2020-07-31 13:00 | Progress Note ---
Assessment and Plan 1. Acute kidney injury vs CKD stage 4: Renal function is about the same as prior visit. Monitor renal function. Creatinine level is slightly better. Avoid nephrotoxic agents. Meds dosage based on GFR. 2. FEN: Monitor volume status and lytes. 3. Covid infection: Isolation, follow inflammatory markers. Dexamethasone. Followed by ID. 4. Acute on chronic hypoxemic respiratory failure, POA: 2/2 COVID infection. CXR showed atelectasis. Covid test positive. Patient on home oxygen 3 L. 5. Right intertrochanteric hip fracture: S/p Closed reduction insertion of intramedullary nail right femur 07/25/2020. Postop care per surgery, pain control, PT/OT and rehab. 6. COPD: Continue duonebs, titrate O2 sats to more than 90% Supportive care. 7. H/o Dementia: Supportive care. 8. HTN: Monitor BP. Adjust meds as needed. 9. Anemia: Monitor. Subjective: Patient was seen and examined at the bedside. Objective: General appearance: well-developed, appears stated age, appears emaciated, not in distress HEENT: ATNC, JANET Neck: trachea midline Respiratory: diminished breath sounds Heart: regular, S1S2, no murmur Gastrointestinal: soft, normoactive bowel sounds, not tender Integumentary: no obvious rash Ext: no edema Neurologic: alert, conversing, able to move extremities, confused Subjective Date of service: 07/31/20 Objective - Vital Signs Vital signs: Vital Signs - 12hr 07/31/20 06:05 Temperature 97.1 F L Pulse Rate 82 Respiratory 16 Rate Blood Pressure 145/70 O2 Sat by Pulse 92 Oximetry - Lab 07/30/20 17:51 07/31/20 08:48 Most recent lab results Calcium 8.7 mg/dL (8.4-10.2) 07/31/20 08:48 Magnesium 1.60 mg/dL (1.7-2.3) L 07/25/20 05:50 Medications & Allergies - Medications Allergies/Adverse Reactions: Allergies No Known Allergies Allergy (Verified 04/25/17 12:02) Home Medications: Home Medications Medication Instructions Recorded Confirmed Last Taken Type Tiotropium [Spiriva] 18 mcg IH QDAY 05/02/15 06/27/17 01/01/16 History Ondansetron [Zofran TAB] 4 mg PO Q8HR PRN 06/09/16 06/27/17 Unknown History Albuterol Sulfate [Ventolin Hfa] 2 puff IH BID PRN 04/25/17 06/27/17 Unknown History Cholecalciferol (Vitamin D3) 5,000 unit PO DAILY 04/25/17 06/27/17 Unknown History [Vitamin D3 5,000 UNIT] Ferrous Gluconate [Ferrous 324 mg PO QDAY 04/25/17 06/27/17 Unknown History Gluconate 324 MG] Ipratropium/Albuterol Sulfate 1 ampul IH Q6HR PRN 04/25/17 06/27/17 Unknown History [DUONEB *Not for PRN Use*] Mirtazapine [Remeron] 7.5 mg PO HS 04/25/17 06/27/17 Unknown History Sennosides [Senna] 8.6 mg PO HS PRN 04/25/17 06/27/17 Unknown History Pantoprazole [Protonix TAB] 40 mg PO BID #60 tablet 04/28/17 06/27/17 Unknown Rx oxyCODONE /ACETAMINOPHEN [Percocet 1 tab PO Q4HR PRN #20 tablet 04/28/17 06/27/17 Unknown Rx 5/325 mg] Acetaminophen [Acetaminophen TAB] 650 mg PO Q4HR PRN MDD 3,000 mg 06/01/17 06/27/17 Unknown History levoFLOXacin [Levaquin TAB] 500 mg PO Q48H #2 tablet 06/28/17 Unknown Rx Active Medications: Generic Name Dose Route Start Last Admin Trade Name Freq PRN Reason Stop Dose Admin Acetaminophen 650 mg 07/22/20 21:55 07/27/20 21:45 Acetaminophen 325 Mg Tab PO 650 mg Q4H PRN Administration PAIN (1-3) Albuterol 2.5 mg 07/22/20 22:51 07/31/20 10:48 Albuterol 2.5 Mg/3 Ml Nebu IH 2.5 mg BIDRT PRN Administration Shortness Of Breath Apixaban 2.5 mg 07/30/20 22:00 07/31/20 10:28 Apixaban 2.5 Mg Tab PO 2.5 mg Q12HR SAY Administration Protocol Ascorbic Acid 500 mg 07/29/20 22:00 07/31/20 10:28 Ascorbic Acid 500 Mg Tab PO 500 mg BID SAY Administration Cholecalciferol 5,000 unit 07/23/20 10:00 07/31/20 10:27 Cholecalciferol (Vit D3) 5,000 Unit Tab PO 5,000 unit DAILY SAY Administration Dexamethasone 6 mg 07/27/20 19:00 07/31/20 10:28 Dexamethasone 4 Mg/Ml Vial IV 08/05/20 10:01 6 mg DAILY SAY Administration Ferrous Gluconate 324 mg 07/23/20 10:00 07/31/20 10:28 Ferrous Gluconate 324 Mg Tab PO 324 mg QDAY SAY Administration Hydromorphone HCl 0.5 mg 07/22/20 22:01 07/25/20 15:36 Hydromorphone 1 Mg/1 Ml Inj IV 0.5 mg Q3H PRN Administration Pain , Severe (7-10) REMDESIVIR 100 mg/ Sodium 250 mls @ 500 mls/hr 07/29/20 21:00 07/30/20 22:51 Chloride IV 08/01/20 21:29 500 mls/hr Q24HR@2100 SAY Administration Dextrose/Sodium Chloride 1,000 mls @ 50 mls/hr 07/29/20 17:00 07/30/20 18:36 D5/0.45ns IV 50 mls/hr DIRECT SAY Administration Metoclopramide HCl 5 mg 07/22/20 22:01 Metoclopramide 10 Mg/2 Ml Inj IV Q6H PRN Nausea And Vomiting Mirtazapine 7.5 mg 07/22/20 22:00 07/30/20 22:52 Mirtazapine 15 Mg Tab PO 7.5 mg HS SAY Administration Morphine Sulfate 2 mg 07/25/20 14:33 Morphine 2 Mg/1 Ml Inj IV Q4H PRN Pain, Moderate (4-6) Ondansetron HCl 4 mg 07/22/20 22:01 Ondansetron 4 Mg/2 Ml Inj IV Q3H PRN Nausea And Vomiting Oxycodone/Acetaminophen 1 tab 07/25/20 14:33 07/25/20 20:21 Oxycodone /Acetaminophen 5-325mg Tab PO 1 tab Q6H PRN Administration Pain, Moderate (4-6) Pantoprazole Sodium 40 mg 07/22/20 22:00 07/31/20 10:27 Pantoprazole 40 Mg Tab PO 40 mg BID SAY Administration Senna 8.6 mg 07/22/20 21:55 Sennosides 8.6 Mg Tab PO HS PRN Constipation Sodium Chloride 10 ml 07/23/20 10:00 07/31/20 10:29 Sodium Chloride 0.9% 10 Ml Flush Syringe IV 10 ml BID SAY Administration Sodium Chloride 10 ml 07/22/20 22:01 Sodium Chloride 0.9% 10 Ml Flush Syringe IV PRN PRN LINE FLUSH Sodium Chloride 50 ml 07/28/20 15:00 07/30/20 22:52 Sodium Chloride 0.9% 50 Ml Ivpb IV 08/01/20 21:01 50 ml Q24HR@2100 SAY Administration Tiotropium Guy 1 puff 07/23/20 10:00 07/30/20 10:16 Tiotropium 18 Mcg Cap Inhalation IH 1 puff QDAY SAY Administration Zinc Sulfate 220 mg 07/29/20 22:00 07/31/20 10:32 Zinc Sulfate 220 Mg Cap PO 220 mg BID SAY Administration
[2020-07-31] MEDS: TIOTROPIUM 18 MCG CAP INHALATION IH SCH (13:56)
--- NOTE | 2020-07-31 14:15 | Progress Note ---
Assessment and Plan Cultures: SARS CoV2 PCR: Positive A/P: 75-year-old female with hypertension, dementia, hyperlipidemia, schizophrenia, COPD, CKD, detention resident was admitted to the hospital on 07/23/2019 with right hip pain and fracture: #COVID-19: With associated respiratory failure, high CRP. #Acute hypoxic respiratory failure: weaned to [place]. #DANYA on CKD: stable creatinine. #COPD #Right hip fracture: Status post closed reduction and insertion of intramedullary nail in the right femur on 07/25/2020 Recs: -IV/PO Dexamethasone 6 mg daily x 10 days, D5 -continue IV remdesivir, x 5 days, monitor LFTs -prophylactic anticoagulation based on d-dimer per hospital protocol -trend ferritin, LDH, d-dimer, CRP every 2-3 days for risk stratification and to assess disease progression Miguelito Esqueda MD, FACP [facility] ([facility] O: [phone] F: [phone] Subjective Date of service: 07/31/20 Interval history: No fever. Remains on oxygen, but slowly improving requirements. Objective - Exam Narrative Exam: Physical Exam (reviewed in chart to minimize risk of transmission) Constitutional: deferred Head, Ears, Nose: deferred Eyes: deferred Neck: deferred Oral: deferred Cardiovascular: deferred Respiratory: deferred GI: deferred Musculoskeletal: deferred Skin: deferred Hem/Lymphatic: deferred Psych: deferred Neurological: deferred - Constitutional Vitals: Vital Signs Temp Pulse Resp BP Pulse Ox 97.1 F L 82 16 145/70 92 07/31/20 06:05 07/31/20 06:05 07/31/20 06:05 07/31/20 06:05 07/31/20 06:05 Temperature -Last 24 Hours Temperature 97.1 F Temperature 97.9 F Temperature 98.3 F - Labs CBC & Chem 7: 07/30/20 17:51 07/31/20 08:48 Labs: Abnormal lab results 07/30/20 07/30/20 07/31/20 Range/Units 17:51 17:51 08:48 RBC 3.31 L (3.65-5.03) M/mm3 BUN 44 H (7-17) mg/dL Creatinine 1.7 H 1.8 H (0.6-1.2) mg/dL Total Protein 5.6 L (6.3-8.2) g/dL Albumin 3.1 L (3.9-5) g/dL
--- NOTE | 2020-07-31 16:16 | Progress Note ---
Assessment and Plan --Covid positive reported 07/26/2020 Isolation, ID, follow inflammatory markers, dexamethasone 10 days ID recommended remdesivir , follow renal function --Acute on chronic hypoxic respiratory failure Patient was requiring high flow nasal cannula oxygen, now on 6-7 L nasal cannula Patient already has home oxygen 3 L Prone positioning, ID and pulmonary consulted --Elevated D-dimers; Patient not stable for VQ scan to evaluate for PE Patient is on high flow oxygen Lower extremity venous Doppler negative for DVT Continue prophylactic heparin subcu twice a day --Right intertrochanteric hip fracture Orthopedic evaluated s/p Closed reduction insertion of intramedullary nail right femur 07/25/2020. Postop care per surgery , pain medications PT OT rehab, --COPD (chronic obstructive pulmonary disease) Continue duo nebs, oxygen titrate O2 sats to more than 90% Supportive care --Acute on chronic (acute kidney injury)/ATN patient might also hace CKD stage 4 gentle hydration, monitor renal function Avoid nephrotoxin, nephrology following -- Hypertension Catapres patch if necessary Hold oral antihypertensives As needed hydralazine --Full CODE STATUS; --DVT prophylaxis SCDs, subcu heparin renal dose Closely monitor the patient and adjust the management as needed Plan of care reviewed with the patient and her nurse Follow Ortho, ID and pulmonary evaluation and recommendations DC planning per case management Brief history: 75-year-old female patient with history of fall admitted with right trochanteric hip fracture evaluated by orthopedic surgeon underwent closed reduction with IM nail in the right femur patient was receiving physical therapy occupational therapy Covid test was done prior to placement which was positive. Patient has history of COPD home oxygen dependent, however with Covid, required high flow oxygen. ID orthopedic and pulmonary following brief history. DC planning per case management Daily Hospital course: 07/24; fracture right hip, pending Ortho evaluation Acute kidney injury, continue gentle hydration Closely monitor the patient and adjust the management 07/25; right intertrochanteric hip fracture s/p Closed reduction insertion of intramedullary nail right femur 07/25/2020 Continue postop care, PT OT, rehab versus home with home health in stable 07/26; patient feels slightly better, physical therapy Complains of pain, DC planning per case management 07/27; COVID-19 positive, ID consult, management per protocols Dexamethasone, no remdesivir due to acute kidney injury, isolation Already has home oxygen, proning 07/28; patient is on high flow oxygen, in mild distress In the setting of COVID-19 pneumonia and high flow oxygen, pulmonary consulted Follow ID and Ortho evaluation recommendations 07/29: Patient remains on high flow O2 - 10L N/c today, continue dexamethasone remdesivir for COVID-19, follow inflammatory markers, ID following will follow recommendation. PT eval and continue supportive care 07/30: Patient on 5 L nasal cannula today, continue dexamethasone and remdesivir, closely follow renal function. Wean off O2 as tolerated. DC back to nursing facility when clinically stable. 07/31: Patient off oxygen requirement is increased to 6 to 7 L O2 today. We will repeat chest x-ray, will stop IV fluid and will give one dose of Lasix. Continue remdesivir and dexamethasone. Continue to follow inflammatory markers, continue supportive care and nebulizer scheduled breathing treatment Hospitalist Physical General appearance: Present: no distress, other (Elderly and frail) - EENT Eyes: Present: PERRL, EOM intact - Neck Neck: Present: supple, normal ROM - Respiratory Respiratory effort: normal Respiratory: bilateral: diminished, negative: rales, rhonchi, wheezing - Cardiovascular Rhythm: regular Heart Sounds: Present: S1 & S2 - Extremities Extremities: no ischemia, No edema - Abdominal General gastrointestinal: soft, non-tender, non-distended, normal bowel sounds - Integumentary Integumentary: Present: clear, warm - Psychiatric Psychiatric: appropriate mood/affect, cooperative - Neurologic Neurologic: CNII-XII intact, moves all extremities Subjective Date of service: 07/31/20 Interval history: Patient seen and examined. Medical records and medication list reviewed. No acute event overnight noted by the RN. Patient remains on 6-7 L O2 today Discussed plan of care at bedside with patient. Objective - Constitutional Vitals: Vital Signs - 12hr 07/31/20 07/31/20 06:05 10:48 Temperature 97.1 F L Pulse Rate 82 Pulse Rate [ 82 Anterior Bilateral] Respiratory 16 Rate Respiratory 20 Rate [Anterior Bilateral] Blood Pressure 145/70 O2 Sat by Pulse 92 96 Oximetry - Labs CBC & Chem 7: 07/30/20 17:51 07/31/20 08:48 Labs: Abnormal lab results 07/30/20 07/30/20 07/31/20 Range/Units 17:51 17:51 08:48 RBC 3.31 L (3.65-5.03) M/mm3 BUN 44 H (7-17) mg/dL Creatinine 1.7 H 1.8 H (0.6-1.2) mg/dL Total Protein 5.6 L (6.3-8.2) g/dL Albumin 3.1 L (3.9-5) g/dL HEART Score - HEART Score Age: > 65 Risk factors: 1-2 risk factors Troponin: < normal limit - Critical Actions Critical Actions: 0-3 pts:0.9-1.7%risk of adverse cardiac event.Candidate for discharge
--- NOTE | 2020-07-31 16:42 | XRay Report ---
CHEST 1 VIEW 07/31/2020 3:33 PM INDICATION / CLINICAL INFORMATION: SOB. COMPARISON: July 29, 2019 FINDINGS: Heart is enlarged. Mild increased interstitial prominence in bilateral lungs persist. Atelectasis in the right lower lung appears improved. IMPRESSION: 1. Cardiomegaly. Mild increased interstitial prominence in bilateral lungs. No focal consolidation. Signer Name: Manjinder Ayala MD Signed: 07/31/2020 4:37 PM Workstation Name: [id number]
[2020-07-31] MEDS: FUROSEMIDE 20 MG/2 ML INJ IV SCH (17:18)
--- NOTE | 2020-07-31 18:41 | Progress Note ---
Assessment and Plan Imp: 1. Covid-19 with likely viral pneumonia 2. COPD exac. 3. Acute respiratory failure, hypoxia 4. CKD 5. Hiatal hernia 6. Hip fracture Rec: 1. Decadron 2. Remdesivir 3. Prone as tolerated 4. Bronchodilators 5. Wean O2 to keep sats 88% or > 6. On Eliquis 7. Further plans pending clinical course; complex decision-making Plan of care reviewed with patient, she understands/agrees Subjective Date of service: 07/31/20 Principal diagnosis: Covid-19 Interval history: No events. Awake, alert. On 8L NC [place]. Poor historian. SOB continues. Active Medications Acetaminophen (Acetaminophen 325 Mg Tab) 650 mg PO Q4H PRN PRN Reason: PAIN (1-3) Last Admin: 07/27/20 21:45 Dose: 650 mg Documented by: Albuterol (Albuterol 2.5 Mg/3 Ml Nebu) 2.5 mg IH BIDRT PRN PRN Reason: Shortness Of Breath Last Admin: 07/31/20 10:48 Dose: 2.5 mg Documented by: Apixaban (Apixaban 2.5 Mg Tab) 2.5 mg PO Q12HR [facility]; Protocol Last Admin: 07/31/20 10:28 Dose: 2.5 mg Documented by: Ascorbic Acid (Ascorbic Acid 500 Mg Tab) 500 mg PO BID [facility] Last Admin: 07/31/20 10:28 Dose: 500 mg Documented by: Cholecalciferol (Cholecalciferol (Vit D3) 5,000 Unit Tab) 5,000 unit PO DAILY [facility] Last Admin: 07/31/20 10:27 Dose: 5,000 unit Documented by: Dexamethasone (Dexamethasone 4 Mg/Ml Vial) 6 mg IV DAILY [facility] Stop: 08/05/20 10:01 Last Admin: 07/31/20 10:28 Dose: 6 mg Documented by: Ferrous Gluconate (Ferrous Gluconate 324 Mg Tab) 324 mg PO QDAY [facility] Last Admin: 07/31/20 10:28 Dose: 324 mg Documented by: Furosemide (Furosemide 20 Mg/2 Ml Inj) 20 mg IV DAILY@0600 [facility] Last Admin: 07/31/20 17:18 Dose: 20 mg Documented by: Hydromorphone HCl (Hydromorphone 1 Mg/1 Ml Inj) 0.5 mg IV Q3H PRN PRN Reason: Pain , Severe (7-10) Last Admin: 07/25/20 15:36 Dose: 0.5 mg Documented by: REMDESIVIR 100 mg/ Sodium (Chloride) 250 mls @ 500 mls/hr IV Q24HR@2100 [facility] Stop: 08/01/20 21:29 Last Admin: 07/30/20 22:51 Dose: 500 mls/hr Documented by: Metoclopramide HCl (Metoclopramide 10 Mg/2 Ml Inj) 5 mg IV Q6H PRN PRN Reason: Nausea And Vomiting Mirtazapine (Mirtazapine 15 Mg Tab) 7.5 mg PO HS [facility] Last Admin: 07/30/20 22:52 Dose: 7.5 mg Documented by: Morphine Sulfate (Morphine 2 Mg/1 Ml Inj) 2 mg IV Q4H PRN PRN Reason: Pain, Moderate (4-6) Ondansetron HCl (Ondansetron 4 Mg/2 Ml Inj) 4 mg IV Q3H PRN PRN Reason: Nausea And Vomiting Oxycodone/Acetaminophen (Oxycodone /Acetaminophen 5-325mg Tab) 1 tab PO Q6H PRN PRN Reason: Pain, Moderate (4-6) Last Admin: 07/25/20 20:21 Dose: 1 tab Documented by: Pantoprazole Sodium (Pantoprazole 40 Mg Tab) 40 mg PO BID [facility] Last Admin: 07/31/20 10:27 Dose: 40 mg Documented by: Senna (Sennosides 8.6 Mg Tab) 8.6 mg PO HS PRN PRN Reason: Constipation Sodium Chloride (Sodium Chloride 0.9% 10 Ml Flush Syringe) 10 ml IV BID [facility] Last Admin: 07/31/20 10:29 Dose: 10 ml Documented by: Sodium Chloride (Sodium Chloride 0.9% 10 Ml Flush Syringe) 10 ml IV PRN PRN PRN Reason: LINE FLUSH Sodium Chloride (Sodium Chloride 0.9% 50 Ml Ivpb) 50 ml IV Q24HR@2100 [facility] Stop: 08/01/20 21:01 Last Admin: 07/30/20 22:52 Dose: 50 ml Documented by: Tiotropium [place] (Tiotropium 18 Mcg Cap Inhalation) 1 puff IH QDAY [facility] Last Admin: 07/31/20 13:56 Dose: Not Given Documented by: Zinc Sulfate (Zinc Sulfate 220 Mg Cap) 220 mg PO BID SAY Last Admin: 07/31/20 10:32 Dose: 220 mg Documented by: Objective Vital Signs - 12hr 07/31/20 10:48 Pulse Rate [ 82 Anterior Bilateral] Respiratory 20 Rate [Anterior Bilateral] O2 Sat by Pulse 96 Oximetry Vital Signs - 24 hr 07/30/20 07/30/20 07/30/20 21:00 21:14 22:00 Temperature 97.9 F Pulse Rate 74 Pulse Rate [ Anterior Bilateral] Pulse Rate [ 74 Right Brachial] Respiratory 20 18 Rate Respiratory Rate [Anterior Bilateral] Blood Pressure 143/71 O2 Sat by Pulse 95 95 95 Oximetry 07/31/20 07/31/20 06:05 10:48 Temperature 97.1 F L Pulse Rate 82 Pulse Rate [ 82 Anterior Bilateral] Pulse Rate [ Right Brachial] Respiratory 16 Rate Respiratory 20 Rate [Anterior Bilateral] Blood Pressure 145/70 O2 Sat by Pulse 92 96 Oximetry Constitutional: no acute distress, alert Eyes: non-icteric ENT: oropharynx moist Neck: supple Effort: normal Ascultation: Bilateral: wheezes Cardiovascular: regular rate and rhythm Gastrointestinal: normoactive bowel sounds, soft, non-tender, non-distended Integumentary: normal Extremities: no cyanosis Neurologic: normal mental status, non-focal exam Psychiatric: mood appropriate, affect normal CBC and BMP: 07/30/20 17:51 07/31/20 08:48 ABG, PT/INR, D-dimer: PT/INR, D-dimer PT 13.6 Sec. (12.2-14.9) 07/30/20 17:51 INR 1.06 (0.87-1.13) 07/30/20 17:51 D-Dimer 2800.46 ng/mlDDU (0-234) H 07/27/20 19:23 Abnormal lab findings: Abnormal Labs 07/22/20 07/22/20 07/22/20 17:40 17:40 23:46 RBC Hgb Hct Lymph % (Auto) 10.9 L [place] % (Auto) Eos % (Auto) Lymph # (Auto) 0.9 L Seg Neutrophils % 78.9 H D-Dimer Sodium Chloride BUN 33 H Creatinine 2.0 H Glucose 108 H POC Glucose 107 H Magnesium Alkaline Phosphatase Lactate Dehydrogenase C-Reactive Protein Total Protein Albumin Coronavirus (PCR) 07/23/20 07/23/20 07/25/20 07:58 07:58 05:50 RBC 3.50 L Hgb Hct Lymph % (Auto) 12.0 L [place] % (Auto) 8.1 H 8.3 H Eos % (Auto) 6.6 H Lymph # (Auto) 0.7 L 1.0 L Seg Neutrophils % 74.9 H D-Dimer Sodium Chloride 107.2 H BUN 31 H Creatinine 2.0 H Glucose 102 H POC Glucose Magnesium Alkaline Phosphatase Lactate Dehydrogenase C-Reactive Protein Total Protein Albumin 3.7 L Coronavirus (PCR) 07/25/20 07/25/20 07/26/20 05:50 Unknown 05:06 RBC Hgb 9.8 L Hct 29.8 L Lymph % (Auto) [place] % (Auto) Eos % (Auto) Lymph # (Auto) Seg Neutrophils % D-Dimer Sodium Chloride 109.5 H BUN Creatinine 1.6 H Glucose 111 H POC Glucose Magnesium 1.60 L Alkaline Phosphatase Lactate Dehydrogenase C-Reactive Protein Total Protein Albumin Coronavirus (PCR) Positive A 07/27/20 07/27/20 07/27/20 19:23 19:23 19:23 RBC Hgb Hct Lymph % (Auto) [place] % (Auto) Eos % (Auto) Lymph # (Auto) Seg Neutrophils % D-Dimer 2800.46 H Sodium Chloride BUN 23 H Creatinine 2.1 H Glucose 112 H POC Glucose Magnesium Alkaline Phosphatase Lactate Dehydrogenase 238 H C-Reactive Protein 19.30 H Total Protein Albumin Coronavirus (PCR) 07/29/20 07/30/20 07/30/20 10:49 05:21 17:51 RBC 3.31 L Hgb Hct Lymph % (Auto) [place] % (Auto) Eos % (Auto) Lymph # (Auto) Seg Neutrophils % D-Dimer Sodium 146 H D Chloride 108.1 H 110.5 H BUN 40 H 44 H Creatinine 2.0 H 1.8 H Glucose POC Glucose Magnesium Alkaline Phosphatase 134 H Lactate Dehydrogenase C-Reactive Protein Total Protein 5.8 L 5.7 L Albumin 3.4 L 2.9 L Coronavirus (PCR) 07/30/20 07/31/20 17:51 08:48 RBC Hgb Hct Lymph % (Auto) [place] % (Auto) Eos % (Auto) Lymph # (Auto) Seg Neutrophils % D-Dimer Sodium Chloride BUN 44 H Creatinine 1.7 H 1.8 H Glucose POC Glucose Magnesium Alkaline Phosphatase Lactate Dehydrogenase C-Reactive Protein Total Protein 5.6 L Albumin 3.1 L Coronavirus (PCR) Chest x-ray: report reviewed, image reviewed
[2020-07-31] MEDS: REMDESIVIR 100 MG in SODIUM CHLORIDE 0.9% 250ML 250 ML IV SCH (22:22)
[2020-07-31] MEDS: SODIUM CHLORIDE 0.9% 50 ML IVPB IV SCH (22:22)
[2020-07-31] MEDS: MIRTAZAPINE 15 MG TAB PO SCH (22:22)
[2020-08-01] MEDS: FUROSEMIDE 20 MG/2 ML INJ IV SCH (05:10)
[2020-08-01 06:28] LABS: Hematocrit 31.4 % (30.3-42.9); Hemoglobin 10.1 gm/dl (10.1-14.3); Mean Corpuscular HGB Conc 32 % (30-34); Mean Corpuscular Volume 93 fl (79-97); Platelet Count 338 K/mm3 (140-440); Red Blood Count 3.39 M/mm3 (3.65-5.03)
[2020-08-01 06:48] LABS: Calcium 9.2 mg/dL (8.4-10.2)
[2020-08-01] MEDS ORDERED: FUROSEMIDE 20 MG/2 ML INJ IV SCH (09:32)
[2020-08-01] MEDS ORDERED: FUROSEMIDE 20 MG/2 ML INJ IV NR (10:00)
--- NOTE | 2020-08-01 10:14 | Progress Note ---
Assessment and Plan 1. Acute kidney injury vs CKD stage 4: Renal function is about the same as prior visit. Monitor renal function. Creatinine level is slightly better. Avoid nephrotoxic agents. Meds dosage based on GFR. 2. FEN: Monitor volume status and lytes. 3. Covid infection: Isolation, follow inflammatory markers. Dexamethasone. Followed by ID. 4. Acute on chronic hypoxemic respiratory failure, POA: 2/2 COVID infection. CXR showed atelectasis. Covid test positive. Patient on home oxygen 3 L. 5. Right intertrochanteric hip fracture: S/p Closed reduction insertion of intramedullary nail right femur 07/25/2020. Postop care per surgery, pain control, PT/OT and rehab. 6. COPD: Continue duonebs, titrate O2 sats to more than 90% Supportive care. 7. H/o Dementia: Supportive care. 8. HTN: Monitor BP. Adjust meds as needed. 9. Anemia: Monitor. Subjective: Patient was seen and examined at the bedside. Doing ok. Objective: General appearance: well-developed, appears stated age, appears emaciated, not in distress, NC O2 (salter) HEENT: ATNC, JANET Neck: trachea midline Respiratory: diminished breath sounds Heart: regular, S1S2, no murmur Gastrointestinal: soft, normoactive bowel sounds, not tender Integumentary: no obvious rash Ext: no edema Neurologic: alert, conversing, able to move extremities, confused Subjective Date of service: 08/01/20 Principal diagnosis: Covid-19 Objective - Vital Signs Vital signs: Vital Signs - 12hr 07/31/20 08/01/20 08/01/20 22:20 06:50 08:19 Temperature 97.4 F L Pulse Rate 68 Respiratory 22 Rate Respiratory Rate [Right Hip ] Blood Pressure 139/89 O2 Sat by Pulse 96 97 94 Oximetry 08/01/20 08:49 Temperature Pulse Rate Respiratory Rate Respiratory 18 Rate [Right Hip ] Blood Pressure O2 Sat by Pulse Oximetry - Lab 08/01/20 06:11 08/01/20 06:11 Most recent lab results Calcium 9.2 mg/dL (8.4-10.2) 08/01/20 06:11 Magnesium 1.60 mg/dL (1.7-2.3) L 07/25/20 05:50 Medications & Allergies - Medications Allergies/Adverse Reactions: Allergies No Known Allergies Allergy (Verified 04/25/17 12:02) Home Medications: Home Medications Medication Instructions Recorded Confirmed Last Taken Type Tiotropium [Spiriva] 18 mcg IH QDAY 05/02/15 06/27/17 01/01/16 History Ondansetron [Zofran TAB] 4 mg PO Q8HR PRN 06/09/16 06/27/17 Unknown History Albuterol Sulfate [Ventolin Hfa] 2 puff IH BID PRN 04/25/17 06/27/17 Unknown History Cholecalciferol (Vitamin D3) 5,000 unit PO DAILY 04/25/17 06/27/17 Unknown History [Vitamin D3 5,000 UNIT] Ferrous Gluconate [Ferrous 324 mg PO QDAY 04/25/17 06/27/17 Unknown History Gluconate 324 MG] Ipratropium/Albuterol Sulfate 1 ampul IH Q6HR PRN 04/25/17 06/27/17 Unknown History [DUONEB *Not for PRN Use*] Mirtazapine [Remeron] 7.5 mg PO HS 04/25/17 06/27/17 Unknown History Sennosides [Senna] 8.6 mg PO HS PRN 04/25/17 06/27/17 Unknown History Pantoprazole [Protonix TAB] 40 mg PO BID #60 tablet 04/28/17 06/27/17 Unknown Rx oxyCODONE /ACETAMINOPHEN [Percocet 1 tab PO Q4HR PRN #20 tablet 04/28/17 06/27/17 Unknown Rx 5/325 mg] Acetaminophen [Acetaminophen TAB] 650 mg PO Q4HR PRN MDD 3,000 mg 06/01/17 06/27/17 Unknown History levoFLOXacin [Levaquin TAB] 500 mg PO Q48H #2 tablet 06/28/17 Unknown Rx Active Medications: Generic Name Dose Route Start Last Admin Trade Name Freq PRN Reason Stop Dose Admin Acetaminophen 650 mg 07/22/20 21:55 07/27/20 21:45 Acetaminophen 325 Mg Tab PO 650 mg Q4H PRN Administration PAIN (1-3) Albuterol 2.5 mg 07/22/20 22:51 07/31/20 10:48 Albuterol 2.5 Mg/3 Ml Nebu IH 2.5 mg BIDRT PRN Administration Shortness Of Breath Apixaban 2.5 mg 07/30/20 22:00 07/31/20 22:22 Apixaban 2.5 Mg Tab PO 2.5 mg Q12HR SAY Administration Protocol Ascorbic Acid 500 mg 07/29/20 22:00 07/31/20 22:23 Ascorbic Acid 500 Mg Tab PO 500 mg BID SAY Administration Cholecalciferol 5,000 unit 07/23/20 10:00 07/31/20 10:27 Cholecalciferol (Vit D3) 5,000 Unit Tab PO 5,000 unit DAILY SAY Administration Dexamethasone 6 mg 07/27/20 19:00 07/31/20 10:28 Dexamethasone 4 Mg/Ml Vial IV 08/05/20 10:01 6 mg DAILY SAY Administration Ferrous Gluconate 324 mg 07/23/20 10:00 07/31/20 10:28 Ferrous Gluconate 324 Mg Tab PO 324 mg QDAY [facility] Administration Furosemide 20 mg 08/01/20 10:00 Furosemide 20 Mg/2 Ml Inj IV 08/01/20 12:00 ONCE NR Furosemide 40 mg 08/02/20 06:00 Furosemide 40 Mg/4 Ml Inj IV DAILY@0600 [facility] Hydromorphone HCl 0.5 mg 07/22/20 22:01 07/25/20 15:36 Hydromorphone 1 Mg/1 Ml Inj IV 0.5 mg Q3H PRN Administration Pain , Severe (7-10) REMDESIVIR 100 mg/ Sodium 250 mls @ 500 mls/hr 07/29/20 21:00 07/31/20 22:22 Chloride IV 08/01/20 21:29 500 mls/hr Q24HR@2100 [facility] Administration Metoclopramide HCl 5 mg 07/22/20 22:01 Metoclopramide 10 Mg/2 Ml Inj IV Q6H PRN Nausea And Vomiting Mirtazapine 7.5 mg 07/22/20 22:00 07/31/20 22:22 Mirtazapine 15 Mg Tab PO 7.5 mg HS [facility] Administration Morphine Sulfate 2 mg 07/25/20 14:33 Morphine 2 Mg/1 Ml Inj IV Q4H PRN Pain, Moderate (4-6) Ondansetron HCl 4 mg 07/22/20 22:01 Ondansetron 4 Mg/2 Ml Inj IV Q3H PRN Nausea And Vomiting Oxycodone/Acetaminophen 1 tab 07/25/20 14:33 07/25/20 20:21 Oxycodone /Acetaminophen 5-325mg Tab PO 1 tab Q6H PRN Administration Pain, Moderate (4-6) Pantoprazole Sodium 40 mg 07/22/20 22:00 07/31/20 22:22 Pantoprazole 40 Mg Tab PO 40 mg BID SAY Administration Senna 8.6 mg 07/22/20 21:55 Sennosides 8.6 Mg Tab PO HS PRN Constipation Sodium Chloride 10 ml 07/23/20 10:00 07/31/20 22:23 Sodium Chloride 0.9% 10 Ml Flush Syringe IV 10 ml BID SAY Administration Sodium Chloride 10 ml 07/22/20 22:01 Sodium Chloride 0.9% 10 Ml Flush Syringe IV PRN PRN LINE FLUSH Sodium Chloride 50 ml 07/28/20 15:00 07/31/20 22:22 Sodium Chloride 0.9% 50 Ml Ivpb IV 08/01/20 21:01 50 ml Q24HR@2100 SAY Administration Tiotropium [place] 1 puff 07/23/20 10:00 07/31/20 13:56 Tiotropium 18 Mcg Cap Inhalation IH Not Given QDAY SAY Zinc Sulfate 220 mg 07/29/20 22:00 07/31/20 22:23 Zinc Sulfate 220 Mg Cap PO 220 mg BID SAY Administration
[2020-08-01] MEDS: CHOLECALCIFEROL (VIT D3) 5,000 UNIT TAB PO SCH (10:28)
[2020-08-01] MEDS: ZINC SULFATE 220 MG CAP PO SCH ×2 (10:28→22:06)
[2020-08-01] MEDS: dexAMETHasone 4 MG/ML VIAL IV SCH (10:29)
[2020-08-01] MEDS: ASCORBIC ACID 500 MG TAB PO SCH ×2 (10:29→22:06)
[2020-08-01] MEDS: PANTOPRAZOLE 40 MG TAB PO SCH ×2 (10:29→22:05)
[2020-08-01] MEDS: APIXABAN 2.5 MG TAB PO SCH (10:31)
[2020-08-01] MEDS: FERROUS GLUCONATE 324 MG TAB PO SCH (10:41)
[2020-08-01] MEDS: TIOTROPIUM 18 MCG CAP INHALATION IH SCH (10:41)
--- NOTE | 2020-08-01 12:56 | Progress Note ---
Assessment and Plan Cultures: SARS CoV2 PCR: Positive A/P: 75-year-old female with hypertension, dementia, hyperlipidemia, schizophrenia, COPD, CKD, care home resident was admitted to the hospital on 07/23/2019 with right hip pain and fracture: #COVID-19: With associated respiratory failure, high CRP. On steroids, remdesivir. #Acute hypoxic respiratory failure: weaned to salter NC. #DANYA on CKD: stable creatinine. #COPD #Right hip fracture: Status post closed reduction and insertion of intramedullary nail in the right femur on 07/25/2020 Recs: -IV/PO Dexamethasone 6 mg daily x 10 days, D6 -Last day of Remdesivir today -prophylactic anticoagulation based on d-dimer per hospital protocol, on eliquis -no need to repeat markers if clinically stable to improving -continue to wean oxygen, discharge planning Miguelito Esqueda MD, FACP [facility] ([facility] O: [phone] F: [phone] Subjective Date of service: 08/01/20 Principal diagnosis: Covid-19 Interval history: No fever. Remains on oxygen, but slowly improving requirements, down to 5 lit/min. Objective - Exam Narrative Exam: Physical Exam (reviewed in chart to minimize risk of transmission) Constitutional: deferred Head, Ears, Nose: deferred Eyes: deferred Neck: deferred Oral: deferred Cardiovascular: deferred Respiratory: deferred GI: deferred Musculoskeletal: deferred Skin: deferred Hem/Lymphatic: deferred Psych: deferred Neurological: deferred - Constitutional Vitals: Vital Signs Temp Pulse Resp BP Pulse Ox 97.4 F L 68 20 139/89 97 08/01/20 06:50 08/01/20 06:50 08/01/20 10:00 08/01/20 06:50 08/01/20 10:00 Temperature -Last 24 Hours Temperature 97.4 F Temperature 97.5 F Temperature 98.2 F - Labs CBC & Chem 7: 08/01/20 06:11 08/01/20 06:11 Labs: Abnormal lab results 08/01/20 08/01/20 08/01/20 Range/Units 06:11 06:11 11:00 RBC 3.39 L (3.65-5.03) M/mm3 D-Dimer 2664.53 H (0-234) ng/mlDDU BUN 42 H (7-17) mg/dL Creatinine 1.7 H (0.6-1.2) mg/dL Lactate Dehydrogenase (91-180) units/L C-Reactive Protein (0.00-1.30) mg/dL 08/01/20 Range/Units 11:00 RBC (3.65-5.03) M/mm3 D-Dimer (0-234) ng/mlDDU BUN (7-17) mg/dL Creatinine (0.6-1.2) mg/dL Lactate Dehydrogenase 378 H (91-180) units/L C-Reactive Protein 4.00 H (0.00-1.30) mg/dL
--- NOTE | 2020-08-01 13:47 | Progress Note ---
Assessment and Plan Assessment and Plan Imp: 1. Covid-19 with likely viral pneumonia 2. COPD exac. 3. Acute respiratory failure, hypoxia 4. CKD 5. Hiatal hernia 6. Hip fracture Rec: 1. Decadron 2. Remdesivir 3. Prone as tolerated 4. Bronchodilators 5. Wean O2 to keep sats 88% or > 6. On Eliquis 7. Further plans pending clinical course; complex decision-making Subjective Date of service: 08/01/20 Principal diagnosis: Covid-19 Interval history: No new complaints. Breathing is stable. Mild cough. Still on 6 to 8 L nasal cannula. Objective Vital Signs - 12hr 08/01/20 08/01/20 08/01/20 06:50 08:19 08:49 Temperature 97.4 F L Pulse Rate 68 Respiratory 22 Rate Respiratory 18 Rate [Right Hip ] Blood Pressure 139/89 O2 Sat by Pulse 97 94 Oximetry 08/01/20 10:00 Temperature Pulse Rate Respiratory 20 Rate Respiratory Rate [Right Hip ] Blood Pressure O2 Sat by Pulse 97 Oximetry Constitutional: no acute distress, alert Eyes: non-icteric ENT: oropharynx moist Neck: supple Effort: normal Ascultation: Bilateral: clear, wheezes Cardiovascular: regular rate and rhythm Gastrointestinal: normoactive bowel sounds, soft, non-tender, non-distended Integumentary: normal Extremities: no cyanosis Neurologic: normal mental status, non-focal exam Psychiatric: mood appropriate, affect normal CBC and BMP: 08/01/20 06:11 08/01/20 06:11 ABG, PT/INR, D-dimer: PT/INR, D-dimer PT 13.6 Sec. (12.2-14.9) 07/30/20 17:51 INR 1.06 (0.87-1.13) 07/30/20 17:51 D-Dimer 2664.53 ng/mlDDU (0-234) H 08/01/20 11:00 Abnormal lab findings: Abnormal Labs 07/22/20 07/22/20 07/22/20 17:40 17:40 23:46 RBC Hgb Hct Lymph % (Auto) 10.9 L [place] % (Auto) Eos % (Auto) Lymph # (Auto) 0.9 L Seg Neutrophils % 78.9 H D-Dimer Sodium Chloride BUN 33 H Creatinine 2.0 H Glucose 108 H POC Glucose 107 H Magnesium Alkaline Phosphatase Lactate Dehydrogenase C-Reactive Protein Total Protein Albumin Coronavirus (PCR) 07/23/20 07/23/20 07/25/20 07:58 07:58 05:50 RBC 3.50 L Hgb Hct Lymph % (Auto) 12.0 L [place] % (Auto) 8.1 H 8.3 H Eos % (Auto) 6.6 H Lymph # (Auto) 0.7 L 1.0 L Seg Neutrophils % 74.9 H D-Dimer Sodium Chloride 107.2 H BUN 31 H Creatinine 2.0 H Glucose 102 H POC Glucose Magnesium Alkaline Phosphatase Lactate Dehydrogenase C-Reactive Protein Total Protein Albumin 3.7 L Coronavirus (PCR) 07/25/20 07/25/20 07/26/20 05:50 Unknown 05:06 RBC Hgb 9.8 L Hct 29.8 L Lymph % (Auto) [place] % (Auto) Eos % (Auto) Lymph # (Auto) Seg Neutrophils % D-Dimer Sodium Chloride 109.5 H BUN Creatinine 1.6 H Glucose 111 H POC Glucose Magnesium 1.60 L Alkaline Phosphatase Lactate Dehydrogenase C-Reactive Protein Total Protein Albumin Coronavirus (PCR) Positive A 07/27/20 07/27/20 07/27/20 19:23 19:23 19:23 RBC Hgb Hct Lymph % (Auto) [place] % (Auto) Eos % (Auto) Lymph # (Auto) Seg Neutrophils % D-Dimer 2800.46 H Sodium Chloride BUN 23 H Creatinine 2.1 H Glucose 112 H POC Glucose Magnesium Alkaline Phosphatase Lactate Dehydrogenase 238 H C-Reactive Protein 19.30 H Total Protein Albumin Coronavirus (PCR) 07/29/20 07/30/20 07/30/20 10:49 05:21 17:51 RBC 3.31 L Hgb Hct Lymph % (Auto) [place] % (Auto) Eos % (Auto) Lymph # (Auto) Seg Neutrophils % D-Dimer Sodium 146 H D Chloride 108.1 H 110.5 H BUN 40 H 44 H Creatinine 2.0 H 1.8 H Glucose POC Glucose Magnesium Alkaline Phosphatase 134 H Lactate Dehydrogenase C-Reactive Protein Total Protein 5.8 L 5.7 L Albumin 3.4 L 2.9 L Coronavirus (PCR) 07/30/20 07/31/20 08/01/20 17:51 08:48 06:11 RBC 3.39 L Hgb Hct Lymph % (Auto) [place] % (Auto) Eos % (Auto) Lymph # (Auto) Seg Neutrophils % D-Dimer Sodium Chloride BUN 44 H Creatinine 1.7 H 1.8 H Glucose POC Glucose Magnesium Alkaline Phosphatase Lactate Dehydrogenase C-Reactive Protein Total Protein 5.6 L Albumin 3.1 L Coronavirus (PCR) 08/01/20 08/01/20 08/01/20 06:11 11:00 11:00 RBC Hgb Hct Lymph % (Auto) [place] % (Auto) Eos % (Auto) Lymph # (Auto) Seg Neutrophils % D-Dimer 2664.53 H Sodium Chloride BUN 42 H Creatinine 1.7 H Glucose POC Glucose Magnesium Alkaline Phosphatase Lactate Dehydrogenase 378 H C-Reactive Protein 4.00 H Total Protein Albumin Coronavirus (PCR)
[2020-08-01] MEDS ORDERED: APIXABAN 2.5 MG TAB PO SCH (14:37)
--- NOTE | 2020-08-01 14:41 | Progress Note ---
Assessment and Plan --Covid positive reported 07/26/2020 Isolation, ID, follow inflammatory markers, dexamethasone 10 days ID recommended remdesivir , follow renal function --Acute on chronic hypoxic respiratory failure Patient was requiring high flow nasal cannula oxygen, now on 7-8 L nasal cannula Patient already has home oxygen 3 L Prone positioning, ID and pulmonary consulted --Elevated D-dimers; Patient not stable for VQ scan to evaluate for PE Patient is on high flow oxygen Lower extremity venous Doppler negative for DVT Continue prophylactic heparin subcu twice a day --Right intertrochanteric hip fracture Orthopedic evaluated s/p Closed reduction insertion of intramedullary nail right femur 07/25/2020. Postop care per surgery , pain medications PT OT rehab, --COPD (chronic obstructive pulmonary disease) Continue duo nebs, oxygen titrate O2 sats to more than 90% Supportive care --Acute on chronic (acute kidney injury)/ATN patient might also hace CKD stage 4 gentle hydration, monitor renal function Avoid nephrotoxin, nephrology following -- Hypertension Catapres patch if necessary Hold oral antihypertensives As needed hydralazine --Full CODE STATUS; --DVT prophylaxis SCDs, subcu heparin renal dose Closely monitor the patient and adjust the management as needed Plan of care reviewed with the patient and her nurse Follow Ortho, ID and pulmonary evaluation and recommendations DC planning per case management Brief history: 75-year-old female patient with history of fall admitted with right trochanteric hip fracture evaluated by orthopedic surgeon underwent closed reduction with IM nail in the right femur patient was receiving physical therapy occupational therapy Covid test was done prior to placement which was positive. Patient has history of COPD home oxygen dependent, however with Covid, required high flow oxygen. ID orthopedic and pulmonary following brief history. DC planning per case management Daily Hospital course: 07/24; fracture right hip, pending Ortho evaluation Acute kidney injury, continue gentle hydration Closely monitor the patient and adjust the management 07/25; right intertrochanteric hip fracture s/p Closed reduction insertion of intramedullary nail right femur 07/25/2020 Continue postop care, PT OT, rehab versus home with home health in stable 07/26; patient feels slightly better, physical therapy Complains of pain, DC planning per case management 07/27; COVID-19 positive, ID consult, management per protocols Dexamethasone, no remdesivir due to acute kidney injury, isolation Already has home oxygen, proning 07/28; patient is on high flow oxygen, in mild distress In the setting of COVID-19 pneumonia and high flow oxygen, pulmonary consulted Follow ID and Ortho evaluation recommendations 07/29: Patient remains on high flow O2 - 10L N/c today, continue dexamethasone remdesivir for COVID-19, follow inflammatory markers, ID following will follow recommendation. PT eval and continue supportive care 07/30: Patient on 5 L nasal cannula today, continue dexamethasone and remdesivir, closely follow renal function. Wean off O2 as tolerated. DC back to nursing facility when clinically stable. 07/31: Patient off oxygen requirement is increased to 6 to 7 L O2 today. We will repeat chest x-ray, will stop IV fluid and will give one dose of Lasix. Continue remdesivir and dexamethasone. Continue to follow inflammatory markers, continue supportive care and nebulizer scheduled breathing treatment 08/01: Patient's oxygen requirement has slightly increased today, currently she is on 7 to 8 L nasal cannula. Chest x-ray suggestive of mild pulmonary congestion we will continue IV Lasix. Monitor daily BMP ins and O's. D-dimer persistently significantly elevated, will change Eliquis to 5 mg twice daily. Continue to follow inflammatory markers. Last dose of remdesivir today, continue dexamethasone for total 10 days. Wean off O2 as tolerated. Hospitalist Physical General appearance: Present: no distress, other (Elderly and frail) - EENT Eyes: Present: PERRL, EOM intact - Neck Neck: Present: supple, normal ROM - Respiratory Respiratory effort: normal Respiratory: bilateral: diminished, negative: rales, rhonchi, wheezing - Cardiovascular Rhythm: regular Heart Sounds: Present: S1 & S2 - Extremities Extremities: no ischemia, No edema - Abdominal General gastrointestinal: soft, non-tender, non-distended, normal bowel sounds - Integumentary Integumentary: Present: clear, warm - Psychiatric Psychiatric: appropriate mood/affect, cooperative - Neurologic Neurologic: CNII-XII intact, moves all extremities Subjective Date of service: 08/01/20 Principal diagnosis: Covid-19 Interval history: Patient seen and examined. Medical records and medication list reviewed. No acute event overnight noted by the RN. Patient 7-8 L nasal cannula O2 today Discussed plan of care at bedside with patient. Objective - Constitutional Vitals: Vital Signs - 12hr 08/01/20 08/01/20 08/01/20 06:50 08:19 08:49 Temperature 97.4 F L Pulse Rate 68 Respiratory 22 Rate Respiratory 18 Rate [Right Hip ] Blood Pressure 139/89 O2 Sat by Pulse 97 94 Oximetry 08/01/20 10:00 Temperature Pulse Rate Respiratory 20 Rate Respiratory Rate [Right Hip ] Blood Pressure O2 Sat by Pulse 97 Oximetry - Labs CBC & Chem 7: 08/01/20 06:11 08/01/20 06:11 Labs: Abnormal lab results 08/01/20 08/01/20 08/01/20 Range/Units 06:11 06:11 11:00 RBC 3.39 L (3.65-5.03) M/mm3 D-Dimer 2664.53 H (0-234) ng/mlDDU BUN 42 H (7-17) mg/dL Creatinine 1.7 H (0.6-1.2) mg/dL Lactate Dehydrogenase (91-180) units/L C-Reactive Protein (0.00-1.30) mg/dL 08/01/20 Range/Units 11:00 RBC (3.65-5.03) M/mm3 D-Dimer (0-234) ng/mlDDU BUN (7-17) mg/dL Creatinine (0.6-1.2) mg/dL Lactate Dehydrogenase 378 H (91-180) units/L C-Reactive Protein 4.00 H (0.00-1.30) mg/dL HEART Score - HEART Score Age: > 65 Risk factors: 1-2 risk factors Troponin: < normal limit - Critical Actions Critical Actions: 0-3 pts:0.9-1.7%risk of adverse cardiac event.Candidate for discharge
[2020-08-01] MEDS: REMDESIVIR 100 MG in SODIUM CHLORIDE 0.9% 250ML 250 ML IV SCH (22:05)
[2020-08-01] MEDS: APIXABAN 5 MG TAB PO SCH (22:06)
[2020-08-01] MEDS: MIRTAZAPINE 15 MG TAB PO SCH (22:06)
[2020-08-01] MEDS: SODIUM CHLORIDE 0.9% 50 ML IVPB IV SCH (22:40)
[2020-08-02] MEDS: FUROSEMIDE 40 MG/4 ML INJ IV SCH (08:19)
[2020-08-02 08:45] LABS: Calcium 8.6 mg/dL (8.4-10.2)
[2020-08-02] MEDS: dexAMETHasone 4 MG/ML VIAL IV SCH (09:42)
[2020-08-02] MEDS: APIXABAN 5 MG TAB PO SCH ×3 (09:42→22:51)
[2020-08-02] MEDS: ASCORBIC ACID 500 MG TAB PO SCH ×2 (09:42→22:47)
[2020-08-02] MEDS: CHOLECALCIFEROL (VIT D3) 5,000 UNIT TAB PO SCH (09:42)
[2020-08-02] MEDS: FERROUS GLUCONATE 324 MG TAB PO SCH (09:42)
[2020-08-02] MEDS: PANTOPRAZOLE 40 MG TAB PO SCH ×2 (09:42→22:47)
[2020-08-02] MEDS: ZINC SULFATE 220 MG CAP PO SCH ×2 (09:42→22:47)
[2020-08-02] MEDS: TIOTROPIUM 18 MCG CAP INHALATION IH SCH (09:44)
--- NOTE | 2020-08-02 10:06 | Progress Note ---
Assessment and Plan 1. Acute kidney injury vs CKD stage 4: Renal function is about the same as prior visit. Monitor renal function. Creatinine leveled off. Avoid nephrotoxic agents. Meds dosage based on GFR. 2. FEN: On Lasix. Monitor volume status and lytes. 3. Covid infection: Isolation, follow inflammatory markers. Dexamethasone. Followed by ID. 4. Acute on chronic hypoxemic respiratory failure, POA: 2/2 COVID infection. CXR showed atelectasis. Covid test positive. Patient on home oxygen 3 L. 5. Right intertrochanteric hip fracture: S/p Closed reduction insertion of intramedullary nail right femur 07/25/2020. Postop care per surgery, pain control, PT/OT and rehab. 6. COPD: Continue duonebs, titrate O2 sats to more than 90% Supportive care. 7. H/o Dementia: Supportive care. 8. HTN: Monitor BP. Adjust meds as needed. 9. Anemia: Monitor. Subjective: Patient was seen and examined at the bedside. Doing ok. Objective: General appearance: well-developed, appears stated age, appears emaciated, not in distress, NC O2 (salter) HEENT: ATNC, JANET Neck: trachea midline Respiratory: diminished breath sounds Heart: regular, S1S2, no murmur Gastrointestinal: soft, normoactive bowel sounds, not tender Integumentary: no obvious rash Ext: no edema Neurologic: alert, conversing, able to move extremities, confused Subjective Date of service: 08/02/20 Principal diagnosis: Covid-19 Objective - Vital Signs Vital signs: Vital Signs - 12hr 08/02/20 08/02/20 04:22 08:17 Temperature 98 F 97.7 F Pulse Rate 88 87 Respiratory 16 18 Rate Blood Pressure 126/63 [Left] Blood Pressure 132/80 [Right] O2 Sat by Pulse 97 96 Oximetry - Lab 08/01/20 06:11 08/02/20 07:46 Most recent lab results Calcium 8.6 mg/dL (8.4-10.2) 08/02/20 07:46 Magnesium 1.60 mg/dL (1.7-2.3) L 07/25/20 05:50 Medications & Allergies - Medications Allergies/Adverse Reactions: Allergies No Known Allergies Allergy (Verified 04/25/17 12:02) Home Medications: Home Medications Medication Instructions Recorded Confirmed Last Taken Type Tiotropium [Spiriva] 18 mcg IH QDAY 05/02/15 08/02/20 01/01/16 History Ondansetron [Zofran TAB] 4 mg PO Q8HR PRN 06/09/16 08/02/20 Unknown History Albuterol Sulfate [Ventolin Hfa] 2 puff IH BID PRN 04/25/17 08/02/20 Unknown H istory Cholecalciferol (Vitamin D3) 5,000 unit PO DAILY 04/25/17 08/02/20 Unknown History [Vitamin D3 5,000 UNIT] Ferrous Gluconate [Ferrous 324 mg PO QDAY 04/25/17 08/02/20 Unknown History Gluconate 324 MG] Ipratropium/Albuterol Sulfate 1 ampul IH Q6HR PRN 04/25/17 08/02/20 Unknown History [DUONEB *Not for PRN Use*] Mirtazapine [Remeron] 7.5 mg PO HS 04/25/17 08/02/20 Unknown History Sennosides [Senna] 8.6 mg PO HS PRN 04/25/17 08/02/20 Unknown History Pantoprazole [Protonix TAB] 40 mg PO BID #60 tablet 04/28/17 08/02/20 Unknown Rx oxyCODONE /ACETAMINOPHEN [Percocet 1 tab PO Q4HR PRN #20 tablet 04/28/17 08/02/20 Unknown Rx 5/325 mg] Acetaminophen [Acetaminophen TAB] 650 mg PO Q4HR PRN MDD 3,000 mg 06/01/17 08/02/20 Unknown History levoFLOXacin [Levaquin TAB] 500 mg PO Q48H #2 tablet 06/28/17 08/02/20 Unknown Rx Active Medications: Generic Name Dose Route Start Last Admin Trade Name Freq PRN Reason Stop Dose Admin Acetaminophen 650 mg 07/22/20 21:55 07/27/20 21:45 Acetaminophen 325 Mg Tab PO 650 mg Q4H PRN Administration PAIN (1-3) Albuterol 2.5 mg 07/22/20 22:51 07/31/20 10:48 Albuterol 2.5 Mg/3 Ml Nebu IH 2.5 mg BIDRT PRN Administration Shortness Of Breath Apixaban 5 mg 08/01/20 15:00 08/02/20 09:42 Apixaban 5 Mg Tab PO 5 mg Q12HR SAY Administration Ascorbic Acid 500 mg 07/29/20 22:00 08/02/20 09:42 Ascorbic Acid 500 Mg Tab PO 500 mg BID SAY Administration Cholecalciferol 5,000 unit 07/23/20 10:00 08/02/20 09:42 Cholecalciferol (Vit D3) 5,000 Unit Tab PO 5,000 unit DAILY SAY Administration Dexamethasone 6 mg 07/27/20 19:00 08/02/20 09:42 Dexamethasone 4 Mg/Ml Vial IV 08/05/20 10:01 6 mg DAILY SAY Administration Ferrous Gluconate 324 mg 07/23/20 10:00 08/02/20 09:42 Ferrous Gluconate 324 Mg Tab PO 324 mg QDAY SAY Administration Furosemide 40 mg 08/02/20 06:00 08/02/20 08:19 Furosemide 40 Mg/4 Ml Inj IV 40 mg DAILY@0600 SAY Administration Hydromorphone HCl 0.5 mg 07/22/20 22:01 07/25/20 15:36 Hydromorphone 1 Mg/1 Ml Inj IV 0.5 mg Q3H PRN Administration Pain , Severe (7-10) Metoclopramide HCl 5 mg 07/22/20 22:01 Metoclopramide 10 Mg/2 Ml Inj IV Q6H PRN Nausea And Vomiting Mirtazapine 7.5 mg 07/22/20 22:00 08/01/20 22:06 Mirtazapine 15 Mg Tab PO 7.5 mg HS SAY Administration Morphine Sulfate 2 mg 07/25/20 14:33 Morphine 2 Mg/1 Ml Inj IV Q4H PRN Pain, Moderate (4-6) Ondansetron HCl 4 mg 07/22/20 22:01 Ondansetron 4 Mg/2 Ml Inj IV Q3H PRN Nausea And Vomiting Oxycodone/Acetaminophen 1 tab 07/25/20 14:33 07/25/20 20:21 Oxycodone /Acetaminophen 5-325mg Tab PO 1 tab Q6H PRN Administration Pain, Moderate (4-6) Pantoprazole Sodium 40 mg 07/22/20 22:00 08/02/20 09:42 Pantoprazole 40 Mg Tab PO 40 mg BID SAY Administration Senna 8.6 mg 07/22/20 21:55 Sennosides 8.6 Mg Tab PO HS PRN Constipation Sodium Chloride 10 ml 07/23/20 10:00 08/02/20 09:43 Sodium Chloride 0.9% 10 Ml Flush Syringe IV 10 ml BID SAY Administration Sodium Chloride 10 ml 07/22/20 22:01 Sodium Chloride 0.9% 10 Ml Flush Syringe IV PRN PRN LINE FLUSH Tiotropium [place] 1 puff 07/23/20 10:00 08/02/20 09:44 Tiotropium 18 Mcg Cap Inhalation IH 1 puff QDAY SAY Administration Zinc Sulfate 220 mg 07/29/20 22:00 08/02/20 09:42 Zinc Sulfate 220 Mg Cap PO 220 mg BID SAY Administration
--- NOTE | 2020-08-02 12:56 | Progress Note ---
Assessment and Plan Assessment and Plan Imp: 1. Covid-19 with likely viral pneumonia 2. COPD exac. 3. Acute respiratory failure, hypoxia 4. CKD 5. Hiatal hernia 6. Hip fracture Rec: 1. Decadron 2. Post Remdesivir 3. Prone as tolerated 4. Bronchodilators 5. Wean O2 to keep sats 88% or > 6. On Eliquis 7. Further plans pending clinical course; complex decision-making Subjective Date of service: 08/02/20 Principal diagnosis: Covid-19 Interval history: No new complaints. Breathing is stable. Mild cough. Still on 6 to 8 L nasal cannula. No new complaints Objective Vital Signs - 12hr 08/02/20 08/02/20 08/02/20 04:22 08:17 09:10 Temperature 98 F 97.7 F Pulse Rate 88 87 Respiratory 16 18 Rate Blood Pressure 126/63 [Left] Blood Pressure 132/80 [Right] O2 Sat by Pulse 97 96 100 Oximetry Constitutional: no acute distress, alert Eyes: non-icteric ENT: oropharynx moist Neck: supple Effort: normal Ascultation: Bilateral: clear, wheezes Cardiovascular: regular rate and rhythm Gastrointestinal: normoactive bowel sounds, soft, non-tender, non-distended Integumentary: normal Extremities: no cyanosis Neurologic: normal mental status, non-focal exam Psychiatric: mood appropriate, affect normal CBC and BMP: 08/01/20 06:11 08/02/20 07:46 ABG, PT/INR, D-dimer: PT/INR, D-dimer PT 13.6 Sec. (12.2-14.9) 07/30/20 17:51 INR 1.06 (0.87-1.13) 07/30/20 17:51 D-Dimer 2664.53 ng/mlDDU (0-234) H 08/01/20 11:00 Abnormal lab findings: Abnormal Labs 07/22/20 07/22/20 07/22/20 17:40 17:40 23:46 RBC Hgb Hct Lymph % (Auto) 10.9 L [place] % (Auto) Eos % (Auto) Lymph # (Auto) 0.9 L Seg Neutrophils % 78.9 H D-Dimer Sodium Chloride BUN 33 H Creatinine 2.0 H Glucose 108 H POC Glucose 107 H Magnesium Alkaline Phosphatase Lactate Dehydrogenase C-Reactive Protein Total Protein Albumin Coronavirus (PCR) 07/23/20 07/23/20 07/25/20 07:58 07:58 05:50 RBC 3.50 L Hgb Hct Lymph % (Auto) 12.0 L [place] % (Auto) 8.1 H 8.3 H Eos % (Auto) 6.6 H Lymph # (Auto) 0.7 L 1.0 L Seg Neutrophils % 74.9 H D-Dimer Sodium Chloride 107.2 H BUN 31 H Creatinine 2.0 H Glucose 102 H POC Glucose Magnesium Alkaline Phosphatase Lactate Dehydrogenase C-Reactive Protein Total Protein Albumin 3.7 L Coronavirus (PCR) 07/25/20 07/25/20 07/26/20 05:50 Unknown 05:06 RBC Hgb 9.8 L Hct 29.8 L Lymph % (Auto) [place] % (Auto) Eos % (Auto) Lymph # (Auto) Seg Neutrophils % D-Dimer Sodium Chloride 109.5 H BUN Creatinine 1.6 H Glucose 111 H POC Glucose Magnesium 1.60 L Alkaline Phosphatase Lactate Dehydrogenase C-Reactive Protein Total Protein Albumin Coronavirus (PCR) Positive A 07/27/20 07/27/20 07/27/20 19:23 19:23 19:23 RBC Hgb Hct Lymph % (Auto) [place] % (Auto) Eos % (Auto) Lymph # (Auto) Seg Neutrophils % D-Dimer 2800.46 H Sodium Chloride BUN 23 H Creatinine 2.1 H Glucose 112 H POC Glucose Magnesium Alkaline Phosphatase Lactate Dehydrogenase 238 H C-Reactive Protein 19.30 H Total Protein Albumin Coronavirus (PCR) 07/29/20 07/30/20 07/30/20 10:49 05:21 17:51 RBC 3.31 L Hgb Hct Lymph % (Auto) [place] % (Auto) Eos % (Auto) Lymph # (Auto) Seg Neutrophils % D-Dimer Sodium 146 H D Chloride 108.1 H 110.5 H BUN 40 H 44 H Creatinine 2.0 H 1.8 H Glucose POC Glucose Magnesium Alkaline Phosphatase 134 H Lactate Dehydrogenase C-Reactive Protein Total Protein 5.8 L 5.7 L Albumin 3.4 L 2.9 L Coronavirus (PCR) 07/30/20 07/31/20 08/01/20 17:51 08:48 06:11 RBC 3.39 L Hgb Hct Lymph % (Auto) [place] % (Auto) Eos % (Auto) Lymph # (Auto) Seg Neutrophils % D-Dimer Sodium Chloride BUN 44 H Creatinine 1.7 H 1.8 H Glucose POC Glucose Magnesium Alkaline Phosphatase Lactate Dehydrogenase C-Reactive Protein Total Protein 5.6 L Albumin 3.1 L Coronavirus (PCR) 08/01/20 08/01/20 08/01/20 06:11 11:00 11:00 RBC Hgb Hct Lymph % (Auto) [place] % (Auto) Eos % (Auto) Lymph # (Auto) Seg Neutrophils % D-Dimer 2664.53 H Sodium Chloride BUN 42 H Creatinine 1.7 H Glucose POC Glucose Magnesium Alkaline Phosphatase Lactate Dehydrogenase 378 H C-Reactive Protein 4.00 H Total Protein Albumin Coronavirus (PCR) 08/02/20 07:46 RBC Hgb Hct Lymph % (Auto) [place] % (Auto) Eos % (Auto) Lymph # (Auto) Seg Neutrophils % D-Dimer Sodium Chloride BUN 62 H Creatinine 1.9 H Glucose POC Glucose Magnesium Alkaline Phosphatase Lactate Dehydrogenase C-Reactive Protein Total Protein Albumin Coronavirus (PCR)
--- NOTE | 2020-08-02 15:13 | Progress Note ---
Assessment and Plan --Covid positive reported 07/26/2020 Isolation, ID, follow inflammatory markers, dexamethasone 10 days ID recommended remdesivir , follow renal function --Acute on chronic hypoxic respiratory failure Patient was requiring high flow nasal cannula oxygen, now on 6 L nasal cannula Patient already has home oxygen 3 L Prone positioning, ID and pulmonary consulted --Elevated D-dimers; Patient not stable for VQ scan to evaluate for PE Patient is on high flow oxygen Lower extremity venous Doppler negative for DVT Continue eliquis twice a day --Right intertrochanteric hip fracture Orthopedic evaluated s/p Closed reduction insertion of intramedullary nail right femur 07/25/2020. Postop care per surgery , pain medications PT OT rehab, --COPD (chronic obstructive pulmonary disease) Continue duo nebs, oxygen titrate O2 sats to more than 90% Supportive care --Acute on chronic (acute kidney injury)/ATN patient might also has CKD stage 4 gentle hydration, monitor renal function Avoid nephrotoxin, nephrology following -- Hypertension Catapres patch if necessary Hold oral antihypertensives As needed hydralazine --Full CODE STATUS; --DVT prophylaxis SCDs, subcu heparin renal dose Closely monitor the patient and adjust the management as needed Plan of care reviewed with the patient and her nurse Follow Ortho, ID and pulmonary evaluation and recommendations DC planning per case management Brief history: 75-year-old female patient with history of fall admitted with right trochanteric hip fracture evaluated by orthopedic surgeon underwent closed reduction with IM nail in the right femur patient was receiving physical therapy occupational therapy Covid test was done prior to placement which was positive. Patient has history of COPD home oxygen dependent, however with Covid, required high flow oxygen. ID orthopedic and pulmonary following brief history. DC planning per case management Daily Hospital course: 07/24; fracture right hip, pending Ortho evaluation Acute kidney injury, continue gentle hydration Closely monitor the patient and adjust the management 07/25; right intertrochanteric hip fracture s/p Closed reduction insertion of intramedullary nail right femur 07/25/2020 Continue postop care, PT OT, rehab versus home with home health in stable 07/26; patient feels slightly better, physical therapy Complains of pain, DC planning per case management 07/27; COVID-19 positive, ID consult, management per protocols Dexamethasone, no remdesivir due to acute kidney injury, isolation Already has home oxygen, proning 07/28; patient is on high flow oxygen, in mild distress In the setting of COVID-19 pneumonia and high flow oxygen, pulmonary consulted Follow ID and Ortho evaluation recommendations 07/29: Patient remains on high flow O2 - 10L N/c today, continue dexamethasone remdesivir for COVID-19, follow inflammatory markers, ID following will follow r ecommendation. PT eval and continue supportive care 07/30: Patient on 5 L nasal cannula today, continue dexamethasone and remdesivir, closely follow renal function. Wean off O2 as tolerated. DC back to nursing facility when clinically stable. 07/31: Patient off oxygen requirement is increased to 6 to 7 L O2 today. We will repeat chest x-ray, will stop IV fluid and will give one dose of Lasix. Continue remdesivir and dexamethasone. Continue to follow inflammatory markers, continue supportive care and nebulizer scheduled breathing treatment 08/01: Patient's oxygen requirement has slightly increased today, currently she is on 7 to 8 L nasal cannula. Chest x-ray suggestive of mild pulmonary congestion we will continue IV Lasix. Monitor daily BMP ins and O's. D-dimer persistently significantly elevated, will change Eliquis to 5 mg twice daily. Continue to follow inflammatory markers. Last dose of remdesivir today, continue dexamethasone for total 10 days. Wean off O2 as tolerated. 08/02: patient today on 6L N/c. cont to follow inflammatory markers, wean off O2 as tolerated. follow BMP, stop lasis as Cr 1.9 today. Hospitalist Physical General appearance: Present: no distress, other (Elderly and frail) - EENT Eyes: Present: PERRL, EOM intact - Neck Neck: Present: supple, normal ROM - Respiratory Respiratory effort: normal Respiratory: bilateral: diminished, negative: rales, rhonchi, wheezing - Cardiovascular Rhythm: regular Heart Sounds: Present: S1 & S2 - Extremities Extremities: no ischemia, No edema - Abdominal General gastrointestinal: soft, non-tender, non-distended, normal bowel sounds - Integumentary Integumentary: Present: clear, warm - Psychiatric Psychiatric: appropriate mood/affect, cooperative - Neurologic Neurologic: CNII-XII intact, moves all extremities Subjective Date of service: 08/02/20 Principal diagnosis: Covid-19 Interval history: Patient seen and examined. Medical records and medication list reviewed. No acute event overnight noted by the RN. Patient remains on 6 L nasal cannula O2 today Discussed plan of care at bedside with patient. Objective - Constitutional Vitals: Vital Signs - 12hr 08/02/20 08/02/20 08/02/20 04:22 08:17 09:10 Temperature 98 F 97.7 F Pulse Rate 88 87 Respiratory 16 18 Rate Blood Pressure Blood Pressure 126/63 [Left] Blood Pressure 132/80 [Right] O2 Sat by Pulse 97 96 100 Oximetry 08/02/20 12:46 Temperature 98.1 F Pulse Rate 101 H Respiratory 20 Rate Blood Pressure 115/82 Blood Pressure [Left] Blood Pressure [Right] O2 Sat by Pulse 90 Oximetry - Labs CBC & Chem 7: 08/03/20 09:25 08/02/20 07:46 Labs: Abnormal lab results 08/02/20 Range/Units 07:46 BUN 62 H (7-17) mg/dL Creatinine 1.9 H (0.6-1.2) mg/dL HEART Score - HEART Score Age: > 65 Risk factors: 1-2 risk factors Troponin: < normal limit - Critical Actions Critical Actions: 0-3 pts:0.9-1.7%risk of adverse cardiac event.Candidate for discharge
[2020-08-02] MEDS: MIRTAZAPINE 15 MG TAB PO SCH (22:46)
[2020-08-03] MEDS: FUROSEMIDE 40 MG/4 ML INJ IV SCH (05:43)
--- NOTE | 2020-08-03 09:24 | Progress Note ---
Assessment and Plan 1. Acute kidney injury vs CKD stage 4: Renal function is about the same as prior visit. Monitor renal function. Increase in the creatinine level noted. Avoid nephrotoxic agents. Meds dosage based on GFR. 2. FEN: Lasix stopped due to increase in the creatinine level noted. Monitor volume status and lytes. 3. Covid infection: Isolation, follow inflammatory markers. Dexamethasone. Followed by ID. 4. Acute on chronic hypoxemic respiratory failure, POA: 2/2 COVID infection. CXR showed atelectasis. Covid test positive. Patient on home oxygen 3 L. 5. Right intertrochanteric hip fracture: S/p Closed reduction insertion of intramedullary nail right femur 07/25/2020. Postop care per surgery, pain control, PT/OT and rehab. 6. COPD: Continue duonebs, titrate O2 sats to more than 90% Supportive care. 7. H/o Dementia: Supportive care. 8. HTN: Monitor BP. Adjust meds as needed. 9. Anemia: Monitor. Subjective: Patient was seen and examined at the bedside. Doing ok. Objective: General appearance: well-developed, appears stated age, appears emaciated, not in distress, NC O2 (salter) HEENT: ATNC, JANET Neck: trachea midline Respiratory: faint rhonchi heard Heart: regular, S1S2, no murmur Gastrointestinal: soft, normoactive bowel sounds, not tender Integumentary: no obvious rash Ext: no edema Neurologic: alert, conversing, able to move extremities, confused Subjective Date of service: 08/03/20 Principal diagnosis: Covid-19 Objective - Vital Signs Vital signs: Vital Signs - 12hr 08/02/20 08/03/20 08/03/20 22:00 00:40 00:50 Temperature 98.1 F Pulse Rate 94 H Respiratory 20 Rate Blood Pressure 126/77 O2 Sat by Pulse 93 76 L 96 Oximetry 08/03/20 05:05 Temperature 98.5 F Pulse Rate 84 Respiratory 18 Rate Blood Pressure 154/83 O2 Sat by Pulse 97 Oximetry - Lab 08/03/20 09:25 08/03/20 09:25 Most recent lab results Calcium 8.6 mg/dL (8.4-10.2) 08/02/20 07:46 Magnesium 1.60 mg/dL (1.7-2.3) L 07/25/20 05:50 Medications & Allergies - Medications Allergies/Adverse Reactions: Allergies No Known Allergies Allergy (Verified 04/25/17 12:02) Home Medications: Home Medications Medication Instructions Recorded Confirmed Last Taken Type Tiotropium [Spiriva] 18 mcg IH QDAY 05/02/15 08/02/20 01/01/16 History Ondansetron [Zofran TAB] 4 mg PO Q8HR PRN 06/09/16 08/02/20 Unknown History Albuterol Sulfate [Ventolin Hfa] 2 puff IH BID PRN 04/25/17 08/02/20 Unknown History Cholecalciferol (Vitamin D3) 5,000 unit PO DAILY 04/25/17 08/02/20 Unknown History [Vitamin D3 5,000 UNIT] Ferrous Gluconate [Ferrous 324 mg PO QDAY 04/25/17 08/02/20 Unknown History Gluconate 324 MG] Ipratropium/Albuterol Sulfate 1 ampul IH Q6HR PRN 04/25/17 08/02/20 Unknown History [DUONEB *Not for PRN Use*] Mirtazapine [Remeron] 7.5 mg PO HS 04/25/17 08/02/20 Unknown History Sennosides [Senna] 8.6 mg PO HS PRN 04/25/17 08/02/20 Unknown History Pantoprazole [Protonix TAB] 40 mg PO BID #60 tablet 04/28/17 08/02/20 Unknown Rx oxyCODONE /ACETAMINOPHEN [Percocet 1 tab PO Q4HR PRN #20 tablet 04/28/17 08/02/20 Unknown Rx 5/325 mg] Acetaminophen [Acetaminophen TAB] 650 mg PO Q4HR PRN MDD 3,000 mg 06/01/17 08/02/20 Unknown History levoFLOXacin [Levaquin TAB] 500 mg PO Q48H #2 tablet 06/28/17 08/02/20 Unknown Rx Active Medications: Generic Name Dose Route Start Last Admin Trade Name Freq PRN Reason Stop Dose Admin Acetaminophen 650 mg 07/22/20 21:55 07/27/20 21:45 Acetaminophen 325 Mg Tab PO 650 mg Q4H PRN Administration PAIN (1-3) Albuterol 2.5 mg 07/22/20 22:51 07/31/20 10:48 Albuterol 2.5 Mg/3 Ml Nebu IH 2.5 mg BIDRT PRN Administration Shortness Of Breath Apixaban 5 mg 08/01/20 15:00 08/02/20 22:51 Apixaban 5 Mg Tab PO 5 mg Q12HR SAY Administration Ascorbic Acid 500 mg 07/29/20 22:00 08/02/20 22:47 Ascorbic Acid 500 Mg Tab PO 500 mg BID SAY Administration Cholecalciferol 5,000 unit 07/23/20 10:00 08/02/20 09:42 Cholecalciferol (Vit D3) 5,000 Unit Tab PO 5,000 unit DAILY SAY Administration Dexamethasone 6 mg 07/27/20 19:00 08/02/20 09:42 Dexamethasone 4 Mg/Ml Vial IV 08/05/20 10:01 6 mg DAILY SAY Administration Ferrous Gluconate 324 mg 07/23/20 10:00 08/02/20 09:42 Ferrous Gluconate 324 Mg Tab PO 324 mg QDAY SAY Administration Furosemide 40 mg 08/02/20 06:00 08/03/20 05:43 Furosemide 40 Mg/4 Ml Inj IV 40 mg DAILY@0600 SAY Administration Hydromorphone HCl 0.5 mg 07/22/20 22:01 07/25/20 15:36 Hydromorphone 1 Mg/1 Ml Inj IV 0.5 mg Q3H PRN Administration Pain , Severe (7-10) Metoclopramide HCl 5 mg 07/22/20 22:01 Metoclopramide 10 Mg/2 Ml Inj IV Q6H PRN Nausea And Vomiting Mirtazapine 7.5 mg 07/22/20 22:00 08/02/20 22:46 Mirtazapine 15 Mg Tab PO 7.5 mg HS SAY Administration Morphine Sulfate 2 mg 07/25/20 14:33 Morphine 2 Mg/1 Ml Inj IV Q4H PRN Pain, Moderate (4-6) Ondansetron HCl 4 mg 07/22/20 22:01 Ondansetron 4 Mg/2 Ml Inj IV Q3H PRN Nausea And Vomiting Oxycodone/Acetaminophen 1 tab 07/25/20 14:33 07/25/20 20:21 Oxycodone /Acetaminophen 5-325mg Tab PO 1 tab Q6H PRN Administration Pain, Moderate (4-6) Pantoprazole Sodium 40 mg 07/22/20 22:00 08/02/20 22:47 Pantoprazole 40 Mg Tab PO 40 mg BID SAY Administration Senna 8.6 mg 07/22/20 21:55 Sennosides 8.6 Mg Tab PO HS PRN Constipation Sodium Chloride 10 ml 07/23/20 10:00 08/02/20 22:47 Sodium Chloride 0.9% 10 Ml Flush Syringe IV 10 ml BID SAY Administration Sodium Chloride 10 ml 07/22/20 22:01 Sodium Chloride 0.9% 10 Ml Flush Syringe IV PRN PRN LINE FLUSH Tiotropium [place] 1 puff 07/23/20 10:00 08/02/20 09:44 Tiotropium 18 Mcg Cap Inhalation IH 1 puff QDAY SAY Administration Zinc Sulfate 220 mg 07/29/20 22:00 08/02/20 22:47 Zinc Sulfate 220 Mg Cap PO 220 mg BID SAY Administration
[2020-08-03] MEDS: ASCORBIC ACID 500 MG TAB PO SCH ×2 (09:42→21:36)
[2020-08-03] MEDS: FERROUS GLUCONATE 324 MG TAB PO SCH (09:42)
[2020-08-03] MEDS: APIXABAN 5 MG TAB PO SCH ×2 (09:42→21:36)
[2020-08-03] MEDS: dexAMETHasone 4 MG/ML VIAL IV SCH (09:42)
[2020-08-03] MEDS: CHOLECALCIFEROL (VIT D3) 5,000 UNIT TAB PO SCH (09:42)
[2020-08-03] MEDS: PANTOPRAZOLE 40 MG TAB PO SCH ×2 (09:42→21:36)
[2020-08-03] MEDS: ZINC SULFATE 220 MG CAP PO SCH ×2 (09:43→21:35)
[2020-08-03 10:36] LABS: Hematocrit 36.8 % (30.3-42.9); Hemoglobin 11.6 gm/dl (10.1-14.3); Mean Corpuscular HGB Conc 32 % (30-34); Mean Corpuscular Volume 93 fl (79-97); Platelet Count 387 K/mm3 (140-440); Red Blood Count 3.98 M/mm3 (3.65-5.03); Red Cell Distribution Width 14.5 % (13.2-15.2)
--- NOTE | 2020-08-03 11:14 | Progress Note ---
Assessment and Plan --Covid positive reported 07/26/2020 Isolation, ID, follow inflammatory markers, dexamethasone 10 days ID recommended remdesivir , follow renal function --Acute on chronic hypoxic respiratory failure Patient was requiring high flow nasal cannula oxygen, now on 6 L nasal cannula Patient already has home oxygen 3 L Prone positioning, ID and pulmonary consulted --Elevated D-dimers; Patient not stable for VQ scan to evaluate for PE Patient is on high flow oxygen Lower extremity venous Doppler negative for DVT Continue eliquis twice a day --Right intertrochanteric hip fracture Orthopedic evaluated s/p Closed reduction insertion of intramedullary nail right femur 07/25/2020. Postop care per surgery , pain medications PT OT rehab, --COPD (chronic obstructive pulmonary disease) Continue duo nebs, oxygen titrate O2 sats to more than 90% Supportive care --Acute on chronic (acute kidney injury)/ATN patient might also has CKD stage 4 gentle hydration, monitor renal function Avoid nephrotoxin, nephrology following -- Hypertension Catapres patch if necessary Hold oral antihypertensives As needed hydralazine --Full CODE STATUS; --DVT prophylaxis SCDs, subcu heparin renal dose Closely monitor the patient and adjust the management as needed Plan of care reviewed with the patient and her nurse Follow Ortho, ID and pulmonary evaluation and recommendations DC planning per case management Brief history: 75-year-old female patient with history of fall admitted with right trochanteric hip fracture evaluated by orthopedic surgeon underwent closed reduction with IM nail in the right femur patient was receiving physical therapy occupational therapy Covid test was done prior to placement which was positive. Patient has history of COPD home oxygen dependent, however with Covid, required high flow oxygen. ID orthopedic and pulmonary following brief history. DC planning per case management Daily Hospital course: 07/24; fracture right hip, pending Ortho evaluation Acute kidney injury, continue gentle hydration Closely monitor the patient and adjust the management 07/25; right intertrochanteric hip fracture s/p Closed reduction insertion of intramedullary nail right femur 07/25/2020 Continue postop care, PT OT, rehab versus home with home health in stable 07/26; patient feels slightly better, physical therapy Complains of pain, DC planning per case management 07/27; COVID-19 positive, ID consult, management per protocols Dexamethasone, no remdesivir due to acute kidney injury, isolation Already has home oxygen, proning 07/28; patient is on high flow oxygen, in mild distress In the setting of COVID-19 pneumonia and high flow oxygen, pulmonary consulted Follow ID and Ortho evaluation recommendations 07/29: Patient remains on high flow O2 - 10L N/c today, continue dexamethasone remdesivir for COVID-19, follow inflammatory markers, ID following will follow r ecommendation. PT eval and continue supportive care 07/30: Patient on 5 L nasal cannula today, continue dexamethasone and remdesivir, closely follow renal function. Wean off O2 as tolerated. DC back to nursing facility when clinically stable. 07/31: Patient off oxygen requirement is increased to 6 to 7 L O2 today. We will repeat chest x-ray, will stop IV fluid and will give one dose of Lasix. Continue remdesivir and dexamethasone. Continue to follow inflammatory markers, continue supportive care and nebulizer scheduled breathing treatment 08/01: Patient's oxygen requirement has slightly increased today, currently she is on 7 to 8 L nasal cannula. Chest x-ray suggestive of mild pulmonary congestion we will continue IV Lasix. Monitor daily BMP ins and O's. D-dimer persistently significantly elevated, will change Eliquis to 5 mg twice daily. Continue to follow inflammatory markers. Last dose of remdesivir today, continue dexamethasone for total 10 days. Wean off O2 as tolerated. 08/02: Patient today on 6L N/c. cont to follow inflammatory markers, wean off O2 as tolerated. follow BMP, stop lasix as Cr 1.9 today. 08/03: Patient today on 8L O2. cont to follow inflammatory markers, wean off O2 as tolerated. follow BMP Hospitalist Physical General appearance: Present: no distress, other (Elderly and frail) - EENT Eyes: Present: PERRL, EOM intact - Neck Neck: Present: supple, normal ROM - Respiratory Respiratory effort: normal Respiratory: bilateral: diminished, negative: rales, rhonchi, wheezing - Cardiovascular Rhythm: regular Heart Sounds: Present: S1 & S2 - Extremities Extremities: no ischemia, No edema - Abdominal General gastrointestinal: soft, non-tender, non-distended, normal bowel sounds - Integumentary Integumentary: Present: clear, warm - Psychiatric Psychiatric: appropriate mood/affect, cooperative - Neurologic Neurologic: CNII-XII intact, moves all extremities Subjective Date of service: 08/03/20 Principal diagnosis: Covid-19 Interval history: Patient seen and examined. Medical records and medication list reviewed. No acute event overnight noted by the RN. Patient remains on 8-10 L nasal cannula O2 today Discussed plan of care at bedside with patient. Objective - Constitutional Vitals: Vital Signs - 12hr 08/03/20 08/03/20 08/03/20 00:40 00:50 05:05 Temperature 98.1 F 98.5 F Pulse Rate 94 H 84 Respiratory 20 18 Rate Blood Pressure 126/77 154/83 O2 Sat by Pulse 76 L 96 97 Oximetry - Labs CBC & Chem 7: 08/03/20 09:25 08/04/20 09:07 Labs: Abnormal lab results 08/03/20 Range/Units 09:25 WBC 11.7 H (4.5-11.0) K/mm3 HEART Score - HEART Score Age: > 65 Risk factors: 1-2 risk factors Troponin: < normal limit - Critical Actions Critical Actions: 0-3 pts:0.9-1.7%risk of adverse cardiac event.Candidate for discharge
[2020-08-03] MEDS: TIOTROPIUM 18 MCG CAP INHALATION IH SCH (11:22)
[2020-08-03 11:55] LABS: Calcium 9.8 mg/dL (8.4-10.2)
--- NOTE | 2020-08-03 15:34 | Progress Note ---
Assessment and Plan Assessment and Plan Imp: 1. Covid-19 with likely viral pneumonia 2. COPD exac. 3. Acute respiratory failure, hypoxia 4. CKD 5. Hiatal hernia 6. Hip fracture Rec: 1. Decadron 2. Post Remdesivir 3. Prone as tolerated 4. Bronchodilators 5. Wean O2 to keep sats 88% or > 6. On Eliquis 7. Further plans pending clinical course; complex decision-making Subjective Date of service: 08/03/20 Principal diagnosis: Covid-19 Interval history: No new complaints. Breathing is stable. Mild cough. Still on 6 to 8 L nasal cannula. No new complaints Objective Vital Signs - 12hr 08/03/20 08/03/20 05:05 08:40 Temperature 98.5 F Pulse Rate 84 Respiratory 18 Rate Blood Pressure 154/83 O2 Sat by Pulse 97 84 Oximetry Constitutional: no acute distress, alert Eyes: non-icteric ENT: oropharynx moist Neck: supple Effort: normal Ascultation: Bilateral: clear, wheezes Cardiovascular: regular rate and rhythm Gastrointestinal: normoactive bowel sounds, soft, non-tender, non-distended Integumentary: normal Extremities: no cyanosis Neurologic: normal mental status, non-focal exam Psychiatric: mood appropriate, affect normal CBC and BMP: 08/03/20 09:25 08/03/20 09:25 ABG, PT/INR, D-dimer: PT/INR, D-dimer PT 13.6 Sec. (12.2-14.9) 07/30/20 17:51 INR 1.06 (0.87-1.13) 07/30/20 17:51 D-Dimer 2664.53 ng/mlDDU (0-234) H 08/01/20 11:00 Abnormal lab findings: Abnormal Labs 07/22/20 07/22/20 07/22/20 17:40 17:40 23:46 WBC RBC Hgb Hct Lymph % (Auto) 10.9 L [place] % (Auto) Eos % (Auto) Lymph # (Auto) 0.9 L Seg Neutrophils % 78.9 H D-Dimer Sodium Chloride BUN 33 H Creatinine 2.0 H Glucose 108 H POC Glucose 107 H Magnesium Alkaline Phosphatase Lactate Dehydrogenase C-Reactive Protein Total Protein Albumin Coronavirus (PCR) 07/23/20 07/23/20 07/25/20 07:58 07:58 05:50 WBC RBC 3.50 L Hgb Hct Lymph % (Auto) 12.0 L [place] % (Auto) 8.1 H 8.3 H Eos % (Auto) 6.6 H Lymph # (Auto) 0.7 L 1.0 L Seg Neutrophils % 74.9 H D-Dimer Sodium Chloride 107.2 H BUN 31 H Creatinine 2.0 H Glucose 102 H POC Glucose Magnesium Alkaline Phosphatase Lactate Dehydrogenase C-Reactive Protein Total Protein Albumin 3.7 L Coronavirus (PCR) 07/25/20 07/25/20 07/26/20 05:50 Unknown 05:06 WBC RBC Hgb 9.8 L Hct 29.8 L Lymph % (Auto) [place] % (Auto) Eos % (Auto) Lymph # (Auto) Seg Neutrophils % D-Dimer Sodium Chloride 109.5 H BUN Creatinine 1.6 H Glucose 111 H POC Glucose Magnesium 1.60 L Alkaline Phosphatase Lactate Dehydrogenase C-Reactive Protein Total Protein Albumin Coronavirus (PCR) Positive A 07/27/20 07/27/20 07/27/20 19:23 19:23 19:23 WBC RBC Hgb Hct Lymph % (Auto) [place] % (Auto) Eos % (Auto) Lymph # (Auto) Seg Neutrophils % D-Dimer 2800.46 H Sodium Chloride BUN 23 H Creatinine 2.1 H Glucose 112 H POC Glucose Magnesium Alkaline Phosphatase Lactate Dehydrogenase 238 H C-Reactive Protein 19.30 H Total Protein Albumin Coronavirus (PCR) 07/29/20 07/30/20 07/30/20 10:49 05:21 17:51 WBC RBC 3.31 L Hgb Hct Lymph % (Auto) [place] % (Auto) Eos % (Auto) Lymph # (Auto) Seg Neutrophils % D-Dimer Sodium 146 H D Chloride 108.1 H 110.5 H BUN 40 H 44 H Creatinine 2.0 H 1.8 H Glucose POC Glucose Magnesium Alkaline Phosphatase 134 H Lactate Dehydrogenase C-Reactive Protein Total Protein 5.8 L 5.7 L Albumin 3.4 L 2.9 L Coronavirus (PCR) 07/30/20 07/31/20 08/01/20 17:51 08:48 06:11 WBC RBC 3.39 L Hgb Hct Lymph % (Auto) [place] % (Auto) Eos % (Auto) Lymph # (Auto) Seg Neutrophils % D-Dimer Sodium Chloride BUN 44 H Creatinine 1.7 H 1.8 H Glucose POC Glucose Magnesium Alkaline Phosphatase Lactate Dehydrogenase C-Reactive Protein Total Protein 5.6 L Albumin 3.1 L Coronavirus (PCR) 08/01/20 08/01/20 08/01/20 06:11 11:00 11:00 WBC RBC Hgb Hct Lymph % (Auto) [place] % (Auto) Eos % (Auto) Lymph # (Auto) Seg Neutrophils % D-Dimer 2664.53 H Sodium Chloride BUN 42 H Creatinine 1.7 H Glucose POC Glucose Magnesium Alkaline Phosphatase Lactate Dehydrogenase 378 H C-Reactive Protein 4.00 H Total Protein Albumin Coronavirus (PCR) 08/02/20 08/03/20 08/03/20 07:46 09:25 09:25 WBC 11.7 H RBC Hgb Hct Lymph % (Auto) [place] % (Auto) Eos % (Auto) Lymph # (Auto) Seg Neutrophils % D-Dimer Sodium Chloride BUN 62 H 75 H Creatinine 1.9 H 2.5 H Glucose 157 H POC Glucose Magnesium Alkaline Phosphatase Lactate Dehydrogenase C-Reactive Protein Total Protein Albumin Coronavirus (PCR)
[2020-08-03] MEDS: MIRTAZAPINE 15 MG TAB PO SCH (21:35)
[2020-08-04] MEDS: ALBUTEROL 2.5 MG/3 ML NEBU IH PRN (08:54)
--- NOTE | 2020-08-04 09:30 | Progress Note ---
Assessment and Plan 1. Acute kidney injury vs CKD stage 4: Renal function is about the same as prior visit. Monitor renal function. Creatinine level increasing likely from intermittent low BP. Avoid nephrotoxic agents. Meds dosage based on GFR. 2. FEN: Lasix stopped due to increase in the creatinine level noted. Monitor volume status and lytes. 3. Covid infection: Isolation, follow inflammatory markers. Dexamethasone. Followed by ID. 4. Acute on chronic hypoxemic respiratory failure, POA: 2/2 COVID infection. CXR showed atelectasis. Patient on home oxygen 3 L. Currently on 8 Lts [place]. 5. Right intertrochanteric hip fracture: S/p Closed reduction insertion of intramedullary nail right femur 07/25/2020. Postop care per surgery, pain control, PT/OT and rehab. 6. COPD: Continue duonebs, titrate O2 sats to more than 90% Supportive care. 7. H/o Dementia: Supportive care. 8. HTN: Monitor BP. Adjust meds as needed. 9. Anemia: Monitor. Subjective: Patient was seen and examined at the bedside. Doing ok. Objective: General appearance: well-developed, appears stated age, appears emaciated, not in distress, NC O2 (salter) HEENT: ATNC, JANET Neck: trachea midline Respiratory: faint rhonchi heard Heart: regular, S1S2, no murmur Gastrointestinal: soft, normoactive bowel sounds, not tender Integumentary: no obvious rash Ext: no edema Neurologic: alert, conversing, able to move extremities, confused Subjective Date of service: 08/04/20 Principal diagnosis: Covid-19 Objective - Vital Signs Vital signs: Vital Signs - 12hr 08/03/20 08/03/20 08/04/20 22:00 22:03 07:00 Temperature 97.9 F 97.9 F Pulse Rate 81 74 Respiratory 18 18 Rate Blood Pressure 109/72 110/62 O2 Sat by Pulse 96 97 97 Oximetry - Lab 08/03/20 09:25 08/04/20 09:07 Most recent lab results Calcium 9.8 mg/dL (8.4-10.2) 08/03/20 09:25 Magnesium 1.60 mg/dL (1.7-2.3) L 07/25/20 05:50 Medications & Allergies - Medications Allergies/Adverse Reactions: Allergies No Known Allergies Allergy (Verified 04/25/17 12:02) Home Medications: Home Medications Medication Instructions Recorded Confirmed Last Taken Type Tiotropium [Spiriva] 18 mcg IH QDAY 05/02/15 08/02/20 01/01/16 History Ondansetron [Zofran TAB] 4 mg PO Q8HR PRN 06/09/16 08/02/20 Unknown History Albuterol Sulfate [Ventolin Hfa] 2 puff IH BID PRN 04/25/17 08/02/20 Unknown History Cholecalciferol (Vitamin D3) 5,000 unit PO DAILY 04/25/17 08/02/20 Unknown History [Vitamin D3 5,000 UNIT] Ferrous Gluconate [Ferrous 324 mg PO QDAY 04/25/17 08/02/20 Unknown History Gluconate 324 MG] Ipratropium/Albuterol Sulfate 1 ampul IH Q6HR PRN 04/25/17 08/02/20 Unknown History [DUONEB *Not for PRN Use*] Mirtazapine [Remeron] 7.5 mg PO HS 04/25/17 08/02/20 Unknown History Sennosides [Senna] 8.6 mg PO HS PRN 04/25/17 08/02/20 Unknown History Pantoprazole [Protonix TAB] 40 mg PO BID #60 tablet 04/28/17 08/02/20 Unknown Rx oxyCODONE /ACETAMINOPHEN [Percocet 1 tab PO Q4HR PRN #20 tablet 04/28/17 08/02/20 Unknown Rx 5/325 mg] Acetaminophen [Acetaminophen TAB] 650 mg PO Q4HR PRN MDD 3,000 mg 06/01/17 08/02/20 Unknown History levoFLOXacin [Levaquin TAB] 500 mg PO Q48H #2 tablet 06/28/17 08/02/20 Unknown Rx Active Medications: Generic Name Dose Route Start Last Admin Trade Name Freq PRN Reason Stop Dose Admin Acetaminophen 650 mg 07/22/20 21:55 07/27/20 21:45 Acetaminophen 325 Mg Tab PO 650 mg Q4H PRN Administration PAIN (1-3) Albuterol 2.5 mg 07/22/20 22:51 08/04/20 08:54 Albuterol 2.5 Mg/3 Ml Nebu IH 2.5 mg BIDRT PRN Administration Shortness Of Breath Apixaban 5 mg 08/01/20 15:00 08/03/20 21:36 Apixaban 5 Mg Tab PO 5 mg Q12HR SAY Administration Ascorbic Acid 500 mg 07/29/20 22:00 08/03/20 21:36 Ascorbic Acid 500 Mg Tab PO 500 mg BID SAY Administration Cholecalciferol 5,000 unit 07/23/20 10:00 08/03/20 09:42 Cholecalciferol (Vit D3) 5,000 Unit Tab PO 5,000 unit DAILY SAY Administration Dexamethasone 6 mg 07/27/20 19:00 08/03/20 09:42 Dexamethasone 4 Mg/Ml Vial IV 08/05/20 10:01 6 mg DAILY SAY Administration Ferrous Gluconate 324 mg 07/23/20 10:00 08/03/20 09:42 Ferrous Gluconate 324 Mg Tab PO 324 mg QDAY SAY Administration Hydromorphone HCl 0.5 mg 07/22/20 22:01 07/25/20 15:36 Hydromorphone 1 Mg/1 Ml Inj IV 0.5 mg Q3H PRN Administration Pain , Severe (7-10) Metoclopramide HCl 5 mg 07/22/20 22:01 Metoclopramide 10 Mg/2 Ml Inj IV Q6H PRN Nausea And Vomiting Mirtazapine 7.5 mg 07/22/20 22:00 08/03/20 21:35 Mirtazapine 15 Mg Tab PO 7.5 mg HS SAY Administration Morphine Sulfate 2 mg 07/25/20 14:33 Morphine 2 Mg/1 Ml Inj IV Q4H PRN Pain, Moderate (4-6) Ondansetron HCl 4 mg 07/22/20 22:01 Ondansetron 4 Mg/2 Ml Inj IV Q3H PRN Nausea And Vomiting Oxycodone/Acetaminophen 1 tab 07/25/20 14:33 07/25/20 20:21 Oxycodone /Acetaminophen 5-325mg Tab PO 1 tab Q6H PRN Administration Pain, Moderate (4-6) Pantoprazole Sodium 40 mg 07/22/20 22:00 08/03/20 21:36 Pantoprazole 40 Mg Tab PO 40 mg BID SAY Administration Senna 8.6 mg 07/22/20 21:55 Sennosides 8.6 Mg Tab PO HS PRN Constipation Sodium Chloride 10 ml 07/23/20 10:00 08/03/20 21:36 Sodium Chloride 0.9% 10 Ml Flush Syringe IV 10 ml BID SAY Administration Sodium Chloride 10 ml 07/22/20 22:01 Sodium Chloride 0.9% 10 Ml Flush Syringe IV PRN PRN LINE FLUSH Tiotropium [place] 1 puff 07/23/20 10:00 08/03/20 11:22 Tiotropium 18 Mcg Cap Inhalation IH Not Given QDAY SAY Zinc Sulfate 220 mg 07/29/20 22:00 08/03/20 21:35 Zinc Sulfate 220 Mg Cap PO 220 mg BID SAY Administration
[2020-08-04] MEDS: APIXABAN 5 MG TAB PO SCH ×2 (09:55→21:29)
[2020-08-04] MEDS: ZINC SULFATE 220 MG CAP PO SCH ×2 (09:56→21:29)
[2020-08-04] MEDS: PANTOPRAZOLE 40 MG TAB PO SCH ×2 (09:56→21:30)
[2020-08-04] MEDS: FERROUS GLUCONATE 324 MG TAB PO SCH (09:56)
[2020-08-04] MEDS: CHOLECALCIFEROL (VIT D3) 5,000 UNIT TAB PO SCH (09:56)
[2020-08-04] MEDS: ASCORBIC ACID 500 MG TAB PO SCH ×2 (09:56→21:29)
[2020-08-04] MEDS: dexAMETHasone 4 MG/ML VIAL IV SCH (09:57)
[2020-08-04] MEDS: TIOTROPIUM 18 MCG CAP INHALATION IH SCH (10:16)
[2020-08-04 10:54] LABS: Calcium 8.7 mg/dL (8.4-10.2)
--- NOTE | 2020-08-04 11:13 | Progress Note ---
Assessment and Plan Assessment and Plan Imp: 1. Covid-19 with likely viral pneumonia 2. COPD exac. 3. Acute respiratory failure, hypoxia 4. CKD 5. Hiatal hernia 6. Hip fracture, status post ORIF Rec: 1. Decadron 2. Post Remdesivir 3. Prone as tolerated 4. Bronchodilators 5. Wean O2 to keep sats 88% or > 6. On Eliquis 7. Further plans pending clinical course; complex decision-making Subjective Date of service: 08/04/20 Principal diagnosis: Covid-19 Interval history: No new complaints. Breathing is stable. Mild cough. Still on 6 to 8 L nasal cannula. O2 sats 96 to 97%, no new complaints Objective Vital Signs - 12hr 08/04/20 08/04/20 07:00 08:54 Temperature 97.9 F Pulse Rate 74 Pulse Rate [ 100 H Anterior Bilateral Throughout] Respiratory 18 Rate Respiratory 20 Rate [Anterior Bilateral Throughout] Blood Pressure 110/62 O2 Sat by Pulse 97 96 Oximetry Constitutional: no acute distress, alert Eyes: non-icteric ENT: oropharynx moist Neck: supple Effort: normal Ascultation: Bilateral: clear, wheezes Cardiovascular: regular rate and rhythm Gastrointestinal: normoactive bowel sounds, soft, non-tender, non-distended Integumentary: normal Extremities: no cyanosis Neurologic: normal mental status, non-focal exam Psychiatric: mood appropriate, affect normal CBC and BMP: 08/03/20 09:25 08/04/20 09:07 ABG, PT/INR, D-dimer: PT/INR, D-dimer PT 13.6 Sec. (12.2-14.9) 07/30/20 17:51 INR 1.06 (0.87-1.13) 07/30/20 17:51 D-Dimer 2664.53 ng/mlDDU (0-234) H 08/01/20 11:00 Abnormal lab findings: Abnormal Labs 07/22/20 07/22/20 07/22/20 17:40 17:40 23:46 WBC RBC Hgb Hct Lymph % (Auto) 10.9 L [place] % (Auto) Eos % (Auto) Lymph # (Auto) 0.9 L Seg Neutrophils % 78.9 H D-Dimer Sodium Chloride BUN 33 H Creatinine 2.0 H Glucose 108 H POC Glucose 107 H Magnesium Alkaline Phosphatase Lactate Dehydrogenase C-Reactive Protein Total Protein Albumin Coronavirus (PCR) 07/23/20 07/23/20 07/25/20 07:58 07:58 05:50 WBC RBC 3.50 L Hgb Hct Lymph % (Auto) 12.0 L [place] % (Auto) 8.1 H 8.3 H Eos % (Auto) 6.6 H Lymph # (Auto) 0.7 L 1.0 L Seg Neutrophils % 74.9 H D-Dimer Sodium Chloride 107.2 H BUN 31 H Creatinine 2.0 H Glucose 102 H POC Glucose Magnesium Alkaline Phosphatase Lactate Dehydrogenase C-Reactive Protein Total Protein Albumin 3.7 L Coronavirus (PCR) 07/25/20 07/25/20 07/26/20 05:50 Unknown 05:06 WBC RBC Hgb 9.8 L Hct 29.8 L Lymph % (Auto) [place] % (Auto) Eos % (Auto) Lymph # (Auto) Seg Neutrophils % D-Dimer Sodium Chloride 109.5 H BUN Creatinine 1.6 H Glucose 111 H POC Glucose Magnesium 1.60 L Alkaline Phosphatase Lactate Dehydrogenase C-Reactive Protein Total Protein Albumin Coronavirus (PCR) Positive A 07/27/20 07/27/20 07/27/20 19:23 19:23 19:23 WBC RBC Hgb Hct Lymph % (Auto) [place] % (Auto) Eos % (Auto) Lymph # (Auto) Seg Neutrophils % D-Dimer 2800.46 H Sodium Chloride BUN 23 H Creatinine 2.1 H Glucose 112 H POC Glucose Magnesium Alkaline Phosphatase Lactate Dehydrogenase 238 H C-Reactive Protein 19.30 H Total Protein Albumin Coronavirus (PCR) 07/29/20 07/30/20 07/30/20 10:49 05:21 17:51 WBC RBC 3.31 L Hgb Hct Lymph % (Auto) [place] % (Auto) Eos % (Auto) Lymph # (Auto) Seg Neutrophils % D-Dimer Sodium 146 H D Chloride 108.1 H 110.5 H BUN 40 H 44 H Creatinine 2.0 H 1.8 H Glucose POC Glucose Magnesium Alkaline Phosphatase 134 H Lactate Dehydrogenase C-Reactive Protein Total Protein 5.8 L 5.7 L Albumin 3.4 L 2.9 L Coronavirus (PCR) 07/30/20 07/31/20 08/01/20 17:51 08:48 06:11 WBC RBC 3.39 L Hgb Hct Lymph % (Auto) [place] % (Auto) Eos % (Auto) Lymph # (Auto) Seg Neutrophils % D-Dimer Sodium Chloride BUN 44 H Creatinine 1.7 H 1.8 H Glucose POC Glucose Magnesium Alkaline Phosphatase Lactate Dehydrogenase C-Reactive Protein Total Protein 5.6 L Albumin 3.1 L Coronavirus (PCR) 08/01/20 08/01/20 08/01/20 06:11 11:00 11:00 WBC RBC Hgb Hct Lymph % (Auto) [place] % (Auto) Eos % (Auto) Lymph # (Auto) Seg Neutrophils % D-Dimer 2664.53 H Sodium Chloride BUN 42 H Creatinine 1.7 H Glucose POC Glucose Magnesium Alkaline Phosphatase Lactate Dehydrogenase 378 H C-Reactive Protein 4.00 H Total Protein Albumin Coronavirus (PCR) 08/02/20 08/03/20 08/03/20 07:46 09:25 09:25 WBC 11.7 H RBC Hgb Hct Lymph % (Auto) [place] % (Auto) Eos % (Auto) Lymph # (Auto) Seg Neutrophils % D-Dimer Sodium Chloride BUN 62 H 75 H Creatinine 1.9 H 2.5 H Glucose 157 H POC Glucose Magnesium Alkaline Phosphatase Lactate Dehydrogenase C-Reactive Protein Total Protein Albumin Coronavirus (PCR) 08/04/20 09:07 WBC RBC Hgb Hct Lymph % (Auto) [place] % (Auto) Eos % (Auto) Lymph # (Auto) Seg Neutrophils % D-Dimer Sodium Chloride 95.9 L BUN 88 H Creatinine 3.0 H Glucose 134 H POC Glucose Magnesium Alkaline Phosphatase Lactate Dehydrogenase C-Reactive Protein Total Protein Albumin Coronavirus (PCR)
--- NOTE | 2020-08-04 12:55 | Progress Note ---
Assessment and Plan Cultures: SARS CoV2 PCR: Positive A/P: 75-year-old female with hypertension, dementia, hyperlipidemia, schizophrenia, COPD, CKD, [facility] resident was admitted to the hospital on 07/23/2019 with right hip pain and fracture: #COVID-19: With associated respiratory failure, high CRP. On steroids, completed remdesivir. #Acute hypoxic respiratory failure: remains on [place]. #DANYA on CKD: creatinine worse, nephrology following. #COPD #Right hip fracture: Status post closed reduction and insertion of intramedullary nail in the right femur on 07/25/2020 Recs: -IV/PO Dexamethasone 6 mg daily x 10 days, D9 -s/p Remdesivir -creatinine worse, nephrology on board -prophylactic anticoagulation based on d-dimer per hospital protocol, on ashlyn Esqueda MD, FACP [facility] O: [phone] F: [phone] Subjective Date of service: 08/04/20 Principal diagnosis: Covid-19 Interval history: No fever. Remains on oxygen via [place]. Objective - Exam Narrative Exam: Physical Exam (reviewed in chart to minimize risk of transmission) Constitutional: deferred Head, Ears, Nose: deferred Eyes: deferred Neck: deferred Oral: deferred Cardiovascular: deferred Respiratory: deferred GI: deferred Musculoskeletal: deferred Skin: deferred Hem/Lymphatic: deferred Psych: deferred Neurological: deferred - Constitutional Vitals: Vital Signs Temp Pulse Resp BP Pulse Ox 97.9 F 100 H 20 110/62 96 08/04/20 07:00 08/04/20 08:54 08/04/20 08:54 08/04/20 07:00 08/04/20 08:54 Temperature -Last 24 Hours Temperature 97.9 F Temperature 97.9 F Temperature 97.7 F - Labs CBC & Chem 7: 08/03/20 09:25 08/04/20 09:07 Labs: Abnormal lab results 08/04/20 Range/Units 09:07 Chloride 95.9 L (98-107) mmol/L BUN 88 H (7-17) mg/dL Creatinine 3.0 H (0.6-1.2) mg/dL Glucose 134 H (65-100) mg/dL
--- NOTE | 2020-08-04 18:03 | Progress Note ---
Assessment and Plan --Covid positive reported 07/26/2020 Isolation, ID, follow inflammatory markers, dexamethasone 10 days ID recommended remdesivir , follow renal function --Acute on chronic hypoxic respiratory failure Patient was requiring high flow nasal cannula oxygen, now on 6 L nasal cannula Patient already has home oxygen 3 L Prone positioning, ID and pulmonary consulted --Elevated D-dimers; Patient not stable for VQ scan to evaluate for PE Patient is on high flow oxygen Lower extremity venous Doppler negative for DVT Continue eliquis twice a day --Right intertrochanteric hip fracture Orthopedic evaluated s/p Closed reduction insertion of intramedullary nail right femur 07/25/2020. Postop care per surgery , pain medications PT OT rehab, --COPD (chronic obstructive pulmonary disease) Continue duo nebs, oxygen titrate O2 sats to more than 90% Supportive care --Acute on chronic (acute kidney injury)/ATN patient might also has CKD stage 4 gentle hydration, monitor renal function Avoid nephrotoxin, nephrology following -- Hypertension Catapres patch if necessary Hold oral antihypertensives As needed hydralazine --Full CODE STATUS; --DVT prophylaxis SCDs, subcu heparin renal dose Closely monitor the patient and adjust the management as needed Plan of care reviewed with the patient and her nurse Follow Ortho, ID and pulmonary evaluation and recommendations DC planning per case management Brief history: 75-year-old female patient with history of fall admitted with right trochanteric hip fracture evaluated by orthopedic surgeon underwent closed reduction with IM nail in the right femur patient was receiving physical therapy occupational therapy Covid test was done prior to placement which was positive. Patient has history of COPD home oxygen dependent, however with Covid, required high flow oxygen. ID orthopedic and pulmonary following brief history. DC planning per case management Daily Hospital course: 07/24; fracture right hip, pending Ortho evaluation Acute kidney injury, continue gentle hydration Closely monitor the patient and adjust the management 07/25; right intertrochanteric hip fracture s/p Closed reduction insertion of intramedullary nail right femur 07/25/2020 Continue postop care, PT OT, rehab versus home with home health in stable 07/26; patient feels slightly better, physical therapy Complains of pain, DC planning per case management 07/27; COVID-19 positive, ID consult, management per protocols Dexamethasone, no remdesivir due to acute kidney injury, isolation Already has home oxygen, proning 07/28; patient is on high flow oxygen, in mild distress In the setting of COVID-19 pneumonia and high flow oxygen, pulmonary consulted Follow ID and Ortho evaluation recommendations 07/29: Patient remains on high flow O2 - 10L N/c today, continue dexamethasone remdesivir for COVID-19, follow inflammatory markers, ID following will follow r ecommendation. PT eval and continue supportive care 07/30: Patient on 5 L nasal cannula today, continue dexamethasone and remdesivir, closely follow renal function. Wean off O2 as tolerated. DC back to nursing facility when clinically stable. 07/31: Patient off oxygen requirement is increased to 6 to 7 L O2 today. We will repeat chest x-ray, will stop IV fluid and will give one dose of Lasix. Continue remdesivir and dexamethasone. Continue to follow inflammatory markers, continue supportive care and nebulizer scheduled breathing treatment 08/01: Patient's oxygen requirement has slightly increased today, currently she is on 7 to 8 L nasal cannula. Chest x-ray suggestive of mild pulmonary congestion we will continue IV Lasix. Monitor daily BMP ins and O's. D-dimer persistently significantly elevated, will change Eliquis to 5 mg twice daily. Continue to follow inflammatory markers. Last dose of remdesivir today, continue dexamethasone for total 10 days. Wean off O2 as tolerated. 08/02: Patient today on 6L N/c. cont to follow inflammatory markers, wean off O2 as tolerated. follow BMP, stop lasix as Cr 1.9 today. 08/03: Patient today on 8L O2. cont to follow inflammatory markers, wean off O2 as tolerated. follow BMP 08/04: -IV/PO Dexamethasone 6 mg daily x 10 days, D9. s/p Remdesivir, creatinine worse -3.0 today, nephrology on board. prophylactic anticoagulation based on d- dimer per hospital protocol, on eliquis. Remains on 8 to 10 L O2 -wean off as tolerated. Not stable for discharge yet. Continue to follow BMP Hospitalist Physical General appearance: Present: no distress, other (Elderly and frail) - EENT Eyes: Present: PERRL, EOM intact - Neck Neck: Present: supple, normal ROM - Respiratory Respiratory effort: normal Respiratory: bilateral: diminished, negative: rales, rhonchi, wheezing - Cardiovascular Rhythm: regular Heart Sounds: Present: S1 & S2 - Extremities Extremities: no ischemia, No edema - Abdominal General gastrointestinal: soft, non-tender, non-distended, normal bowel sounds - Integumentary Integumentary: Present: clear, warm - Psychiatric Psychiatric: appropriate mood/affect, cooperative - Neurologic Neurologic: CNII-XII intact, moves all extremities Subjective Date of service: 08/04/20 Principal diagnosis: Covid-19 Interval history: Patient seen and examined. Medical records and medication list reviewed. No acute event overnight noted by the RN. Patient remains on 8-10 L nasal cannula O2 today Discussed plan of care at bedside with patient. Objective - Constitutional Vitals: Vital Signs - 12hr 08/04/20 08/04/20 08/04/20 07:00 08:54 17:30 Temperature 97.9 F 98.4 F Pulse Rate 74 68 Pulse Rate [ 100 H Anterior Bilateral Throughout] Respiratory 18 24 Rate Respiratory 20 Rate [Anterior Bilateral Throughout] Blood Pressure 110/62 Blood Pressure 106/71 [Right] O2 Sat by Pulse 97 96 106 H Oximetry - Labs CBC & Chem 7: 08/03/20 09:25 08/04/20 09:07 Labs: Abnormal lab results 08/04/20 Range/Units 09:07 Chloride 95.9 L (98-107) mmol/L BUN 88 H (7-17) mg/dL Creatinine 3.0 H (0.6-1.2) mg/dL Glucose 134 H (65-100) mg/dL HEART Score - HEART Score Age: > 65 Risk factors: 1-2 risk factors Troponin: < normal limit - Critical Actions Critical Actions: 0-3 pts:0.9-1.7%risk of adverse cardiac event.Candidate for discharge
[2020-08-04] MEDS: MIRTAZAPINE 15 MG TAB PO SCH (21:30)
[2020-08-05 06:33] LABS: Hematocrit 31.8 % (30.3-42.9); Hemoglobin 10.3 gm/dl (10.1-14.3); Mean Corpuscular HGB Conc 32 % (30-34); Mean Corpuscular Volume 92 fl (79-97); Platelet Count 361 K/mm3 (140-440); Red Blood Count 3.46 M/mm3 (3.65-5.03); Red Cell Distribution Width 14.4 % (13.2-15.2)
[2020-08-05 06:44] LABS: Calcium 8.6 mg/dL (8.4-10.2)
--- NOTE | 2020-08-05 08:07 | Progress Note ---
Assessment and Plan 1. Acute kidney injury vs CKD stage 4: Renal function was about the same as prior visit. Monitor renal function. Creatinine level is slightly better today. Avoid nephrotoxic agents. Meds dosage based on GFR. 2. FEN: Lasix stopped due to increase in the creatinine level noted. Monitor volume status and lytes. 3. Covid infection: Isolation, follow inflammatory markers. Dexamethasone. Followed by ID. 4. Acute on chronic hypoxemic respiratory failure, POA: 2/2 COVID infection. CXR showed atelectasis. Patient on home oxygen 3 L. Currently on 8 Lts [place]. 5. Right intertrochanteric hip fracture: S/p Closed reduction insertion of intramedullary nail right femur 07/25/2020. Postop care per surgery, pain control, PT/OT and rehab. 6. COPD: Continue duonebs, titrate O2 sats to more than 90% Supportive care. 7. H/o Dementia: Supportive care. 8. HTN: Monitor BP. Adjust meds as needed. 9. Anemia: Monitor. Subjective: Patient was seen and examined at the bedside. Doing ok. Objective: General appearance: well-developed, appears stated age, appears emaciated, not in distress, [place] O2 ([place]) HEENT: ATNC, JANET Neck: trachea midline Respiratory: diminished breath sounds at bases Heart: regular, S1S2, no murmur Gastrointestinal: soft, normoactive bowel sounds, not tender Integumentary: no obvious rash Ext: no edema Neurologic: alert, conversing, able to move extremities, confused Subjective Date of service: 08/05/20 Principal diagnosis: Covid-19 Objective - Vital Signs Vital signs: Vital Signs - 12hr 08/04/20 08/04/20 08/04/20 21:36 21:46 22:00 Temperature 97.8 F Pulse Rate 87 Respiratory 18 Rate Blood Pressure 119/76 O2 Sat by Pulse 95 98 96 Oximetry 08/05/20 08/05/20 04:26 07:27 Temperature 98.2 F Pulse Rate 81 Respiratory 19 Rate Blood Pressure 100/62 O2 Sat by Pulse 96 96 Oximetry - Lab 08/05/20 05:18 08/05/20 05:18 Most recent lab results Calcium 8.6 mg/dL (8.4-10.2) 08/05/20 05:18 Magnesium 1.60 mg/dL (1.7-2.3) L 07/25/20 05:50 Medications & Allergies - Medications Allergies/Adverse Reactions: Allergies No Known Allergies Allergy (Verified 04/25/17 12:02) Home Medications: Home Medications Medication Instructions Recorded Confirmed Last Taken Type Tiotropium [Spiriva] 18 mcg IH QDAY 05/02/15 08/02/20 01/01/16 History Ondansetron [Zofran TAB] 4 mg PO Q8HR PRN 06/09/16 08/02/20 Unknown History Albuterol Sulfate [Ventolin Hfa] 2 puff IH BID PRN 04/25/17 08/02/20 Unknown History Cholecalciferol (Vitamin D3) 5,000 unit PO DAILY 04/25/17 08/02/20 Unknown History [Vitamin D3 5,000 UNIT] Ferrous Gluconate [Ferrous 324 mg PO QDAY 04/25/17 08/02/20 Unknown History Gluconate 324 MG] Ipratropium/Albuterol Sulfate 1 ampul IH Q6HR PRN 04/25/17 08/02/20 Unknown History [DUONEB *Not for PRN Use*] Mirtazapine [Remeron] 7.5 mg PO HS 04/25/17 08/02/20 Unknown History Sennosides [Senna] 8.6 mg PO HS PRN 04/25/17 08/02/20 Unknown History Pantoprazole [Protonix TAB] 40 mg PO BID #60 tablet 04/28/17 08/02/20 Unknown Rx oxyCODONE /ACETAMINOPHEN [Percocet 1 tab PO Q4HR PRN #20 tablet 04/28/17 08/02/20 Unknown Rx 5/325 mg] Acetaminophen [Acetaminophen TAB] 650 mg PO Q4HR PRN MDD 3,000 mg 06/01/17 08/02/20 Unknown History levoFLOXacin [Levaquin TAB] 500 mg PO Q48H #2 tablet 06/28/17 08/02/20 Unknown Rx Active Medications: Generic Name Dose Route Start Last Admin Trade Name Freq PRN Reason Stop Dose Admin Acetaminophen 650 mg 07/22/20 21:55 07/27/20 21:45 Acetaminophen 325 Mg Tab PO 650 mg Q4H PRN Administration PAIN (1-3) Albuterol 2.5 mg 07/22/20 22:51 08/04/20 08:54 Albuterol 2.5 Mg/3 Ml Nebu IH 2.5 mg BIDRT PRN Administration Shortness Of Breath Apixaban 5 mg 08/01/20 15:00 08/04/20 21:29 Apixaban 5 Mg Tab PO 5 mg Q12HR SAY Administration Ascorbic Acid 500 mg 07/29/20 22:00 08/04/20 21:29 Ascorbic Acid 500 Mg Tab PO 500 mg BID SAY Administration Cholecalciferol 5,000 unit 07/23/20 10:00 08/04/20 09:56 Cholecalciferol (Vit D3) 5,000 Unit Tab PO 5,000 unit DAILY SAY Administration Dexamethasone 6 mg 07/27/20 19:00 08/04/20 09:57 Dexamethasone 4 Mg/Ml Vial IV 08/05/20 10:01 6 mg DAILY SAY Administration Ferrous Gluconate 324 mg 07/23/20 10:00 08/04/20 09:56 Ferrous Gluconate 324 Mg Tab PO 324 mg QDAY SAY Administration Hydromorphone HCl 0.5 mg 07/22/20 22:01 07/25/20 15:36 Hydromorphone 1 Mg/1 Ml Inj IV 0.5 mg Q3H PRN Administration Pain , Severe (7-10) Metoclopramide HCl 5 mg 07/22/20 22:01 Metoclopramide 10 Mg/2 Ml Inj IV Q6H PRN Nausea And Vomiting Mirtazapine 7.5 mg 07/22/20 22:00 08/04/20 21:30 Mirtazapine 15 Mg Tab PO 7.5 mg HS SAY Administration Morphine Sulfate 2 mg 07/25/20 14:33 Morphine 2 Mg/1 Ml Inj IV Q4H PRN Pain, Moderate (4-6) Ondansetron HCl 4 mg 07/22/20 22:01 Ondansetron 4 Mg/2 Ml Inj IV Q3H PRN Nausea And Vomiting Oxycodone/Acetaminophen 1 tab 07/25/20 14:33 07/25/20 20:21 Oxycodone /Acetaminophen 5-325mg Tab PO 1 tab Q6H PRN Administration Pain, Moderate (4-6) Pantoprazole Sodium 40 mg 07/22/20 22:00 08/04/20 21:30 Pantoprazole 40 Mg Tab PO 40 mg BID SAY Administration Senna 8.6 mg 07/22/20 21:55 Sennosides 8.6 Mg Tab PO HS PRN Constipation Sodium Chloride 10 ml 07/23/20 10:00 08/04/20 21:30 Sodium Chloride 0.9% 10 Ml Flush Syringe IV 10 ml BID SAY Administration Sodium Chloride 10 ml 07/22/20 22:01 Sodium Chloride 0.9% 10 Ml Flush Syringe IV PRN PRN LINE FLUSH Tiotropium [place] 1 puff 07/23/20 10:00 08/04/20 10:16 Tiotropium 18 Mcg Cap Inhalation IH 1 puff QDAY SAY Administration Zinc Sulfate 220 mg 07/29/20 22:00 08/04/20 21:29 Zinc Sulfate 220 Mg Cap PO 220 mg BID SAY Administration
--- NOTE | 2020-08-05 08:31 | Progress Note ---
Assessment and Plan 75 y/o female with acute respiratory failure secondary to COVID 19 1. Suggest decadron for 10 days. Steroids do not appear to be on MAR, will ask IMS why they have been discontinued. 2. Prone if possible 3. Wean FiO2 for sats >88% 4. Keep patient net negative fluid balance. Subjective Date of service: 08/05/20 Principal diagnosis: Covid-19 Interval history: No acute events. Currently on 8 liter salter with sat of 95% Objective Vital Signs - 12hr 08/04/20 08/04/20 08/04/20 21:36 21:46 22:00 Temperature 97.8 F Pulse Rate 87 Respiratory 18 Rate Blood Pressure 119/76 O2 Sat by Pulse 95 98 96 Oximetry 08/05/20 08/05/20 04:26 07:27 Temperature 98.2 F Pulse Rate 81 Respiratory 19 Rate Blood Pressure 100/62 O2 Sat by Pulse 96 96 Oximetry Constitutional: no acute distress, alert Eyes: non-icteric ENT: oropharynx moist Neck: supple Effort: normal Ascultation: Bilateral: clear, wheezes Cardiovascular: regular rate and rhythm Gastrointestinal: normoactive bowel sounds, soft, non-tender, non-distended Integumentary: normal Extremities: no cyanosis Neurologic: normal mental status, non-focal exam Psychiatric: mood appropriate, affect normal CBC and BMP: 08/05/20 05:18 08/05/20 05:18 ABG, PT/INR, D-dimer: PT/INR, D-dimer PT 13.6 Sec. (12.2-14.9) 07/30/20 17:51 INR 1.06 (0.87-1.13) 07/30/20 17:51 D-Dimer 2664.53 ng/mlDDU (0-234) H 08/01/20 11:00 Abnormal lab findings: Abnormal Labs 07/22/20 07/22/20 07/22/20 17:40 17:40 23:46 WBC RBC Hgb Hct Lymph % (Auto) 10.9 L [place] % (Auto) Eos % (Auto) Lymph # (Auto) 0.9 L Seg Neutrophils % 78.9 H D-Dimer Sodium Chloride BUN 33 H Creatinine 2.0 H Glucose 108 H POC Glucose 107 H Magnesium Alkaline Phosphatase Lactate Dehydrogenase C-Reactive Protein Total Protein Albumin Coronavirus (PCR) 07/23/20 07/23/20 07/25/20 07:58 07:58 05:50 WBC RBC 3.50 L Hgb Hct Lymph % (Auto) 12.0 L [place] % (Auto) 8.1 H 8.3 H Eos % (Auto) 6.6 H Lymph # (Auto) 0.7 L 1.0 L Seg Neutrophils % 74.9 H D-Dimer Sodium Chloride 107.2 H BUN 31 H Creatinine 2.0 H Glucose 102 H POC Glucose Magnesium Alkaline Phosphatase Lactate Dehydrogenase C-Reactive Protein Total Protein Albumin 3.7 L Coronavirus (PCR) 07/25/20 07/25/20 07/26/20 05:50 Unknown 05:06 WBC RBC Hgb 9.8 L Hct 29.8 L Lymph % (Auto) [place] % (Auto) Eos % (Auto) Lymph # (Auto) Seg Neutrophils % D-Dimer Sodium Chloride 109.5 H BUN Creatinine 1.6 H Glucose 111 H POC Glucose Magnesium 1.60 L Alkaline Phosphatase Lactate Dehydrogenase C-Reactive Protein Total Protein Albumin Coronavirus (PCR) Positive A 07/27/20 07/27/20 07/27/20 19:23 19:23 19:23 WBC RBC Hgb Hct Lymph % (Auto) [place] % (Auto) Eos % (Auto) Lymph # (Auto) Seg Neutrophils % D-Dimer 2800.46 H Sodium Chloride BUN 23 H Creatinine 2.1 H Glucose 112 H POC Glucose Magnesium Alkaline Phosphatase Lactate Dehydrogenase 238 H C-Reactive Protein 19.30 H Total Protein Albumin Coronavirus (PCR) 07/29/20 07/30/20 07/30/20 10:49 05:21 17:51 WBC RBC 3.31 L Hgb Hct Lymph % (Auto) [place] % (Auto) Eos % (Auto) Lymph # (Auto) Seg Neutrophils % D-Dimer Sodium 146 H D Chloride 108.1 H 110.5 H BUN 40 H 44 H Creatinine 2.0 H 1.8 H Glucose POC Glucose Magnesium Alkaline Phosphatase 134 H Lactate Dehydrogenase C-Reactive Protein Total Protein 5.8 L 5.7 L Albumin 3.4 L 2.9 L Coronavirus (PCR) 07/30/20 07/31/20 08/01/20 17:51 08:48 06:11 WBC RBC 3.39 L Hgb Hct Lymph % (Auto) [place] % (Auto) Eos % (Auto) Lymph # (Auto) Seg Neutrophils % D-Dimer Sodium Chloride BUN 44 H Creatinine 1.7 H 1.8 H Glucose POC Glucose Magnesium Alkaline Phosphatase Lactate Dehydrogenase C-Reactive Protein Total Protein 5.6 L Albumin 3.1 L Coronavirus (PCR) 08/01/20 08/01/20 08/01/20 06:11 11:00 11:00 WBC RBC Hgb Hct Lymph % (Auto) [place] % (Auto) Eos % (Auto) Lymph # (Auto) Seg Neutrophils % D-Dimer 2664.53 H Sodium Chloride BUN 42 H Creatinine 1.7 H Glucose POC Glucose Magnesium Alkaline Phosphatase Lactate Dehydrogenase 378 H C-Reactive Protein 4.00 H Total Protein Albumin Coronavirus (PCR) 08/02/20 08/03/20 08/03/20 07:46 09:25 09:25 WBC 11.7 H RBC Hgb Hct Lymph % (Auto) [place] % (Auto) Eos % (Auto) Lymph # (Auto) Seg Neutrophils % D-Dimer Sodium Chloride BUN 62 H 75 H Creatinine 1.9 H 2.5 H Glucose 157 H POC Glucose Magnesium Alkaline Phosphatase Lactate Dehydrogenase C-Reactive Protein Total Protein Albumin Coronavirus (PCR) 08/04/20 08/05/20 08/05/20 09:07 05:18 05:18 WBC RBC 3.46 L Hgb Hct Lymph % (Auto) [place] % (Auto) Eos % (Auto) Lymph # (Auto) Seg Neutrophils % D-Dimer Sodium Chloride 95.9 L BUN 88 H 80 H Creatinine 3.0 H 2.4 H Glucose 134 H POC Glucose Magnesium Alkaline Phosphatase Lactate Dehydrogenase C-Reactive Protein Total Protein Albumin Coronavirus (PCR)
[2020-08-05] MEDS: APIXABAN 5 MG TAB PO SCH ×2 (10:11→22:06)
[2020-08-05] MEDS: PANTOPRAZOLE 40 MG TAB PO SCH ×2 (10:11→22:06)
[2020-08-05] MEDS: ASCORBIC ACID 500 MG TAB PO SCH ×2 (10:11→22:06)
[2020-08-05] MEDS: ZINC SULFATE 220 MG CAP PO SCH ×2 (10:11→22:06)
[2020-08-05] MEDS: dexAMETHasone 4 MG/ML VIAL IV SCH (10:11)
[2020-08-05] MEDS: CHOLECALCIFEROL (VIT D3) 5,000 UNIT TAB PO SCH (10:11)
[2020-08-05] MEDS: FERROUS GLUCONATE 324 MG TAB PO SCH (10:11)
[2020-08-05] MEDS: TIOTROPIUM 18 MCG CAP INHALATION IH SCH (10:44)
--- NOTE | 2020-08-05 13:19 | Progress Note ---
Assessment and Plan Cultures: SARS CoV2 PCR: Positive A/P: 75-year-old female with hypertension, dementia, hyperlipidemia, schizophrenia, COPD, CKD, residential resident was admitted to the hospital on 07/23/2019 with right hip pain and fracture: #COVID-19: With associated respiratory failure, high CRP. On steroids, completed remdesivir. #Acute hypoxic respiratory failure: remains on salter [place]. #DANYA on CKD: creatinine elevated, nephrology following. #COPD #Right hip fracture: Status post closed reduction and insertion of intramedullary nail in the right femur on 07/25/2020 Recs: -completed 10 days of steroids, OK to extend, defer to pulmonary -s/p Remdesivir -prophylactic anticoagulation based on d-dimer per hospital protocol, on eliquis -oxygen weaning as tolerated Miguelito Esqueda MD, FACP [facility] ([facility] O: [phone] F: [phone] Subjective Date of service: 08/05/20 Principal diagnosis: Covid-19 Interval history: No fever. Remains on oxygen via [place]. Objective - Exam Narrative Exam: Physical Exam (reviewed in chart to minimize risk of transmission) Constitutional: deferred Head, Ears, Nose: deferred Eyes: deferred Neck: deferred Oral: deferred Cardiovascular: deferred Respiratory: deferred GI: deferred Musculoskeletal: deferred Skin: deferred Hem/Lymphatic: deferred Psych: deferred Neurological: deferred - Constitutional Vitals: Vital Signs Temp Pulse Resp BP Pulse Ox 98.2 F 81 19 100/62 96 08/05/20 04:26 08/05/20 04:26 08/05/20 04:26 08/05/20 04:26 08/05/20 07:27 Temperature -Last 24 Hours Temperature 98.2 F Temperature 97.8 F Temperature 98.4 F - Labs CBC & Chem 7: 08/05/20 05:18 08/05/20 05:18 Labs: Abnormal lab results 08/05/20 08/05/20 Range/Units 05:18 05:18 RBC 3.46 L (3.65-5.03) M/mm3 BUN 80 H (7-17) mg/dL Creatinine 2.4 H (0.6-1.2) mg/dL
--- NOTE | 2020-08-05 14:16 | Progress Note ---
Assessment and Plan --Covid positive reported 07/26/2020 Isolation, ID, follow inflammatory markers, dexamethasone 10 days ID recommended remdesivir , follow renal function --Acute on chronic hypoxic respiratory failure Patient was requiring high flow nasal cannula oxygen, now on 6 L nasal cannula Patient already has home oxygen 3 L Prone positioning, ID and pulmonary consulted --Elevated D-dimers; Patient not stable for VQ scan to evaluate for PE Patient is on high flow oxygen Lower extremity venous Doppler negative for DVT Continue eliquis twice a day --Right intertrochanteric hip fracture Orthopedic evaluated s/p Closed reduction insertion of intramedullary nail right femur 07/25/2020. Postop care per surgery , pain medications PT OT rehab, --COPD (chronic obstructive pulmonary disease) Continue duo nebs, oxygen titrate O2 sats to more than 90% Supportive care --Acute on chronic (acute kidney injury)/ATN patient might also has CKD stage 4 gentle hydration, monitor renal function Avoid nephrotoxin, nephrology following -- Hypertension Catapres patch if necessary Hold oral antihypertensives As needed hydralazine --Full CODE STATUS; --DVT prophylaxis SCDs, subcu heparin renal dose Closely monitor the patient and adjust the management as needed Plan of care reviewed with the patient and her nurse Follow Ortho, ID and pulmonary evaluation and recommendations DC planning per case management Brief history: 75-year-old female patient with history of fall admitted with right trochanteric hip fracture evaluated by orthopedic surgeon underwent closed reduction with IM nail in the right femur patient was receiving physical therapy occupational therapy Covid test was done prior to placement which was positive. Patient has history of COPD home oxygen dependent, however with Covid, required high flow oxygen. ID orthopedic and pulmonary following brief history. DC planning per case management Daily Hospital course: 07/24; fracture right hip, pending Ortho evaluation Acute kidney injury, continue gentle hydration Closely monitor the patient and adjust the management 07/25; right intertrochanteric hip fracture s/p Closed reduction insertion of intramedullary nail right femur 07/25/2020 Continue postop care, PT OT, rehab versus home with home health in stable 07/26; patient feels slightly better, physical therapy Complains of pain, DC planning per case management 07/27; COVID-19 positive, ID consult, management per protocols Dexamethasone, no remdesivir due to acute kidney injury, isolation Already has home oxygen, proning 07/28; patient is on high flow oxygen, in mild distress In the setting of COVID-19 pneumonia and high flow oxygen, pulmonary consulted Follow ID and Ortho evaluation recommendations 07/29: Patient remains on high flow O2 - 10L N/c today, continue dexamethasone remdesivir for COVID-19, follow inflammatory markers, ID following will follow r ecommendation. PT eval and continue supportive care 07/30: Patient on 5 L nasal cannula today, continue dexamethasone and remdesivir, closely follow renal function. Wean off O2 as tolerated. DC back to nursing facility when clinically stable. 07/31: Patient off oxygen requirement is increased to 6 to 7 L O2 today. We will repeat chest x-ray, will stop IV fluid and will give one dose of Lasix. Continue remdesivir and dexamethasone. Continue to follow inflammatory markers, continue supportive care and nebulizer scheduled breathing treatment 08/01: Patient's oxygen requirement has slightly increased today, currently she is on 7 to 8 L nasal cannula. Chest x-ray suggestive of mild pulmonary congestion we will continue IV Lasix. Monitor daily BMP ins and O's. D-dimer persistently significantly elevated, will change Eliquis to 5 mg twice daily. Continue to follow inflammatory markers. Last dose of remdesivir today, continue dexamethasone for total 10 days. Wean off O2 as tolerated. 08/02: Patient today on 6L N/c. cont to follow inflammatory markers, wean off O2 as tolerated. follow BMP, stop lasix as Cr 1.9 today. 08/03: Patient today on 8L O2. cont to follow inflammatory markers, wean off O2 as tolerated. follow BMP 08/04: -IV/PO Dexamethasone 6 mg daily x 10 days, D9. s/p Remdesivir, creatinine worse -3.0 today, nephrology on board. prophylactic anticoagulation based on d- dimer per hospital protocol, on eliquis. Remains on 8 to 10 L O2 -wean off as tolerated. Not stable for discharge yet. Continue to follow BMP 08/05: Renal function slightly improved. Last dose of dexamethasone today. Completed remdesivir. Continue prophylactic anticoagulation for elevated D-di meet. Patient remains on 8 to 10 L nasal cannula O2 and unable to wean off. Discussed with case management and discussed with the patient about hospice. Will consult hospice service for discharge planning to accommodate oxygen requirement on discharge. Hospitalist Physical General appearance: Present: no distress, other (Elderly and frail) - EENT Eyes: Present: PERRL, EOM intact - Neck Neck: Present: supple, normal ROM - Respiratory Respiratory effort: normal Respiratory: bilateral: diminished, negative: rales, rhonchi, wheezing - Cardiovascular Rhythm: regular Heart Sounds: Present: S1 & S2 - Extremities Extremities: no ischemia, No edema - Abdominal General gastrointestinal: soft, non-tender, non-distended, normal bowel sounds - Integumentary Integumentary: Present: clear, warm - Psychiatric Psychiatric: appropriate mood/affect, cooperative - Neurologic Neurologic: CNII-XII intact, moves all extremities Subjective Date of service: 08/05/20 Principal diagnosis: Covid-19 Interval history: Patient seen and examined. Medical records and medication list reviewed. No acute event overnight noted by the RN. Patient remains on 8-10 L nasal cannula O2 Discussed plan of care at bedside with patient. Objective - Constitutional Vitals: Vital Signs - 12hr 08/05/20 08/05/20 08/05/20 04:26 07:27 11:18 Temperature 98.2 F 97.9 F Pulse Rate 81 85 Respiratory 19 20 Rate Blood Pressure 100/62 101/59 O2 Sat by Pulse 96 96 98 Oximetry - Labs CBC & Chem 7: 08/05/20 05:18 08/05/20 05:18 Labs: Abnormal lab results 08/05/20 08/05/20 Range/Units 05:18 05:18 RBC 3.46 L (3.65-5.03) M/mm3 BUN 80 H (7-17) mg/dL Creatinine 2.4 H (0.6-1.2) mg/dL HEART Score - HEART Score Age: > 65 Risk factors: 1-2 risk factors Troponin: < normal limit - Critical Actions Critical Actions: 0-3 pts:0.9-1.7%risk of adverse cardiac event.Candidate for discharge
[2020-08-05] MEDS: MIRTAZAPINE 15 MG TAB PO SCH (22:06)
[2020-08-06] MEDS: TIOTROPIUM 18 MCG CAP INHALATION IH SCH (09:48)
[2020-08-06 10:06] LABS: Calcium 8.7 mg/dL (8.4-10.2)
--- NOTE | 2020-08-06 10:33 | Progress Note ---
Assessment and Plan 1. Acute kidney injury vs CKD stage 4: Renal function was about the same as prior visit. Monitor renal function. Creatinine level is slightly better today. Avoid nephrotoxic agents. Meds dosage based on GFR. 2. FEN: Lasix stopped due to increase in the creatinine level noted. Monitor volume status and lytes. 3. Covid infection: Isolation, follow inflammatory markers. Followed by ID. 4. Acute on chronic hypoxemic respiratory failure, POA: 2/2 COVID infection. CXR showed atelectasis. Patient on home oxygen 3 L. Currently on 8 Lts salter. 5. Right intertrochanteric hip fracture: S/p Closed reduction insertion of intramedullary nail right femur 07/25/2020. Postop care per surgery, pain control, PT/OT and rehab. 6. COPD: Continue duonebs, titrate O2 sats to more than 90% Supportive care. 7. H/o Dementia: Supportive care. 8. HTN: Monitor BP. Adjust meds as needed. 9. Anemia: Monitor. Subjective: Patient was seen and examined at the bedside. Doing ok. Objective: General appearance: well-developed, appears stated age, appears emaciated, not in distress, NC O2 (salter) HEENT: ATNC, JANET Neck: trachea midline Respiratory: diminished breath sounds at bases Heart: regular, S1S2, no murmur Gastrointestinal: soft, normoactive bowel sounds, not tender Integumentary: no obvious rash Ext: no edema Neurologic: alert, conversing, able to move extremities, confused Subjective Date of service: 08/06/20 Principal diagnosis: Covid-19 Objective - Vital Signs Vital signs: Vital Signs - 12hr 08/06/20 04:15 Temperature 97.9 F Pulse Rate 91 H Respiratory 20 Rate Blood Pressure 146/78 O2 Sat by Pulse 97 Oximetry - Lab 08/05/20 05:18 08/06/20 08:46 Most recent lab results Calcium 8.7 mg/dL (8.4-10.2) 08/06/20 08:46 Magnesium 1.60 mg/dL (1.7-2.3) L 07/25/20 05:50 Medications & Allergies - Medications Allergies/Adverse Reactions: Allergies No Known Allergies Allergy (Verified 04/25/17 12:02) Home Medications: Home Medications Medication Instructions Recorded Confirmed Last Taken Type Tiotropium [Spiriva] 18 mcg IH QDAY 05/02/15 08/02/20 01/01/16 History Ondansetron [Zofran TAB] 4 mg PO Q8HR PRN 06/09/16 08/02/20 Unknown History Albuterol Sulfate [Ventolin Hfa] 2 puff IH BID PRN 04/25/17 08/02/20 Unknown History Cholecalciferol (Vitamin D3) 5,000 unit PO DAILY 04/25/17 08/02/20 Unknown History [Vitamin D3 5,000 UNIT] Ferrous Gluconate [Ferrous 324 mg PO QDAY 04/25/17 08/02/20 Unknown History Gluconate 324 MG] Ipratropium/Albuterol Sulfate 1 ampul IH Q6HR PRN 04/25/17 08/02/20 Unknown His tory [DUONEB *Not for PRN Use*] Mirtazapine [Remeron] 7.5 mg PO HS 04/25/17 08/02/20 Unknown History Sennosides [Senna] 8.6 mg PO HS PRN 04/25/17 08/02/20 Unknown History Pantoprazole [Protonix TAB] 40 mg PO BID #60 tablet 04/28/17 08/02/20 Unknown Rx oxyCODONE /ACETAMINOPHEN [Percocet 1 tab PO Q4HR PRN #20 tablet 04/28/17 08/02/20 Unknown Rx 5/325 mg] Acetaminophen [Acetaminophen TAB] 650 mg PO Q4HR PRN MDD 3,000 mg 06/01/17 08/02/20 Unknown History levoFLOXacin [Levaquin TAB] 500 mg PO Q48H #2 tablet 06/28/17 08/02/20 Unknown Rx Active Medications: Generic Name Dose Route Start Last Admin Trade Name Freq PRN Reason Stop Dose Admin Acetaminophen 650 mg 07/22/20 21:55 07/27/20 21:45 Acetaminophen 325 Mg Tab PO 650 mg Q4H PRN Administration PAIN (1-3) Albuterol 2.5 mg 07/22/20 22:51 08/04/20 08:54 Albuterol 2.5 Mg/3 Ml Nebu IH 2.5 mg BIDRT PRN Administration Shortness Of Breath Apixaban 5 mg 08/01/20 15:00 08/05/20 22:06 Apixaban 5 Mg Tab PO 5 mg Q12HR SAY Administration Ascorbic Acid 500 mg 07/29/20 22:00 08/05/20 22:06 Ascorbic Acid 500 Mg Tab PO 500 mg BID SAY Administration Cholecalciferol 5,000 unit 07/23/20 10:00 08/05/20 10:11 Cholecalciferol (Vit D3) 5,000 Unit Tab PO 5,000 unit DAILY SAY Administration Ferrous Gluconate 324 mg 07/23/20 10:00 08/05/20 10:11 Ferrous Gluconate 324 Mg Tab PO 324 mg QDAY SYA Administration Hydromorphone HCl 0.5 mg 07/22/20 22:01 07/25/20 15:36 Hydromorphone 1 Mg/1 Ml Inj IV 0.5 mg Q3H PRN Administration Pain , Severe (7-10) Metoclopramide HCl 5 mg 07/22/20 22:01 Metoclopramide 10 Mg/2 Ml Inj IV Q6H PRN Nausea And Vomiting Mirtazapine 7.5 mg 07/22/20 22:00 08/05/20 22:06 Mirtazapine 15 Mg Tab PO 7.5 mg HS SAY Administration Morphine Sulfate 2 mg 07/25/20 14:33 Morphine 2 Mg/1 Ml Inj IV Q4H PRN Pain, Moderate (4-6) Ondansetron HCl 4 mg 07/22/20 22:01 Ondansetron 4 Mg/2 Ml Inj IV Q3H PRN Nausea And Vomiting Oxycodone/Acetaminophen 1 tab 07/25/20 14:33 07/25/20 20:21 Oxycodone /Acetaminophen 5-325mg Tab PO 1 tab Q6H PRN Administration Pain, Moderate (4-6) Pantoprazole Sodium 40 mg 07/22/20 22:00 08/05/20 22:06 Pantoprazole 40 Mg Tab PO 40 mg BID SAY Administration Senna 8.6 mg 07/22/20 21:55 Sennosides 8.6 Mg Tab PO HS PRN Constipation Sodium Chloride 10 ml 07/23/20 10:00 08/05/20 22:07 Sodium Chloride 0.9% 10 Ml Flush Syringe IV 10 ml BID SAY Administration Sodium Chloride 10 ml 07/22/20 22:01 Sodium Chloride 0.9% 10 Ml Flush Syringe IV PRN PRN LINE FLUSH Tiotropium [place] 1 puff 07/23/20 10:00 08/06/20 09:48 Tiotropium 18 Mcg Cap Inhalation IH 1 puff QDAY SAY Administration Zinc Sulfate 220 mg 07/29/20 22:00 08/05/20 22:06 Zinc Sulfate 220 Mg Cap PO 220 mg BID SAY Administration
[2020-08-06] MEDS: ZINC SULFATE 220 MG CAP PO SCH ×2 (10:35→21:56)
[2020-08-06] MEDS: PANTOPRAZOLE 40 MG TAB PO SCH ×2 (10:35→21:56)
[2020-08-06] MEDS: CHOLECALCIFEROL (VIT D3) 5,000 UNIT TAB PO SCH (10:35)
[2020-08-06] MEDS: ASCORBIC ACID 500 MG TAB PO SCH ×2 (10:35→21:56)
[2020-08-06] MEDS: APIXABAN 5 MG TAB PO SCH ×2 (10:35→21:56)
[2020-08-06] MEDS: FERROUS GLUCONATE 324 MG TAB PO SCH (10:35)
--- NOTE | 2020-08-06 11:08 | Progress Note ---
Assessment and Plan 75 y/o female with acute respiratory failure secondary to COVID 19 1. Steroids actually have already been completed. 2. Prone if possible, continue to do this despite improvement in oxygenation. 3. Wean FiO2 for sats >88% 4. Keep patient net negative fluid balance. 5. Suggest walk test in the next 24-48 hours to assess oxygen needs if any. Hopeful discharge soon. Subjective Date of service: 08/06/20 Principal diagnosis: Covid-19 Interval history: no acute events. Down to 6 liters. Good sats. Objective Vital Signs - 12hr 08/06/20 08/06/20 08/06/20 04:15 10:15 10:44 Temperature 97.9 F Pulse Rate 91 H Respiratory 20 Rate Blood Pressure 146/78 O2 Sat by Pulse 97 99 94 Oximetry Constitutional: no acute distress, alert Eyes: non-icteric ENT: oropharynx moist Neck: supple Effort: normal Ascultation: Bilateral: clear, wheezes Cardiovascular: regular rate and rhythm Gastrointestinal: normoactive bowel sounds, soft, non-tender, non-distended Integumentary: normal Extremities: no cyanosis Neurologic: normal mental status, non-focal exam Psychiatric: mood appropriate, affect normal CBC and BMP: 08/05/20 05:18 08/06/20 08:46 ABG, PT/INR, D-dimer: PT/INR, D-dimer PT 13.6 Sec. (12.2-14.9) 07/30/20 17:51 INR 1.06 (0.87-1.13) 07/30/20 17:51 D-Dimer 2664.53 ng/mlDDU (0-234) H 08/01/20 11:00 Abnormal lab findings: Abnormal Labs 07/22/20 07/22/20 07/22/20 17:40 17:40 23:46 WBC RBC Hgb Hct Lymph % (Auto) 10.9 L [place] % (Auto) Eos % (Auto) Lymph # (Auto) 0.9 L Seg Neutrophils % 78.9 H D-Dimer Sodium Chloride BUN 33 H Creatinine 2.0 H Glucose 108 H POC Glucose 107 H Magnesium Alkaline Phosphatase Lactate Dehydrogenase C-Reactive Protein Total Protein Albumin Coronavirus (PCR) 07/23/20 07/23/20 07/25/20 07:58 07:58 05:50 WBC RBC 3.50 L Hgb Hct Lymph % (Auto) 12.0 L [place] % (Auto) 8.1 H 8.3 H Eos % (Auto) 6.6 H Lymph # (Auto) 0.7 L 1.0 L Seg Neutrophils % 74.9 H D-Dimer Sodium Chloride 107.2 H BUN 31 H Creatinine 2.0 H Glucose 102 H POC Glucose Magnesium Alkaline Phosphatase Lactate Dehydrogenase C-Reactive Protein Total Protein Albumin 3.7 L Coronavirus (PCR) 07/25/20 07/25/20 07/26/20 05:50 Unknown 05:06 WBC RBC Hgb 9.8 L Hct 29.8 L Lymph % (Auto) [place] % (Auto) Eos % (Auto) Lymph # (Auto) Seg Neutrophils % D-Dimer Sodium Chloride 109.5 H BUN Creatinine 1.6 H Glucose 111 H POC Glucose Magnesium 1.60 L Alkaline Phosphatase Lactate Dehydrogenase C-Reactive Protein Total Protein Albumin Coronavirus (PCR) Positive A 07/27/20 07/27/20 07/27/20 19:23 19:23 19:23 WBC RBC Hgb Hct Lymph % (Auto) [place] % (Auto) Eos % (Auto) Lymph # (Auto) Seg Neutrophils % D-Dimer 2800.46 H Sodium Chloride BUN 23 H Creatinine 2.1 H Glucose 112 H POC Glucose Magnesium Alkaline Phosphatase Lactate Dehydrogenase 238 H C-Reactive Protein 19.30 H Total Protein Albumin Coronavirus (PCR) 07/29/20 07/30/20 07/30/20 10:49 05:21 17:51 WBC RBC 3.31 L Hgb Hct Lymph % (Auto) [place] % (Auto) Eos % (Auto) Lymph # (Auto) Seg Neutrophils % D-Dimer Sodium 146 H D Chloride 108.1 H 110.5 H BUN 40 H 44 H Creatinine 2.0 H 1.8 H Glucose POC Glucose Magnesium Alkaline Phosphatase 134 H Lactate Dehydrogenase C-Reactive Protein Total Protein 5.8 L 5.7 L Albumin 3.4 L 2.9 L Coronavirus (PCR) 07/30/20 07/31/20 08/01/20 17:51 08:48 06:11 WBC RBC 3.39 L Hgb Hct Lymph % (Auto) [place] % (Auto) Eos % (Auto) Lymph # (Auto) Seg Neutrophils % D-Dimer Sodium Chloride BUN 44 H Creatinine 1.7 H 1.8 H Glucose POC Glucose Magnesium Alkaline Phosphatase Lactate Dehydrogenase C-Reactive Protein Total Protein 5.6 L Albumin 3.1 L Coronavirus (PCR) 08/01/20 08/01/20 08/01/20 06:11 11:00 11:00 WBC RBC Hgb Hct Lymph % (Auto) [place] % (Auto) Eos % (Auto) Lymph # (Auto) Seg Neutrophils % D-Dimer 2664.53 H Sodium Chloride BUN 42 H Creatinine 1.7 H Glucose POC Glucose Magnesium Alkaline Phosphatase Lactate Dehydrogenase 378 H C-Reactive Protein 4.00 H Total Protein Albumin Coronavirus (PCR) 08/02/20 08/03/20 08/03/20 07:46 09:25 09:25 WBC 11.7 H RBC Hgb Hct Lymph % (Auto) [place] % (Auto) Eos % (Auto) Lymph # (Auto) Seg Neutrophils % D-Dimer Sodium Chloride BUN 62 H 75 H Creatinine 1.9 H 2.5 H Glucose 157 H POC Glucose Magnesium Alkaline Phosphatase Lactate Dehydrogenase C-Reactive Protein Total Protein Albumin Coronavirus (PCR) 08/04/20 08/05/20 08/05/20 09:07 05:18 05:18 WBC RBC 3.46 L Hgb Hct Lymph % (Auto) [place] % (Auto) Eos % (Auto) Lymph # (Auto) Seg Neutrophils % D-Dimer Sodium Chloride 95.9 L BUN 88 H 80 H Creatinine 3.0 H 2.4 H Glucose 134 H POC Glucose Magnesium Alkaline Phosphatase Lactate Dehydrogenase C-Reactive Protein Total Protein Albumin Coronavirus (PCR) 08/06/20 08:46 WBC RBC Hgb Hct Lymph % (Auto) [place] % (Auto) Eos % (Auto) Lymph # (Auto) Seg Neutrophils % D-Dimer Sodium Chloride BUN 68 H Creatinine 2.1 H Glucose 64 L POC Glucose Magnesium Alkaline Phosphatase Lactate Dehydrogenase C-Reactive Protein Total Protein Albumin Coronavirus (PCR)
--- NOTE | 2020-08-06 12:46 | Progress Note ---
Assessment and Plan --Covid positive reported 07/26/2020 Isolation, ID, follow inflammatory markers, s/p dexamethasone 10 days ID recommended remdesivir and that was completed, follow renal function --Acute on chronic hypoxic respiratory failure Patient was requiring high flow nasal cannula oxygen, Patient already has home oxygen 3 L Prone positioning, ID and pulmonary consulted Continue to wean off O2 as tolerated --Elevated D-dimers; Patient not stable for VQ scan to evaluate for PE Patient is on high flow oxygen Lower extremity venous Doppler negative for DVT Continue eliquis twice a day --Right intertrochanteric hip fracture Orthopedic evaluated s/p Closed reduction insertion of intramedullary nail right femur 07/25/2020. Postop care per surgery , pain medications PT OT rehab, --COPD (chronic obstructive pulmonary disease) Continue duo nebs, oxygen titrate O2 sats to more than 90% Supportive care --Acute on chronic (acute kidney injury)/ATN patient might also has CKD stage 4 gentle hydration, monitor renal function Avoid nephrotoxin, nephrology following -- Hypertension Catapres patch if necessary Hold oral antihypertensives As needed hydralazine --Full CODE STATUS; --DVT prophylaxis SCDs, subcu heparin renal dose Closely monitor the patient and adjust the management as needed Plan of care reviewed with the patient and her nurse Follow Ortho, ID and pulmonary evaluation and recommendations DC planning per case management Brief history: 75-year-old female patient with history of fall admitted with right trochanteric hip fracture evaluated by orthopedic surgeon underwent closed reduction with IM nail in the right femur patient was receiving physical therapy occupational therapy Covid test was done prior to placement which was positive. Patient has history of COPD home oxygen dependent, however with Covid, required high flow oxygen. ID orthopedic and pulmonary following brief history. DC planning per case management Daily Hospital course: 07/24; fracture right hip, pending Ortho evaluation Acute kidney injury, continue gentle hydration Closely monitor the patient and adjust the management 07/25; right intertrochanteric hip fracture s/p Closed reduction insertion of intramedullary nail right femur 07/25/2020 Continue postop care, PT OT, rehab versus home with home health in stable 07/26; patient feels slightly better, physical therapy Complains of pain, DC planning per case management 07/27; COVID-19 positive, ID consult, management per protocols Dexamethasone, no remdesivir due to acute kidney injury, isolation Already has home oxygen, proning 07/28; patient is on high flow oxygen, in mild distress In the setting of COVID-19 pneumonia and high flow oxygen, pulmonary consulted Follow ID and Ortho evaluation recommendations 07/29: Patient remains on high flow O2 - 10L N/c today, continue dexamethasone remdesivir for COVID-19, follow inflammatory markers, ID following will follow recommendation. PT eval and continue supportive care 07/30: Patient on 5 L nasal cannula today, continue dexamethasone and remdesivir, closely follow renal function. Wean off O2 as tolerated. DC back to nursing facility when clinically stable. 07/31: Patient off oxygen requirement is increased to 6 to 7 L O2 today. We will repeat chest x-ray, will stop IV fluid and will give one dose of Lasix. Continue remdesivir and dexamethasone. Continue to follow inflammatory markers, continue supportive care and nebulizer scheduled breathing treatment 08/01: Patient's oxygen requirement has slightly increased today, currently she is on 7 to 8 L nasal cannula. Chest x-ray suggestive of mild pulmonary congestion we will continue IV Lasix. Monitor daily BMP ins and O's. D-dimer persistently significantly elevated, will change Eliquis to 5 mg twice daily. Continue to follow inflammatory markers. Last dose of remdesivir today, continue dexamethasone for total 10 days. Wean off O2 as tolerated. 08/02: Patient today on 6L N/c. cont to follow inflammatory markers, wean off O2 as tolerated. follow BMP, stop lasix as Cr 1.9 today. 08/03: Patient today on 8L O2. cont to follow inflammatory markers, wean off O2 as tolerated. follow BMP 08/04: -IV/PO Dexamethasone 6 mg daily x 10 days, D9. s/p Remdesivir, creatinine worse -3.0 today, nephrology on board. prophylactic anticoagulation based on d- dimer per hospital protocol, on eliquis. Remains on 8 to 10 L O2 -wean off as tolerated. Not stable for discharge yet. Continue to follow BMP 08/05: Renal function slightly improved. Last dose of dexamethasone today. Completed remdesivir. Continue prophylactic anticoagulation for elevated D- dimer. Patient remains on 8 to 10 L nasal cannula O2 and unable to wean off. Discussed with case management and discussed with the patient about hospice. Will consult hospice service for discharge planning to accommodate oxygen requirement on discharge. 08/06: unable to wean off from 10L n/c o2. hospice discussion in progress but patient does not have any family member. Continue to wean off O2 as tolerated. Continue to follow BMP. Hospitalist Physical General appearance: Present: no distress, other (Elderly and frail) - EENT Eyes: Present: PERRL, EOM intact - Neck Neck: Present: supple, normal ROM - Respiratory Respiratory effort: normal Respiratory: bilateral: diminished, negative: rales, rhonchi, wheezing - Cardiovascular Rhythm: regular Heart Sounds: Present: S1 & S2 - Extremities Extremities: no ischemia, No edema - Abdominal General gastrointestinal: soft, non-tender, non-distended, normal bowel sounds - Integumentary Integumentary: Present: clear, warm - Psychiatric Psychiatric: appropriate mood/affect, cooperative - Neurologic Neurologic: CNII-XII intact, moves all extremities Subjective Date of service: 08/06/20 Principal diagnosis: Covid-19 Interval history: Patient seen and examined. Medical records and medication list reviewed. No acute event overnight noted by the RN. Patient remains on 8-10 L nasal cannula O2 Discussed plan of care at bedside with patient. Objective - Constitutional Vitals: Vital Signs - 12hr 08/06/20 08/06/20 08/06/20 04:15 10:15 10:44 Temperature 97.9 F Pulse Rate 91 H Respiratory 20 Rate Blood Pressure 146/78 O2 Sat by Pulse 97 99 94 Oximetry - Labs CBC & Chem 7: 08/05/20 05:18 08/06/20 08:46 Labs: Abnormal lab results 08/06/20 Range/Units 08:46 BUN 68 H (7-17) mg/dL Creatinine 2.1 H (0.6-1.2) mg/dL Glucose 64 L (65-100) mg/dL HEART Score - HEART Score Age: > 65 Risk factors: 1-2 risk factors Troponin: < normal limit - Critical Actions Critical Actions: 0-3 pts:0.9-1.7%risk of adverse cardiac event.Candidate for discharge
--- NOTE | 2020-08-06 13:18 | Progress Note ---
Assessment and Plan Cultures: SARS CoV2 PCR: Positive A/P: 75-year-old female with hypertension, dementia, hyperlipidemia, schizophrenia, COPD, CKD, snf resident was admitted to the hospital on 07/23/2019 with right hip pain and fracture: #COVID-19: With associated respiratory failure, high CRP. On steroids, completed remdesivir. #Acute hypoxic respiratory failure: remains oxygen via NC. #DANYA on CKD: creatinine elevated, nephrology following. #COPD #Right hip fracture: Status post closed reduction and insertion of intramedullary nail in the right femur on 07/25/2020 Recs: -s/p Remdesivir, completed steroids -prophylactic anticoagulation based on d-dimer per hospital protocol, on eliquis -oxygen weaning as tolerated Will sign off. Please call with questions. Miguelito Esqueda MD, FACP [facility] ([facility] O: [phone] F: [phone] Subjective Date of service: 08/06/20 Principal diagnosis: Covid-19 Interval history: No fever. Remains on oxygen weaned to 6 l/min. Objective - Exam Narrative Exam: Physical Exam (reviewed in chart to minimize risk of transmission) Constitutional: deferred Head, Ears, Nose: deferred Eyes: deferred Neck: deferred Oral: deferred Cardiovascular: deferred Respiratory: deferred GI: deferred Musculoskeletal: deferred Skin: deferred Hem/Lymphatic: deferred Psych: deferred Neurological: deferred - Constitutional Vitals: Vital Signs Temp Pulse Resp BP Pulse Ox 97.3 F L 77 20 122/59 94 08/06/20 11:39 08/06/20 11:39 08/06/20 11:39 08/06/20 11:39 08/06/20 11:39 Temperature -Last 24 Hours Temperature 97.3 F Temperature 97.9 F Temperature 98.0 F Temperature 98.0 F - Labs CBC & Chem 7: 08/05/20 05:18 08/06/20 08:46 Labs: Abnormal lab results 08/06/20 Range/Units 08:46 BUN 68 H (7-17) mg/dL Creatinine 2.1 H (0.6-1.2) mg/dL Glucose 64 L (65-100) mg/dL
[2020-08-06] MEDS: MIRTAZAPINE 15 MG TAB PO SCH (21:56)
[2020-08-07] MEDS: TIOTROPIUM 18 MCG CAP INHALATION IH SCH ×2 (08:30→10:15)
--- NOTE | 2020-08-07 09:27 | Progress Note ---
Assessment and Plan 1. Acute kidney injury vs CKD stage 4: Renal function was about the same as prior visit. Monitor renal function. Creatinine level is improving. Avoid nephrotoxic agents. Meds dosage based on GFR. 2. FEN: Lasix stopped due to increase in the creatinine level noted. Monitor volume status and lytes. 3. Covid infection: Isolation, follow inflammatory markers. Followed by ID. 4. Acute on chronic hypoxemic respiratory failure, POA: 2/2 COVID infection. CXR showed atelectasis. Patient on home oxygen 3 L. Currently on 4 Lts salter. 5. Right intertrochanteric hip fracture: S/p Closed reduction insertion of intramedullary nail right femur 07/25/2020. Postop care per surgery, pain control, PT/OT and rehab. 6. COPD: Continue duonebs, titrate O2 sats to more than 90% Supportive care. 7. H/o Dementia: Supportive care. 8. HTN: Monitor BP. Adjust meds as needed. 9. Anemia: Monitor. Subjective: Patient was seen and examined at the bedside. Doing ok. Objective: General appearance: well-developed, appears stated age, appears emaciated, not in distress, NC O2 (salter) HEENT: ATNC, JANET Neck: trachea midline Respiratory: diminished breath sounds at bases Heart: regular, S1S2, no murmur Gastrointestinal: soft, normoactive bowel sounds, not tender Integumentary: no obvious rash Ext: no edema Neurologic: alert, conversing, able to move extremities, confused Subjective Date of service: 08/07/20 Principal diagnosis: Covid-19 Objective - Vital Signs Vital signs: Vital Signs - 12hr 08/06/20 08/06/20 08/06/20 21:46 22:44 22:48 Temperature Pulse Rate 63 Respiratory Rate Blood Pressure 117/96 O2 Sat by Pulse 96 97 Oximetry 08/07/20 08/07/20 03:42 08:31 Temperature 97.9 F Pulse Rate Respiratory 14 Rate Blood Pressure 102/44 O2 Sat by Pulse 99 Oximetry - Lab 08/05/20 05:18 08/07/20 07:05 Most recent lab results Calcium 9.0 mg/dL (8.4-10.2) 08/07/20 07:05 Magnesium 1.60 mg/dL (1.7-2.3) L 07/25/20 05:50 Medications & Allergies - Medications Allergies/Adverse Reactions: Allergies No Known Allergies Allergy (Verified 04/25/17 12:02) Home Medications: Home Medications Medication Instructions Recorded Confirmed Last Taken Type Tiotropium [Spiriva] 18 mcg IH QDAY 05/02/15 08/02/20 01/01/16 History Ondansetron [Zofran TAB] 4 mg PO Q8HR PRN 06/09/16 08/02/20 Unknown History Albuterol Sulfate [Ventolin Hfa] 2 puff IH BID PRN 04/25/17 08/02/20 Unknown History Cholecalciferol (Vitamin D3) 5,000 unit PO DAILY 04/25/17 08/02/20 Unknown History [Vitamin D3 5,000 UNIT] Ferrous Gluconate [Ferrous 324 mg PO QDAY 04/25/17 08/02/20 Unknown History Gluconate 324 MG] Ipratropium/Albuterol Sulfate 1 ampul IH Q6HR PRN 04/25/17 08/02/20 Unknown History [DUONEB *Not for PRN Use*] Mirtazapine [Remeron] 7.5 mg PO HS 04/25/17 08/02/20 Unknown History Sennosides [Senna] 8.6 mg PO HS PRN 04/25/17 08/02/20 Unknown History Pantoprazole [Protonix TAB] 40 mg PO BID #60 tablet 04/28/17 08/02/20 Unknown Rx oxyCODONE /ACETAMINOPHEN [Percocet 1 tab PO Q4HR PRN #20 tablet 04/28/17 08/02/20 Unknown Rx 5/325 mg] Acetaminophen [Acetaminophen TAB] 650 mg PO Q4HR PRN MDD 3,000 mg 06/01/17 08/02/20 Unknown History levoFLOXacin [Levaquin TAB] 500 mg PO Q48H #2 tablet 06/28/17 08/02/20 Unknown Rx Active Medications: Generic Name Dose Route Start Last Admin Trade Name Freq PRN Reason Stop Dose Admin Acetaminophen 650 mg 07/22/20 21:55 07/27/20 21:45 Acetaminophen 325 Mg Tab PO 650 mg Q4H PRN Administration PAIN (1-3) Albuterol 2.5 mg 07/22/20 22:51 08/04/20 08:54 Albuterol 2.5 Mg/3 Ml Nebu IH 2.5 mg BIDRT PRN Administration Shortness Of Breath Apixaban 5 mg 08/01/20 15:00 08/06/20 21:56 Apixaban 5 Mg Tab PO 5 mg Q12HR SAY Administration Ascorbic Acid 500 mg 07/29/20 22:00 08/06/20 21:56 Ascorbic Acid 500 Mg Tab PO 500 mg BID SAY Administration Cholecalciferol 5,000 unit 07/23/20 10:00 08/06/20 10:35 Cholecalciferol (Vit D3) 5,000 Unit Tab PO 5,000 unit DAILY SAY Administration Ferrous Gluconate 324 mg 07/23/20 10:00 08/06/20 10:35 Ferrous Gluconate 324 Mg Tab PO 324 mg QDAY SAY Administration Hydromorphone HCl 0.5 mg 07/22/20 22:01 07/25/20 15:36 Hydromorphone 1 Mg/1 Ml Inj IV 0.5 mg Q3H PRN Administration Pain , Severe (7-10) Metoclopramide HCl 5 mg 07/22/20 22:01 Metoclopramide 10 Mg/2 Ml Inj IV Q6H PRN Nausea And Vomiting Mirtazapine 7.5 mg 07/22/20 22:00 08/06/20 21:56 Mirtazapine 15 Mg Tab PO 7.5 mg HS SAY Administration Morphine Sulfate 2 mg 07/25/20 14:33 Morphine 2 Mg/1 Ml Inj IV Q4H PRN Pain, Moderate (4-6) Ondansetron HCl 4 mg 07/22/20 22:01 Ondansetron 4 Mg/2 Ml Inj IV Q3H PRN Nausea And Vomiting Oxycodone/Acetaminophen 1 tab 07/25/20 14:33 07/25/20 20:21 Oxycodone /Acetaminophen 5-325mg Tab PO 1 tab Q6H PRN Administration Pain, Moderate (4-6) Pantoprazole Sodium 40 mg 07/22/20 22:00 08/06/20 21:56 Pantoprazole 40 Mg Tab PO 40 mg BID SAY Administration Senna 8.6 mg 07/22/20 21:55 Sennosides 8.6 Mg Tab PO HS PRN Constipation Sodium Chloride 10 ml 07/23/20 10:00 08/06/20 21:56 Sodium Chloride 0.9% 10 Ml Flush Syringe IV Not Given BID SAY Sodium Chloride 10 ml 07/22/20 22:01 Sodium Chloride 0.9% 10 Ml Flush Syringe IV PRN PRN LINE FLUSH Tiotropium [place] 1 puff 07/23/20 10:00 08/07/20 08:30 Tiotropium 18 Mcg Cap Inhalation IH 1 puff QDAY SAY Administration Zinc Sulfate 220 mg 07/29/20 22:00 08/06/20 21:56 Zinc Sulfate 220 Mg Cap PO 220 mg BID SAY Administration
[2020-08-07] MEDS: APIXABAN 5 MG TAB PO SCH ×2 (09:44→22:51)
[2020-08-07] MEDS: PANTOPRAZOLE 40 MG TAB PO SCH ×2 (09:44→22:50)
[2020-08-07] MEDS: ASCORBIC ACID 500 MG TAB PO SCH ×2 (09:44→22:51)
[2020-08-07] MEDS: ZINC SULFATE 220 MG CAP PO SCH ×2 (09:44→22:50)
[2020-08-07] MEDS: FERROUS GLUCONATE 324 MG TAB PO SCH (09:44)
[2020-08-07] MEDS: CHOLECALCIFEROL (VIT D3) 5,000 UNIT TAB PO SCH (09:44)
--- NOTE | 2020-08-07 12:23 | Progress Note ---
Assessment and Plan 75 y/o female with acute respiratory failure secondary to COVID 19 08/07/20: Walk test soon. Appears placement is being worked on so if oxygen can be provided there, not mehta to wean or set up outpatient. Continue to wean and keep negative fluid balance to help with oxygenation. 1. Steroids actually have already been completed. 2. Prone if possible, continue to do this despite improvement in oxygenation. 3. Wean FiO2 for sats >88% 4. Keep patient net negative fluid balance. 5. Suggest walk test in the next 24-48 hours to assess oxygen needs if any. Hopeful discharge soon. Subjective Date of service: 08/07/20 Principal diagnosis: Covid-19 Interval history: Down to 3 liters. Per RT documentation, still with significant dyspnea with exertion but good sats. Objective Vital Signs - 12hr 08/07/20 08/07/20 03:42 08:31 Temperature 97.9 F Respiratory 14 Rate Blood Pressure 102/44 O2 Sat by Pulse 99 Oximetry Constitutional: no acute distress, alert Eyes: non-icteric ENT: oropharynx moist Neck: supple Effort: normal Ascultation: Bilateral: clear, wheezes Cardiovascular: regular rate and rhythm Gastrointestinal: normoactive bowel sounds, soft, non-tender, non-distended Integumentary: normal Extremities: no cyanosis Neurologic: normal mental status, non-focal exam Psychiatric: mood appropriate, affect normal CBC and BMP: 08/05/20 05:18 08/07/20 07:05 ABG, PT/INR, D-dimer: PT/INR, D-dimer PT 13.6 Sec. (12.2-14.9) 07/30/20 17:51 INR 1.06 (0.87-1.13) 07/30/20 17:51 D-Dimer 2664.53 ng/mlDDU (0-234) H 08/01/20 11:00 Abnormal lab findings: Abnormal Labs 07/22/20 07/22/20 07/22/20 17:40 17:40 23:46 WBC RBC Hgb Hct Lymph % (Auto) 10.9 L [place] % (Auto) Eos % (Auto) Lymph # (Auto) 0.9 L Seg Neutrophils % 78.9 H D-Dimer Sodium Potassium Chloride BUN 33 H Creatinine 2.0 H Glucose 108 H POC Glucose 107 H Magnesium Alkaline Phosphatase Lactate Dehydrogenase C-Reactive Protein Total Protein Albumin Coronavirus (PCR) 07/23/20 07/23/20 07/25/20 07:58 07:58 05:50 WBC RBC 3.50 L Hgb Hct Lymph % (Auto) 12.0 L [place] % (Auto) 8.1 H 8.3 H Eos % (Auto) 6.6 H Lymph # (Auto) 0.7 L 1.0 L Seg Neutrophils % 74.9 H D-Dimer Sodium Potassium Chloride 107.2 H BUN 31 H Creatinine 2.0 H Glucose 102 H POC Glucose Magnesium Alkaline Phosphatase Lactate Dehydrogenase C-Reactive Protein Total Protein Albumin 3.7 L Coronavirus (PCR) 07/25/20 07/25/20 07/26/20 05:50 Unknown 05:06 WBC RBC Hgb 9.8 L Hct 29.8 L Lymph % (Auto) [place] % (Auto) Eos % (Auto) Lymph # (Auto) Seg Neutrophils % D-Dimer Sodium Potassium Chloride 109.5 H BUN Creatinine 1.6 H Glucose 111 H POC Glucose Magnesium 1.60 L Alkaline Phosphatase Lactate Dehydrogenase C-Reactive Protein Total Protein Albumin Coronavirus (PCR) Positive A 07/27/20 07/27/20 07/27/20 19:23 19:23 19:23 WBC RBC Hgb Hct Lymph % (Auto) [place] % (Auto) Eos % (Auto) Lymph # (Auto) Seg Neutrophils % D-Dimer 2800.46 H Sodium Potassium Chloride BUN 23 H Creatinine 2.1 H Glucose 112 H POC Glucose Magnesium Alkaline Phosphatase Lactate Dehydrogenase 238 H C-Reactive Protein 19.30 H Total Protein Albumin Coronavirus (PCR) 07/29/20 07/30/20 07/30/20 10:49 05:21 17:51 WBC RBC 3.31 L Hgb Hct Lymph % (Auto) [place] % (Auto) Eos % (Auto) Lymph # (Auto) Seg Neutrophils % D-Dimer Sodium 146 H D Potassium Chloride 108.1 H 110.5 H BUN 40 H 44 H Creatinine 2.0 H 1.8 H Glucose POC Glucose Magnesium Alkaline Phosphatase 134 H Lactate Dehydrogenase C-Reactive Protein Total Protein 5.8 L 5.7 L Albumin 3.4 L 2.9 L Coronavirus (PCR) 07/30/20 07/31/20 08/01/20 17:51 08:48 06:11 WBC RBC 3.39 L Hgb Hct Lymph % (Auto) [place] % (Auto) Eos % (Auto) Lymph # (Auto) Seg Neutrophils % D-Dimer Sodium Potassium Chloride BUN 44 H Creatinine 1.7 H 1.8 H Glucose POC Glucose Magnesium Alkaline Phosphatase Lactate Dehydrogenase C-Reactive Protein Total Protein 5.6 L Albumin 3.1 L Coronavirus (PCR) 08/01/20 08/01/20 08/01/20 06:11 11:00 11:00 WBC RBC Hgb Hct Lymph % (Auto) [place] % (Auto) Eos % (Auto) Lymph # (Auto) Seg Neutrophils % D-Dimer 2664.53 H Sodium Potassium Chloride BUN 42 H Creatinine 1.7 H Glucose POC Glucose Magnesium Alkaline Phosphatase Lactate Dehydrogenase 378 H C-Reactive Protein 4.00 H Total Protein Albumin Coronavirus (PCR) 08/02/20 08/03/20 08/03/20 07:46 09:25 09:25 WBC 11.7 H RBC Hgb Hct Lymph % (Auto) [place] % (Auto) Eos % (Auto) Lymph # (Auto) Seg Neutrophils % D-Dimer Sodium Potassium Chloride BUN 62 H 75 H Creatinine 1.9 H 2.5 H Glucose 157 H POC Glucose Magnesium Alkaline Phosphatase Lactate Dehydrogenase C-Reactive Protein Total Protein Albumin Coronavirus (PCR) 08/04/20 08/05/20 08/05/20 09:07 05:18 05:18 WBC RBC 3.46 L Hgb Hct Lymph % (Auto) [place] % (Auto) Eos % (Auto) Lymph # (Auto) Seg Neutrophils % D-Dimer Sodium Potassium Chloride 95.9 L BUN 88 H 80 H Creatinine 3.0 H 2.4 H Glucose 134 H POC Glucose Magnesium Alkaline Phosphatase Lactate Dehydrogenase C-Reactive Protein Total Protein Albumin Coronavirus (PCR) 08/06/20 08/07/20 08:46 07:05 WBC RBC Hgb Hct Lymph % (Auto) [place] % (Auto) Eos % (Auto) Lymph # (Auto) Seg Neutrophils % D-Dimer Sodium Potassium 5.3 H D Chloride BUN 68 H 61 H Creatinine 2.1 H 1.9 H Glucose 64 L POC Glucose Magnesium Alkaline Phosphatase Lactate Dehydrogenase C-Reactive Protein Total Protein Albumin Coronavirus (PCR)
--- NOTE | 2020-08-07 14:02 | Progress Note ---
Assessment and Plan --Covid positive reported 07/26/2020 Isolation, ID, follow inflammatory markers, s/p dexamethasone 10 days ID recommended remdesivir and that was completed, follow renal function --Acute on chronic hypoxic respiratory failure Patient was requiring high flow nasal cannula oxygen, Patient already has home oxygen 3 L Prone positioning, ID and pulmonary consulted Continue to wean off O2 as tolerated --Elevated D-dimers; Patient not stable for VQ scan to evaluate for PE Patient is on high flow oxygen Lower extremity venous Doppler negative for DVT Continue eliquis twice a day --Right intertrochanteric hip fracture Orthopedic evaluated s/p Closed reduction insertion of intramedullary nail right femur 07/25/2020. Postop care per surgery , pain medications PT OT rehab, --COPD (chronic obstructive pulmonary disease) Continue duo nebs, oxygen titrate O2 sats to more than 90% Supportive care --Acute on chronic (acute kidney injury)/ATN patient might also has CKD stage 4 gentle hydration, monitor renal function Avoid nephrotoxin, nephrology following -- Hypertension Catapres patch if necessary Hold oral antihypertensives As needed hydralazine --Full CODE STATUS; --DVT prophylaxis SCDs, subcu heparin renal dose Closely monitor the patient and adjust the management as needed Plan of care reviewed with the patient and her nurse Follow Ortho, ID and pulmonary evaluation and recommendations DC planning per case management Brief history: 75-year-old female patient with history of fall admitted with right trochanteric hip fracture evaluated by orthopedic surgeon underwent closed reduction with IM nail in the right femur patient was receiving physical therapy occupational therapy Covid test was done prior to placement which was positive. Patient has history of COPD home oxygen dependent, however with Covid, required high flow oxygen. ID orthopedic and pulmonary following brief history. DC planning per case management Daily Hospital course: 07/24; fracture right hip, pending Ortho evaluation Acute kidney injury, continue gentle hydration Closely monitor the patient and adjust the management 07/25; right intertrochanteric hip fracture s/p Closed reduction insertion of intramedullary nail right femur 07/25/2020 Continue postop care, PT OT, rehab versus home with home health in stable 07/26; patient feels slightly better, physical therapy Complains of pain, DC planning per case management 07/27; COVID-19 positive, ID consult, management per protocols Dexamethasone, no remdesivir due to acute kidney injury, isolation Already has home oxygen, proning 07/28; patient is on high flow oxygen, in mild distress In the setting of COVID-19 pneumonia and high flow oxygen, pulmonary consulted Follow ID and Ortho evaluation recommendations 07/29: Patient remains on high flow O2 - 10L N/c today, continue dexamethasone remdesivir for COVID-19, follow inflammatory markers, ID following will follow recommendation. PT eval and continue supportive care 07/30: Patient on 5 L nasal cannula today, continue dexamethasone and remdesivir, closely follow renal function. Wean off O2 as tolerated. DC back to nursing facility when clinically stable. 07/31: Patient off oxygen requirement is increased to 6 to 7 L O2 today. We will repeat chest x-ray, will stop IV fluid and will give one dose of Lasix. Continue remdesivir and dexamethasone. Continue to follow inflammatory markers, continue supportive care and nebulizer scheduled breathing treatment 08/01: Patient's oxygen requirement has slightly increased today, currently she is on 7 to 8 L nasal cannula. Chest x-ray suggestive of mild pulmonary congestion we will continue IV Lasix. Monitor daily BMP ins and O's. D-dimer persistently significantly elevated, will change Eliquis to 5 mg twice daily. Continue to follow inflammatory markers. Last dose of remdesivir today, continue dexamethasone for total 10 days. Wean off O2 as tolerated. 08/02: Patient today on 6L N/c. cont to follow inflammatory markers, wean off O2 as tolerated. follow BMP, stop lasix as Cr 1.9 today. 08/03: Patient today on 8L O2. cont to follow inflammatory markers, wean off O2 as tolerated. follow BMP 08/04: -IV/PO Dexamethasone 6 mg daily x 10 days, D9. s/p Remdesivir, creatinine worse -3.0 today, nephrology on board. prophylactic anticoagulation based on d- dimer per hospital protocol, on eliquis. Remains on 8 to 10 L O2 -wean off as tolerated. Not stable for discharge yet. Continue to follow BMP 08/05: Renal function slightly improved. Last dose of dexamethasone today. Completed remdesivir. Continue prophylactic anticoagulation for elevated D- dimer. Patient remains on 8 to 10 L nasal cannula O2 and unable to wean off. Discussed with case management and discussed with the patient about hospice. Will consult hospice service for discharge planning to accommodate oxygen requirement on discharge. 08/06: unable to wean off from 10L n/c o2. hospice discussion in progress but patient does not have any family member. Continue to wean off O2 as tolerated. Continue to follow BMP. 08/07: patient on 6L n/c. cont to wean off. d/c back to SNF when O2 requirement < 5L. K 5.3 today, order Kayexalate, monitor BMP. Completed dexamethasone and remdesivir. Continue Eliquis 5 mg twice daily for elevated D-dimer. Hospitalist Physical General appearance: Present: no distress, other (Elderly and frail) - EENT Eyes: Present: PERRL, EOM intact - Neck Neck: Present: supple, normal ROM - Respiratory Respiratory effort: normal Respiratory: bilateral: diminished, negative: rales, rhonchi, wheezing - Cardiovascular Rhythm: regular Heart Sounds: Present: S1 & S2 - Extremities Extremities: no ischemia, No edema - Abdominal General gastrointestinal: soft, non-tender, non-distended, normal bowel sounds - Integumentary Integumentary: Present: clear, warm - Psychiatric Psychiatric: appropriate mood/affect, cooperative - Neurologic Neurologic: CNII-XII intact, moves all extremities Subjective Date of service: 08/07/20 Principal diagnosis: Covid-19 Interval history: Patient seen and examined. Medical records and medication list reviewed. No acute event overnight noted by the RN. Patient on 6 L nasal cannula O2 today Discussed plan of care at bedside with patient. Objective - Constitutional Vitals: Vital Signs - 12hr 08/07/20 08/07/20 08/07/20 03:42 08:31 11:24 Temperature 97.9 F 98.3 F Pulse Rate 102 H Respiratory 14 20 Rate Blood Pressure 102/44 122/70 O2 Sat by Pulse 99 95 Oximetry - Labs CBC & Chem 7: 08/05/20 05:18 08/07/20 07:05 Labs: Abnormal lab results 08/07/20 Range/Units 07:05 Potassium 5.3 H D (3.6-5.0) mmol/L BUN 61 H (7-17) mg/dL Creatinine 1.9 H (0.6-1.2) mg/dL HEART Score - HEART Score Age: > 65 Risk factors: 1-2 risk factors Troponin: < normal limit - Critical Actions Critical Actions: 0-3 pts:0.9-1.7%risk of adverse cardiac event.Candidate for discharge
[2020-08-07] MEDS ORDERED: SODIUM POLYSTYRENE 15 GM/60 ML ORAL LIQD PO NR (14:15)
[2020-08-07] MEDS ORDERED: SODIUM POLYSTYRENE 15 GM/60 ML ORAL LIQD PO PRN (20:00)
[2020-08-07] MEDS: MIRTAZAPINE 15 MG TAB PO SCH (22:49)
[2020-08-08 08:04] LABS: Calcium 8.4 mg/dL (8.4-10.2)
[2020-08-08] MEDS: PANTOPRAZOLE 40 MG TAB PO SCH (10:36)
[2020-08-08] MEDS: ASCORBIC ACID 500 MG TAB PO SCH (10:36)
[2020-08-08] MEDS: ZINC SULFATE 220 MG CAP PO SCH (10:36)
[2020-08-08] MEDS: FERROUS GLUCONATE 324 MG TAB PO SCH (10:36)
[2020-08-08] MEDS: CHOLECALCIFEROL (VIT D3) 5,000 UNIT TAB PO SCH (10:36)
[2020-08-08] MEDS: APIXABAN 5 MG TAB PO SCH (10:36)
--- NOTE | 2020-08-08 11:22 | Progress Note ---
Assessment and Plan 75 y/o female with acute respiratory failure secondary to COVID 19 08/08/20: No objection to discharge to [facility] from a pulmonary standpoint. Oxygen can be further weaned from there. 08/07/20: Walk test soon. Appears placement is being worked on so if oxygen can be provided there, not mehta to wean or set up outpatient. Continue to wean and keep negative fluid balance to help with oxygenation. 1. Steroids actually have already been completed. 2. Prone if possible, continue to do this despite improvement in oxygenation. 3. Wean FiO2 for sats >88% 4. Keep patient net negative fluid balance. 5. Suggest walk test in the next 24-48 hours to assess oxygen needs if any. Hopeful discharge soon. Subjective Date of service: 08/08/20 Principal diagnosis: Covid-19 Interval history: Stable on 3 liters NC. Appears to have bed at [facility]. COVID test negative. Objective Vital Signs - 12hr 08/08/20 05:21 Temperature 98.5 F Pulse Rate 87 Respiratory 22 Rate Blood Pressure 117/63 O2 Sat by Pulse 94 Oximetry Constitutional: no acute distress, alert Eyes: non-icteric ENT: oropharynx moist Neck: supple Effort: normal Ascultation: Bilateral: clear, wheezes Cardiovascular: regular rate and rhythm Gastrointestinal: normoactive bowel sounds, soft, non-tender, non-distended Integumentary: normal Extremities: no cyanosis Neurologic: normal mental status, non-focal exam Psychiatric: mood appropriate, affect normal CBC and BMP: 08/05/20 05:18 08/08/20 06:50 ABG, PT/INR, D-dimer: PT/INR, D-dimer PT 13.6 Sec. (12.2-14.9) 07/30/20 17:51 INR 1.06 (0.87-1.13) 07/30/20 17:51 D-Dimer 2664.53 ng/mlDDU (0-234) H 08/01/20 11:00 Abnormal lab findings: Abnormal Labs 07/22/20 07/22/20 07/22/20 17:40 17:40 23:46 WBC RBC Hgb Hct Lymph % (Auto) 10.9 L [place] % (Auto) Eos % (Auto) Lymph # (Auto) 0.9 L Seg Neutrophils % 78.9 H D-Dimer Sodium Potassium Chloride BUN 33 H Creatinine 2.0 H Glucose 108 H POC Glucose 107 H Magnesium Alkaline Phosphatase Lactate Dehydrogenase C-Reactive Protein Total Protein Albumin Coronavirus (PCR) 07/23/20 07/23/20 07/25/20 07:58 07:58 05:50 WBC RBC 3.50 L Hgb Hct Lymph % (Auto) 12.0 L [place] % (Auto) 8.1 H 8.3 H Eos % (Auto) 6.6 H Lymph # (Auto) 0.7 L 1.0 L Seg Neutrophils % 74.9 H D-Dimer Sodium Potassium Chloride 107.2 H BUN 31 H Creatinine 2.0 H Glucose 102 H POC Glucose Magnesium Alkaline Phosphatase Lactate Dehydrogenase C-Reactive Protein Total Protein Albumin 3.7 L Coronavirus (PCR) 07/25/20 07/25/20 07/26/20 05:50 Unknown 05:06 WBC RBC Hgb 9.8 L Hct 29.8 L Lymph % (Auto) [place] % (Auto) Eos % (Auto) Lymph # (Auto) Seg Neutrophils % D-Dimer Sodium Potassium Chloride 109.5 H BUN Creatinine 1.6 H Glucose 111 H POC Glucose Magnesium 1.60 L Alkaline Phosphatase Lactate Dehydrogenase C-Reactive Protein Total Protein Albumin Coronavirus (PCR) Positive A 07/27/20 07/27/20 07/27/20 19:23 19:23 19:23 WBC RBC Hgb Hct Lymph % (Auto) [place] % (Auto) Eos % (Auto) Lymph # (Auto) Seg Neutrophils % D-Dimer 2800.46 H Sodium Potassium Chloride BUN 23 H Creatinine 2.1 H Glucose 112 H POC Glucose Magnesium Alkaline Phosphatase Lactate Dehydrogenase 238 H C-Reactive Protein 19.30 H Total Protein Albumin Coronavirus (PCR) 07/29/20 07/30/20 07/30/20 10:49 05:21 17:51 WBC RBC 3.31 L Hgb Hct Lymph % (Auto) [place] % (Auto) Eos % (Auto) Lymph # (Auto) Seg Neutrophils % D-Dimer Sodium 146 H D Potassium Chloride 108.1 H 110.5 H BUN 40 H 44 H Creatinine 2.0 H 1.8 H Glucose POC Glucose Magnesium Alkaline Phosphatase 134 H Lactate Dehydrogenase C-Reactive Protein Total Protein 5.8 L 5.7 L Albumin 3.4 L 2.9 L Coronavirus (PCR) 07/30/20 07/31/20 08/01/20 17:51 08:48 06:11 WBC RBC 3.39 L Hgb Hct Lymph % (Auto) [place] % (Auto) Eos % (Auto) Lymph # (Auto) Seg Neutrophils % D-Dimer Sodium Potassium Chloride BUN 44 H Creatinine 1.7 H 1.8 H Glucose POC Glucose Magnesium Alkaline Phosphatase Lactate Dehydrogenase C-Reactive Protein Total Protein 5.6 L Albumin 3.1 L Coronavirus (PCR) 08/01/20 08/01/20 08/01/20 06:11 11:00 11:00 WBC RBC Hgb Hct Lymph % (Auto) [place] % (Auto) Eos % (Auto) Lymph # (Auto) Seg Neutrophils % D-Dimer 2664.53 H Sodium Potassium Chloride BUN 42 H Creatinine 1.7 H Glucose POC Glucose Magnesium Alkaline Phosphatase Lactate Dehydrogenase 378 H C-Reactive Protein 4.00 H Total Protein Albumin Coronavirus (PCR) 08/02/20 08/03/20 08/03/20 07:46 09:25 09:25 WBC 11.7 H RBC Hgb Hct Lymph % (Auto) [place] % (Auto) Eos % (Auto) Lymph # (Auto) Seg Neutrophils % D-Dimer Sodium Potassium Chloride BUN 62 H 75 H Creatinine 1.9 H 2.5 H Glucose 157 H POC Glucose Magnesium Alkaline Phosphatase Lactate Dehydrogenase C-Reactive Protein Total Protein Albumin Coronavirus (PCR) 08/04/20 08/05/20 08/05/20 09:07 05:18 05:18 WBC RBC 3.46 L Hgb Hct Lymph % (Auto) [place] % (Auto) Eos % (Auto) Lymph # (Auto) Seg Neutrophils % D-Dimer Sodium Potassium Chloride 95.9 L BUN 88 H 80 H Creatinine 3.0 H 2.4 H Glucose 134 H POC Glucose Magnesium Alkaline Phosphatase Lactate Dehydrogenase C-Reactive Protein Total Protein Albumin Coronavirus (PCR) 08/06/20 08/07/20 08/08/20 08:46 07:05 06:50 WBC RBC Hgb Hct Lymph % (Auto) [place] % (Auto) Eos % (Auto) Lymph # (Auto) Seg Neutrophils % D-Dimer Sodium Potassium 5.3 H D Chloride BUN 68 H 61 H 42 H Creatinine 2.1 H 1.9 H 1.7 H Glucose 64 L POC Glucose Magnesium Alkaline Phosphatase Lactate Dehydrogenase C-Reactive Protein Total Protein Albumin Coronavirus (PCR)
--- NOTE | 2020-08-08 11:26 | Discharge Summary ---
Providers - Providers Date of Admission: 07/22/20 19:19 Date of discharge: 08/08/20 Attending physician: MIRELLA FISHER MD 07/22/20 Consult to Case Management [CONS] Routine Services Needed at Discharge: Physical Therapy Notified:: cm notified 07/22/20 18:24 Consult to Physician [CONS] Stat Comment: Consulting Provider: RAHUL OLMOS Physician Instructions: Reason For Exam: acute intertrochanteric femur fracture 07/25/20 14:35 Physical Therapy Evaluation and Treat [CONS] Routine Comment: Reason For Exam: gait training, post op evaluation Weight bearing status?: Full wt bearing Assistive devices?: Yes If so list: Walker 07/28/20 08:55 Consult to Physician [CONS] Routine Comment: Consulting Provider: DHARA GOMEZ Physician Instructions: Reason For Exam: Positive COVID-19/high flow oxygen 07/28/20 08:56 Consult to Physician [CONS] Routine Comment: Consulting Provider: GILMAR BARCENAS Physician Instructions: Reason For Exam: Positive COVID-19/high flow oxygen 07/28/20 09:15 Consult to Physician [CONS] Routine Comment: Consulting Provider: AZUL VALDIVIA Physician Instructions: Reason For Exam: Chronic kidney disease/Covid 08/05/20 14:16 Consult to Case Management [CONS] Routine Services Needed at Discharge: Other Notified:: cm notified Additional Physician Instructions: hospice Primary care physician: TALENT DEVELOPMENT COORDINATOR Hospitalization Reason for admission: Right intertrochanteric hip fracture Condition: Stable Hospital course: --Covid positive reported 07/26/2020 Isolation, ID, s/p dexamethasone 10 days/remdesivir per ID --Acute on chronic hypoxic respiratory failure Pt weaned to 3L O2 NC --Elevated D-dimers; Patient not stable for VQ scan to evaluate for PE Lower extremity venous Doppler negative for DVT Continue eliquis twice a day --Right intertrochanteric hip fracture Orthopedic evaluated s/p Closed reduction insertion of intramedullary nail right femur 07/25/2020. PT/OT rehab --COPD (chronic obstructive pulmonary disease) Continue duo nebs, oxygen titrate O2 sats to more than 90% Supportive care --Acute on chronic (acute kidney injury)/ATN - Cr. improved with fluids -- Hypertension - hydralazine PRN Brief history: 75-year-old female patient with history of fall admitted with right trochanteric hip fracture evaluated by orthopedic surgeon underwent closed reduction with IM nail in the right femur patient was receiving physical therapy occupational therapy Covid test was done prior to placement which was positive. Patient has history of COPD home oxygen dependent, however with Covid, required high flow oxygen. ID orthopedic and pulmonary following brief history. Pt completed COVID treatment, weaned down to 3L O2 pt ready for DC. Pt to continue on eliquis for now. Disposition: [place] Final Discharge Diagnosis (Prints w/discharge instructions): Covid positive. Acute on chronic hypoxic respiratory failure. Elevated D-dimer. Right intertrochanteric hip fracture. COPD exacerbation. Acute on chronic kidney injury. ATN. Hypertension Time spent for discharge: 35 Core Measure Documentation - Palliative Care Palliative Care/ Comfort Measures: Not Applicable - Core Measures Any of the following diagnoses?: none - VTE Discharge Requirements Deep Vein Thrombosis/Pulmonary Embolism Present on Admission: No Anticoagulant overlap therapy prescribed at discharge: Yes Exam - Physical Exam Narrative exam: General appearance no acute distress, well-nourished EENT: PERRL, EOM intact, hearing intact, clear oral mucosa, dentition normal Neck: Present: supple, normal ROM Respiratory: bilateral: 3L O2 NC, CTA, negative: rales, rhonchi, wheezing Cardiovascular: Regular rate/rhythm, Normal S1 & S2. No gallop, rub Extremities: right hip with intact surgical wounds, no erythema. Abdominal: soft, non-tender, non-distended, normal bowel sounds Integumentary: Present: clear, warm, dry Psychiatric: appropriate mood/affect, intact judgment & insight Neurologic: CNII-XII intact, moves all extremities - Constitutional Vitals: Temp Pulse Resp BP Pulse Ox 98.5 F 87 22 117/63 94 08/08/20 05:21 08/08/20 05:21 08/08/20 05:21 08/08/20 05:21 08/08/20 05:21 Plan Activity: fall precautions Weight Bearing Status: Weight Bear as Tolerated Diet: low salt Wound: keep clean and dry Follow up with: PRIMARY CARE, [Primary Care Provider] - 7 Days Prescriptions: oxyCODONE /ACETAMINOPHEN [Percocet 5/325 mg] 1 tab PO Q6H PRN #20 tablet PRN Reason: Pain, Moderate (4-6)
[2020-08-08] MEDS: TIOTROPIUM 18 MCG CAP INHALATION IH SCH (11:39)
--- NOTE | 2020-08-08 11:56 | Ultrasound Report ---
ULTRASOUND RENAL INDICATION / CLINICAL INFORMATION: Acute renal failure.. COMPARISON: CT abdomen/pelvis without contrast 06/26/2017 and renal ultrasound 02-17. FINDINGS: RIGHT KIDNEY: Length = 7.3 cm. - Echogenicity: Increased. - Cortical Thickness: Moderate thinning. - Hydronephrosis: None. - Cyst / Mass: 1.7 cm solid appearing, next echogenicity lesion in the upper pole. - Stones: None seen. LEFT KIDNEY: Length = 9.0 cm. - Echogenicity: Normal. - Cortical Thickness: Normal. Lobulated. - Hydronephrosis: None. - Cyst / Mass: None. - Stones: None seen. URINARY BLADDER: No significant abnormality. FREE FLUID: None. ADDITIONAL FINDINGS: Incidental finding of a 5.8 cm hypoechoic adnexal structure, possibly ovarian in nature. IMPRESSION: 1. Atrophic right kidney with a solid appearing 1.7 cm lesion superior pole. Multiphase contrast-enha nced CT (renal mass protocol) is recommended for further evaluation as this lesion was not seen on pr ior exams. 2. Incidental 5.8 cm right adnexal cyst demonstrates mild internal echoes. Dedicated pelvic ultrasoun d in 3 months for follow-up is recommended due to the patient's age. Scribed by: Evi Martinez RDMS, ANTWAN Scribed: 08/08/2020 9:56 AM Signer Name: Keny Martinez MD Signed: 08/08/2020 11:51 AM Workstation Name: [id number]
--- NOTE | 2020-08-08 12:14 | Progress Note ---
Assessment and Plan 1. Acute kidney injury: Vasomotor DANYA. Renal US showed atrophic R kidney. Monitor renal function. Creatinine level is improving. Avoid nephrotoxic agents. Meds dosage based on GFR. 2. FEN: Monitor volume status and lytes. 3. Covid infection: Isolation, follow inflammatory markers. Followed by ID. 4. Acute on chronic hypoxemic respiratory failure, POA: 2/2 COVID infection. CXR showed atelectasis. Patient on home oxygen 3 L. Currently on 2-3 NC O2. 5. Right intertrochanteric hip fracture: S/p Closed reduction insertion of intramedullary nail right femur 07/25/2020. Pain control, PT/OT. 6. COPD: Continue duonebs, titrate O2 sats to more than 90% Supportive care. 7. H/o Dementia: Supportive care. 8. HTN: Monitor BP. Adjust meds as needed. 9. Anemia: Monitor. 10. R kidney lesion: Unable to do CT with IV contrast at this time due to elevated creatinine level. Need to see Urology in the office. F/u with me in 1-2 weeks. Subjective: Patient was seen and examined at the bedside. Doing ok. Objective: General appearance: well-developed, appears stated age, appears emaciated, not in distress, NC O2 HEENT: ATNC, JANET Neck: trachea midline Respiratory: diminished breath sounds at bases Heart: regular, S1S2, no murmur Gastrointestinal: soft, normoactive bowel sounds, not tender Integumentary: no obvious rash Ext: no edema Neurologic: alert, able to move extremities Subjective Date of service: 08/08/20 Principal diagnosis: Covid-19 Objective - Vital Signs Vital signs: Vital Signs - 12hr 08/08/20 08/08/20 08/08/20 05:21 11:39 11:41 Temperature 98.5 F Pulse Rate 87 Pulse Rate [ 86 Anterior Bilateral Throughout] Respiratory 22 Rate Respiratory 18 Rate [Anterior Bilateral Throughout] Blood Pressure 117/63 O2 Sat by Pulse 94 100 Oximetry - Lab 08/05/20 05:18 08/08/20 06:50 Most recent lab results Calcium 8.4 mg/dL (8.4-10.2) 08/08/20 06:50 Magnesium 1.60 mg/dL (1.7-2.3) L 07/25/20 05:50 Medications & Allergies - Medications Allergies/Adverse Reactions: Allergies No Known Allergies Allergy (Verified 04/25/17 12:02) Home Medications: Home Medications Medication Instructions Recorded Confirmed Last Taken Type Tiotropium [Spiriva] 18 mcg IH QDAY 05/02/15 08/02/20 01/01/16 History Albuterol Sulfate [Ventolin Hfa] 2 puff IH BID PRN 04/25/17 08/02/20 Unknown History Cholecalciferol (Vitamin D3) 5,000 unit PO DAILY 04/25/17 08/02/20 Unknown History [Vitamin D3 5,000 UNIT] Ferrous Gluconate [Ferrous 324 mg PO QDAY 04/25/17 08/02/20 Unknown History Gluconate 324 MG] Ipratropium/Albuterol Sulfate 1 ampul IH Q6HR PRN 04/25/17 08/02/20 Unknown History [DUONEB *Not for PRN Use*] Mirtazapine [Remeron] 7.5 mg PO HS 04/25/17 08/02/20 Unknown History Sennosides [Senna] 8.6 mg PO HS PRN 04/25/17 08/02/20 Unknown History Pantoprazole [Protonix TAB] 40 mg PO BID #60 tablet 04/28/17 08/02/20 Unknown Rx Acetaminophen [Acetaminophen TAB] 650 mg PO Q4HR PRN MDD 3,000 mg 06/01/17 0504/24 Unknown History Apixaban [Eliquis] 5 mg PO Q12HR tablet 08/08/20 Unknown Rx oxyCODONE /ACETAMINOPHEN [Percocet 1 tab PO Q6H PRN #20 tablet 08/08/20 Unknown Rx 5/325 mg] Active Medications: Generic Name Dose Route Start Last Admin Trade Name Freq PRN Reason Stop Dose Admin Acetaminophen 650 mg 07/22/20 21:55 07/27/20 21:45 Acetaminophen 325 Mg Tab PO 650 mg Q4H PRN Administration PAIN (1-3) Albuterol 2.5 mg 07/22/20 22:51 08/04/20 08:54 Albuterol 2.5 Mg/3 Ml Nebu IH 2.5 mg BIDRT PRN Administration Shortness Of Breath Apixaban 5 mg 08/01/20 15:00 08/08/20 10:36 Apixaban 5 Mg Tab PO 5 mg Q12HR SAY Administration Ascorbic Acid 500 mg 07/29/20 22:00 08/08/20 10:36 Ascorbic Acid 500 Mg Tab PO 500 mg BID SAY Administration Cholecalciferol 5,000 unit 07/23/20 10:00 08/08/20 10:36 Cholecalciferol (Vit D3) 5,000 Unit Tab PO 5,000 unit DAILY SAY Administration Ferrous Gluconate 324 mg 07/23/20 10:00 08/08/20 10:36 Ferrous Gluconate 324 Mg Tab PO 324 mg QDAY SAY Administration Hydromorphone HCl 0.5 mg 07/22/20 22:01 07/25/20 15:36 Hydromorphone 1 Mg/1 Ml Inj IV 0.5 mg Q3H PRN Administration Pain , Severe (7-10) Metoclopramide HCl 5 mg 07/22/20 22:01 Metoclopramide 10 Mg/2 Ml Inj IV Q6H PRN Nausea And Vomiting Mirtazapine 7.5 mg 07/22/20 22:00 08/07/20 22:49 Mirtazapine 15 Mg Tab PO 7.5 mg HS SAY Administration Morphine Sulfate 2 mg 07/25/20 14:33 Morphine 2 Mg/1 Ml Inj IV Q4H PRN Pain, Moderate (4-6) Ondansetron HCl 4 mg 07/22/20 22:01 Ondansetron 4 Mg/2 Ml Inj IV Q3H PRN Nausea And Vomiting Oxycodone/Acetaminophen 1 tab 07/25/20 14:33 07/25/20 20:21 Oxycodone /Acetaminophen 5-325mg Tab PO 1 tab Q6H PRN Administration Pain, Moderate (4-6) Pantoprazole Sodium 40 mg 07/22/20 22:00 08/08/20 10:36 Pantoprazole 40 Mg Tab PO 40 mg BID SAY Administration Senna 8.6 mg 07/22/20 21:55 Sennosides 8.6 Mg Tab PO HS PRN Constipation Sodium Chloride 10 ml 07/23/20 10:00 08/08/20 10:38 Sodium Chloride 0.9% 10 Ml Flush Syringe IV 10 ml BID SAY Administration Sodium Chloride 10 ml 07/22/20 22:01 Sodium Chloride 0.9% 10 Ml Flush Syringe IV PRN PRN LINE FLUSH Sodium Polystyrene Sulfonate 15 gm 08/07/20 20:00 Sodium Polystyrene 15 Gm/60 Ml Oral Liqd PO Q6HR PRN Hyperkalemia Tiotropium [place] 1 puff 07/23/20 10:00 08/08/20 11:39 Tiotropium 18 Mcg Cap Inhalation IH 1 puff QDAY SAY Administration Zinc Sulfate 220 mg 07/29/20 22:00 08/08/20 10:36 Zinc Sulfate 220 Mg Cap PO 220 mg BID SAY Administration
[2020-08-08 18:06] VITALS: BP 111/59
== END 2020-08-08 18:09 | DRG 480 ==
LOC: ED 16:38 → 3A 19:19
PROVIDERS: ADMIT Internal Medicine; ATTEND Family Medicine
PROC: 0QS636Z Reposition Right Upper Femur with Intramedullary Internal Fixation Device, Percutaneous Approach (ICD-10-PCS; principal; 2020-07-25)
PROC: XW033E5 Introduction of Remdesivir Anti-infective into Peripheral Vein, Percutaneous Approach, New Technology Group 5 (ICD-10-PCS; 2020-07-28)
DX: S72.141A Displaced intertrochanteric fracture of right femur, initial encounter for closed fracture (principal); N17.0 Acute kidney failure with tubular necrosis; U07.1 COVID-19; J96.21 Acute and chronic respiratory failure with hypoxia; N18.4 Chronic kidney disease, stage 4 (severe); J44.1 Chronic obstructive pulmonary disease with (acute) exacerbation; F03.90 Unspecified dementia, unspecified severity, without behavioral disturbance, psychotic disturbance, mood disturbance, and anxiety; F20.9 Schizophrenia, unspecified; I12.9 Hypertensive chronic kidney disease with stage 1 through stage 4 chronic kidney disease, or unspecified chronic kidney disease; K21.9 Gastro-esophageal reflux disease without esophagitis; F41.9 Anxiety disorder, unspecified; M81.0 Age-related osteoporosis without current pathological fracture; D64.9 Anemia, unspecified; W18.39XA Other fall on same level, initial encounter; F17.200 Nicotine dependence, unspecified, uncomplicated; K44.9 Diaphragmatic hernia without obstruction or gangrene; Z79.899 Other long term (current) drug therapy; Z86.718 Personal history of other venous thrombosis and embolism; Z82.49 Family history of ischemic heart disease and other diseases of the circulatory system; Y93.89 Activity, other specified; Y92.89 Other specified places as the place of occurrence of the external cause; Y99.8 Other external cause status
CPT/HCPCS: 36415; 71045; 76770; 80048; 80053; 82565; 82728; 82962; 83036; 83615; 83735; 84145; 85014; 85018; 85025; 85027; 85379; 85610; 85730; 86140; 93970; 94640; 96374; 96375; G0378; C1713; C1769; J0690; J1100; J1170; J1644; J1940; J2250; J2270; J2370; J2405; J3490; J7042; J7120; U0003

== ENCOUNTER 2020-08-17 03:03 | Inpatient (IN) | payer MEDICARE, MEDICAID ==
[2020-08-17] MEDS ORDERED: ONDANSETRON 4 MG/2 ML INJ IV ONE (03:52)
[2020-08-17] MEDS ORDERED: SODIUM CHLORIDE 0.9% 1000 ML 1,000 ML IV ONE (04:00)
--- NOTE | 2020-08-17 04:04 | Emergency Department Report ---
ED GI Bleed HPI - General Stated complaint: COFFEE GROUNDS EMESIS Time Seen by Provider: 08/17/20 04:00 Source: patient, EMS - History of Present Illness Initial comments: Patient is 75 years old female, fdc patient with history of hypertension, schizophrenia, DVT on Eliquis. Patient also recently had history of hip fracture. Patient brought to the emergency room via EMS for evaluation of coffee-ground emesis started yesterday. Patient denied any symptoms. She denied hematemesis, coffee-ground emesis, melena, hemoptysis or hematuria. She also denied any fever or chest pain. Patient is alert, oriented x3. complaint: coffee ground emesis -: Last night Radiation: none Quality: painless - Related Data Home Medications Medication Instructions Recorded Confirmed Last Taken Tiotropium [Spiriva] 18 mcg IH QDAY 05/02/15 08/02/20 01/01/16 Albuterol Sulfate [Ventolin Hfa] 2 puff IH BID PRN 04/25/17 08/02/20 Unknown Cholecalciferol (Vitamin D3) 5,000 unit PO DAILY 04/25/17 08/02/20 Unknown [Vitamin D3 5,000 UNIT] Ferrous Gluconate [Ferrous 324 mg PO QDAY 04/25/17 08/02/20 Unknown Gluconate 324 MG] Ipratropium/Albuterol Sulfate 1 ampul IH Q6HR PRN 04/25/17 08/02/20 Unknown [DUONEB *Not for PRN Use*] Mirtazapine [Remeron] 7.5 mg PO HS 04/25/17 08/02/20 Unknown Sennosides [Senna] 8.6 mg PO HS PRN 04/25/17 08/02/20 Unknown Acetaminophen [Acetaminophen TAB] 650 mg PO Q4HR PRN MDD 3,000 mg 06/01/17 08/02/20 Unknown Previous Rx's Medication Instructions Recorded Last Taken Type Pantoprazole [Protonix TAB] 40 mg PO BID #60 tablet 04/28/17 Unknown Rx Apixaban [Eliquis] 5 mg PO Q12HR tablet 08/08/20 Unknown Rx oxyCODONE /ACETAMINOPHEN [Percocet 1 tab PO Q6H PRN #20 tablet 08/08/20 Unknown Rx 5/325 mg] Allergies Allergy/AdvReac Type Severity Reaction Status Date / Time No Known Allergies Allergy Verified 04/25/17 12:02 ED Review of Systems ROS: Stated complaint: COFFEE GROUNDS EMESIS Other details as noted in HPI Comment: All other systems reviewed and negative Constitutional: denies: chills, fever Respiratory: denies: cough, shortness of breath, SOB with exertion Cardiovascular: denies: chest pain Gastrointestinal: nausea, vomiting. denies: abdominal pain, hematemesis, melena, hematochezia Neurological: weakness. denies: headache, numbness, paresthesias, confusion ED Past Medical Hx - Past Medical History Hx Hypertension: Yes Hx Heart Attack/AMI: No Hx Congestive Heart Failure: No Hx Diabetes: No Hx Deep Vein Thrombosis: Yes (left lower extremity) Hx Pulmonary Embolism: No Hx GERD: Yes Hx Liver Disease: No Hx Renal Disease: No Hx Sickle Cell Disease: No Hx Arthritis: Yes Hx Seizures: No Hx Kidney Stones: No Hx Psychiatric Treatment: Yes (anxiety, depression, schizophrenia) Hx Asthma: No Hx COPD: Yes Hx Tuberculosis: No Hx Dementia: Yes Hx HIV: No Additional medical history: High cholesterol. Schizophrenia, left hip fracture, left arm fracture, displaced fracture of 1st cervical vertebra, GERD, DVT LLE, generalized muscle weakness. "GI Bleeds" - Surgical History Hx Coronary Stent: No Hx Open Heart Surgery: No Hx Pacemaker: No Hx Internal Defibrillator: No Hx Cholecystectomy: No Hx Appendectomy: No Hx Breast Surgery: No Additional Surgical History: ORIF left hip - Social History Smoking Status: Unknown if ever smoked - Medications Home Medications: Home Medications Medication Instructions Recorded Confirmed Last Taken Type Tiotropium [Spiriva] 18 mcg IH QDAY 05/02/15 08/02/20 01/01/16 History Albuterol Sulfate [Ventolin Hfa] 2 puff IH BID PRN 04/25/17 08/02/20 Unknown History Cholecalciferol (Vitamin D3) 5,000 unit PO DAILY 04/25/17 08/02/20 Unknown History [Vitamin D3 5,000 UNIT] Ferrous Gluconate [Ferrous 324 mg PO QDAY 04/25/17 08/02/20 Unknown History Gluconate 324 MG] Ipratropium/Albuterol Sulfate 1 ampul IH Q6HR PRN 04/25/17 08/02/20 Unknown History [DUONEB *Not for PRN Use*] Mirtazapine [Remeron] 7.5 mg PO HS 04/25/17 08/02/20 Unknown History Sennosides [Senna] 8.6 mg PO HS PRN 04/25/17 08/02/20 Unknown History Pantoprazole [Protonix TAB] 40 mg PO BID #60 tablet 04/28/17 08/02/20 Unknown Rx Acetaminophen [Acetaminophen TAB] 650 mg PO Q4HR PRN MDD 3,000 mg 06/01/17 08/02/20 Unknown History Apixaban [Eliquis] 5 mg PO Q12HR tablet 08/08/20 Unknown Rx oxyCODONE /ACETAMINOPHEN [Percocet 1 tab PO Q6H PRN #20 tablet 08/08/20 Unknown Rx 5/325 mg] ED Physical Exam - General General appearance: alert, in no apparent distress - Head Head exam: Present: atraumatic, normocephalic, normal inspection - Eye Eye exam: Present: normal appearance - ENT ENT exam: Present: normal exam, normal orophraynx, mucous membranes moist - Neck Neck exam: Present: normal inspection. Absent: tenderness, meningismus - Respiratory Respiratory exam: Present: normal lung sounds bilaterally - Cardiovascular Cardiovascular Exam: Present: regular rate, normal rhythm, normal heart sounds - GI/Abdominal GI/Abdominal exam: Present: soft, normal bowel sounds. Absent: distended, tenderness, guarding, rebound, rigid, mass, bruit, pulsatile mass, hernia - Extremities Exam Extremities exam: Present: normal inspection, full ROM, normal capillary refill - Back Exam Back exam: Present: normal inspection, full ROM. Absent: CVA tenderness (R), CVA tenderness (L) - Neurological Exam Neurological exam: Present: alert, oriented X3, CN II-XII intact - Psychiatric Psychiatric exam: Present: normal mood - Skin Skin exam: Present: warm, intact, normal color ED Course Vital Signs 08/17/20 08/17/20 03:04 03:57 Temperature 98.4 F Pulse Rate 105 H 105 H Respiratory 16 22 Rate Blood Pressure 127/74 O2 Sat by Pulse 100 100 Oximetry ED Medical Decision Making - Lab Data Result diagrams: 08/17/20 04:05 08/17/20 04:05 - Medical Decision Making Patient is 75 years old female, fdc patient with history of hypertension, schizophrenia, DVT on Eliquis. Patient also recently had history of hip fracture. Patient brought to the emergency room via EMS for evaluation of coffee-ground emesis started yesterday. Patient denied any symptoms. She denied hematemesis, coffee-ground emesis, melena, hemoptysis or hematuria. She also denied any fever or chest pain. Patient is alert, oriented x3. Patient remained stable in the ER. No vomiting observed. Labs reviewed and showed hemoglobin of 8.9. I believe patient symptom is most likely due to Eliquis however patient will need to be admitted to the hospital for further management. I discussed the patient with Dr. Wesley, he agreed to admit the patient to medical service for further management. Critical Care Time: Yes Critical care time in (mins) excluding proc time.: 30 Critical care attestation.: If time is entered above; I have spent that time in minutes in the direct care of this critically ill patient, excluding procedure time. ED Disposition Clinical Impression: GI (gastrointestinal bleed) Disposition: OP ADMIT IP TO THIS HOSP Is pt being admited?: Yes Condition: Stable Referrals: PRIMARY CARE, [Primary Care Provider] - 3-5 Days
[2020-08-17 04:36] LABS: Basophils % (Auto) 0.4 % (0.0-1.8); Eosinophils % (Auto) 0.1 % (0.0-4.3); Hematocrit 27.1 % (30.3-42.9); Hemoglobin 8.9 gm/dl (10.1-14.3); Lymphocytes # (Auto) 0.9 K/mm3 (1.2-5.4); Lymphocytes % (Auto) 9.8 % (13.4-35.0); Mean Corpuscular HGB Conc 33 % (30-34); Mean Corpuscular Volume 91 fl (79-97); Monocytes # (Auto) 0.4 K/mm3 (0.0-0.8); Monocytes % (Auto) 3.9 % (0.0-7.3); Platelet Count 354 K/mm3 (140-440); Red Blood Count 2.99 M/mm3 (3.65-5.03); Red Cell Distribution Width 14.5 % (13.2-15.2)
[2020-08-17 04:47] LABS: INR 1.94 (0.87-1.13)
[2020-08-17 04:48] LABS: Partial Thromboplastin Time 44.4 Sec. (24.2-36.6)
[2020-08-17 04:49] LABS: Alanine Aminotransferase 7 units/L (7-56); Albumin 3.3 g/dL (3.9-5); BUN/Creatinine Ratio 23; Blood Urea Nitrogen 73 mg/dL (7-17); Calcium 9.3 mg/dL (8.4-10.2); Hemolysis Index 0
[2020-08-17] MEDS: PANTOPRAZOLE 80 MG in SODIUM CHLORIDE 0.9% 100 ML IV SCH ×2 (04:49→16:15)
[2020-08-17 04:52] LABS: Bilirubin,Direct < 0.2 mg/dL (0-0.2)
[2020-08-17] MEDS ORDERED: METOCLOPRAMIDE 10 MG/2 ML INJ IV PRN (06:16)
[2020-08-17] MEDS ORDERED: MAGNESIUM HYDROXIDE (MOM) ORAL LIQD UDC PO PRN (06:16)
[2020-08-17] MEDS ORDERED: ALUM-MAG HYDROXIDE-SIMETHICONE 200-200-20MG/5ML ORAL LIQD 30 ML PO PRN (06:16)
[2020-08-17] MEDS ORDERED: ONDANSETRON 4 MG/2 ML INJ IV PRN (06:16)
[2020-08-17] MEDS ORDERED: ACETAMINOPHEN 325 MG TAB PO PRN (06:16)
[2020-08-17] MEDS ORDERED: traMADol 50 MG TAB PO PRN (06:19)
[2020-08-17] MEDS ORDERED: traZODone 50 MG TAB PO PRN (06:19)
--- NOTE | 2020-08-17 06:42 | History and Physical Report ---
History of Present Illness Date of examination: 08/17/20 Date of admission: 08/17/20 05:13 Chief complaint: GI bleed Cofee ground Emessis History of present illness: Patient is 75 years old female, correction patient with history of hypertension, schizophrenia, DVT on Eliquis. Patient also recently had history of hip fracture. Patient brought to the emergency room via EMS for evaluation of coffee-ground emesis started yesterday. Patient denied any symptoms. She denied hematemesis, coffee-ground emesis, melena, hemoptysis or hematuria. She also denied any fever or chest pain. Patient is alert, oriented x3. ED work-up shows WBC 9.6 hemoglobin 8.9, platelets 354, PT 22.3, INR 1.94, sodium 144, potassium 5.0, BUN 73 creatinine 3.2 serum glucose 136 serum albumin 3.3. Patient seen in the ED at bedside. Patient awake at time of assessment. Patient came with GI bleed. She reports abdominal pain and ground coffee emesis. Patient is a correction residents patient started on a Protonix drip. Reviewed lab values, medication record and vital signs. Patient's creatinine 3.2. Patient started on IV hydration. GI consulted. Serum albumin 3.3 the car designer consulted. Past History Past Medical History: anemia Social history: smoking, other (Lives in correction facility) Family history: no significant family history Medications and Allergies Allergies Allergy/AdvReac Type Severity Reaction Status Date / Time No Known Allergies Allergy Verified 04/25/17 12:02 Home Medications Medication Instructions Recorded Confirmed Last Taken Type Tiotropium [Spiriva] 18 mcg IH QDAY 05/02/15 08/02/20 01/01/16 History Albuterol Sulfate [Ventolin Hfa] 2 puff IH BID PRN 04/25/17 08/02/20 Unknown History Cholecalciferol (Vitamin D3) 5,000 unit PO DAILY 04/25/17 08/02/20 Unknown History [Vitamin D3 5,000 UNIT] Ferrous Gluconate [Ferrous 324 mg PO QDAY 04/25/17 08/02/20 Unknown History Gluconate 324 MG] Ipratropium/Albuterol Sulfate 1 ampul IH Q6HR PRN 04/25/17 08/02/20 Unknown History [DUONEB *Not for PRN Use*] Mirtazapine [Remeron] 7.5 mg PO HS 04/25/17 08/02/20 Unknown History Sennosides [Senna] 8.6 mg PO HS PRN 04/25/17 08/02/20 Unknown History Pantoprazole [Protonix TAB] 40 mg PO BID #60 tablet 04/28/17 08/02/20 Unknown Rx Acetaminophen [Acetaminophen TAB] 650 mg PO Q4HR PRN MDD 3,000 mg 06/01/17 08/02/20 Unknown History Apixaban [Eliquis] 5 mg PO Q12HR tablet 08/08/20 Unknown Rx oxyCODONE /ACETAMINOPHEN [Percocet 1 tab PO Q6H PRN #20 tablet 08/08/20 Unknown Rx 5/325 mg] Active Meds: Active Medications Acetaminophen (Acetaminophen 325 Mg Tab) 650 mg PO Q4H PRN PRN Reason: Pain MILD(1-3)/Fever >100.5/DIXON Al Hydrox/Mg Hydrox/Simethicone (Alum-Mag Hydroxide-Simethicone [id number]/5ml Oral Liqd 30 Ml) 30 ml PO Q4H PRN PRN Reason: Indigestion Pantoprazole Sodium 80 mg/ (Sodium Chloride) 100 mls @ 10 mls/hr IV DIRECT SAY Last Admin: 08/17/20 04:49 Dose: 8 mg/hr, 10 mls/hr Documented by: Magnesium Hydroxide (Magnesium Hydroxide (Mom) Oral Liqd Udc) 30 ml PO Q4H PRN PRN Reason: Constipation Metoclopramide HCl (Metoclopramide 10 Mg/2 Ml Inj) 10 mg IV Q6H PRN PRN Reason: Nausea And Vomiting Ondansetron HCl (Ondansetron 4 Mg/2 Ml Inj) 4 mg IV Q8H PRN PRN Reason: Nausea And Vomiting Sodium Chloride (Sodium Chloride 0.9% 10 Ml Flush Syringe) 10 ml IV BID SAY Sodium Chloride (Sodium Chloride 0.9% 10 Ml Flush Syringe) 10 ml IV PRN PRN PRN Reason: LINE FLUSH Tramadol HCl (Tramadol 50 Mg Tab) 50 mg PO Q6H PRN PRN Reason: Pain, Moderate (4-6) Trazodone HCl (Trazodone 50 Mg Tab) 50 mg PO QHS PRN PRN Reason: Insomnia Review of Systems Constitutional: fatigue, weakness Ears, nose, mouth and throat: no epistaxis Cardiovascular: no chest pain Respiratory: no shortness of breath, no congestion Gastrointestinal: abdominal pain, nausea, coffee ground emesis Musculoskeletal: no neck stiffness Integumentary: no rash, no pruritis Neurological: confusion, memory loss, no head injury Psychiatric: anxiety, no suicidal ideation, no hallucinations Hematologic/Lymphatic: no easy bruising, no easy bleeding Allergic/Immunologic: no urticaria Exam - Constitutional Vitals: Temp Pulse Resp BP Pulse Ox 98.4 F 105 H 22 127/74 100 08/17/20 03:04 08/17/20 03:57 08/17/20 03:57 08/17/20 03:04 08/17/20 03:57 General appearance: Present: mild distress, cachectic - EENT Eyes: Present: PERRL ENT: hearing intact, clear oral mucosa - Neck Neck: Present: supple, normal ROM - Respiratory Respiratory effort: normal Respiratory: bilateral: CTA - Cardiovascular Heart rate: 105 Heart Sounds: Present: S1 & S2. Absent: rub, click - Extremities Extremities: pulses symmetrical, No edema Peripheral Pulses: within normal limits - Abdominal General gastrointestinal: Present: soft, tender, non-distended, normal bowel sounds Female genitourinary: Present: normal - Integumentary Integumentary: Present: clear, warm, dry - Musculoskeletal Musculoskeletal: strength equal bilaterally, generalized weakness - Psychiatric Psychiatric: appropriate mood/affect - Neurologic Neurologic: CNII-XII intact, moves all extremities - Allied Health Allied health notes reviewed: nursing Results - Labs CBC & Chem 7: 08/17/20 04:05 08/17/20 04:05 Labs: Abnormal lab results 08/17/20 08/17/20 08/17/20 Range/Units 04:05 04:05 04:05 RBC 2.99 L (3.65-5.03) M/mm3 Hgb 8.9 L (10.1-14.3) gm/dl Hct 27.1 L (30.3-42.9) % Lymph % (Auto) 9.8 L (13.4-35.0) % Lymph # (Auto) 0.9 L (1.2-5.4) K/mm3 Seg Neutrophils % 85.8 H (40.0-70.0) % Seg Neutrophils # 8.3 H (1.8-7.7) K/mm3 PT 22.3 H (12.2-14.9) Sec. INR 1.94 H (0.87-1.13) APTT 44.4 H (24.2-36.6) Sec. BUN 73 H (7-17) mg/dL Creatinine 3.2 H (0.6-1.2) mg/dL Glucose 136 H (65-100) mg/dL Albumin 3.3 L (3.9-5) g/dL Assessment and Plan - Patient Problems (1) GI (gastrointestinal bleed) Current Visit: Yes Status: Acute Plan to address problem: GI consult Continue Protonix drip and monitor H&H We will transfuse packed red blood cells if needed. GI consulted (2) DANYA (acute kidney injury) Current Visit: No Status: Acute Plan to address problem: Likely secondary to dehydration Start IV hydration and Monitor kidney function Renal ultrasound, Avoid nephrotoxic drugs We will consult information consultant if needed Urine osmolarity and urine sodium ` (3) GERD (gastroesophageal reflux disease) Current Visit: No Status: Acute Plan to address problem: continue protonix gtt (4) Anemia Current Visit: Yes Status: Acute Plan to address problem: Likely secondary to GI bleed, monitor H&H Will transfuse packed red blood cells if H&H is less than 7 GI consulted will follow up with the plan of care (5) Moderate protein-calorie malnutrition Current Visit: Yes Status: Acute Plan to address problem: Consult nutrition Encourage oral intake when stable (6) DVT prophylaxis Current Visit: Yes Status: Acute Plan to address problem: SCD
[2020-08-17] MEDS ORDERED: D5W/0.45% NACL 1,000 ML IV SCH (07:00)
[2020-08-17] MEDS ORDERED: hydrALAZINE 20 MG/1 ML INJ IV PRN (07:10)
--- NOTE | 2020-08-17 08:34 | Ultrasound Report ---
ULTRASOUND RENAL INDICATION / CLINICAL INFORMATION: DANYA. COMPARISON: 08/08/2020 FINDINGS: RIGHT KIDNEY: Length = 9.7 cm. - Echogenicity: Decreased since the prior exam. - Cortical Thickness: 1.2 cm - Hydronephrosis: None. - Cyst or mass: The previously noted solid-appearing mass lesion is not well-visualized on this exam. - Stones: None seen. LEFT KIDNEY: Length = 9.9 cm. - Echogenicity: Decreased since the prior exam. There is persistent lobulated borders of the left kid ti. - Cortical Thickness: 1.3 cm - Hydronephrosis: None. - Cyst or mass: No significant abnormality. - Stones: None seen. URINARY BLADDER: No significant abnormality. FREE FLUID: None. ADDITIONAL FINDINGS: Previously noted right adnexal cyst similar to prior exam and measures 5.0 x 4.8 x 4.7 cm (previously 5.8 x 5.0 x 5.3 cm). IMPRESSION: 1. Minimally improved bilateral renal echogenicity when compared to 08/08/2020. 2. Right adnexal cyst unchanged in size or character since prior exam. 3. The previously noted possible solid-appearing lesion of the right kidney was not well-visualized o n this exam. 4. No calcified stones or hydronephrosis. Signer Name: Keny Martinez MD Signed: 08/17/2020 8:30 AM Workstation Name: [email or web address] ESTHER
[2020-08-17] MEDS: FERROUS SULFATE 325 MG TAB PO SCH ×2 (10:49→22:28)
[2020-08-17] MEDS: MULTIVITAMINS ,THERAPEUTIC TAB PO SCH (10:50)
[2020-08-17] MEDS ORDERED: SODIUM CHLORIDE 0.9% 1000 ML 1,000 ML ONE (10:55)
--- NOTE | 2020-08-17 12:59 | Event Note ---
Date: 08/17/20 This is the second visit after midnight Patient seen and examined Patient denies any nausea vomiting Vitals noted stable Patient resting on room air Physical exam: S1-S2 positive deep, breathing nonlabored, abdomen without any tenderness, soft bowel sounds positive. This is a 75-year-old female who was recently discharged from the hospital after being treated for a fracture and COVID-19 pneumonia presented back from the snf today with complaints of coffee-ground emesis. Patient noted to have hemoglobin of 8.9 in the ER, started on Protonix drip, consulted GI. We will place on clear liquid diet, will keep n.p.o. after midnight for possible EGD by GI. Will monitor H&H Based on prior hospitalization record patient does not have any history of DVT Eliquis as recommended for elevated D-dimer according to COVID-19 protocol. We will continue to hold any heparin product or anticoagulation, Continue current management and plan as dictated in the HPI. -- 20 minutes
--- NOTE | 2020-08-17 16:50 | Event Note ---
Date: 08/17/20 Full consult dictated - pt w/ coffee emesis - egd in am
[2020-08-17 23:49] LABS: Hematocrit 35.2 % (30.3-42.9); Hemoglobin 11.7 gm/dl (10.1-14.3)
--- NOTE | 2020-08-18 00:01 | Consultation ---
History of Present Illness - Reason for Consult Consult date: 08/17/20 acute renal failure, chronic renal failure - History of Present Illness The patient is a 75 YO WF with history significant for Fdc Resident, HTN, HLD, DVT-LLE, GERD, Depression, Dementia, Anxiety, Schizophrenia, ?Nicotine Dependence, COPD, Osteoporosis, past left hip replacement and CKD stage 3 / 4 who presented to [facility] ED 08/17 via EMS for evaluation of coffee-ground emesis that started yesterday. Patient is a very poor historian and there was no family member at the bedside. Information was obtained from prior notes. Patient denies any symptoms at this time. Of note she was recently treated for Covid infection and discharged on 08/08. Work-up in the ED showed WBC 9.6 hemoglobin 8.9, platelets 354, PT 22.3, INR 1.94, sodium 144, potassium 5.0, BUN 73, creatinine 3.2, serum glucose 136 and serum albumin 3.3. Patient was started on a Protonix drip and IV fluids. Nephrology was consulted for further evaluation of DANYA. Past History Past Medical History: other (See HPI.) Social history: smoking, other (Lives in alf facility) Family history: no significant family history Medications and Allergies Allergies Allergy/AdvReac Type Severity Reaction Status Date / Time No Known Allergies Allergy Verified 04/25/17 12:02 Home Medications Medication Instructions Recorded Confirmed Last Taken Type Tiotropium [Spiriva] 18 mcg IH QDAY 05/02/15 08/02/20 01/01/16 History Albuterol Sulfate [Ventolin Hfa] 2 puff IH BID PRN 04/25/17 08/02/20 Unknown History Cholecalciferol (Vitamin D3) 5,000 unit PO DAILY 04/25/17 08/02/20 Unknown History [Vitamin D3 5,000 UNIT] Ferrous Gluconate [Ferrous 324 mg PO QDAY 04/25/17 08/02/20 Unknown History Gluconate 324 MG] Ipratropium/Albuterol Sulfate 1 ampul IH Q6HR PRN 04/25/17 08/02/20 Unknown History [DUONEB *Not for PRN Use*] Mirtazapine [Remeron] 7.5 mg PO HS 04/25/17 08/02/20 Unknown History Sennosides [Senna] 8.6 mg PO HS PRN 04/25/17 08/02/20 Unknown History Pantoprazole [Protonix TAB] 40 mg PO BID #60 tablet 04/28/17 08/02/20 Unknown Rx Acetaminophen [Acetaminophen TAB] 650 mg PO Q4HR PRN MDD 3,000 mg 06/01/17 08/02/20 Unknown History Apixaban [Eliquis] 5 mg PO Q12HR tablet 08/08/20 Unknown Rx oxyCODONE /ACETAMINOPHEN [Percocet 1 tab PO Q6H PRN #20 tablet 08/08/20 Unknown Rx 5/325 mg] Active Meds: Active Medications Acetaminophen (Acetaminophen 325 Mg Tab) 650 mg PO Q4H PRN PRN Reason: Pain MILD(1-3)/Fever >100.5/DIXON Al Hydrox/Mg Hydrox/Simethicone (Alum-Mag Hydroxide-Simethicone [id number]/5ml Oral Liqd 30 Ml) 30 ml PO Q4H PRN PRN Reason: Indigestion Ferrous Sulfate (Ferrous Sulfate 325 Mg Tab) 325 mg PO BID COUNT INCLUDES THE [facility] Last Admin: 08/17/20 22:28 Dose: 325 mg Documented by: Hydralazine HCl (Hydralazine 20 Mg/1 Ml Inj) 5 mg IV Q4HR PRN PRN Reason: Hypertension Pantoprazole Sodium 80 mg/ (Sodium Chloride) 100 mls @ 10 mls/hr IV DIRECT COUNT INCLUDES THE [facility] Last Admin: 08/17/20 16:15 Dose: 8 mg/hr, 10 mls/hr Documented by: Dextrose/Sodium Chloride (D5/0.45ns) 1,000 mls @ 75 mls/hr IV DIRECT COUNT INCLUDES THE [facility] Magnesium Hydroxide (Magnesium Hydroxide (Mom) Oral Liqd Udc) 30 ml PO Q4H PRN PRN Reason: Constipation Metoclopramide HCl (Metoclopramide 10 Mg/2 Ml Inj) 5 mg IV Q6H PRN PRN Reason: Nausea And Vomiting Multivitamins (Multivitamins ,Therapeutic Tab) 1 each PO QDAY COUNT INCLUDES THE [facility] Last Admin: 08/17/20 10:50 Dose: 1 each Documented by: Ondansetron HCl (Ondansetron 4 Mg/2 Ml Inj) 4 mg IV Q8H PRN PRN Reason: Nausea And Vomiting Sodium Chloride (Sodium Chloride 0.9% 10 Ml Flush Syringe) 10 ml IV BID COUNT INCLUDES THE [facility] Last Admin: 08/17/20 22:31 Dose: 10 ml Documented by: Sodium Chloride (Sodium Chloride 0.9% 10 Ml Flush Syringe) 10 ml IV PRN PRN PRN Reason: LINE FLUSH Tramadol HCl (Tramadol 50 Mg Tab) 50 mg PO Q6H PRN PRN Reason: Pain, Moderate (4-6) Trazodone HCl (Trazodone 50 Mg Tab) 50 mg PO QHS PRN PRN Reason: Insomnia Review of Systems ROS unobtainable: due to mental status Exam - Vital Signs Vital signs: Vital Signs Temp Pulse Resp BP Pulse Ox 98.4 F 105 H 16 127/74 100 08/17/20 03:04 08/17/20 03:04 08/17/20 03:04 08/17/20 03:04 08/17/20 03:04 Results - Lab Results 08/18/20 17:49 08/18/20 05:57 Most recent lab results Calcium 9.3 mg/dL (8.4-10.2) 08/17/20 04:05 Assessment and Plan 1. Acute kidney injury: Vasomotor DANYA superimposed on CKD. Renal US negative for hydro. ATN. Monitor renal function. Avoid nephrotoxic agents. Meds dosage based on GFR. 2. FEN: Monitor volume status and lytes. 3. GI bleed: GI consulted. Protonix drip. Monitor. 4. Chronic hypoxemic respiratory failure, POA: H/o COPD. Patient on home oxygen 3 L. Continue NC O2. 5. Anemia: Monitor and transfuse as needed. 6. Right intertrochanteric hip fracture: S/p Closed reduction insertion of intramedullary nail right femur 07/25/2020. 7. H/o Dementia: Supportive care. 8. HTN: Monitor BP. Adjust meds as needed. Subjective: Patient was seen and examined at the bedside. Objective: General appearance: well-developed, appears stated age, appears emaciated, not in distress HEENT: ATNC, JANET Neck: trachea midline Respiratory: diminished breath sounds at bases Heart: regular, S1S2, no murmur Gastrointestinal: soft, normoactive bowel sounds, not tender Integumentary: no obvious rash Ext: no edema Neurologic: alert, able to move extremities
[2020-08-18 06:22] LABS: Basophils % (Auto) 0.5 % (0.0-1.8); Eosinophils # (Auto) 0.3 K/mm3 (0.0-0.4); Eosinophils % (Auto) 4.2 % (0.0-4.3); Hematocrit 30.9 % (30.3-42.9); Hemoglobin 10.3 gm/dl (10.1-14.3); Lymphocytes # (Auto) 1.9 K/mm3 (1.2-5.4); Lymphocytes % (Auto) 26.2 % (13.4-35.0); Mean Corpuscular HGB Conc 33 % (30-34); Mean Corpuscular Volume 89 fl (79-97); Monocytes # (Auto) 0.5 K/mm3 (0.0-0.8); Monocytes % (Auto) 7.4 % (0.0-7.3); Platelet Count 238 K/mm3 (140-440); Red Blood Count 3.47 M/mm3 (3.65-5.03)
[2020-08-18 07:16] LABS: Albumin 2.7 g/dL (3.9-5); BUN/Creatinine Ratio 24; Blood Urea Nitrogen 64 mg/dL (7-17); Calcium 8.6 mg/dL (8.4-10.2); Hemolysis Index 3
[2020-08-18 07:17] LABS: Alanine Aminotransferase < 5 units/L (7-56)
[2020-08-18 11:17] LABS: Osmolality,Urine 517 Mosm/kg
[2020-08-18] MEDS ORDERED: SODIUM CHLORIDE 0.9% 1000 ML 1,000 ML IV SCH (11:30)
[2020-08-18] MEDS ORDERED: WATER FOR IRRIG STERILE 250 ML BOTTLE IR ONE (11:57)
[2020-08-18] MEDS ORDERED: WATER FOR IRRIG STERILE 1,000 ML BOTTLE ONE (11:57)
[2020-08-18] MEDS: PANTOPRAZOLE 80 MG in SODIUM CHLORIDE 0.9% 100 ML IV SCH (12:31)
[2020-08-18] MEDS: FERROUS SULFATE 325 MG TAB PO SCH ×2 (12:32→21:42)
[2020-08-18] MEDS: MULTIVITAMINS ,THERAPEUTIC TAB PO SCH (12:33)
[2020-08-18] MEDS ORDERED: LIDOCAINE MPF (2%) 20 MG/1 ML VIAL 5 ML ONE (13:00)
--- NOTE | 2020-08-18 13:38 | Anesthesia Consultation ---
Anesthesia Consult and Med Hx Date of service: 08/18/20 - Airway Anesthetic Teeth Evaluation: Poor, Edentulous ROM Head & Neck: Adequate Mental/Hyoid Distance: Adequate Mallampati Class: Class II Intubation Access Assessment: Good - Pre-Operative Health Status ASA Pre-Surgery Classification: ASA4 Proposed Anesthetic Plan: MAC - Pulmonary Hx Smoking: Yes (current smoker, pt states only 3 cigs a day) Hx Asthma: No SOB: Yes (labored breathing) COPD: Yes Hx Pneumonia: No Hx Sleep Apnea: No - Cardiovascular System Hx Hypertension: Yes Hx Coronary Artery Disease: No Hx Heart Attack/AMI: No Hx Angina: No Hx Percutaneous Transluminal Coronary Angioplasty (PTCA): No Hx Pacemaker: No Hx Internal Defibrillator: No Hx Valvular Heart Disease: No Hx Heart Murmur: No Hx Peripheral Vascular Disease: No - Central Nervous System Hx Neuromuscular Disorder: Yes (dementia; alzheimers; vertigo) Hx Seizures: No CVA: No Hx Psychiatric Problems: Yes (Schizophrenia) - Gastrointestinal Hx Ulcer: No Hx Gastroesophageal Reflux Disease: Yes - Endocrine Hx Renal Disease: Yes (DANYA) Hx End Stage Renal Disease: No (CKD) Hx Cirrhosis: No Hx Liver Disease: No Hx Insulin Dependent Diabetes: No Hx Non-Insulin Dependent Diabetes: No Hx Thyroid Disease: No Hx Hypothyroidism: No Hx Hyperthyroidism: No - Hematic Hx Anemia: No Hx Sickle Cell Disease: No - Other Systems Hx Alcohol Use: No Hx Cancer: No - Additional Comments Anesthesia Medical History Comments: Here [id number] for hip fx repair
[2020-08-18] MEDS ORDERED: propofoL 200 MG/20 ML VIAL IV ONE (13:48)
--- NOTE | 2020-08-18 13:56 | Progress Note ---
Assessment and Plan -- GI (gastrointestinal bleed) GI consult Continue Protonix drip and monitor H&H We will transfuse packed red blood cells if needed. GI consulted -- DANYA (acute kidney injury) on CKD Likely secondary to dehydration/vasomotor nephropathy Start IV hydration and Monitor kidney function Renal ultrasound, Avoid nephrotoxic drugs We will consult trade mark attorney if needed Urine osmolarity and urine sodium ` -- GERD (gastroesophageal reflux disease) continue protonix gtt -- Anemia Likely secondary to GI bleed/blood loss, monitor H&H Will transfuse packed red blood cells if H&H is less than 7 GI consulted will follow up with the plan of care --History of COPD with 3 L home O2 Patient appears stable, continue nebulizer breathing treatment and supplemental O2 as needed -- Moderate protein-calorie malnutrition Consult nutrition Encourage oral intake when stable --Recent history of COVID-19 positive reported 07/26/2020 Patient currently asymptomatic and resting at room air Continue to monitor --h/o Right intertrochanteric hip fracture s/p Closed reduction insertion of intramedullary nail right femur 07/25/2020. Continue to provide supportive care, PT following discharge -- DVT prophylaxis SCD Daily clinical course: 08/18/20: Continue to follow serum creatinine and H&H. Creatinine slightly trended down today from 3.2>2.7. patient received 2 units of blood transfusion yesterday. GI following, plan for EGD today. Subjective Date of service: 08/18/20 Interval history: Patient seen and examined Discussed plan of care with case management and nursing staff Vitals noted, no overnight event Patient denies any further nausea or coffee-ground emesis Denies any abdominal pain, remains n.p.o. after midnight EGD Objective - Exam Narrative Exam: GENERAL: Elderly white female lying on bed appeared to be in no discomfort. HEENT: Normocephalic. Atraumatic. No conjunctival congestion or icterus. Patient has moist mucous membranes. NECK: Supple. Trachea midline. CHEST/LUNGS: Clear to auscultated bilaterally, breathing nonlabored. No wheezes crackles or rhonchi. HEART/CARDIOVASCULAR: Regular in rate and rhythm. S1 and S2 positive. ABDOMEN: Abdomen is soft, nontender. Patient has normal bowel sounds. SKIN: There is no rash. Warm and dry. NEURO: No focal motor deficit. Follows command. MUSCULOSKELETAL: No joint effusion or tenderness. EXTRIMITY: No edema, no cyanosis or clubbing. PSYCH: Cooperative. - Constitutional Vitals: Vital Signs - 12hr 08/18/20 08/18/20 08/18/20 02:00 03:32 07:55 Temperature 98.3 F Pulse Rate 71 71 Respiratory 16 Rate Blood Pressure 135/72 O2 Sat by Pulse 91 98 Oximetry 08/18/20 08/18/20 08:10 11:25 Temperature 97.5 F L Pulse Rate 72 67 Respiratory 18 Rate Blood Pressure 108/86 O2 Sat by Pulse 90 88 Oximetry - Labs CBC & Chem 7: 08/19/20 04:54 08/19/20 04:54 Labs: Abnormal lab results 08/17/20 08/18/20 08/18/20 Range/Units 04:05 05:57 05:57 RBC 3.47 L (3.65-5.03) M/mm3 [place] % (Auto) 7.4 H (0.0-7.3) % Chloride 110.1 H (98-107) mmol/L BUN 64 H (7-17) mg/dL Creatinine 2.7 H (0.6-1.2) mg/dL Glucose 117 H (65-100) mg/dL ALT < 5 L (7-56) units/L Total Protein 5.3 L D (6.3-8.2) g/dL Albumin 2.7 L (3.9-5) g/dL Urine Creatinine (0.1-20.0) mg/dL Crossmatch See Detail 08/18/20 Range/Units 07:20 RBC (3.65-5.03) M/mm3 [place] % (Auto) (0.0-7.3) % Chloride (98-107) mmol/L BUN (7-17) mg/dL Creatinine (0.6-1.2) mg/dL Glucose (65-100) mg/dL ALT (7-56) units/L Total Protein (6.3-8.2) g/dL Albumin (3.9-5) g/dL Urine Creatinine 82.2 H (0.1-20.0) mg/dL Crossmatch
--- NOTE | 2020-08-18 14:31 | Post Operative Note ---
Pre-op diagnosis: gi bleed Post-op diagnosis: same Findings: EGD: large (10cm) hiatal hernia - Grade I esophagitis g-e junction (bx's) - otherwise benign Procedure: EGD w/ bx Anesthesia: MAC Surgeon: ELVIRA ART Estimated blood loss: none Pathology: list Specimen disposition: to lab Condition: stable Disposition: floor
--- NOTE | 2020-08-18 15:10 | Post Anesthesia Evaluation ---
- Post Anesthesia Evaluation Patient Participated: Yes Airway Patent: Yes Stable Respiratory Function: Yes Nausea/Vomiting: No Temp > 96.8F: Yes Pain Manageable: Yes Adequeate Hydration: Yes Anesthesia Complications: No Block Receding Appropriately: Not Applicable Patient on Ventilator: No
--- NOTE | 2020-08-18 15:10 | Anesthesia Day of Surgery ---
Anesthesia Day of Surgery - Day of Surgery Patient Examined: Yes Patient H&P Reviewed: Yes Patient is NPO: Yes
[2020-08-18 18:54] LABS: Hematocrit 32.4 % (30.3-42.9); Hemoglobin 10.7 gm/dl (10.1-14.3)
--- NOTE | 2020-08-18 20:30 | Progress Note ---
Assessment and Plan 1. Acute kidney injury: Vasomotor DANYA superimposed on CKD. Renal US negative for hydro. ATN. Continue IV fluids. Monitor renal function. Creatinine level is improving. Avoid nephrotoxic agents. Meds dosage based on GFR. 2. FEN: Monitor volume status and lytes. 3. GI bleed: Seen by GI. Protonix drip. Monitor. 4. Chronic hypoxemic respiratory failure, POA: H/o COPD. Patient on home oxygen 3 L. Continue NC O2. 5. Anemia: Monitor and transfuse as needed. 6. Right intertrochanteric hip fracture: S/p Closed reduction insertion of intramedullary nail right femur 07/25/2020. 7. H/o Dementia: Supportive care. 8. HTN: Monitor BP. Adjust meds as needed. Subjective: Patient was seen and examined at the bedside. Objective: General appearance: well-developed, appears stated age, appears emaciated, not in distress HEENT: ATNC, JANET Neck: trachea midline Respiratory: diminished breath sounds at bases Heart: regular, S1S2, no murmur Gastrointestinal: soft, normoactive bowel sounds, not tender Integumentary: no obvious rash Ext: no edema Neurologic: alert, able to move extremities Subjective Date of service: 08/18/20 Objective - Vital Signs Vital signs: Vital Signs - 12hr 08/18/20 08/18/20 08/18/20 11:25 13:20 14:00 Temperature 98.1 F 97.7 F Pulse Rate 67 63 68 Respiratory 19 16 Rate Blood Pressure 119/58 102/53 O2 Sat by Pulse 88 98 100 Oximetry 08/18/20 08/18/20 08/18/20 14:15 14:30 17:07 Temperature 97.5 F L Pulse Rate 63 63 60 Respiratory 20 20 18 Rate Blood Pressure 107/63 107/63 92/52 O2 Sat by Pulse 100 100 96 Oximetry 08/18/20 19:06 Temperature 98.4 F Pulse Rate 72 Respiratory 14 Rate Blood Pressure 89/42 O2 Sat by Pulse 91 Oximetry - Lab 08/18/20 17:49 08/18/20 05:57 Most recent lab results Calcium 8.6 mg/dL (8.4-10.2) 08/18/20 05:57 Urine Creatinine 82.2 mg/dL (0.1-20.0) H 08/18/20 07:20 Urine Sodium 60 mmol/L 08/18/20 07:20 Medications & Allergies - Medications Allergies/Adverse Reactions: Allergies No Known Allergies Allergy (Verified 04/25/17 12:02) Home Medications: Home Medications Medication Instructions Recorded Confirmed Last Taken Type Tiotropium [Spiriva] 18 mcg IH QDAY 05/02/15 08/02/20 01/01/16 History Albuterol Sulfate [Ventolin Hfa] 2 puff IH BID PRN 04/25/17 08/02/20 Unknown History Cholecalciferol (Vitamin D3) 5,000 unit PO DAILY 04/25/17 08/02/20 Unknown History [Vitamin D3 5,000 UNIT] Ferrous Gluconate [Ferrous 324 mg PO QDAY 04/25/17 08/02/20 Unknown History Gluconate 324 MG] Ipratropium/Albuterol Sulfate 1 ampul IH Q6HR PRN 04/25/17 08/02/20 Unknown History [DUONEB *Not for PRN Use*] Mirtazapine [Remeron] 7.5 mg PO HS 04/25/17 08/02/20 Unknown History Sennosides [Senna] 8.6 mg PO HS PRN 04/25/17 08/02/20 Unknown History Pantoprazole [Protonix TAB] 40 mg PO BID #60 tablet 04/28/17 08/02/20 Unknown Rx Acetaminophen [Acetaminophen TAB] 650 mg PO Q4HR PRN MDD 3,000 mg 06/01/17 08/02/20 Unknown History Apixaban [Eliquis] 5 mg PO Q12HR tablet 08/08/20 Unknown Rx oxyCODONE /ACETAMINOPHEN [Percocet 1 tab PO Q6H PRN #20 tablet 08/08/20 Unknown Rx 5/325 mg] Active Medications: Generic Name Dose Route Start Last Admin Trade Name Freq PRN Reason Stop Dose Admin Acetaminophen 650 mg 08/17/20 06:16 Acetaminophen 325 Mg Tab PO Q4H PRN Pain MILD(1-3)/Fever >100.5/DIXON Al Hydrox/Mg Hydrox/Simethicone 30 ml 08/17/20 06:16 Alum-Mag Hydroxide-Simethicone [id number]/5ml Oral Liqd 30 Ml PO Q4H PRN Indigestion Ferrous Sulfate 325 mg 08/17/20 10:00 08/18/20 12:32 Ferrous Sulfate 325 Mg Tab PO Not Given BID SAY Hydralazine HCl 5 mg 08/17/20 07:10 Hydralazine 20 Mg/1 Ml Inj IV Q4HR PRN SBP >/=160; DBP >/=100 Pantoprazole Sodium 80 mg/ 100 mls @ 10 mls/hr 08/17/20 04:00 08/18/20 12:31 Sodium Chloride IV 8 mg/hr DIRECT SAY 10 mls/hr Administration 8 MG/HR Dextrose/Sodium Chloride 1,000 mls @ 75 mls/hr 08/17/20 07:00 D5/0.45ns IV DIRECT SAY Sodium Chloride 1,000 mls @ 50 mls/hr 08/18/20 11:30 Nacl 0.9% 1000 Ml IV DIRECT SAY Magnesium Hydroxide 30 ml 08/17/20 06:16 Magnesium Hydroxide (Mom) Oral Liqd Udc PO Q4H PRN Constipation Metoclopramide HCl 5 mg 08/17/20 06:16 Metoclopramide 10 Mg/2 Ml Inj IV Q6H PRN Nausea And Vomiting Multivitamins 1 each 08/17/20 10:00 08/18/20 12:33 Multivitamins ,Therapeutic Tab PO Not Given QDAY SAY Ondansetron HCl 4 mg 08/17/20 06:16 Ondansetron 4 Mg/2 Ml Inj IV Q8H PRN Nausea And Vomiting Sodium Chloride 10 ml 08/17/20 10:00 08/18/20 12:32 Sodium Chloride 0.9% 10 Ml Flush Syringe IV 10 ml BID SAY Administration Sodium Chloride 10 ml 08/17/20 06:16 Sodium Chloride 0.9% 10 Ml Flush Syringe IV PRN PRN LINE FLUSH Tramadol HCl 50 mg 08/17/20 06:19 Tramadol 50 Mg Tab PO Q6H PRN Pain, Moderate (4-6) Trazodone HCl 50 mg 08/17/20 06:19 Trazodone 50 Mg Tab PO QHS PRN Insomnia
[2020-08-19 00:36] LABS: Hematocrit 29.7 % (30.3-42.9); Hemoglobin 9.6 gm/dl (10.1-14.3)
--- NOTE | 2020-08-19 02:49 | Consultation ---
DATE OF CONSULTATION: 08/17/2020 REFERRING PHYSICIAN: Marlen Collier. REASON FOR CONSULTATION: 1. GI bleed. 2. Coffee-ground emesis. HISTORY OF PRESENT ILLNESS: The patient is a 75-year-old black female with history of hypertension, schizophrenia and DVT, on Eliquis as well as hip fracture recently. The patient presents now with coffee-ground emesis for the last couple of days. She reports no black tarry stools. She denies any weight loss. The patient subsequently came to the emergency room, was evaluated and noted to be heme positive, admitted and GI consulted. No other specific complaints. PAST MEDICAL HISTORY: 1. Hypertension. 2. Schizophrenia. 3. DVT. MEDICATIONS: Reviewed and updated in chart. ALLERGIES: No known drug allergies. SOCIAL HISTORY: Denies alcohol, tobacco or drug abuse. FAMILY HISTORY: Negative for colon cancer, IBD, or liver disease. REVIEW OF SYSTEMS: GENERAL: Positive weakness. HEENT: No visual complaints or tinnitus. PULMONARY: Short of breath. CARDIOVASCULAR: No chest pain. GASTROINTESTINAL: Reports abdominal pain. All other points a 13-point review of system otherwise negative. PHYSICAL EXAMINATION: VITAL SIGNS: Temperature of 98.1, pulse 63, respirations 18, blood pressure 119/58. GENERAL: Fairly thin female in no acute distress. HEENT: Pupils round and reactive. PULMONARY: Clear. CARDIOVASCULAR: Regular rhythm. Normal S1, S2. ABDOMEN: Soft. SKIN: No obvious rashes. LABORATORY DATA: Pertinent for white count 9.6, hemoglobin and hematocrit of 8.9 and 27.1, platelet count of 354. INR of 1.94. Chem-7 within normal limits. LFTs within normal limits. ASSESSMENT: A 75-year-old female with a history of deep venous thrombosis, on Eliquis, now presents with reported coffee-ground emesis with anemia. Possible upper gastrointestinal bleed. PLAN: 1. Follow hematocrit, transfuse as needed. 2. PPI IV b.i.d. 3. Avoid NSAIDs and aspirin. 4. N.p.o. after midnight. 5. Plan EGD in a.m. TID: [id number] RECEIPT: [id number] [facility]
--- NOTE | 2020-08-19 05:25 | Operative Report ---
DATE OF SURGERY: 08/18/2020 PROCEDURE: EGD with cold biopsy. INDICATIONS: 1. Anemia. 2. GI bleed. MEDICATIONS: Propofol per ACUTE CARE NURSING ASSISTANT. COMPLICATIONS: None. DESCRIPTION OF PROCEDURE: The patient was brought to the procedure suite. The patient had the procedure discussed with her at length. All risks, complications, and benefits were discussed, after which the patient signed for the procedure performed. The patient was placed in left lateral decubitus position, mouth black placed patient's oral cavity. After adequate sedation with medications as above, the endoscope was brought to the level of the second portion of duodenum. Retroflexion view performed. The patient's vital signs have been stable throughout the procedure. FINDINGS: There was grade I esophagitis with some irritation, ulceration noted at GE junction at 30 cm from the gums. Biopsies were taken and sent to pathology. There was a large approximately 10 cm hiatal hernia at the GE junction. No stigmata of bleeding was noted. There was mild gastritis noted in the antrum. The stomach otherwise appeared to be normal. Duodenum appeared to be normal. Retroflexion view performed in the stomach showed no other pathology other than noted above. The patient tolerated the procedure well. No complications during this procedure. IMPRESSION: 1. Large hiatal hernia. 2. Grade I esophagitis with biopsies performed. 3. Mild gastritis. 4. Otherwise, normal esophagogastroduodenoscopy. RECOMMENDATIONS: 1. Follow up biopsy results. 2. If Helicobacter pylori positive, we will treat. 3. PPI qd. 4. Advance diet. 5. If patient is stable, okay to discharge from GI standpoint. TID: [id number] RECEIPT: [id number] [facility]/MAUREEN PHAM
[2020-08-19 06:01] LABS: Hematocrit 32.4 % (30.3-42.9); Hemoglobin 10.6 gm/dl (10.1-14.3)
[2020-08-19 06:15] LABS: Calcium 8.9 mg/dL (8.4-10.2)
[2020-08-19] MEDS ORDERED: PANTOPRAZOLE 40 MG TAB PO SCH (07:30)
--- NOTE | 2020-08-19 09:06 | Progress Note ---
Assessment and Plan 1. Acute kidney injury: Vasomotor DANYA superimposed on CKD. Renal US negative for hydro. ATN. Continue IV fluids. Monitor renal function. Creatinine level is improving. Avoid nephrotoxic agents. Meds dosage based on GFR. 2. FEN: Monitor volume status and lytes. 3. GI bleed: Seen by GI. S?p EGD. On Protonix. Monitor. 4. Chronic hypoxemic respiratory failure, POA: H/o COPD. Patient on home oxygen 3 L. Continue NC O2. 5. Anemia: Monitor and transfuse as needed. 6. Right intertrochanteric hip fracture: S/p Closed reduction insertion of intramedullary nail right femur 07/25/2020. 7. H/o Dementia: Supportive care. 8. HTN: Monitor BP. Adjust meds as needed. Subjective: Patient was seen and examined at the bedside. Objective: General appearance: well-developed, appears stated age, appears emaciated, not in distress HEENT: ATNC, JANET Neck: trachea midline Respiratory: diminished breath sounds at bases Heart: regular, S1S2, no murmur Gastrointestinal: soft, normoactive bowel sounds, not tender Integumentary: no obvious rash Ext: no edema Neurologic: alert, able to move extremities Subjective Date of service: 08/19/20 Objective - Vital Signs Vital signs: Vital Signs - 12hr 08/18/20 08/18/20 08/19/20 22:00 23:18 03:29 Temperature 98.1 F 97.6 F Pulse Rate 61 66 Pulse Rate [ 77 Right Radial] Respiratory 18 14 14 Rate Blood Pressure 117/50 114/43 O2 Sat by Pulse 94 94 93 Oximetry 08/19/20 08/19/20 04:00 08:31 Temperature 98.2 F Pulse Rate 66 74 Pulse Rate [ Right Radial] Respiratory 18 Rate Blood Pressure 104/40 O2 Sat by Pulse 96 Oximetry - Lab 08/19/20 04:54 08/19/20 04:54 Most recent lab results Calcium 8.9 mg/dL (8.4-10.2) 08/19/20 04:54 Urine Creatinine 82.2 mg/dL (0.1-20.0) H 08/18/20 07:20 Urine Sodium 60 mmol/L 08/18/20 07:20 Medications & Allergies - Medications Allergies/Adverse Reactions: Allergies No Known Allergies Allergy (Verified 04/25/17 12:02) Home Medications: Home Medications Medication Instructions Recorded Confirmed Last Taken Type Tiotropium [Spiriva] 18 mcg IH QDAY 05/02/15 08/02/20 01/01/16 History Albuterol Sulfate [Ventolin Hfa] 2 puff IH BID PRN 04/25/17 08/02/20 Unknown History Cholecalciferol (Vitamin D3) 5,000 unit PO DAILY 04/25/17 08/02/20 Unknown Hist ory [Vitamin D3 5,000 UNIT] Ipratropium/Albuterol Sulfate 1 ampul IH Q6HR PRN 04/25/17 08/02/20 Unknown History [DUONEB *Not for PRN Use*] Mirtazapine [Remeron] 7.5 mg PO HS 04/25/17 08/02/20 Unknown History Sennosides [Senna] 8.6 mg PO HS PRN 04/25/17 08/02/20 Unknown History oxyCODONE /ACETAMINOPHEN [Percocet 1 tab PO Q6H PRN #20 tablet 08/08/20 Unknown Rx 5/325 mg] Ferrous Sulfate [Feosol 325 MG tab] 325 mg PO BID tablet 08/19/20 Unknown Rx Pantoprazole [Protonix TAB] 40 mg PO QDAC tablet 08/19/20 Unknown Rx Active Medications: Generic Name Dose Route Start Last Admin Trade Name Freq PRN Reason Stop Dose Admin Acetaminophen 650 mg 08/17/20 06:16 Acetaminophen 325 Mg Tab PO Q4H PRN Pain MILD(1-3)/Fever >100.5/DIXON Al Hydrox/Mg Hydrox/Simethicone 30 ml 08/17/20 06:16 Alum-Mag Hydroxide-Simethicone [id number]/5ml Oral Liqd 30 Ml PO Q4H PRN Indigestion Ferrous Sulfate 325 mg 08/17/20 10:00 08/18/20 21:42 Ferrous Sulfate 325 Mg Tab PO 325 mg BID SAY Administration Hydralazine HCl 5 mg 08/17/20 07:10 Hydralazine 20 Mg/1 Ml Inj IV Q4HR PRN SBP >/=160; DBP >/=100 Dextrose/Sodium Chloride 1,000 mls @ 75 mls/hr 08/17/20 07:00 D5/0.45ns IV DIRECT SAY Sodium Chloride 1,000 mls @ 50 mls/hr 08/18/20 11:30 08/18/20 21:43 Nacl 0.9% 1000 Ml IV 50 mls/hr DIRECT SAY Administration Magnesium Hydroxide 30 ml 08/17/20 06:16 Magnesium Hydroxide (Mom) Oral Liqd Udc PO Q4H PRN Constipation Metoclopramide HCl 5 mg 08/17/20 06:16 Metoclopramide 10 Mg/2 Ml Inj IV Q6H PRN Nausea And Vomiting Multivitamins 1 each 08/17/20 10:00 08/18/20 12:33 Multivitamins ,Therapeutic Tab PO Not Given QDAY SAY Ondansetron HCl 4 mg 08/17/20 06:16 Ondansetron 4 Mg/2 Ml Inj IV Q8H PRN Nausea And Vomiting Pantoprazole Sodium 40 mg 08/19/20 07:30 Pantoprazole 40 Mg Tab PO QDAC SAY Sodium Chloride 10 ml 08/17/20 10:00 08/18/20 21:43 Sodium Chloride 0.9% 10 Ml Flush Syringe IV 10 ml BID SAY Administration Sodium Chloride 10 ml 08/17/20 06:16 Sodium Chloride 0.9% 10 Ml Flush Syringe IV PRN PRN LINE FLUSH Tramadol HCl 50 mg 08/17/20 06:19 Tramadol 50 Mg Tab PO Q6H PRN Pain, Moderate (4-6) Trazodone HCl 50 mg 08/17/20 06:19 Trazodone 50 Mg Tab PO QHS PRN Insomnia
[2020-08-19] MEDS ORDERED: POTASSIUM CHLORIDE ER 20 MEQ TAB PO SCH (09:30)
[2020-08-19] MEDS: FERROUS SULFATE 325 MG TAB PO SCH (11:18)
[2020-08-19] MEDS: MULTIVITAMINS ,THERAPEUTIC TAB PO SCH (11:19)
--- NOTE | 2020-08-19 14:03 | Discharge Summary ---
Providers - Providers Date of Admission: 08/17/20 05:13 Date of discharge: 08/19/20 Attending physician: ALEXANDRIA BARR 08/17/20 06:16 Consult to Physician [CONS] Stat Comment: Consulting Provider: MAXIMUS THORPE Physician Instructions: Reason For Exam: gi bleed 08/17/20 06:47 Consult to Dietitian/Nutrition [CONS] Stat Physician Instructions: Reason For Exam: protein calories malnutrition Reason for Consult: Malnutrition 08/17/20 12:59 Consult to Physician [CONS] Routine Comment: Consulting Provider: AZUL VALDIVIA Physician Instructions: Reason For Exam: DANYA 08/17/20 18:53 Consult to Wound/ET Nurse [CONS] Routine Reason For Exam: wound eval right hip surgical incision Primary care physician: FARM MACHINERY MECHANIC Hospitalization Condition: Stable Pertinent studies: Renal US: Minimally improved bilateral echogenicity compared to prior exam. Hospital course: This is a 75-year-old female who was recently discharged from the hospital after being treated for a fracture and COVID-19 pneumonia [facility] this [facility] with complaints of coffee-ground emesis. Patient noted to have hemoglobin of 8.9 in the ER, started on Protonix drip, consulted GI. Patient was transfused 2 units of packed RBC. Patient also noted to have DANYA with mildly elevated creatinine. Patient placed on IV fluid, kept n.p.o. after midnight, s/p EGD by GI. EGD showed large (10cm) hiatal hernia and Grade I esophagitis g-e junction (bx's) but otherwise benign finding. She did not have any active bleeding and renal function was stable. GI recommended to continue PPI and outpt f/u. Patient was then discharged back to SNF in stable condition. Disposition: [id number]/[id number] SNF W [facility] C[facility] Final Discharge Diagnosis (Prints w/discharge instructions): --Acute GI bleed due to esophagitis and gastritis. --DANYA on CKD stage III. --History of GERD. --Anemia due to acute blood loss from upper GI. --History of COPD with 3 L home O2. -- Moderate protein-calorie malnutrition. --Recent history of COVID-19 positive reported 07/26/2020. --h/o Right intertrochanteric hip fracture, s/p Closed reduction insertion of intramedullary nail right femur 07/25/2020. --hypokalemia Time spent for discharge: 34 minutes Core Measure Documentation - Palliative Care Palliative Care/ Comfort Measures: Not Applicable - Core Measures Any of the following diagnoses?: none Exam - Physical Exam Narrative exam: GENERAL: Elderly white female lying on bed appeared to be in no discomfort. HEENT: Normocephalic. Atraumatic. No conjunctival congestion or icterus. Patient has moist mucous membranes. NECK: Supple. Trachea midline. CHEST/LUNGS: Clear to auscultated bilaterally, breathing nonlabored. No wheezes crackles or rhonchi. HEART/CARDIOVASCULAR: Regular in rate and rhythm. S1 and S2 positive. ABDOMEN: Abdomen is soft, nontender. Patient has normal bowel sounds. SKIN: There is no rash. Warm and dry. NEURO: No focal motor deficit. Follows command. MUSCULOSKELETAL: No joint effusion or tenderness. EXTRIMITY: No edema, no cyanosis or clubbing. PSYCH: Cooperative. - Constitutional Vitals: Temp Pulse Resp BP Pulse Ox 97.6 F 78 18 123/66 96 08/19/20 11:24 08/19/20 11:24 08/19/20 11:24 08/19/20 11:24 08/19/20 11:24 Plan Activity: advance as tolerated, fall precautions Weight Bearing Status: Weight Bear as Tolerated Diet: advance as tolerated Additional Instructions: Repeat BMP in 1 week Follow up with: EDDIE OSORIO MD [Primary Care Provider] - 3-5 Days AZUL VALDIVIA MD [Staff Physician] - 7 Days
--- NOTE | 2020-08-19 15:33 | Gastroenterology Progress Note ---
Assessment and Plan GI: stable w/o signs bleeding overnight - advance diet as tolerated - ok to dc from GI standpoint - will sign off, call if needed Subjective Date of service: 08/19/20 Interval history: - no GI complaints overnight Objective - Constitutional Vitals: Temp Pulse Resp BP Pulse Ox 97.6 F 78 18 123/66 96 08/19/20 11:24 08/19/20 11:24 08/19/20 11:24 08/19/20 11:24 08/19/20 11:24 General appearance: no acute distress - EENT Eyes: PERRL - Respiratory Respiratory: bilateral: CTA - Cardiovascular Rhythm: regular Heart Sounds: Present: S1 & S2 - Gastrointestinal General gastrointestinal: Present: soft, non-tender, non-distended - Labs CBC & Chem 7: 08/19/20 04:54 08/19/20 04:54 Labs: Laboratory Results - last 24 hr 08/18/20 08/18/20 08/19/20 09:35 17:49 00:04 Hgb 10.7 9.6 L Hct 32.4 29.7 L Sodium Potassium Chloride Carbon Dioxide Anion Gap BUN Creatinine Estimated GFR BUN/Creatinine Ratio Glucose Calcium Coronavirus (PCR) Negative 08/19/20 08/19/20 04:54 04:54 Hgb 10.6 Hct 32.4 Sodium 143 Potassium 3.4 L D Chloride 108.9 H Carbon Dioxide 23 Anion Gap 15 BUN 44 H Creatinine 2.1 H Estimated GFR 23 BUN/Creatinine Ratio 21 Glucose 80 Calcium 8.9 Coronavirus (PCR)
[2020-08-19 17:47] VITALS: BP 121/65
--- NOTE | 2020-08-19 17:48 | Electrocardiograph Report ---
[facility] Test Date: 2020-08-17 Test Time: 05:33:41 Pat Name: BON SHUKLA Department: Room: A471 Gender: F Analytic Programmer: : 1945 Requested By: KIRSTEN REBOLLAR Order Number: [id number] Reading MD: Chris Castro Measurements Intervals [place] Rate: 103 P: 48 MN: 120 QRS: 35 QRSD: 65 T: 20 QT: 330 QTc: 432 Interpretive Statements Sinus tachycardia No previous ECG available for comparison Electronically Signed On 08-19-2020 17:48:39 EDT by Chris Castro
== END 2020-08-19 19:50 | DRG 368 ==
LOC: ED 03:03 → 4A 05:13
PROVIDERS: ADMIT Internal Medicine Geriatric Medicine; ATTEND Internal Medicine
PROC: 30233N1 Transfusion of Nonautologous Red Blood Cells into Peripheral Vein, Percutaneous Approach (ICD-10-PCS; 2020-08-17)
PROC: 0DB58ZX Excision of Esophagus, Via Natural or Artificial Opening Endoscopic, Diagnostic (ICD-10-PCS; principal; 2020-08-18)
DX: K20.91 Esophagitis, unspecified with bleeding (principal); N17.0 Acute kidney failure with tubular necrosis; K29.01 Acute gastritis with bleeding; E44.0 Moderate protein-calorie malnutrition; D62 Acute posthemorrhagic anemia; Z20.822 Contact with and (suspected) exposure to COVID-19; I10 Essential (primary) hypertension; F20.9 Schizophrenia, unspecified; M19.90 Unspecified osteoarthritis, unspecified site; F32.9 Major depressive disorder, single episode, unspecified; G30.9 Alzheimer's disease, unspecified; F02.80 Dementia in other diseases classified elsewhere, unspecified severity, without behavioral disturbance, psychotic disturbance, mood disturbance, and anxiety; F17.210 Nicotine dependence, cigarettes, uncomplicated; E87.6 Hypokalemia; F41.9 Anxiety disorder, unspecified; E78.00 Pure hypercholesterolemia, unspecified; E86.0 Dehydration; J44.9 Chronic obstructive pulmonary disease, unspecified; N18.30 Chronic kidney disease, stage 3 unspecified; D64.9 Anemia, unspecified; K21.9 Gastro-esophageal reflux disease without esophagitis; Z86.718 Personal history of other venous thrombosis and embolism; Z79.01 Long term (current) use of anticoagulants; Z79.899 Other long term (current) drug therapy; Z79.891 Long term (current) use of opiate analgesic; Z87.81 Personal history of (healed) traumatic fracture; Z86.16 Personal history of COVID-19
CPT/HCPCS: 36415; 76770; 80048; 80053; 80076; 82140; 82570; 83935; 84300; 85014; 85018; 85025; 85610; 85730; 86850; 86870; 86900; 86901; 86922; 87641; 88305; 88312; 89050; 93005; G0378; C9113; J2405; J2704; J7030; P9016; U0003